=== PATIENT | female | born 1980 | race Caucasian/White ===

== ENCOUNTER 2023-06-01 12:43 | Emergency (ER) | payer OTHER, SELFPAY ==
[2023-06-01 12:50] VITALS: BP 117/82; PULSE 90; RESP 16; TEMP 37.5; O2SAT 99
--- NOTE | 2023-06-01 13:14 | ED.GENADULT ---
HPI - General Adult General Chief complaint: Upper Respiratory Infection Stated complaint: Cough/Fever/Body Aches Time Seen by Provider: 06/01/23 13:14 Source: patient, RN notes reviewed and old records reviewed Mode of arrival: ambulatory Limitations: no limitations History of Present Illness HPI narrative: 43-year-old female presents to the [facility] with complaints of cough, body aches Took an at home cOVID test on Monday and again today which she reports as negative. Patient concern for flu. Related Data Home Medications Medication Instructions Recorded Confirmed diltiazem HCl 120 mg 120 mg PO DAILY 06/01/23 06/01/23 capsule,extended release 24 hr, controlled Allergies Allergy/AdvReac Type Severity Reaction Status Date / Time No Known Drug Allergies Allergy Verified 08/16/13 10:22 Review of Systems Review of Systems: All systems reviewed & are unremarkable except as noted in HPI and below Constitutional: Constitutional: Reports as per HPI, Reports body ache(s), Reports fatigue and Reports fever(s) Eyes: Eyes: Reports no additional eye complaints ENT: Reports system reviewed and no additional complaints, except as documented Cardiovascular: Cardiovascular: Reports no additional cardiovascular complaints, Denies chest pain and Denies dyspnea Respiratory: Respiratory: Reports as per HPI, Denies chest congestion, Reports cough and Denies dyspnea Gastrointestinal: Gastrointestinal: Reports no additional gastrointestinal complaints, Denies abdominal pain, Denies nausea and Denies vomiting Musculoskeletal: Musculoskeletal: Reports no additional musculoskeletal complaints Integumentary/Breasts: Skin/Breast: Reports system reviewed and no additional complaints, except as docu Neurologic: Reports system reviewed and no additional complaints, except as documented Psychiatric: Psychiatric: Reports no additional psychiatric complaints Allergic/Immunologic: Allergic/Immunologic: Reports no additional allergic/immunologic complaints PMFSH Comments At the time of my signature, I reviewed and agree with the nursing past medical, surgical, social, and family history. There is no relevant family history pertinent to the patient complaint. Exam Const: General: cooperative, healthy appearing, comfortable, no acute distress, well developed, alert and well nourished Nutritional Appearance: well nourished Orientation/consciousness: patient oriented x3 Limitations: no limitations HENMT: Head: normal to inspection Ears: hearing grossly normal bilaterally and external ears normal Face/Nose/Sinus: Normal external nose present, Normal nares present, Normal nasal mucous membranes and turbinates present, normal facial exam and face symmetric Face and sinus: normal facial exam and face symmetric Mouth: Yes Normal oral and palatal mucosa present, Yes lip normal and Yes moist mucous membranes Throat: posterior oropharynx normal, tonsils normal and uvula midline Eyes: General: appearance normal, both eyes and all related structures Alignment and Position: alignment normal Periorbital: periorbital findings normal Pupils: Equal, round and reactive pupils present EOM: EOMs intact bilaterally Neck: Neck: normal visual inspection, full ROM, no lymphadenopathy and no meningeal signs Chest: Chest palpation & inspection: normal inspection of the chest Resp: Effort & Inspection: normal respiratory effort and able to speak in complete sentences Auscultation: clear to auscultation bilaterally, no crackles, no rales, no rhonchi and no wheezes Cardio: Rate: regular rate Rhythm: regular rhythm Back/Spine/Pelvis: Cervical Spine: cervical ROM normal Skin: General skin exam: normal color and no rashes or lesions noted Lesions: no lesions Rashes: no rashes Wounds: no wounds Neuro: General: patient oriented x3, gait normal, tone normal, moves all extremities and no meningeal signs Cranial nerves: Yes Equal, round and reactive pupi
== END 2023-06-01 13:49 | disposition home or self-care (01) ==
PROVIDERS: Emergency Provider Nurse Practitioner; PCP Internal Medicine
DX: J10.1 Influenza due to other identified influenza virus with other respiratory manifestations (principal)
CPT/HCPCS: 87804; 99213; G0463

== ENCOUNTER 2024-06-17 09:32 | Emergency (ER) | payer OTHER, SELFPAY ==
[2024-06-17 09:39] VITALS: BP 114/76; PULSE 97; RESP 18; TEMP 38; O2SAT 100
--- NOTE | 2024-06-17 09:44 | ED_ITS ---
HPI - URI/Sore Throat General Chief Complaint: Upper Respiratory Infection Stated Complaint: poss sinus infection Time Seen by Provider: 06/17/24 09:44 Source: patient, RN notes reviewed and old records reviewed Mode of arrival: ambulatory Limitations: no limitations History of Present Illness HPI Narrative: 44 year old female who [facility] with complaints of 2 days of sinus congestion with drainage,sore throat yesterday, headache, coughing increased at night with reports of no fever. and some left ear discomfort. Patient reports that she has taken Ibuprofen and NyQuil for her symptoms. MD elicited complaint: cough, sore throat, rhinorrhea, nasal congestion and other (headache) Pertinent past history: pneumonia, sinusitis and other (bronchitis former cigarette smoker now vapes) Onset (ago): day(s) (2) Severity: moderate Description of mucous: clear and yellow Able to tolerate fluids by mouth: Yes Treatments prior to arrival: ibuprofen and other (NyQuil) Related Data Home Medications ?Medication ?Instructions ?Recorded ?Confirmed ?Last Taken ?Type diltiazem HCl 120 mg 120 mg PO DAILY 06/01/23 06/17/24 Unknown History capsule,extended release 24 hr, controlled Allergies Allergy/AdvReac Type Severity Reaction Status Date / Time No Known Drug Allergies Allergy Verified 08/16/13 10:22 Review of Systems Review of Systems: CONSTITUTIONAL: reports malaise,no chills, sweats, or fever. EYES: Denies visual changes, redness, or discharge. ENT: Reports rhinorrhea, congestion, sinus pain,left otalgia and some sore throat. CARDIOVASCULAR: Denies chest pain, palpitations, or edema. RESPIRATORY: Reports cough.? Denies dyspnea. GASTROINTESTINAL: Denies abdominal pain, nausea, vomiting, diarrhea SKIN: Denies rash or itching. MUSCULOSKELETAL: Denies myalgia. NEUROLOGIC:Reports headache. All systems reviewed & are unremarkable except as noted in HPI and below PMFSH Past Medical History Medical History (Updated 06/20/24 @ 14:25 by Gabbi Magaña NP) Anxiety and depression Bronchitis Pneumonia Sinusitis Social History Social History (Updated 06/20/24 @ 14:10 by Gabbi Magaña NP) Smoking packs per day: 0.5 Smoking cigarettes per day: 10.0 Years smoked: 20 Smoking pack-years: 10.00 Smoking status: Current every day smoker Tobacco type: e-cigarettes/vaping Additional smoking assessment comments: former cigarette smoker now vapes Alcohol intake: current Alcohol use details: social Substance use type: does not use Living arrangements: with family Gender identity (if verbalized by the patient): Female Comments At time of signature, agree with nursing past medical, surgical, social and family history. There is no relevant family history pertinent to the presenting complaint Exam Narrative: GENERAL: Well-appearing, well-nourished, and in no acute distress. HEAD: Normocephalic EYES: PERRLA, conjunctivae clear ENT: Nares clear, turbinates edematous and erythematous, clear discharge, sinus pressure clear to light yellow,. Mucous membranes moist. TM pearly verma with dull light reflex bilaterally; no tragal tenderness. Oropharynx erythematous without lesions. Tonsils not enlarged and without exudate, no drooling, no hoarseness, no trismus, uvula midline.post nasal drainage NECK: Supple. No lymphadenopathy CHEST: Clear to auscultation, breath sounds equal. No wheezing, rhonchi, rales, or stridor. No respiratory distress, speaks in full sentences.cough SAO2 100 % on room air HEART: Regular rate and rhythm. No murmur heard. SKIN: Warm, dry, no rash. NEURO: Alert and oriented x3. PSYCH: Normal mood and affect Course Course Emergency Course: Patient is aware of diagnosis, understands and agrees to treatment plan.? Anticipatory guidance given.? Patient agrees to follow-up as directed and is aware of reasons to seek care at the emergency department. Portions of this record may have been created with voice recognition software Level of Care: Express Care Visit Vital Signs Vital signs: Vital Signs Temperature 38.0 C H 06/17/24 09:39 Pulse Rate 97 06/17/24 09:39 Respiratory Rate 18 06/17/24 09:39 Blood Pressure 114/76 06/17/24 09:39 Pulse Oximetry 100 06/17/24 09:39 Oxygen Delivery Room Air 06/17/24 09:39 Temperature 38.0 C H 06/17/24 09:39 Pulse Rate 97 06/17/24 09:39 Respiratory Rate 18 06/17/24 09:39 Blood Pressure 114/76 06/17/24 09:39 Pulse Oximetry 100 06/17/24 09:39 Oxygen Delivery Room Air 06/17/24 09:39 Reviewed MDM - URI/Sore Throat MDM Narrative Medical decision making narrative: Differential diagnosis considered: Pathak virus, strep pharyngitis, allergic rhinitis, upper respiratory tract infection, sinusitis, rhinosinusitis, nasopharyngitis. viral pharyngitis, otitis media, otitis externa, pneumonia, bronchitis, viral cough syndrome, viral syndrome, and influenza.? Exam findings show no acute concerns or changes; patient is non-toxic appearing and is in no distress.? Patient is appropriate for outpatient treatment and follow-up. Differential Diagnosis Differential diagnosis: Likely upper respiratory infection, sinusitis, viral infection, pharyngitis and other (cough) Medical Records Attestation: I reviewed the patient's medical records. Lab Data Attestation: I reviewed the patient's lab results. Critical Care Time Critical Care Time Critical Care Time: No Discharge Plan Discharge Clinical Impression: Sinusitis Qualifiers: Sinusitis location: pansinusitis Chronicity: acute Recurrence: not specified as recurrent Qualified Code(s): J01.40 - Acute pansinusitis, unspecified Patient Disposition: Home, Self-Care Condition: Stable Instructions: Antibiotic Form, Sinusitis (ED) Additional Instructions: Increase fluids especially juices and water [id number] cough and cold medicine of your choice for your symptoms Zyrtec Claritin or Indu daily include plain Sudafed with this in a.m. and p.m. Tylenol or ibuprofen for any fever pain heat to the face 20-30 minutes 4-6 times a day for pain Salt water gargles, throat lozenges or throat sprays as desired Antibiotic as directed--finished the medication Monitor for fevers If your symptoms persist, change or worsen significantly before you can contact your personal physician then please, without delay, go to the emergency department for further evaluation. Follow-up with PCP in 7-10 days or sooner if needed Patient Language: Yoruba Prescriptions: New amoxicillin-pot clavulanate 875-125 mg tablet 1 tablet PO Q12H Qty: 20 0RF cetirizine-pseudoephedrine [Zyrtec-D] 5-120 mg tablet extended release 12 hr 1 tablet PO Q12H PRN (Reason: nasal congestion) Qty: 20 0RF No Action diltiazem HCl 120 mg capsule,ext.rel 24h degradable 120 mg PO DAILY Follow-up/Referrals: PHYSICIAN,TUMBLE TAILSTOCK TURRET LATHE OPERATOR [Primary Care Provider] - Time of Disposition: 09:56 Quality [place] Coma Scale Eyes: Open Verbal: Oriented and Alert Motor: Follows Commands Briigtte Coma Total Score: 15
--- OUTSIDE RECORDS SUMMARY | 2024-06-24 23:55 | XMS_ITS | Clinical Summary ---
Author Organization [facility] Care Team Providers Care Supply Aide Name Role Phone Unavailable Primary Care Provider Unavailabl e Social History Tobacco Use Types Packs/Day Years Used Date Smoking Tobacco: Never Assessed Comments Unknown Sex and Gender Information Value Date Recorded Sex Assigned at Not on file Legal Sex Female 10:32 PM CDT Gender Identity Not on file Sexual Orientation Not on file Plan of Treatment Not on file
--- OUTSIDE RECORDS SUMMARY | 2024-06-24 23:55 | XMS_ITS | Referral Summary ---
Author Organization [facility] Address [address] [place] [address] Care Team Providers Care Tool Grinder Set Up Operator Gear Name Role Phone Phil Lundberg MD Primary Care Provider Source Comments [facility],non-owned Affiliates and Associated Physician Practices is amultiple site organization consisting of ambulatory clinics and hospital sitesin [place], [place], [place] and [place]. This disclosure is being madepursuant to the Care Everywhere program and may not contain all information available regarding this patient. Last updated 18.[facility] Allergies No known active allergies Medications * Be aware that medications may not be up to date on this document. Alwaysverify current medications with the patient. Medication Sig Dispensed Refills Start Date End Date Status Escitalopram Oxalate (LEXAPRO PO) Active fluticasone propionate (FLONASE) 50 MCG/ACT nasal sprayIndications:Dysf unction of Eustachian tube, bilateral [place] 2 Sprays into each nostril once daily 1 Bottle 07/21/2016 Active Social History Tobacco Use Types Packs/Day Years Used Date Smoking Tobacco: Every Day Sex and Gender Information Value Date Recorded Sex Assigned at Not on file Gender Identity Not on file Sexual Orientation Not on file Last Filed Vital Signs Vital Sign Reading Time Taken Comments Blood Pressure 122/60 07/21/2016 4:53 PM RADIO RECORDER Pulse 77 07/21/2016 4:53 PM RADIO RECORDER Temperature 36.8 ??C (98.2 ??F) 07/21/2016 4:53 PM CS T Respiratory Rate 18 07/21/2016 4:53 PM RADIO RECORDER Oxygen Saturation 98% 07/21/2016 4:53 PM RADIO RECORDER Inhaled Oxygen Concentration - - Weight 74.8 kg (165 lb) 07/21/2016 4:53 PM RADIO RECORDER Height 175.3 cm (5' 9 ) 07/21/2016 4:53 PM RADIO RECORDER Body Mass Index 24.37 07/21/2016 4:53 PM RADIO RECORDER Plan of Treatment Not on file Care Teams Tool Grinder Set Up Operator Gear Relationship Specialty Start Date End Date Phil Lundberg MD PCP - General Internal Medicine 07/21/16
--- OUTSIDE RECORDS SUMMARY | 2024-06-24 23:55 | XMS_ITS | Encounter Summary ---
Author Organization [facility] Address [address] [place] [address] Care Team Providers Care Motorcycle Sales Associate Name Role Phone Phil Lundberg MD Primary Care Provider [phone] Reason for Visit * Reason Onset Date Comments Follow-up 07/23/2016 Encounter Details Date Type Department Care Team ([facility] Contact Info) Description 07/23/2016 Telephone [facility] [address] [phone] Grace Reilly, PLATE FILLER-[address] [phone] Follow-up Social History Tobacco Use Types Packs/Day Years Used Date Smoking Tobacco: Every Day Sex and Gender Information Value Date Recorded Sex Assigned at Not on file Gender Identity Not on file Sexual Orientation Not on file documented as of this encounter Plan of Treatment Not on file documented as of this encounter Visit Diagnoses Not on filedocumented in this encounter Care Teams Motorcycle Sales Associate Relationship Specialty Start Date End Date Phil Lundberg MD PCP - General Internal Medicine 07/21/16 documented as of this encounter
--- OUTSIDE RECORDS SUMMARY | 2024-06-24 23:55 | XMS_ITS | Encounter Summary ---
Author Organization [facility] Address [address] [place] [address] Care Team Providers Care Administrative Medical Director Name Role Phone Unavailable Primary Care Provider Unavailabl e Encounter Details Date Type Department Care Team (Late st Contact Info) Description 06/16/2021 1:45 PM NEWSPAPER INSERTER Rapid Evaluation [place] [facility] Community Testing [facility] [address] [place] [address] Social History Tobacco Use Types Packs/Day Years [...]
--- OUTSIDE RECORDS SUMMARY | 2024-06-24 23:55 | XMS_ITS | Clinical Summary ---
Author Organization [facility] Address [address] [place] [address] Care Team Providers Care Aquatics Lifeguard Name Role Phone Phil Lundberg MD Primary Care Provider [phone] Source Comments [facility],non-owned Affiliates and Associated Physician Practices is amultiple site organization consisting of ambulatory clinics and hospital sitesin [place], [place], [place] and [place]. This disclosure is being madepursuant to the Care Everywhere program and may not contain all information available regarding this patient. Last updated 18.[facility] Allergies No known active allergies Medications * Be aware that medications may not be up to date on this document. Alwaysverify current medications with the patient. Medication Sig Dispensed Refills Start Date End Date Status Escitalopram Oxalate (LEXAPRO PO) Active fluticasone propionate (FLONASE) 50 MCG/ACT nasal sprayIndications:Dysf unction of Eustachian tube, bilateral [place] 2 Sprays into each nostril once daily 1 Bottle 07/21/2016 Active Social History Tobacco Use Types Packs/Day Years Used Date Smoking Tobacco: Every Day Sex and Gender Information Value Date Recorded Sex Assigned at Not on file Gender Identity Not on file Sexual Orientation Not on file Last Filed Vital Signs Vital Sign Reading Time Taken Comments Blood Pressure 122/60 07/21/2016 4:53 PM SCIENTIFIC AFFAIRS MANAGER Pulse 77 07/21/2016 4:53 PM SCIENTIFIC AFFAIRS MANAGER Temperature 36.8 ??C (98.2 ??F) 07/21/2016 4:53 PM CS T Respiratory Rate 18 07/21/2016 4:53 PM SCIENTIFIC AFFAIRS MANAGER Oxygen Saturation 98% 07/21/2016 4:53 PM SCIENTIFIC AFFAIRS MANAGER Inhaled Oxygen Concentration - - Weight 74.8 kg (165 lb) 07/21/2016 4:53 PM SCIENTIFIC AFFAIRS MANAGER Height 175.3 cm (5' 9 ) 07/21/2016 4:53 PM SCIENTIFIC AFFAIRS MANAGER Body Mass Index 24.37 07/21/2016 4:53 PM SCIENTIFIC AFFAIRS MANAGER Plan of Treatment Health Maintenance Due Date Last Done Comments COLOGUARD (AGES 45-75) - COL ON CA SCREENING 1979 COLON MONITORING 1979 COLONOSCOPY - COLON CA SCREENING 1979 CT COLONOGRAPHY - COLON CA SCREENING 1979 Colorectal Cancer Screening 1979 FIT - COLON CA SCREENING 1979 FLEX SIG - COLON CA SCREENING 1979 LIPID TESTING 1979 MAMMOGRAM 1979 PAP SMEAR 1979 PNEUMOCOCCAL VACCINE (1 of 2 - PCV) 1985 HIV SCREENING 1994 HEPATITIS C SCREENING 02/21/1997 DTAP/TDAP/TD VACCINES (1 - Tdap) 1998 HEPATITIS B VACCINE (1 of 3 - 19+ 3-dose series) 1998 DEPRESSION SCREENING 06/19/2023 COVID-19 VACCINE (1 - 2023-2 5 season) 2024 INFLUENZA VACCINE (#1) 2024 ZOSTER VACCINE (1 of 2) 2029 HIB VACCINE Aged Out No longer eligi ble based on patient's age to complete this topic HPV VACCINE Aged Out No longer eligi ble based on patient's age to complete this topic MENINGOCOCCAL VACCINE Aged Out No [place] leila eligible based on patient's age to complete this topic Care Teams Aquatics Lifeguard Relationship Specialty Start Date End Date Phil Lundberg MD PCP - General Internal Medicine 2/2/17
--- OUTSIDE RECORDS SUMMARY | 2024-06-24 23:55 | XMS_ITS | Encounter Summary ---
Author Organization [facility] Address [address] [place] [address] Care Team Providers Care Social Security Assessor Name Role Phone Phil Lundberg MD Primary Care Provider + [phone] Reason for Visit * Reason Comments Sore Throat 2 days. both childre n diagnosed with strep 3 days ago. Dizziness Encounter Details Date Type Department Care Team (Late st Contact Info) Description 07/21/2016 5:00 PM ONBOARDING SPECIALIST Office Visit [facility] AT [address] [address] Provider, Mercedes [facility] Nasopharyngitis acute (Primary Dx); Dysfunction of eustachian tube, bilateral Social History Tobacco Use Types Packs/Day Years Used Date Smoking Tobacco: Every Day Sex and Gender Information Value Date Recorded Sex Assigned at Not on file Gender Identity Not on file Sexual Orientation Not on file documented as of this encounter Last Filed Vital Signs Vital Sign Reading Time Taken Comments Blood Pressure 122/60 07/21/2016 4:53 PM ONBOARDING SPECIALIST Pulse 77 07/21/2016 4:53 PM ONBOARDING SPECIALIST Temperature 36.8 ??C (98.2 ??F) 07/21/2016 4:53 PM CS T Respiratory Rate 18 07/21/2016 4:53 PM ONBOARDING SPECIALIST Oxygen Saturation 98% 07/21/2016 4:53 PM ONBOARDING SPECIALIST Inhaled Oxygen Concentration - - Weight 74.8 kg (165 lb) 07/21/2016 4:53 PM ONBOARDING SPECIALIST Height 175.3 cm (5' 9 ) 07/21/2016 4:53 PM ONBOARDING SPECIALIST Body Mass Index 24.37 07/21/2016 4:53 PM ONBOARDING SPECIALIST documented in this encounter Patient Instructions * Patient Instructions* Grace Reilly APRN-CNP - 07/21/2016 5:19 PM ONBOARDING SPECIALIST Upper Respiratory Infection WHAT YOU NEED TO KNOW: What is an upper respiratory infection? An upper respiratory infection is also called a common cold. It can affect your nose, throat, ears, and sinuses. What causes a cold? The common cold is caused by a virus. There are many different cold viruses, and each is contagious. This means it can be easily spread to another person when the sick person coughs or sneezes. It can also be spread if you touch something that a person with a cold has touched. You are more likely to get a cold in the winter. Your risk of getting a cold may be increased if you smoke cigarettes or have allergies, such as hay fever. What are the signs and symptoms of a cold? Cold symptoms are usually worst for the first 3 to 5 days. You may have any of the following: ?? Runny or stuffy nose ?? Sneezing and coughing ?? Sore throat or hoarseness ?? Red, watery, and sore eyes ?? Fatigue ?? Chills and fever ?? Headache, body aches, or sore muscles How is a cold treated? There is no cure for the common cold. Colds are caused by viruses and do notget better with antibiotics. Most people get better in 7 to 14 days. You may continue to cough for 2 to 3 weeks. The following may help decrease your symptoms: ?? Decongestants help reduce nasal congestion and help you breathe more easily. If you take decongestant pills, they may make you feel restless or not able to sleep. Do not use decongestant sprays for more than a few days. ?? Cough suppressants help reduce coughing. Ask your healthcare provider which type of cough medicine is best for you. ?? NSAIDs , such as ibuprofen, help decrease swelling, pain, and fever. NSAIDs can cause stomach bleeding or kidney problems in certain people. If you take blood thinner medicine, always ask your healthcare provider if NSAIDs are safe for you. Always read the medicine label and follow directions. ?? Acetaminophen decreases pain and fever. It is available without a doctor's order. Ask how much to take and how often to take it. Follow directions. Acetaminophen can cause liver damage if not taken correctly. How can I manage my cold? ?? Use a humidifier or vaporizer. Use a cool mist humidifier or a vaporizer to increase air moisture in your home. This may make it easier for you to breathe and help decrease your cough. ?? Gargle with warm salt water to help your sore throat feel better. Make salt water by adding ?? teaspoon salt to 1 cup warm water. Throat lozenges or spray may also help to relieve a sore throat. ?? Use saline nasal drops to help relieve your congestion. ?? Drink liquids as directed. Liquids help keep your air passages moist and help you cough up mucus. Ask how much liquid to drink each day and which liquids are best for you. ?? Rest as much as possible. Slowly start to do more each day. When should I seek immediate care? ?? You have severe headaches, a stiff neck, or eye pain when you look at bright light. ?? You have chest pain or trouble breathing. When should I contact my healthcare provider? ?? You have a fever over 102??F (39??C). ?? Your sore throat gets worse or you see white or yellow spots in your throat. ?? Your symptoms get worse after 3 to 5 days or your cold is not better in 14 days. ?? You have a rash anywhere on your skin. ?? You have large, tender lumps in your neck. ?? You have thick, green or yellow drainage from your nose. ?? You cough up thick yellow, green, verma, or bloody mucus. ?? You have vomiting for more than 24 hours and cannot keep fluids down. ?? You have a bad earache. ?? You have questions or concerns about your condition or care. CARE AGREEMENT: You have the right to help plan your care. Learn about your health condition and how it may be treated. Discuss treatment options with your caregivers to decide what care you want to receive. You always have the right to refuse treatment. The above information is an behavioral health aide only. It is not intended as medical advice for individual conditions or treatments. Talk to your doctor, nurse or pharmacist before following any medical regimen to see if it is safe and effective for you. ?? 2016 [employer]. Information is for End User's use only and may not be sold, redistributed or otherwise used for commercial purposes. All illustrations and images included in CareNotes?? are the copyrighted property of [employer] or [employer]. Eustachian Tube Dysfunction WHAT YOU NEED TO KNOW: What is eustachian tube dysfunction? Eustachian tube dysfunction (ETD) is a condition that preventsyour eustachian tubes from opening properly. It can also cause them to become blocked. Eustachian tubes connect your middle ear to the back of your nose and throat. These tubes open and allow air to flow in and out when you sneeze, swallow, or yawn. What causes or increases my risk of ETD? ETD may be caused by swelling or buildup of mucus in your eustachian tubes. Allergies, a cold, or sinus infection can increase your risk for ETD. Smoking alsoincreases your risk for ETD. What are the signs and symptoms of ETD? ?? Fullness or pressure in your ears ?? Muffled hearing ?? Pain in one or both ears ?? Ringing in your ears ?? Popping or clicking feeling in your ears ?? Trouble keeping your balance How is ETD diagnosed? Your healthcare provider will ask about your symptoms. He will examine your ears, your nose, and the back of your throat. He may also do a hearing test. How is ETD treated? Your ETD may get better on its own without any treatment. You may need any of the following: ?? Exercises such as swallowing, yawning, or chewing gum may help to open your eustachian tubes. Your healthcare provider may also recommend that you take a deep breath and then blow with your mouth shut and your nostrils pinched closed. ?? Air pressure devices push air into your nose and eustachian tubes to help relieve air pressure in your ear. ?? Treatment for allergies such as decongestants, antihistamines, and nasal steroids may improve ETD. They may help decrease swelling of the eustachian tubes. ?? Ear tubes may help to keep your middle ear open. During this procedure, your healthcare providerwill cut a small hole in your eardrum. ?? A myringotomy is procedure to make a small cut in your eardrum and suction out fluid from your middle ear. ?? Tuboplasty is a procedure to widen your eustachian tubes. When should I contact my healthcare provider? ?? Your symptoms do not improve or get worse. ?? You have a fever. ?? You have any hearing loss. ?? You have questions or concerns about your condition or care. CARE AGREEMENT: You have the right to help plan your care. Learn about your health condition and how it may be treated. Discuss treatment options with your caregivers to decide what care you want to receive. You always have the right to refuse treatment. The above information is an behavioral health aide only. It is not intended as medical advice for individual conditions or treatments. Talk to your doctor, nurse or pharmacist before following any medical regimen to see if it is safe and effective for you. ?? 2016 [employer]. Information is for End User's use only and may not be sold, redistributed or otherwise used for commercial purposes. All illustrations and images included in CareNotes?? are the copyrighted property of [employer]. or [employer]. ARDING SPECIALIST documented in this encounter Progress Notes * Grace Reilly APRN-CNP - 07/21/2016 5:06 PM CST [facility] Chief Complaint Patient presents with ??? Sore Throat 2 days. both children diagnosed with strep 3 days ago. ??? Dizziness SUBJECTIVE: HPI Comments: Symptoms started 2 days ago. Both children were diagnosed with strep 3 days ago. Has sore throat, dizziness, congestion, PND, fatigue Has not used any OTC meds for symptoms. No past medical history on file. No current outpatient prescriptions on file prior to visit. No current facility-administered medications on file prior to visit. No past surgical history on file. History Social History ??? Marital status: Single Spouse name: N/A ??? Number of children: N/A ??? Years of education: N/A Occupational History ??? Not on file. Social History Main Topics ??? Smoking status: Current Every Day Smoker ??? Smokeless tobacco: Not on file ??? Alcohol use: Not on file ??? Drug use: Not on file ??? Sexual activity: Not on file Other Topics Concern ??? Not on file Social History Narrative ??? No narrative on file No family history on file. Current Outpatient Prescriptions Medication Sig Dispense Refill ??? Escitalopram Oxalate (LEXAPRO PO) ??? fluticasone propionate (FLONASE) 50 MCG/ACT nasal spray [place] 2 Sprays into each nostril once daily 1 Bottle 0 No current facility-administered medications for this visit. No Known Allergies REVIEW OF SYSTEMS: Review of Systems Constitutional: Positive for chills and malaise/fatigue. Negative for fever. HENT: Positive for congestion and sore throat. Negative for ear pain. Respiratory: Positive for cough and sputum production. Negative for shortness of breath and wheezing. Gastrointestinal: Positive for nausea. Negative for diarrhea and vomiting. Neurological: Positive for dizziness and headaches. Negative for tingling, speech change and loss of consciousness. OBJECTIVE: General appearance: alert, well appearing, and in no distress. BP 122/60 (BP SITE: LEFT ARM, BP POSITION: SITTING, BP CUFF SIZE: Adult) Pulse 77 Temp 98.2 ??F (Oral) Resp 18 Ht 1.753 m (5' 9 ) Wt 74.8 kg (165 lb) SpO2 98% BMI 24.37 kg/m2 Physical Exam Constitutional: She is oriented to person, place, and time and well-developed, well-nourished, and in no distress. Vital signs are normal. HENT: Head: Normocephalic. Right Ear: Hearing, external ear and ear canal normal. A middle ear effusion is present. Left Ear: Hearing, external ear and ear canal normal. A middle ear effusion is present. Nose: Mucosal edema and rhinorrhea present. Right sinus exhibits no maxillary sinus tenderness and no frontal sinus tenderness. Left sinus exhibits no maxillary sinus tenderness and no frontal sinus tenderness. Mouth/Throat: Uvula is midline, oropharynx is clear and moist and mucous membranes are normal. Neck: Normal range of motion. Neck supple. Cardiovascular: Normal rate, regular rhythm and normal heart sounds. Pulmonary/Chest: Effort normal and breath sounds normal. No respiratory distress. She has no wheezes. She has no rales. Lymphadenopathy: Head (right side): No submandibular, no tonsillar and no posterior auricular adenopathy present. Head (left side): No submandibular, no tonsillar and no posterior auricular adenopathy present. Neurological: She is alert and oriented to person, place, and time. She has normal strength and intact cranial nerves. Gait normal. Skin: Skin is warm and dry. Psychiatric: Mood and affect normal. Vitals reviewed. ASSESSMENT: Office Visit on 07/21/16 STREP A SCREEN Result Value Ref Range Strep A Rapid Negative Negative Strep A INTERNAL CONTROL Present Lot Number [id number] Expiration Date 03/24/2018 Encounter Diagnoses Name Primary? Nasopharyngitis acute Yes ??? Dysfunction of eustachian tube, bilateral PLAN: Orders Placed This Encounter ??? STREP A SCREEN ??? fluticasone propionate (FLONASE) 50 MCG/ACT nasal spray Sig: [place] 2 Sprays into each nostril once daily Dispense: 1 Bottle Refill: 0 May use decongestants Drink plenty of fluids Get plenty of rest Throat lozenges or spray use for throat discomfort Cool mist humidifier Elevate head of bed Tylenol or Ibuprofen per package direction for discomfort\fever (if not allergic) ARDING SPECIALIST documented in this encounter Plan of Treatment Not on file documented as of this encounter Procedures Procedure Name Priority Date/Time Associated Diagnosis Comments STREP A SCREEN - POINT OF CARE (AMB) STL Routine 07/21/2016 Nasopharyngitis acute documented in this encounter Results * STREP A SCREEN (07/21/2016) Strep A Rapid POCT Negative Negative Strep A Internal Control Present Lot # [id number] Expiration Date 03/24/2018 Throat ENTIRE THROAT (SURFACE REGION OF NECK) / Unknown 07/21/2016 [facility] - POINT O F CARE ORDERABLES documented in this encounter Visit Diagnoses Diagnosis Nasopharyngitis acute- Primary Acute nasopharyngitis (common cold) Dysfunction of Eustachian tube, bilateral documented in this encounter Care Teams Social Security Assessor Relationship Specialty Start Date End Date Phil Lundberg MD PCP - General Internal Medicine 07/21/16 documented as of this encounter
--- OUTSIDE RECORDS SUMMARY | 2024-06-24 23:55 | XMS_ITS | Patient Health Summary ---
Author Organization [facility] Address [address] [place] [address] Care Team Providers Care Investment Underwriter Name Role Phone Phil Lundberg MD Primary Care Provider Note from [facility],non-owned Affiliates and Associated Physician Practices is amultiple site organization consisting of ambulatory clinics and hospital sitesin [place], [place], [place] and [place]. This disclosure is being madepursuant to the Care Everywhere program and may not contain all information available regarding this patient. Last updated 18.[facility] Allergies No known active allergies Medications * Be aware that medications may not be up to date on this document. Alwaysverify current medications with the patient. * Escitalopram Oxalate (LEXAPRO PO) * fluticasone propionate (FLONASE) 50 MCG/ACT nasal spray(Started 07/21/2016) [place] 2 Sprays into each nostril once daily Social History Tobacco Use Types Packs/Day Years Used Date Smoking Tobacco: Every Day Sex and Gender Information Value Date Recorded Sex Assigned at Not on file Gender Identity Not on file Sexual Orientation Not on file Last Filed Vital Signs Vital Sign Reading Time Taken Comments Blood Pressure 122/60 07/21/2016 4:53 PM PLASMA CENTER NURSE Pulse 77 07/21/2016 4:53 PM PLASMA CENTER NURSE Temperature 36.8 ??C (98.2 ??F) 07/21/2016 4:53 PM CS T Respiratory Rate 18 07/21/2016 4:53 PM PLASMA CENTER NURSE Oxygen Saturation 98% 07/21/2016 4:53 PM PLASMA CENTER NURSE Inhaled Oxygen Concentration - - Weight 74.8 kg (165 lb) 07/21/2016 4:53 PM PLASMA CENTER NURSE Height 175.3 cm (5' 9 ) 07/21/2016 4:53 PM PLASMA CENTER NURSE Body Mass Index 24.37 07/21/2016 4:53 PM PLASMA CENTER NURSE Procedures * STREP A SCREEN - POINT OF CARE (AMB) STL(Performed 07/21/2016) Performed for Nasopharyngitis acute Results * STREP A SCREEN (07/21/2016) Strep A Rapid POCT Negative Negative Strep A Internal Control Present Lot # [id number] Expiration Date 03/24/2018 Throat ENTIRE THROAT (SURFACE REGION OF NECK) / Unknown 07/21/2016 Grace Reilly [facility] - POINT O F CARE ORDERABLES Care Teams Investment Underwriter Relationship Specialty Start Date End Date Phil Lundberg MD PCP - General Internal Medicine 07/21/16
--- OUTSIDE RECORDS SUMMARY | 2024-06-24 23:56 | XMS_ITS | Encounter Summary ---
Author Organization [facility] Healthcare Address [address] [place] [address] Care Team Providers Care Personal Trainer Name Role Phone Amy Marc MD Primary Care Provider [phone]- [phone] Encounter Details Date Type Department Care Team (Late st Contact Info) Description 09/25/2023 10:55 AM CDT Lab [address] [id number] PSVT (paroxysmal supraventricular tachycardia) (HCC); Pre-procedure lab exam Social History Tobacco Use Types Packs/Day Years Used Date Smoking Tobacco: Former Cigarettes Alcohol Use Standard Drinks/Week Comments Yes 0 (1 standard drink = 0.6 oz pur e alcohol) AUDIT-C Answer Date Recorded Q1: How often do you have a drink containing alcohol? Never 07/06/2023 Q2: How many drinks containi ng alcohol do you have on a typical day when you are drinking? Patient does not drink Q3: How often do you have si x or more drinks on one occasion? Never 07/06/2023 PHQ-2 Answer Date Recorded PHQ-2 Total Score (If total score is 3 or more points, staff should administer the PHQ-9) 5 02/01/2023 Personal Safety Answer Date Recorded Have you ever been in or are you currently in a harmful physical or emotional relationship or is someone making you feel afraid or unsafe? Denies 10/23/2022 Comments No Sex and Gender Information Value Date Recorded Sex Assigned at Not on file Legal Sex Female 12:17 AM MANAGER ASSET Gender Identity Not on file Sexual Orientation Not on file documented as of this encounter Plan of Treatment Not on file documented as of this encounter Procedures Procedure Name Priority Date/Time Associated Diagnosis Comments EGFR Routine 09/25/2023 11:03 AM CDT PSVT (paroxysmal supraventricular tachycardia) (HCC) Pre-procedure lab exam DIFFERENTIAL AUTO Routine 09/25/2023 11: 03 AM CDT PSVT (paroxysmal supraventricular tachycardia) (HCC) Pre-procedure lab exam CBC WITH AUTO DIFFERENTIAL Routine 09/25/2023 11:03 AM CDT PSVT (paroxysmal supraventricular tachycardia) (HCC) Pre-procedure lab exam BASIC METABOLIC PANEL Routine 09/25/2023 11:03 AM CDT PSVT (paroxysmal supraventricular tachycardia) (HCC) Pre-procedure lab exam documented in this encounter Results * eGFR (09/25/2023 11:03 AM CDT) eGFR >90 >=60 mL/min/1. 73 m2 Comment: Interpretive Data Reference Interval Normal ?>/= 90 mL/min/1.73m2 Mildly decreased* ? 60 - 89 mL/min/1.73m2 Mildly to moderately decreased ?45 - 59 mL/min/1.73m2 Moderately to severely decreased ??30 - 44 mL/min/1.73m2 Severely decreased ?15 - 29 mL/min/1.73m2 Kidney Failure ?< 15 ??mL/min/1.73m2 *Relative to young adult level Estimated glomerular filtration rate is determined by the 2020 CKD-EPI equation recommended by the National Kidney Foundation (A Unifying Approach to GFR Estimation: Recommendations of the NKF-ASK Task Force on Reassessing the Inclusion of Race in Diagnosing Kidney Disease, JASN 2020). The CKD-EPI equation should not be used for patients with unstable renal function and has not been validated in children and those over 70. Current interpretive data was last reviewed 2021. Blood 09/25/2023 11:0 3 AM CDT 09/25/2023 11:49 AM CDT Dave Gonzalez MD LAB BLOOD ORDERABLES F inal Result [facility] ([place]) [facility] Department [place] [address] * Differential, auto (09/25/2023 11:03 AM CDT) Neutrophil abs 2.7 1.5 - 6.5 K/cumm Imm gran abs 0.0 0.0 - 0.1 K/cumm [facility] ([place]) Lymphocyte abs 1.9 0.8 - 3.3 K/cumm [facility] ([place]) Monocyte abs 0.4 0.2 - 0.8 K/cumm [facility] ([place]) Eosinophil abs 0.2 0.0 - 0.5 K/cumm [facility] ([place]) Basophil abs 0.1 0.0 - 0.1 K/cumm [facility] ([place]) Neutrophil pct 52.0 % [facility] ([place]) Comment: Interpretive Data Percent cell count reference ranges are not reported, since discordance with absolute values may lead to misinterpretation of CBC data. Current Interpretive Data was last revised on 2017. Imm gran pct 0.2 % [facility] ([facility]) Comment: Interpretive Data Percent cell count reference ranges are not reported, since discordance with absolute values may lead to misinterpretation of CBC data. Current Interpretive Data was last revised on 2017. Lymphocyte pct 35.7 % [facility] ([place]) Comment: Interpretive Data Percent cell count reference ranges are not reported, since discordance with absolute values may lead to misinterpretation of CBC data. Current Interpretive Data was last revised on 2017. Monocyte pct 7.8 % [facility] ([place]) Comment: Interpretive Data Percent cell count reference ranges are not reported, since discordance with absolute values may lead to misinterpretation of CBC data. Current Interpretive Data was last revised on 2017. Eosinophil pct 3.0 % [facility] ([place] Comment: Interpretive Data Percent cell count reference ranges are not reported, since discordance with absolute values may lead to misinterpretation of CBC data. Current Interpretive Data was last revised on 2017. Basophil pct 1.3 % [facility] ([place] Comment: Interpretive Data Percent cell count reference ranges are not reported, since discordance with absolute values may lead to misinterpretation of CBC data. Current Interpretive Data was last revised on 2017. Blood 09/25/2023 11:0 3 AM CDT 09/25/2023 11:49 AM CDT Dave Gonzalez MD LAB BLOOD ORDERABLES F inal Result [facility] ([place]) [facility] Department [place] [address] * CBC with auto differential (09/25/2023 11:03 AM CDT) WBC 5.3 3.8 - 9.9 K/cumm Hgb 14.5 11.9 - 15.5 g/dL [facility]) Hct 44.3 35.6 - 45.5 % [facility]) Plt 347 150 - 400 K/cumm [facility]) MPV 9.9 9.1 - 12.3 fL [facility] RBC 5.03 3.90 - 5.20 M/cumm [facility] MCV 88.1 81.3 - 96.4 fL [facility] MCH 28.8 27.1 - 33.3 pg [facility] MCHC 32.7 32.3 - 35.7 g/dL [facility]) RDW CV 12.6 11.1 - 14.9 % [facility] RDW SD 40.1 35.7 - 48.1 fL [facility] NRBC abs 0.00 0.00 - 0.01 K/cumm [facility]) Blood 09/25/2023 11:0 3 AM CDT 09/25/2023 11:49 AM CDT Dave Gonzalez MD LAB BLOOD ORDERABLES F inal Result [facility] ([place]) [facility] Department [place] [address] * Basic metabolic panel (09/25/2023 11:03 AM CDT) Sodium 137 135 - 145 mmol/L Potassium, pl 3.9 3.3 - 4.9 mmol/L [facility] Chloride 103 97 - 110 mmol/L [facility] CO2 22 22 - 32 mmol/L [facility] Anion gap 12 2 - 15 mmol/L [facility] BUN 9 6 - 25 mg/dL [facility] Creatinine 0.79 0.60 - 1.10 mg/dL [facility] Glucose 76 70 - 199 mg/dL [facility] Comment: Interpretive Data Fasting glucose >/= 126 mg/dl is diagnostic for diabetes. ?? Fasting is defined as no caloric intake for at least 8 hours. Fasting glucose between 100 mg/dl to 125 mg/dl is diagnostic of prediabetes. In a patient with classic symptoms of hyperglycemia or hyperglycemic crisis, a random glucose >/= 200 mg/dl is diagnostic for diabetes. In the absence of unequivocal hyperglycemia, results should be confirmed by repeat testing. The classification and Diagnosis of Diabetes Diabetes Care 2021; 46: S19-S40. Current interpretive data was last revised 2022. Calcium 9.2 8.5 - 10.3 mg/dL [facility]) Blood 09/25/2023 11:0 3 AM CDT 09/25/2023 11:49 AM CDT Dave Gonzalez MD LAB BLOOD ORDERABLES F inal Result [facility] ([place]) [facility] Department [place] [address] documented in this encounter Visit Diagnoses Diagnosis PSVT (paroxysmal supraventricular tachycardia) (HCC) Paroxysmal supraventricular tachycardia Pre-procedure lab exam Pre-procedural laboratory examination documented in this encounter Care Teams Personal Trainer Relationship Specialty Start Date End Date Amy Marc MD [address] [place] [address] PCP - General 11/12/13 documented as of this encounter
--- OUTSIDE RECORDS SUMMARY | 2024-06-24 23:56 | XMS_ITS | Encounter Summary ---
Author Organization [facility] Address [address] [place] [address] Care Team Providers Care Pierce And Shave Press Operator Name Role Phone Amy Marc MD Primary Care Provider [phone]- [phone] Reason for Visit * Auth/Cert (Routine) Specialty Diagnoses / Procedures Referred By Komal infante Referred To Contact Diagnoses PSVT (paroxysmal supraventricular tachycardia) (HCC) PSVT (paroxysmal supraventricular tachycardia) [I47.10] Procedures ABLATION SUPRAVENTRICULAR TACHYCARDIA (SVT) 71231 Referral ID Status Reason Start Date Expiration Date Visits Re quested Visits Authorized [id number] 1 1 Encounter Details Date Type Department Care Team (Latest Contact Info) Description 09/29/2023 11:13 AM CDT Anesthesia Event [facility] Electrophysiology Lab [address] [place] [address] [place] [address] [facility] [address] [place] [address] Ulysses Martinez MD [address] [facility] [id number] [place], [place] [id number] Anesthesia Record Procedure Summary Procedure Name Responsible Anesthesiologist Anesthesia Start Time Anesthesia Stop Time ELECTROPHYSIOLOGIC EVALUATION (EPS) WITH INDUCTION OR ATTEMPTED INDUCTION OF ARRHYTHMIA [id number] Harsha Vaughn MD 09/29/23 1113 10/15/23 1502 Events Date Time Event Comment 09/29/2023 1113 An Start 1113 An Start Data 1114 Start Supplemental O2 1118 An Induction The patient was reevaluated immediately before moderate or deep sedation use and before anesthesia induction. 1130 Anesthesia Ready 1250 Handoff to RN I completed my handoff to the receiving nurse during which we: 1. Patient identified 2. Responsible provider identified 3. Pertinent medical history reviewed 4. Procedure type and surgical course discussed 5. Intraoperative anesthetic management and any significant issues discussed 6. Expectations and concerns for postop period discussed 7. Questions solicited from receiving nurse 8. Patient disposition at the time of handoff: No value filed. 10/15/2023 1502 An Stop 1502 Chart Exception (Billing) Th is event is only to be used when the record fails to meet documentation requirements for billing and thus is unable to be signed through the regular documentation verification process. Please document reason for use: Unable to correct deficiency. Meds Name Total midazolam 2 mg fentaNYL 100 mcg propofol 283,699.35 mg phenylephrine (ANUEL-SYNEPHRIN E) 25,000 mcg in sodium chloride 0.9% 250 mL (100 mcg/mL) infusion 0.83 mg isoproterenol (ISUPREL) 1,00 0 mcg in sodium chloride 0.9% 250 mL (4 mcg/mL) infusion 41 mcg Lactated Ringer's (LR) infusion 500 mL LR 500 mL * Agents Name O2 N2O Air * Blood No blood administrations on file. Lines, Drains, and Airways Type Details Placement Removal Peripheral IV Placement Date: 09/17 08/12; Placement Time: 0913; Catheter Size: 20 G; Orientation: Left, Posterior; Location: Hand; Technique: Anatomical landmarks; Inserted by: Jessica Brown RN; Insertion Attempts: 1; Patient Tolerance: Tolerated well; Removal Date: 09/29/23; Removal Time: 1611 09/29/23 0913 by Agnes Brown RN 09/29/23 1611 by Agnes Brown RN Venous Sheath Placement Date: 09/17 08/12; Placement Time: 1137; Hand Hygiene: Yes; Site Prep: Chlorhexidine; Site Prep Agent Dried: Yes; Sterile Barrier Used: Yes; Initial Exposed Cath: 11 cm; Inserted by: Carlos mitchell; Insertion Attempts: 1; Placement Verification: Ultrasound; Removal Date: 09/29/23; Removal Time: 1237; Cath Tip Cultured: No 09/29/23 1137 by Jose iWley RN 09/29/23 1237 by Jose Wiley RN Venous Sheath Placement Date: 09/17 08/12; Placement Time: 1138; Hand Hygiene: Yes; Site Prep: Chlorhexidine; Site Prep Agent Dried: Yes; Sterile Barrier Used: Yes; Initial Exposed Cath: 12 cm; Insertion Attempts: 1; Placement Verification: Ultrasound; Removal Date: 09/29/23; Removal Time: 1237; Cath Tip Cultured: No 09/29/23 1138 by Jose Wiley RN 09/29/23 1237 by Jose Wiley RN Venous Sheath Placement Date: 09/17 08/12; Placement Time: 1140; Hand Hygiene: Yes; Site Prep: Chlorhexidine; Site Prep Agent Dried: Yes; Sterile Barrier Used: Yes; Initial Exposed Cath: 11 cm; Inserted by: Carlos mitchell; Insertion Attempts: 1; Placement Verification: Ultrasound; Removal Date: 09/29/23; Removal Time: 1237; Cath Tip Cultured: No 09/29/23 1140 by Jose Wiley RN 09/29/23 1237 by Jose Wiley RN Venous Sheath Placement Date: 09/17 08/12; Placement Time: 1142; Hand Hygiene: Yes; Site Prep: Chlorhexidine; Site Prep Agent Dried: Yes; Sterile Barrier Used: Yes; Insertion Attempts: 1; Placement Verification: Ultrasound; Removal Date: 09/29/23; Removal Time: 1237; Cath Tip Cultured: No 09/29/23 1142 by Jose Wiley RN 09/29/23 1237 by Jose Wiley RN Peripheral IV Placement Date: 09/17 08/12; Placement Time: 1235 (created via procedure documentation); Catheter Size: 20 G; Orientation: Right; Location: Hand; Site Prep: Chlorhexidine; Insertion Attempts: 1; Removal Date: 09/29/23; Removal Time: 1436 09/29/23 1235 by David Kilgore CRNA 09/29/23 1436 by Agnes Brown RN documented in this encounter Social History Tobacco Use Types Packs/Day Years Used Date Smoking Tobacco: Former Cigarettes Alcohol Use Standard Drinks/Week Comments Yes 0 (1 standard drink = 0.6 oz pur e alcohol) AUDIT-C Answer Date Recorded Q1: How often do you have a drink containing alcohol? Never 09/29/2023 Q2: How many drinks containi ng alcohol do you have on a typical day when you are drinking? Patient does not drink Q3: How often do you have si x or more drinks on one occasion? Never 09/29/2023 PHQ-2 Answer Date Recorded PHQ-2 Total Score (If total score is 3 or more points, staff should administer the PHQ-9) 5 02/01/2023 Personal Safety Answer Date Recorded Have you ever been in or are you currently in a harmful physical or emotional relationship or is someone making you feel afraid or unsafe? 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 Gender Identity Not on file Sexual Orientation Not on file documented as of this encounter OR Notes * Anesthesia Postprocedure Evaluation - Harsha Vaughn MD - 10/15/2023 3:00 PM CDT Patient: Nasreen Ace Procedure Summary Date: 09/29/23 Room / Location: EP LAB 3 / EP LAB Anesthesia Start: 1113 Anesthesia Stop: Procedures: ELECTROPHYSIOLOGIC EVALUATION (EPS) WITH INDUCTION OR ATTEMPTED INDUCTION OF ARRHYTHMIA [id number] POST DRUG PROGRAM STIM AND PACING (+) [id number] Diagnosis: PSVT (paroxysmal supraventricular tachycardia) ([facility]) (PSVT (paroxysmal supraventricular tachycardia) [I47.10]) Providers: Dave Gonzalez MD Responsible Provider: Harsha Vaughn MD Anesthesia Type: MAC ASA Status: 3 Anesthesia Type: MAC Last vitals BP 118/75 Pulse 65 Temp 36.7 ??C (98.1 ??F) Resp 16 SpO2 100% Anesthesia Post Evaluation Pain management: adequate Airway patency: adequate Cardiovascular status: acceptable Respiratory status: acceptable Hydration status: acceptable Pt is: normothermic Nausea/Vomiting status: none No notable events documented. * Anesthesia Procedure Notes - David Kilgore CRNA - 09/29/2023 12:34 PM CDTAssociated Order(s): Peripheral IV Catheter Peripheral IV Catheter Patient location: OR Staff: Placed by: NAIDA: David Kilgore CRNA Preprocedure prep: Prep solution: chlorhexadine PPE: gloves and provider hat/mask PIV line: Laterality: right Site: hand Catheter size: 20 g Technique: direct visualization Procedure details: good blood return and occlusive dressing applied Number of attempts: 1 Assessment: Events: patient tolerated procedure well with no complications * Anesthesia Preprocedure Evaluation - Harsha Vaughn MD - 09/27/2023 12:30 PM CDT Images from the original note were not included. Anesthesia Evaluation Nasreen Ace is a 43 y.o. female ABLATION SUPRAVENTRICULAR TACHYCARDIA (SVT) [address]653 Pre-Op Diagnosis Codes: * PSVT (paroxysmal supraventricular tachycardia) ([facility]) [I47.10] HISTORY Past Medical History Information obtained from: patient and chart. Neurological + Psychiatric history - anxiety Cardiovascular + Current valvular disease - MR - mild; TR - mild. + Other arrhythmia - PSVT. Respiratory Pertinent negatives: non-smoker (Former) Respiratory system: negative Hepatic / Heme Hepatic/Heme system: negative Gastrointestinal GI system: negative Renal / Renal/ system: negative Musculoskeletal/Pain + Headaches - migraine headaches. Endocrine / Other Endocrine/Other system: negative Review of Systems + SOB Patient Active Problem List Diagnosis Date Noted PSVT (paroxysmal supraventricular tachycardia) (HCC) 09/05/2023 Malaise and fatigue 12/07/2022 Low back pain, non-specific 11/22/2016 Migraine 10/28/2013 Generalized anxiety disorder 10/28/2013 Past Medical History: Diagnosis Date Anxiety Arrhythmia Chest pain Shortness of breath No past surgical history on file. OB History No obstetric history on file. Allergies Allergen Reactions Hydrocodone Nausea only Reaction: nausea, Taking? Last Dose Start Date End Date Provider flecainide (TAMBOCOR) 50 mg tablet -- 07/13/23 -- Dave Gonzalez MD TAKE 1 TABLET BY MOUTH TWICE A DAY hydrOXYzine (ATARAX) 25 mg tablet -- 09/12/22 -- Provider, MD Lindsey No current facility-administered medications for this encounter. Current Outpatient Medications: flecainide (TAMBOCOR) 50 mg tablet hydrOXYzine (ATARAX) 25 mg tablet Social History Tobacco Use Smoking Status Former Types: Cigarettes Smokeless Tobacco Not on file Alcohol Use: Not At Risk (07/06/2023) AUDIT-C Frequency of Alcohol Consumption: Never Average Number of Drinks: Patient does not drink Frequency of Binge Drinking: Never Substance and Sexual Activity Drug Use No Family History Problem Relation Age of Onset Depression Mother Depression; Depression Father Depression; Hypertension Father Hypertension; Obesity Father Obesity; Stroke Father Stroke; Depression Sister Depression; Other Brother Alive and well; Lung cancer Maternal Grandmother Cancer, lung; There were no vitals filed for this visit. PT: No results found for requested labs within last 30 days. INR: No results found for requested labs within last 30 days. APTT: No results found for requested labs within last 30 days. Hgb A1C: No results found for requested labs within last 30 days. CBC RBC: 09/25/2023: 5.03 M/cumm RDW: No results found for requested labs within last 30 days. MCHC: 09/25/2023: 32.7 g/dL MCH: 09/25/2023: 28.8 pg MCV: 09/25/2023: 88.1 fL Hct: 09/25/2023: 44.3 % Hgb: 09/25/2023: 14.5 g/dL WBC: 09/25/2023: 5.3 K/cumm MPV: 09/25/2023: 9.9 fL Platelets: 09/25/2023: 347 K/cumm RDW CV: 09/25/2023: 12.6 % RDW Sd: 09/25/2023: 40.1 fL BMP Glucose: 09/25/2023: 76 mg/dL Calcium: 09/25/2023: 9.2 mg/dL Sodium: 09/25/2023: 137 mmol/L Potassium: 09/25/2023: 3.9 mmol/L CO2: 09/25/2023: 22 mmol/L Chloride: 09/25/2023: 103 mmol/L BUN: 09/25/2023: 9 mg/dL Creatinine: 09/25/2023: 0.79 mg/dL Normal left ventricular systolic function. No focal wall motion abnormalities. Normal left ventricular size. Normal left ventricular wall thickness. Normal left ventricular diastolic function. Ejection fraction is visually estimated at 55-60 %. Ejection fraction is measured at 53 %. Global Longitudinal Strain is -16 %. GLS is borderline. There is mild enlargement of left atrium. Mild mitral valve regurgitation. Mild tricuspid regurgitation. Mild pulmonic regurgitation. Normal sinus rhythm. Electronically Signed By: Clovis Mcmahan MD 2023-01-31 16:38:27 CDT DOS Physical Exam Attestation: With today's edits, I endorse the findings of the anesthesia pre-evaluation assessment dated: 09/27/2023. Anesthesia Plan ASA 3 Planned anesthesia: MAC Induction: Induction: intravenous. Postoperative Plan: No plan for postoperative opioid use. No postoperative mechanical ventilation intended. Patient's planned disposition post procedure is Outpatient. No trial extubation planned. Informed Consent: Discussed plan with attending and PIPELINE INTEGRITY ENGINEER. Consent and Attending signature: I and/or my designee have discussed the anesthesia plan, benefits, possible alternatives, parental presence at time of induction (if indicated), and clinically relevant risks that may include dental injury, unintentional awareness, and/or other complications. The patient and/or parent/legal guardian understand, and agree to proceed. All questions answered. documented in this encounter Plan of Treatment Not on file documented as of this encounter Procedures Procedure Name Priority Date/Time Associated Diagnosis Comments PERIPHERAL LINE Routine 09/29/2023 12:34 PM CDT documented in this encounter Results * Peripheral IV Catheter (09/29/2023 12:34 PM CDT) Narrative David Kilgore CRNA - 09/29/2023 12:34 PM CDT David Kilgore CRNA ? 09/29/2023 12:35 PM Peripheral IV Catheter Patient location: OR Staff: Placed by: NAIDA: David Kilgore CRNA Preprocedure prep: Prep solution: chlorhexadine PPE: gloves and provider hat/mask PIV line: Laterality: right Site: hand Catheter size: 20 g Technique: direct visualization Procedure details: good blood return and occlusive dressing applied Number of attempts: 1 Assessment: Events: patient tolerated procedure well with no complications Harsha Vaughn MD ANESTHESIA ORDERABLES Final R esult documented in this encounter Visit Diagnoses Not on filedocumented in this encounter Administered Medications Inactive Administered Medications - up to 3 most recent administrations Medication Order MAR Action Action Date Dose Rate Site fentaNYL (SUBLIMAZE) preservative free injection intravenous, As needed, Starting on Mon09/29/23 at 1125, Anesthesia Intra-op Given 09/29/2023 11:25 AM CDT 100 mcg isoproterenol (ISUPREL) 1,000 mcg in sodium chloride 0.9% 250 mL (4 mcg/mL) infusion 5 mcg/min (75 mL/hr), 4 mcg/mL, intravenous, Continuous, Starting on Mon09/29/23 at 1300, Until Mon09/29/23 at 2015, Intra-Op, Routine Rate/Dose Change 09/29/2023 12:12 PM CDT 5 mcg/min 75 mL/hr New Bag 09/29/2023 12:09 PM CDT 2 mcg/min 30 mL/hr Lactated Ringer's (LR) infusion 30 mL/hr, intravenous, Continuous, Starting on Mon09/29/23 at 0930, Pre-Op New Bag 09/29/2023 11:20 AM CDT 50 mL/hr Lactated Ringer's (LR) infusion intravenous, Continuous PRN, Starting on Mon09/29/23 at 1130, Anesthesia Intra-op New Bag 09/29/2023 11:30 AM CDT 50 mL/hr midazolam (VERSED) 1 mg/mL preservative free injection intravenous, Administer over 2 Minutes, As needed, Starting on Mon09/29/23 at 1125, Anesthesia Intra-op Given 09/29/2023 11:25 AM CDT 2 mg phenylephrine (ANUEL-SYNEPHRINE) 25,000 mcg in sodium chloride 0.9% 250 mL (100 mcg/mL) infusion intravenous, Continuous PRN, Starting on Mon09/29/23 at 1143, Anesthesia Intra-op New Bag 09/29/2023 11:43 AM CDT 0.2 mcg/kg/min 9.768 mL/hr New Bag 09/29/2023 11:40 AM CDT 0.2 mcg/kg/min 9.768 mL /hr propofoL (DIPRIVAN) 10 mg/mL IV intravenous, Continuous PRN, Starting on Mon09/29/23 at 1127, Anesthesia Intra-op Rate/Dose Change 09/29/2023 12:24 PM CDT 150 mcg/kg/min 73.26 mL/hr Rate/Dose Change 09/29/2023 12:18 PM CDT 125 mcg/kg/min 61 .05 mL/hr Rate/Dose Change 09/29/2023 11:33 AM CDT 100 mcg/kg/min 48 .84 mL/hr documented in this encounter Care Teams Pierce And Shave Press Operator Relationship Specialty Start Date End Date Amy Marc MD 4 [employer] EXEC[employer]IVE [facility] [place] [address] PCP - General 11/12/13 documented as of this encounter
--- OUTSIDE RECORDS SUMMARY | 2024-06-24 23:56 | XMS_ITS | Encounter Summary ---
Author Organization [facility] Address [address] [place] [address] Care Team Providers Care Java Systems Analyst Name Role Phone Amy Marc MD Primary Care Provider +1- [phone] Reason for Visit * Consultation (Routine) - Pending Review Specialty Diagnoses / Procedures Referred By Komal infante Referred To Contact Cardiology Diagnoses PSVT (paroxysmal supraventricular tachycardia) ([facility]) Venita Moon, FIRE SPRINKLER APPARATUS INSPECTOR [address] [facility] [address], [place] [address] Phone: tel: fax: Donovan Apple III, MD [address] [facility] [address] [place] [address] Phone: tel: fax: Referral ID Status Reason Start Date Expiration Date Visits Requested Visits Authorized [id number] Pending Review Specialty Services Required 02/20/2024 03/21/2025 1 1 Encounter Details Date Type Department Care Team (Latest Contact Info) Description 03/26/2024 11:45 AM CDT Office Visit Arrhythmia Center [address] [facility] [address], [place] [id number] Donovan Apple III, MD [address] [address] PSVT (paroxysmal supraventricular tachycardia) (HCC) (Primary Dx); Cardiac arrhythmia, unspecified cardiac arrhythmia type Social History Tobacco Use Types Packs/Day Years [...] making you feel afraid or unsafe? 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 Gender Identity Not on file Sexual Orientation Not on file documented as of this encounter Last Filed Vital Signs Vital Sign Reading Time Taken Comments Blood Pressure 121/62 03/26/2024 11:57 AM CDT Pulse 86 03/26/2024 11:57 AM CDT Temperature - - Respiratory Rate - - Oxygen Saturation - - Inhaled Oxygen Concentration - - Weight 77.1 kg (170 lb) 03/26/2024 11:57 AM CDT Height 175.3 cm (5' 9.02 ) 03/26/2024 11:57 AM C DT Body Mass Index 25.09 03/26/2024 11:57 AM CDT documented in this encounter Progress Notes * Donovan Apple III, MD - 03/26/2024 11:45 AM CDT Images from the original note were not included. New Patient Note- [facility] Arrhythmia Center [facility] Medical [facility] Arrhythmia Center [address] [place] [address], [address] [place], [place] [address] This note was dictated with voice-recognition software, and credit adjuster errors may be present. Subjective/Objective Patient ID: Nasreen Ace is a 44 y.o. female Chief Complaint Tachycardia I had the pleasure of seeing Nasreen Ace in consultation at [facility] Arrhythmia Center at [facility] at the request of Dr. Gonzalez for evaluation of tachycardia. As you know,she is a 44 y.o. female with the following arrhythmia-specific history: pSVT S/p diagnostic EPS, negative for inducible arrhythmia (Dr. Gonzalez, 09/29/23) History of flecainide, diltiazem use On metoprolol Vicky has experienced episodes of palpitations. She was found to have PACs and pAT, nonsustained. Sheunderwent EPS by Dr. Gonzalez with no inducible arrhythmias. She has been treated with diltiazem andflecainide in the past but has not tolerated them due to GI side effects. She is currently using metoprolol on a PRN basis. She was recently in ED with unusual symptoms and a lower heart rate. No recurrence. Past Medical History Past Medical History: Diagnosis Date Anxiety Arrhythmia Chest pain Shortness of breath Past Surgical History History reviewed. No pertinent surgical history. Medications Current Outpatient Medications: hydrOXYzine (ATARAX) 25 mg tablet, 1-2 TABS BY MOUTH AT BEDTIME 30-60 MINUTES BEFORE BEDTIME FOR INSOMNIA, Disp: , Rfl: metoprolol tartrate (LOPRESSOR) 25 mg immediate release tablet, Take 1 tablet (25 mg total) by mouth 2 (two) times a day as needed (elevated heart rates), Disp: 60 tablet, Rfl: 2 Allergies No Known Allergies Family History Family History Problem Relation Age of Onset Depression Mother Depression; Depression Father Depression; Hypertension Father Hypertension; Obesity Father Obesity; Stroke Father Stroke; Depression Sister Depression; Other Brother Alive and well; Lung cancer Maternal Grandmother Cancer, lung; Social History Social History Tobacco Use Smoking status: Former Types: Cigarettes Smokeless tobacco: None Substance and Sexual Activity Drug use: No Sexual activity: None Alcohol Use: Not At Risk (09/29/2023) AUDIT-C Frequency of Alcohol Consumption: Never Average Number of Drinks: Patient does not drink Frequency of Binge Drinking: Never Review of Systems Constitutional: Negative for unintentional weight loss or new fatigue. Respiratory: Negative for worsening dyspnea or cough. Cardiovascular: Negative chest pain, palpitations, syncope. Objective Vitals: 03/26/24 1157 BP: 121/62 Pulse: 86 Weight: 77.1 kg (170 lb) Height: 175.3 cm (5' 9.02 ) General: No acute distress. Pulmonary: Clear to auscultation bilaterally. Cardiovascular: Regular rate/rhythm. No murmurs/rubs. No JVD or lower extremity edema. Diagnostic Data ECG performed today and reviewed personally reveals sinus rhythm 86 bpm. Labs Creatinine Date Value Ref Range Status 03/20/2024 0.80 0.60 - 1.10 mg/dL Final , Plt Date Value Ref Range Status 03/20/2024 302 150 - 400 K/cumm Final , WBC Date Value Ref Range Status 03/20/2024 4.7 3.8 - 9.9 K/cumm Final , Hgb Date Value Ref Range Status 03/20/2024 13.5 11.9 - 15.5 g/dL Final Reviewed above labs, including hemoglobin, platelets, creatinine, WBC. Stable/WNL for pt with SVT. TTE 01/31/23 reviewed. LVEF 53%. Mild LAE. EPS 09/29/23 reviewed. Negative for inducible arrhythmia. Impression and Plan Diagnoses and all orders for this visit: PSVT (paroxysmal supraventricular tachycardia) (HCC) (Primary) Assessment & Plan: Chronic, stable problem. PACs and nonsustained AT. Recommend trial of scheduled metoprolol (instead of PRN) if tolerated. Reassured pt that her arrhythmia is not life-threatening. --Metoprolol 25 mg BID scheduled Orders: - Ambulatory referral to Cardiac Electrophysiology Cardiac arrhythmia, unspecified cardiac arrhythmia type - ECG 12 lead F/u 1 year It was my pleasure to see Nasreen Ace today in the office. Please do not hesitate to contact me with any questions or concerns regarding care. Sincerely, Donovan Apple III, M.D. Cardiac Electrophysiology [facility] Medical Group Arrhythmia Center [facility] documented in this encounter Miscellaneous Notes * Assessment & Plan Note - Donovan Apple III, MD - 03/26/2024 1:04 PM CDTAssociated Problem(s): PSVT (paroxysmal supraventricular tachycardia) (HCC) Chronic, stable problem. PACs and nonsustained AT. Recommend trial of scheduled metoprolol (instead of PRN) if tolerated. Reassured pt that her arrhythmia is not life-threatening. --Metoprolol 25 mg BID scheduled documented in this encounter Plan of Treatment Not on file documented as of this encounter Procedures Procedure Name Priority Date/Time Associated Diagnosis Comments ECG 12-LEAD Routine 03/26/2024 11:58 AM CDT Cardiac arrhythmia, unspecified cardiac arrhythmia type documented in this encounter Results * ECG 12 lead (03/26/2024 11:58 AM CDT) Donovan Apple III, MD ECG ORDERABLES Fin al Result documented in this encounter Visit Diagnoses Diagnosis PSVT (paroxysmal supraventricular tachycardia) (HCC)- Primary Paroxysmal supraventricular tachycardia Cardiac arrhythmia, unspecified cardiac arrhythmia type documented in this encounter Orders Outpatient Referral Count Last Ordered Date Fir st Ordered Date AMB REFERRAL TO CARDIAC ELECTROPHYSIOLOGY 1 03/26/2024 documented in this encounter Care Teams Java Systems Analyst Relationship Specialty Start Date End Date Amy Marc MD [address] [facility] [place] [address] PCP - General 11/12/13 documented as of this encounter
--- OUTSIDE RECORDS SUMMARY | 2024-06-24 23:56 | XMS_ITS | Encounter Summary ---
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
--- OUTSIDE RECORDS SUMMARY | 2024-06-24 23:56 | XMS_ITS | Encounter Summary ---
Author Organization 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 Apple * Telephone Encounter - Katrina Cruz - 02/21/2024 2:27 PM CDT Left pt a message to call us back and schedule appt w/Dr. Apple referred by Dr. Meyer--to continuecare since Dr. Gonzalez left the practice/AFib PVC's documented in this encounter Plan of Treatment Not on file documented as of this encounter Visit Diagnoses Not on filedocumented in this encounter Care Teams Maintenance Trainer Relationship Specialty Start Date End Date Amy Marc MD [address] [employer] [place] [id number] PCP - General 11/12/13 documented as of this encounter
--- OUTSIDE RECORDS SUMMARY | 2024-06-24 23:56 | XMS_ITS | Encounter Summary ---
Author Organization [facility] Address [address] [place] [address] Care Team Providers Care Windows Deployment Technician Name Role Phone Amy Marc MD Primary Care Provider +1- [phone] Encounter Details Date Type Department Care Team (Late st Contact Info) Description 04/11/2023 12:15 PM CDT Lab [address] [phone] PSVT (paroxysmal supraventricular tachycardia) Social History Tobacco Use Types Packs/Day Years Used Date Smoking Tobacco: Former Cigarettes Alcohol Use Standard Drinks/Week Comments Yes 0 (1 standard drink = 0.6 oz pur e alcohol) PHQ-2 Answer Date Recorded PHQ-2 Total Score [...] on file 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 73 m2 [facility] Comment: Interpretive Data Reference Interval Normal ?>/= [...] Current interpretive data was last reviewed 2021. Testing performed by: [facility], [facility], [place] [address] Blood 04/11/2023 12:2 4 PM CDT 04/11/2023 12:46 PM CDT us Dave Gonzalez MD LAB BLOOD ORDERABLES F inal Result [facility] [address] Department [place] [address] * Basic metabolic panel (04/11/2023 12:24 PM CDT) Sodium 140 135 - 145 mmol/L [facility] Comment:[facility] [address], [place] [address] Potassium, pl 4.2 3.3 - 4.9 mmol/L [facility] Comment:[facility] performed [facility] : [facility] [address], [place] [address] Chloride 106 97 - 110 mmol/L [facility] Comment:Testing performed [facility] : [facility] [address], [place] [address] CO2 26 22 - 32 mmol/L [facility] Comment:Testing performed [facility] : [facility] [address], [place] [address] Anion gap 8 2 - 15 mmol/L [facility] Comment:[facility] performed [facility] : [facility] [address], [place] [address] BUN 8 6 - 25 mg/dL [facility] Comment:Testing performed [facility] : [facility] [address], [place] [address] Creatinine 0.79 0.60 - 1.10 mg/dL [facility] Comment:Testing performed [facility] : [facility] [address], [place] [address] Glucose 71 70 - 199 mg/dL [facility] Comment: Interpretive Data Fasting glucose >/= 126 [...] Current interpretive data was last revised 2022. Testing performed [facility]: [facility] [address], [place] [address] Calcium 9.5 8.5 - 10.3 mg/dL [facility] Comment:[facility] performed [facility] [address], [place] [address] Blood 04/11/2023 12:2 4 PM CDT 04/11/2023 12:24 PM CDT us Dave Gonzalez MD LAB BLOOD ORDERABLES F inal Result [facility] [address] Department [place] [address] documented in this encounter Visit Diagnoses Diagnosis PSVT (paroxysmal supraventricular tachycardia) (HCC) Paroxysmal supraventricular tachycardia documented in this encounter Care Teams Windows Deployment Technician Relationship Specialty Start Date End Date Amy Marc MD [address] [place] [address] PCP - General 11/12/13 documented as of this encounter
--- OUTSIDE RECORDS SUMMARY | 2024-06-24 23:56 | XMS_ITS | Encounter Summary ---
Author Organization [facility] Healthcare Address [address] [place] [address] Care Team Providers Care Maintenance Parts Technician Name Role Phone Amy Marc MD Primary Care Provider +1- [phone] Encounter Details Date Type Department Care Team (Latest Contact Info) Description 11/29/2023 10:21 AM CDT - 11/29/2023 11:59 PM CDT Hospital Encounter 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 Gender Identity Not on file Sexual Orientation Not on file documented as of this encounter Medications at Time of Discharge hydrOXYzine (ATARAX) 25 mg tablet 1-2 TABS BY MOUTH AT BEDTIME 30-60 MINUTES BEFORE BEDTIME FOR INSOMNIA 09/12/2022 documented as of this encounter Discharge Disposition Disposition Code Departure Means Destination Discharge to home or self care documented in this encounter Plan of Treatment Not on file documented as of this encounter Procedures Procedure Name Priority Date/Time Associated Diagnosis Comments XR WRIST RIGHT 3 OR MORE VIEWS Schedule Routine, Read Routine (OP Routine) 11/29/2023 10:40 AM CDT Right wrist pain documented in this encounter Results * XR Wrist Right 3 or More Views (11/29/2023 10:40 AM CDT) Anatomical Region Laterality Modality Upper Extremities, Wrist Right Compute d Radiography 11/30/2023 12:2 6 PM CDT Narrative 11/30/2023 12:27 PM CDT EXAM DESCRIPTION: XR WRIST RIGHT 3 OR MORE VIEWS REASON FOR STUDY: Persistant right wrist pain ?? Pain in right wrist X 3-4 months ??No known injury ?? States hearing/feeling snapping and popping ? FINDINGS: Three views submitted with comparison 02/01/2023. No acute fractures are identified. ??Alignment is normal. 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 ??There is no dorsal wrist soft tissue swelling. 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 THIS IS AN ELECTRONICALLY VERIFIED FINAL REPORT 11/30/2023 12:27 PM - Electronically signed by ??Marshall Mock M.D. MF: [email or web address] D: ??11/30/2023 12:27 PM T: ??11/30/2023 12:27 PM Report ID: [id number] Reading Location: ??[id number] Procedure Note Marshall Mcok MD - 11/30/2023 EXAM DESCRIPTION: XR WRIST RIGHT 3 OR MORE VIEWS REASON FOR STUDY: Persistant right wrist pain Pain in right wrist X 3-4 months No known injury States hearing/feeling snapping and popping FINDINGS: Three views submitted with comparison 02/01/2023. No acute fractures are identified. Alignment is normal. 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 There is no dorsal wristsoft tissue swelling. 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 THIS IS AN ELECTRONICALLY VERIFIED FINAL REPORT 11/30/2023 12:27 PM - Electronically signed by Marshall Mock M.D. MF: [email or web address] Report ID: [id number] Reading Location: [place] [address] [address] CAREER TRANSITION SPECIALIST IMG XR PROCEDURES Final Result documented in this encounter Visit Diagnoses Not on filedocumented in this encounter Care Teams Maintenance Parts Technician Relationship Specialty Start Date End Date Amy Marc MD [address] [place] [address] PCP - General 11/12/13 documented as of this encounter
--- OUTSIDE RECORDS SUMMARY | 2024-06-24 23:56 | XMS_ITS | Encounter Summary ---
Author Organization [facility] Address [address] [place] [address] Care Team Providers Care Mold Carrier Name Role Phone Amy Marc MD Primary Care Provider +1- [phone] Reason for Referral * Procedure (Routine) - Canceled Specialty Diagnoses / Procedures Referred By Komal infante Referred To Contact Cardiology Diagnoses PSVT (paroxysmal supraventricular tachycardia) (HCC) Dave Gonzalez MD [address] [place] [address] Phone: tel: fax: [facility] Medical [facility] Cardiology [address] [place] [phone] Phone: tel: fax: Referral ID Status Reason Start Date Expiration Date Visits Requested Visits Authorized [id number] Canceled Specialty Services Required 09/05/2023 10/04/2024 1 1 Question Answer Please select the performing region: [facility] [[id number]] Please select the performing department: [facility] [[id number]] # of visits: 1 Comments PROCEDURE/TEST ORDERED: SVT Ablation LOCATION: [facility] DATE OF SERVICE: 09/29/23 INSURANCE: [employer] DIAGNOSIS:SVT ORDERING PROVIDER: Dr. 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 Reviewed pre procedure instructions. Copy of instructions, lab orders, and apt reminders sent in mail. Pt verbalized understanding of all information received. * Addendum Note - Howie Buckner RN - 09/05/2023 8:33 AM CDTAddended by: HOWIE BUCKNER on: 09/05/2023 08:33 AM Modules accepted: Orders * Telephone Encounter - Howie Buckner RN - 09/05/2023 8:31 AM CDT Pt scheduled for SVT Ablation On 09/29/23 at 1030 at [facility] with Dr. Gonzalez Dx: SVT Insurance: [employer] Arrival time: 0830 Labs: CBC, BMP / at [facility] Hold medications: last dose of flecainide 09/25 [employer] rep contacted for booking F/u apt scheduled w/Venita MANPOWER DEVELOPMENT ADVISOR 10/23 * Telephone Encounter - Howie Buckner RN - 09/01/2023 12:[address] Gonzalez, Schedule ablaton on Thursday 09/28 as second case. -NO PAT needed -Last dose of Flecainide 09/25 morning -Standard labs documented in this encounter Plan of Treatment Scheduled Referrals Name Type Priority Associated Diagnoses Orde r Schedule Ambulatory referral to Cardiology Outpatient Referral Routine PSVT (paroxysmal supraventricular tachycardia) (CMS/HCC) (HCC) Expected: 09/05/2023 (Approximate), Expires: 09/04/2024 documented as of this encounter Results * Basic metabolic panel (09/25/2023 11:03 AM CDT) Sodium 137 135 - 145 mmol/L Potassium, pl 3.9 3.3 - 4.9 mmol/L [facility] ([facility]) Chloride 103 97 - 110 mmol/L [facility] ([facility]) CO2 22 22 - 32 mmol/L [facility] ([facility]) Anion gap 12 2 - 15 mmol/L [facility] ([facility]) BUN 9 6 - 25 mg/dL [facility] ([facility]) Creatinine 0.79 0.60 - 1.10 [...] classification and Diagnosis of Diabetes Diabetes Care 202; 46: S19-S40. Current interpretive data was last revised 2022. Calcium 9.2 8.5 - 10.3 mg/dL [facility] ([facility]) Blood 09/25/2023 11:0 3 AM CDT 09/25/2023 11:49 AM CDT Dave Gonzalez MD LAB BLOOD ORDERABLES F inal Result [facility] ([facility]) [address] [facility] Department [place] [address] * CBC with auto differential (09/25/2023 11:03 [...] RDW CV 12.6 11.1 - 14.9 % [facility] ([facility]) RDW SD 40.1 35.7 - 48.1 fL [facility] ([facility]) NRBC abs 0.00 0.00 - 0.01 K/cumm [facility] ([facility]) Blood 09/25/2023 11:0 3 AM CDT 09/25/2023 11:49 AM CDT Dave Gonzalez MD LAB BLOOD ORDERABLES F inal Result [facility] ([facility]) [address] [facility] [place] [address] documented in this encounter Visit Diagnoses Diagnosis PSVT (paroxysmal supraventricular tachycardia) (HCC)- Primary Paroxysmal supraventricular tachycardia Pre-procedure lab exam Pre-procedural laboratory examination documented in this encounter Care Teams Mold Carrier Relationship Specialty Start Date End Date Amy Marc MD [address] [employer] [place] [address] PCP - General 11/12/13 documented as of this encounter
--- OUTSIDE RECORDS SUMMARY | 2024-06-24 23:56 | XMS_ITS | Encounter Summary ---
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 Gonzalez sign by Dr. Gonzalez. DIPPER documented in this encounter Plan of Treatment Not on file documented as of this encounter Procedures Procedure Name Priority Date/Time Associated Diagnosis Comments ECG 12-LEAD Routine 07/04/2023 Medication monitoring encounter PSVT (paroxysmal supraventricular tachycardia) documented in this encounter Results * ECG 12 lead (07/04/2023) Dave Gonzalez MD ECG ORDERABLES Final Result documented in this encounter Visit Diagnoses Diagnosis Medication monitoring encounter- Primary Encounter for therapeutic drug monitoring PSVT (paroxysmal supraventricular tachycardia) (HCC) Paroxysmal supraventricular tachycardia documented in this encounter Care Teams Legal Executive Relationship Specialty Start Date End Date Amy Marc MD [address] [facility] [place] [address] PCP - General 11/12/13 documented as of this encounter
--- OUTSIDE RECORDS SUMMARY | 2024-06-24 23:56 | XMS_ITS | Encounter Summary ---
Author Organization [facility] Address [address] [place] [address] Care Team Providers Care Toe Laster Name Role Phone Amy Marc MD Primary Care Provider [phone] Reason for Visit * Auth/Cert (Routine) Specialty Diagnoses / Procedures Referred By Komal t Referred To Contact Diagnoses PSVT (paroxysmal supraventricular tachycardia) (HCC) PSVT (paroxysmal supraventricular tachycardia) [I47.10] Procedures ABLATION SUPRAVENTRICULAR TACHYCARDIA (SVT) 58225 Referral ID Status Reason Start Date Expiration Date Visits Re quested Visits Authorized [id number] 1 1 Encounter Details Date Type Department Care Team (Latest Contact Info) Description 09/29/2023 8:26 AM CDT - 09/29/2023 3:52 PM CDT Hospital Encounter [facility] Operating Room [address] [place] [address] Dave Gonzalez MD [address] [place] [id number] PSVT (paroxysmal supraventricular tachycardia) Discharge Disposition: Discharge to home or self [...] on file Legal Sex Female 12:17 AM [employer] Gender Identity Not on file Sexual Orientation Not on file documented as of this encounter Last Filed Vital Signs Vital Sign Reading Time Taken Comments Blood Pressure 118/75 09/29/2023 2:34 PM CDT Pulse 65 09/29/2023 2:34 PM CDT Temperature 36.7 ??C (98.1 ??F) 09/29/2023 1:25 PM CD T Respiratory Rate 16 09/29/2023 2:34 PM CDT Oxygen Saturation 100% 09/29/2023 2:34 PM CDT Inhaled Oxygen Concentration - - Weight 81.4 kg (179 lb 8 oz) 09/29/2023 8:38 AM CDT Height 175.3 cm (5' 9 ) 09/29/2023 8:38 AM CDT Body Mass Index 26.51 09/29/2023 8:38 AM CDT documented in this encounter Discharge Instructions * Discharge Instructions* Venita Moon NP - 09/29/2023 10:22 AM CDT Cardiology Electrophysiology Post Procedure Note Patient: Nasreen Ace : 1980 [43 y.o.] Patient Instructions [copy into discharge instructions] First 2 days: No driving First 7 days: No submersion in pool/water tub Okay to shower; gently wash area with soap/water and pat dry No lifting, running, pulling, or pushing anything greater than 10 pounds (~gallon of milk) After 2 weeks: Resume normal activity Bleeding Precautions: Check for bleeding at catheter sites, characterized by bright red blood at the puncture sites without swelling. Small amounts of ???oozing?? may be controlled by applying direct pressure to the site for 5-10 minutes with a piece of gauze or Band-Aid. If bleeding continues, patient instructed to call EP physician and seek immediate medical attention. Hematoma Precautions: characterized by a firm mass under the skin that may cause a sensation of tightness or pain. If a hematoma grows rapidly in size, apply direct pressure and seek immediate medical attention. Patient verbalized understanding of the above and will follow-up with EP as scheduled. JENNIFER Michel Clinical Cardiac Electrophysiology [facility] at * Attachments The following attachments cannot be sent through Care Everywhere. * Moderate Sedation (Discharge Care) (Canadian) documented in this encounter Medications at Time of Discharge hydrOXYzine (ATARAX) 25 mg tablet 1-2 TABS BY MOUTH AT BEDTIME 30-60 MINUTES BEFORE BEDTIME FOR INSOMNIA 09/12/2022 metoprolol tartrate (LOPRESSOR) 25 mg immediate release tablet Take 1 tablet (25 mg total) by mouth 2 (two) times a day 60 tablet 3 09/29/2023 10/24/2023 documented as of this encounter Ordered Prescriptions Prescription Sig Dispense Quantity Refills Last Filled Start Date End Date metoprolol tartrate (LOPRESSOR) 25 mg immediate release tablet Take 1 tablet (25 mg total) by mouth 2 (two) times a day 60 tablet 3 09/29/2023 10/24/2023 diltiazem LA (CARDIZEM LA) 120 mg 24 hr tablet Take 1 tablet (120 mg total) by mouth daily 30 tablet 11 09/29/2023 09/29/2023 documented in this encounter Discharge Disposition Disposition Code Departure Means Destination Comment s Discharge to home or self care documented in this encounter H&P Notes * Dave Gonzalez MD - 09/29/2023 11:18 AM CDT I have reviewed the H&P, examined the patient, and endorse the findings as written. Plan of Care : Based on the above findings, I consider Nasreen Ace to be an acceptable risk for : Procedure(s): ABLATION SUPRAVENTRICULAR TACHYCARDIA (SVT) 57626 Source Note - Ulysses Martinez MD - 09/27/2023 12:30 PM CDT Images from the original note were not included. Anesthesia Evaluation Nasreen Ace is a 43 y.o. female ABLATION SUPRAVENTRICULAR TACHYCARDIA (SVT) 30299 Pre-Op Diagnosis Codes: * PSVT (paroxysmal supraventricular tachycardia) (HCC) [I47.10] HISTORY Past Medical History Information obtained [...] (ATARAX) 25 mg tablet -- 09/12/22 -- ProviderLindsey MD No current facility-administered medications for this encounter. [...] By: Clovis Mcmahan MD 2023-01-31 16:38:27 CDT Anesthesia Plan Planned anesthesia: MAC Induction: Induction: intravenous. Postoperative Plan: No plan for postoperative opioid use. No postoperative mechanical ventilation intended. Patient's planned disposition post procedure is Outpatient. No trial extubation planned. Informed Consent: Discussed plan with attending and SYRUP BLENDER. Consent and Attending signature: I and/or my designee have discussed the anesthesia plan, benefits, possible alternatives, parental presence at time of induction (if indicated), and clinically relevant risks that may include dental injury, unintentional awareness, and/or other complications. The patient and/or parent/legal guardian understand, and agree to proceed. All questions answered. documented in this encounter Miscellaneous Notes * Perioperative Nursing Note - Agnes Brown RN - 09/29/2023 3:51 PM CDT Pt ambulated around the department with stand by assist. Sites remain clean and dry, soft and non-tender to palpation after ambulating. Denies any complaints at this time documented in this encounter Plan of Treatment Not on file documented as of this encounter Procedures Procedure Name Priority Date/Time Associated Diagnosis Comments POST DRUG PROGRAM STIM AND PACING Routine 09/29/2023 12:41 PM CDT PSVT (paroxysmal supraventricular tachycardia) (HCC) ELECTROPHYSIOLOGIC EVALUATION (EPS) WITH INDUCTION OR ATTEMPTED INDUCTION OF ARRHYTHMIA Routine 09/29/2023 12:41 PM CDT PSVT (paroxysmal supraventricular tachycardia) (HCC) POCT HCG, URINE Routine 09/29/2023 9:11 AM CDT documented in this encounter Results * ELECTROPHYSIOLOGIC EVALUATION (EPS) WITH INDUCTION OR ATTEMPTED INDUCTION OF ARRHYTHMIA, POST DRUG PROGRAM STIM AND PACING (09/29/2023 12:41 PM CDT) Anatomical Region Laterality Modality X-Ray Angiograph y Narrative 09/29/2023 12:55 PM CDT Table formatting from the original result was not included. Patient Name: Nasreen Ace Date of : 1980 ?? Referring Physician: @PCP@ Procedure Date: 09/29/2023 PROCEDURE: SUPRAVENTRICULAR TACHYCARDIA ABLATION ?? HISTORY HPI Nasreen Ace is a 43 y.o. year old female with symptomatic documented narrow-complex tachycardia, referred for consideration for catheter ablation. ?? Prior Medical Therapies to Prevent SVT [] Beta-trever ?[x] Calcium channel-trever [] Amiodarone [] Sotalol [x] Flecainide [] Ivabradine ? Prior Procedural Therapies to Prevent SVT: [] Endocardial ablation [] Epicardial ablation Procedure [] SVT Ablation procedure (52417) [x] ELECTROPHYSIOLOGIC EVALUATION (EPS) WITH INDUCTION OR ATTEMPTED INDUCTION OF ARRHYTHMIA (48841) [] +LA/CS pacing (57090) [] +3D Mapping (10018) [] +Intracardiac ultrasound (22298) [] +Transseptal (78355) [x] +IV drug (28346) [] +Other Arrhythmia (21923) Preoperative Cardiac Imaging: NA Risks and expected recovery has been explained in detail. Alternative options have been explored, and in a shared-decision making fashion we have decided that this was the most appropriate procedure. Method NPO status confirmed. Grounding pad applied. Defibrillator pads applied. Continuous surface ECG, pulse oximetry, and blood pressure were monitored. Procedure was performed under monitored anesthesia (MAC), with anesthesia services Both groins were clipped, prepped with Chloraprep, and draped in sterile fashion. Local anesthesia administered with lidocaine 2%. ??Bilateral femoral groins ??were accessed for catheter placement, using ultrasound guidance, micro-puncture needle/wire, and modified seldinger technique. 4 sheaths were placed. The following catheters were used: [] Thermocool ST (D-curve) ablation catheter [] EZ Steer FJ nonirrigated ablation catheter-Slow Pathway [] SoundStar ECO 8Fr ICE catheter [x] DecaNav 10-pole diagnostic catheter-CS [x] Biosense Boyd Deflectable Octapolar catheter-His/RA [x] Ella 4-pole diagnostic catheter-RV [] CRD 4-pole diagnostic catheter [] PentaRay 20-pole diagnostic catheter A Diagnostic EP Study was performed: Conduction Intervals (Pre Ablation) V-V P-R QRS Q-T A-H H-V 1283 148 88 405 91 37 AV Conduction AVWB at 700 msec VAWB at 800 msec On Isuprel: AVWB at 260 msec VAWB at 600 msec Refractory Periods ??AV Node ERP 800/590, Isuprel: 600/180 Procedure Synopsis: The patient entered the room in sinus bradycardia. ??Diagnostic EP catheters were placed as above. ??Baseline conduction intervals were found as above. ??Baseline AV conduction was found as above, and noted to be significantly slow. ??No tachycardia could be induced under baseline conditions. ??Furthermore no AH jumps were seen nor any echo beats while attempting to find AV node if effective refractory period. ??Isuprel was initiated and titrated up to 5 mcg minute. ??Av conduction was again studied as above and AV node effective refractory period was found as above. ??Despite aggressive burst pace stimulation both on and off Isuprel, no tachycardia was induced. ??Furthermore no short runs of atrial ectopy were seen either based on constant monitoring of the surface EKG P waves. ?? Due to not being able to do any tachycardias, the decision was made to terminate the patient. ??All catheters were removed Hemostasis was obtained with Vascade Closure devices. Estimated Blood Loss 5-10 mL Complications None Conclusions Negative EP study without ability to induce supraventricular tachycardia Recommendations We will resume diltiazem 120 mg daily Follow up in clinic in 4-6 weeks with me. Head of bed to 30 degrees in holding. Likely discharge home this afternoon if discharge parameters met I was present during the entire procedure and personally confirmed the above report. Dave Gonzalez MD 09/29/2023 us Dave Gonzalez MD CV ELECTROPHYSIOLOGY P ROCS Final Result * POCT hCG, urine (09/29/2023 9:11 AM CDT) HCG, ur, POC Negative Negative Lot Number [id number] QC Backgroud Clear Acceptable QC Control Line Acceptable Urine 09/29/2023 9:11 AM CDT Ulysses Martinez MD POINT OF CARE TEST ORDERABLES Fi nal Result documented in this encounter Visit Diagnoses Diagnosis PSVT (paroxysmal supraventricular tachycardia) (HCC)- Primary Paroxysmal supraventricular tachycardia SVT (supraventricular tachycardia) (HCC) Other specified cardiac dysrhythmias PSVT (paroxysmal supraventricular tachycardia) (HCC) Paroxysmal supraventricular tachycardia documented in this encounter Admitting Diagnoses Diagnosis PSVT (paroxysmal supraventricular tachycardia) (HCC) Paroxysmal supraventricular tachycardia SVT (supraventricular tachycardia) (HCC) Other specified cardiac dysrhythmias documented in this encounter Administered Medications Inactive Administered Medications - up to 3 most recent administrations Medication Order MAR Action Action Date Dose Rate Site Carrier Fluids for Secondary Infusion - 0.9% Sodium Chloride 30 mL, intravenous, As needed, For priming tubing and/or flushing, Starting on Mon09/29/23 at 0851, Pre-Procedure (CV), 0-250 ml/hr to flush line after IV infusions when no maintenance IV ordered. Infuse 30mL at the same rate as the secondary infusion. Run as primary IV, not intended for KVO. isoproterenol (ISUPREL) 1,000 mcg in sodium chloride [...] Bag 09/29/2023 11:20 AM CDT 50 mL/hr sodium chloride 0.9% flush 0.5-20 mL 0.5-20 mL, intra-catheter, Every 8 hours scheduled, First dose on Mon09/29/23 at 0930, Pre-Procedure (CV), Flush volume based on line type and size. sodium chloride 0.9% flush 0.5-20 mL 0.5-20 mL, intra-catheter, As needed, line care, Starting on Mon09/29/23 at 0851, Pre-Procedure (CV), Flush volume based on line type and size. Flush before and after each use. documented in this encounter Discontinued Medications Medication Sig Discontinue Reason Start Date End Da te diltiazem LA (CARDIZEM LA) 120 mg 24 hr tablet Take 1 tablet (120 mg total) by mouth daily Stop Taking at Discharge 09/29/2023 09/29/2023 flecainide (TAMBOCOR) 50 mg tabletIndications:Supra ventricular tachycardia, unspecified (HCC) TAKE 1 TABLET BY MOUTH TWICE A DAY Stop Taking at Discharge 07/13/2023 09/29/2023 documented as of this encounter Active and Recently Administered Medications Times are shown in CDT. Scheduled Medication Order 09/27/2023 09/28/2023 09/29/2023 sodium chloride 0.9% flush 0.5-20 mL 0.5-20 mL, intra-catheter, Every 8 hours scheduled, First dose on Mon09/29/23 at 0930, Pre-Procedure (CV), Flush volume based on line type and size. 0930 (Due)1246 (MAR Hold - Provider: Automatic Transfer Provider - Reason: Patient not available)1400 (Dose Auto Held - Provider: Automatic Transfer Provider)2014 (MAR Unhold - Provider: Automatic Discharge Provider) sodium chloride 0.9% flush 0.5-20 mL 0.5-20 mL, intra-catheter, Every 8 hours scheduled, First dose on Mon09/29/23 at 1515, Recovery (CV), Flush volume based on line type and size. 1515 (Due) Continuous Medication Order 09/27/2023 09/28/2023 09/29/2023 isoproterenol (ISUPREL) 1,000 mcg in sodium chloride 0.9% 250 mL (4 mcg/mL) infusion 5 mcg/min (75 mL/hr), 4 mcg/mL, intravenous, Continuous, Starting on Mon09/29/23 at 1300, Until Mon09/29/23 at 2015, Intra-Op, Routine 1209 (New Bag - Prov ider: Joan Schuster, BETHEL)1212 (Rate/Dose Change - Provider: BETHEL Amin)1219 (Stopped - Provider: BETHEL Amin) Lactated Ringer's (LR) infusion 30 mL/hr, intravenous, Continuous, Starting on Mon09/29/23 at 0930, Pre-Op 1120 (New Bag - Prov ider: David Kilgore CRNA)1300 (Anesthesia Volume Adjustment - Provider: David Kilgore CRNA)1301 (Continued from OR - Provider: Gabbi Herrmann RN)2014 (Due: Stopped) PRN Medication Order 09/27/2023 09/28/2023 09/29/2023 Carrier Fluids for Secondary Infusion - 0.9% Sodium Chloride 30 mL, intravenous, As needed, For priming tubing and/or flushing, Starting on Mon09/29/23 at 0851, Pre-Procedure (CV), 0-250 ml/hr to flush line after IV infusions when no maintenance IV ordered. Infuse 30mL at the same rate as the secondary infusion. Run as primary IV, not intended for KVO. 1246 (AUG Hold - Pro vider: Automatic Transfer Provider - Reason: Patient not available)2014 (AUG Unhold - Provider: Automatic Discharge Provider) Carrier Fluids for Secondary Infusion - 0.9% Sodium Chloride 30 mL, intravenous, As needed, For priming tubing and/or flushing, Starting on Mon09/29/23 at 1440, Recovery (CV), 0-250 ml/hr to flush line after IV infusions when no maintenance IV ordered. Infuse 30mL at the same rate as the secondary infusion. Run as primary IV, not intended for KVO. heparin in 0.9% sodium chloride 1,000 units/500 mL (2 unit/mL) infusion (premix) (CANCELED) Code/trauma/sedation medication, Starting on Mon09/29/23 at 1135, Intra-Procedure (CV) 1135 (Given - Provid er: Dave Gonzalez MD) heparin in 0.9% sodium chloride 1,000 units/500 mL (2 unit/mL) infusion (premix) (COMPLETED) Code/trauma/sedation continuous med, Starting on Mon09/29/23 at 1139, Intra-Procedure (CV) 1139 (New Bag - Prov ider: Grace Dave RN) heparin in 0.9% sodium chloride 1,000 units/500 mL (2 unit/mL) infusion (premix) (COMPLETED) Code/trauma/sedation continuous med, Starting on Mon09/29/23 at 1139, Intra-Procedure (CV) 1139 (New Bag - Prov ider: Grace Dave RN) heparin in 0.9% sodium chloride 1,000 units/500 mL (2 unit/mL) infusion (premix) (COMPLETED) Code/trauma/sedation continuous med, Starting on Mon09/29/23 at 1142, Intra-Procedure (CV) 1142 (New Bag - Prov ider: Grace Dave RN) heparin in 0.9% sodium chloride 1,000 units/500 mL (2 unit/mL) infusion (premix) (COMPLETED) Code/trauma/sedation continuous med, Starting on Mon09/29/23 at 1143, Intra-Procedure (CV) 1143 (New Bag - Prov ider: Grace Dave RN) lidocaine (XYLOCAINE) 10 mg/mL (1 %) injection (CANCELED) Code/trauma/sedation medication, Starting on Mon09/29/23 at 1136, Intra-Procedure (CV), Indications: Administration of Local Anesthesia 1136 (Given - Provid er: Dave Gonzalez MD) lidocaine (XYLOCAINE) 10 mg/mL (1 %) injection (CANCELED) Code/trauma/sedation medication, Starting on Mon09/29/23 at 1139, Intra-Procedure (CV), Indications: Administration of Local Anesthesia 1139 (Given - Provid er: Grace Dave RN) sodium chloride 0.9% flush 0.5-20 mL 0.5-20 mL, intra-catheter, As needed, line care, Starting on Mon09/29/23 at 0851, Pre-Procedure (CV), Flush volume based on line type and size. Flush before and after each use. 1246 (AUG Hold - Pro vider: Automatic Transfer Provider - Reason: Patient not available)2014 (AUG Unhold - Provider: Automatic Discharge Provider) sodium chloride 0.9% flush 0.5-20 mL 0.5-20 mL, intra-catheter, As needed, line care, Starting on Mon09/29/23 at 1440, Recovery (CV), Flush volume based on line type and size. Flush before and after each use. sodium chloride 0.9% solution (CANCELED) Code/trauma/sedation medication, Starting on Mon09/29/23 at 1124, Intra-Procedure (CV) 1124 (Given - Provid er: Grace Dave RN - Comment: Heparin 1000 units added) documented in this encounter Orders Medications Ordered That Souleymane ht Not Have Been Administered Count Last Ordered Date First Ordered Date acetaminophen (TYLENOL) tablet 1,000 mg 1 0 09/29/2023 Carrier Fluids for Secondary Infusion - 0.9% Sodium Chloride 2 09/29/2023 fentaNYL (SUBLIMAZE) preserv ative free injection 25 mcg 1 09/29/2023 fentaNYL (SUBLIMAZE) preserv ative free injection 50 mcg 2 09/29/2023 heparin in 0.9% sodium chlor kan 1,000 units/500 mL (2 unit/mL) infusion (premix) 5 09/29/2023 isoproterenol (ISUPREL) 1,00 0 mcg in sodium chloride 0.9% 250 mL (4 mcg/mL) infusion 1 09/29/2023 Lactated Ringer's (LR) infusion 1 lidocaine (XYLOCAINE) 10 mg/ mL (1 %) injection 2 09/29/2023 lidocaine (XYLOCAINE) 10 mg/ mL (1 %) injection 2-10 mg 1 09/29/2023 meperidine (DEMEROL) preserv ative free injection 12.5 mg 1 09/29/2023 naloxone (NARCAN) 0.4 mg/mL injection 0.04-0.4 mg 1 09/29/2023 ondansetron (ZOFRAN) injection 4 mg 1 09/28 sodium chloride 0.9% flush 0.5-20 mL 6 09/17 sodium chloride 0.9% solution 1 09/29/2023 Nursing Count Last Ordered Date First Orde red Date TELEMETRY MONITORING 2 09/29/2023 Admission Count Last Ordered Date First Orde red Date INITIATE OUTPATIENT IN A BED 1 09/29/2023 Discharge Count Last Ordered Date First Orde red Date DISCHARGE PATIENT 1 09/29/2023 CORE MEASURES Count Last Ordered Date First Ord ered Date REASON FOR NO VTE PROPHYLAXIS AT ADMISSION 1 09/29/2023 documented in this encounter Care Teams Toe Laster Relationship Specialty Start Date End Date Amy Marc MD [employer] [facility] [place] [address] PCP - General 11/12/13 documented as of this encounter
--- OUTSIDE RECORDS SUMMARY | 2024-06-24 23:56 | XMS_ITS | Encounter Summary ---
Author Organization [facility] Healthcare Address [address] [place] [address] Care Team Providers Care Cnc Manager Name Role Phone Amy Marc MD Primary Care Provider +1- [phone] Reason for Visit * Diagnostic Imaging (Routine) - Closed Specialty Diagnoses / Procedures Referred By Komal t Referred To Contact Diagnoses RENTERIA (dyspnea on exertion) Procedures NM MPI SPECT (Rest and/or Stress) Multiple [place] [address] [place] [address] Phone: tel: fax: [facility] Medical Group Referral ID Status Reason Start Date Expiration Date Visits Re quested Visits Authorized [id number] Closed 04/11/2023 05/10/2024 1 1 Encounter Details Date Type Department Care Team (Latest Contact Info) Description 05/03/2023 8:15 AM DINKEY ENGINEER Ancillary Procedure [facility] Medical Group Cardiology [address] [place] [address] RENTERIA (dyspnea on exertion) Social History Tobacco Use Types Packs/Day Years [...] on file Legal Sex Female 12:17 AM DINKEY ENGINEER Gender Identity Not on file Sexual Orientation Not on file documented as of this encounter Plan of Treatment Not on file documented as of this encounter Procedures Procedure Name Priority Date/Time Associated Diagnosis Comments NM MPI SPECT (REST AND/OR STRESS) MULTIPLE STUDIES Schedule Routine, Read Routine (OP Routine) 05/03/2023 9:34 AM DINKEY ENGINEER RENTERIA (dyspnea on exertion) documented in this encounter Results * NM MPI SPECT (Rest and/or Stress) Multiple Studies (05/03/2023 9:34 AM DINKEY ENGINEER) Anatomical Region Laterality Modality Body N/A Nuclear Medicine 05/03/2023 8:11 AM DINKEY ENGINEER Narrative 05/04/2023 8:03 AM DINKEY ENGINEER [facility] Medical Group Cardiology [address] [facility] [address], [place] [address] [address] [facility] [address], [place] [address] P:[phone] P:[phone] MPI Imaging Report Patient Name: NAVJOT FREDERICK D : 1980 Study Date: 05/03/2023 8:11:53 AM Gender: F Tech: [facility] Location: [facility] Provider: NORTH GONZALEZ ?Height(Cm): 175.3 BSA: ??Weight(Kg): 84.8 BMI: 27.6 ?Order Provider: NORTH GONZALEZ - PHYSICIAN: Referring Physician: Dr. Marc. HCG Physician: Dr. Gonzalez. Interpreting Physician: Bc Mcmahan M.D. Stress Supervision: Bc Mcmahan M.D. PROCEDURES: Exercise SPECT Report: Myocardial perfusion imaging with Tc99m Sestamibi SPECT at rest and stress post exercise using the Junior protocol. INDICATIONS: Chest Pain, Smoker, Palpitations, and RENTERIA. PSVT. FINDINGS: Procedure: One day rest/stress protocol was used. Tc99m Sestamibi injected IV at rest was 10.7 millicuries. 32.8 millicuries of Tc99m Sestamibi injected IV at peak stress. Patient had no symptoms during stress test. Baseline heart rate was 69 BPM. Peak heart rate was 166 BPM. Max projected heart rate was 176. Percent predicted max heart rate achieved was 94 %. Exercise Time 10:00 min. Baseline blood pressure was 108/70 mmHg. Peak blood pressure 154/72 mmHg. Termination: Leg fatigue. Exercise Tolerance: Excellent for patient's age. Resting ECG: Normal sinus rhythm. Nonspecific T wave abnormality. Post ECG: No diagnostic ST changes. Arrhythmia: No arrhythmias seen. Perfusion Findings: Normal perfusion imaging. No definite fixed or reversible defects. Technical quality of study is excellent. Prone imaging was not performed. Left ventricle cavity size at rest is normal. Left ventricle cavity size with stress is unchanged. A TID of 0.92 was automatically calculated. LV Function: Global left ventricular function is normal. Left Ventricular Ejection Fraction is 60 %. CONCLUSIONS: Myocardial perfusion imaging is normal. Global left ventricular function is normal. Left Ventricular Ejection Fraction is 60 %. Negative EKG portion of stress test. Electronically Signed By: Clovis Mcmahan MD 2023-05-04 08:03:02 DINKEY ENGINEER Electronically Signed By: Clovis Mcmahan MD 2023-05-04 08:03:02 DINKEY ENGINEER Procedure Note Clovis Mcmahan MD - 05/04/2023 [facility] Medical Group Cardiology [address] [facility] [address], [place] [address] [address] [facility] [address], [place] [address] P:[phone] P:[phone] MPI Imaging Report Patient Name: NAVJOT FREDERICK Lyly : 1980 Study Date: 05/03/2023 8:11:53 AM Gender: F Tech: RACHNA MITCHELLMT Location: [place] Ref Provider: NORTH GONZALEZ Height(Cm): 175.3 BSA: Weight(Kg): 84.8 BMI: 27.6 Order Provider: NORTH GONZALEZ - PHYSICIAN: Referring Physician: Dr. Marc. HCG Physician: Dr. Gonzalez. InterpretingPhysician: Bc Mcmahan M.D. Stress Supervision: Bc Mcmahan M.D. PROCEDURES: Exercise SPECT Report: Myocardial perfusion imaging with Tc99m Sestamibi SPECT at rest and stresspost exercise using the Junior protocol. INDICATIONS: Chest Pain, Smoker, Palpitations, and RENTERIA. PSVT. FINDINGS: Procedure: One day rest/stress protocol was used. Tc99m Sestamibi injected IV at restwas 10.7 millicuries. 32.8 millicuries of Tc99m Sestamibi injected IV at peakstress. Patient had no symptoms during stress test. Baseline heart rate was 69 BPM. Peak heartrate was 166 BPM. Max projected heart rate was 176. Percent predicted max heart rateachieved was 94 %. Exercise Time 10:00 min. Baseline blood pressure was 108/70 mmHg. Peakblood pressure 154/72 mmHg. Termination: Leg fatigue. Exercise Tolerance: Excellent for patient's age. Resting ECG: Normal sinus rhythm. Nonspecific T wave abnormality. Post ECG: No diagnostic ST changes. Arrhythmia: No arrhythmias seen. Perfusion Findings: Normal perfusion imaging. No definite fixed or reversible defects.Technical quality of study is excellent. Prone imaging was not performed. Left ventricle cavitysize at rest is normal. Left ventricle cavity size with stress is unchanged. A TID of0.92 was automatically calculated. LV Function: Global left ventricular function is normal. Left Ventricular EjectionFraction is 60 %. CONCLUSIONS: Myocardial perfusion imaging is normal. Global left ventricular function is normal. Left Ventricular EjectionFraction is 60 %. Negative EKG portion of stress test. Electronically Signed By: Clovis Mcmahan MD 2023-05-04 08:03:02 DINKEY ENGINEER Electronically Signed By: Clovis Mcmahan MD 2023-05-04 08:03:02 DINKEY ENGINEER [place] Gonzalez MD [facility] [place] PROCEDURES Prachi l Result documented in this encounter Visit Diagnoses Diagnosis RENTERAI (dyspnea on exertion) Other dyspnea and respiratory abnormality documented in this encounter Administered Medications Inactive Administered Medications - up to 3 most recent administrations Medication Order MAR Action Action Date Dose Rate Site tc-99m sestamibi unit dose injection 10.7 millicurie 10.7 millicurie, intravenous, Once in imaging, radiopharmaceutical, Starting on Mon05/03/23 at 0814, For 1 dose, Indications: Diagnostic RadiographyIndications:Mahsa gnostic Radiography Given 05/03/2023 8:14 AM DINKEY ENGINEER 10.7 millicuries tc-99m sestamibi unit dose injection 32.8 millicurie 32.8 millicurie, intravenous, Once in imaging, radiopharmaceutical, Starting on Mon05/03/23 at 0934, For 1 dose, Indications: Diagnostic RadiographyIndications:Mahsa gnostic Radiography Given 05/03/2023 9:34 AM DINKEY ENGINEER 32.8 millicuries documented in this encounter Care Teams Cnc Manager Relationship Specialty Start Date End Date Amy Marc MD [address] [place] [address] PCP - General 11/12/13 documented as of this encounter
--- OUTSIDE RECORDS SUMMARY | 2024-06-24 23:56 | XMS_ITS | Referral Summary ---
Author Organization [facility] Address [address] [place] [address] Care Team Providers Care Wheel Aligner Name Role Phone Amy Marc MD Primary Care Provider +1- [phone] Encounters Date Type Department Care Team Description 04/04/2024 8:15 AM CDT Office Visit [facility] Medical [facility] Rheumatology at [facility] [address] [facility] [address] [address] Nasreen Cox MD MCTD (mixed connective tissue disease) (CMS/HCC) (HCC) (Primary Dx) 03/26/2024 11:45 AM CDT Office Visit [facility] [address] [facility] [address], [place] [address] Donovan Apple III, MD PSVT (paroxysmal supraventricular tachycardia) ([facility]) (Primary Dx); Cardiac arrhythmia, unspecified cardiac arrhythmia type from Last 3 Months Allergies No known active allergies Medications hydrOXYzine (ATARAX) 25 mg tablet 1-2 TABS BY MOUTH AT BEDTIME 30-60 MINUTES BEFORE BEDTIME FOR INSOMNIA 3 Active metoprolol tartrate (LOPRESSOR) 25 mg immediate release tabletIndications:PS VT (paroxysmal supraventricular tachycardia) (HCC) Take 1 tablet (25 mg total) by mouth 2 (two) times a day as needed (elevated heart rates) 60 tablet 2 4 Active Active Problems Problem Noted Date Diagnosed Date SVT (supraventricular tachycardia) 09/29/2023 PSVT (paroxysmal supraventricular tachycardia) 0 09/05/2023 Assessment & Plan (03/26/2024 1:04 PM CDT): Chronic, stable problem. PACs and nonsustained AT. Recommend trial of scheduled metoprolol (instead of PRN) if tolerated. Reassured pt that her arrhythmia is not life-threatening. 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 Gender Identity Not on file Sexual Orientation Not on file Last Filed Vital Signs Vital Sign Reading Time Taken Comments Blood Pressure 118/82 04/04/2024 8:12 AM CDT Pulse 75 04/04/2024 8:12 AM CDT Temperature 36.7 ??C (98.1 ??F) 04/04/2024 8:12 AM CD T Respiratory Rate 18 03/20/2024 1:19 PM CDT Oxygen Saturation 98% 04/04/2024 8:12 AM CDT Inhaled Oxygen Concentration - - Weight 80.9 kg (178 lb 4.8 oz) 04/04/2024 8:12 A M CDT Height 175.3 cm (5' 9.02 ) 04/04/2024 8:12 AM CD T Body Mass Index 26.32 04/04/2024 8:12 AM CDT Plan of Treatment Not on file Medical Devices Implanted Type Area Water Treatment Specialist Device Identifier Shelf Expiration Date Model / Serial / Lot [facility] [employer] [facility] Device Vascular Closure Femoral Artery Bioabsorbable Dual Method Vascade 6-7fr Collagen [id number] - [id number] Implanted:Qty: 1 on 09/29/2023 by Dave Gonzalez MD at [facility] 07/18/2025 700-580I-0 5U / / [id number] [facility] Medical [facility] Device Closure Vascade Od5 Fr Femoral Artery [id number] - [id number] Implanted:Qty: 1 on 09/29/2023 by Dave Gonzalez MD at [facility] 03/20/2025 700-500DX- 05U / / [id number] [facility] Vascade Mvp 6-12fr Venous Closure [id number] - [id number] Implanted:Qty: 1 on 09/29/2023 by Dave Gonzalez MD at [facility] 05/03/2024 800-612C-1 0U / / [id number] [facility] Vascade Mvp 6-12fr Venous Closure [id number] - [id number] Implanted:Qty: 1 on 09/29/2023 by Dave Gonzalez MD at [facility] 05/22/2025 800-612C-1 0U / / [id number] Procedures Procedure Name Priority Date/Time Associated Diagnosis Comments ECG 12-LEAD Routine 03/26/2024 11:58 AM CDT Cardiac arrhythmia, unspecified cardiac arrhythmia type from Last 3 Months Results * ECG 12 lead (03/26/2024 11:58 AM CDT) Donovan Apple III, MD ECG ORDERABLES Fin al Result from Last 3 Months Insurance [place] Member Subscriber Plan / Payer (Ef fective 2022-Present) Name:Nasreen Ace Lyly Relation to Subscriber:Self Name:Nasreen Ace Payer ID:[id number] (NAIC) Group ID:Not on file Type:MEDICAID RISK OTHER Address: [facility] [id number] [place] [id number] Care Teams Wheel Aligner Relationship Specialty Start Date End Date Amy Marc MD [address] [place] [address] PCP - General 11/12/13
--- OUTSIDE RECORDS SUMMARY | 2024-06-24 23:56 | XMS_ITS | Encounter Summary ---
Author Organization [facility] Healthcare Address [address] [place] [address] Care Team Providers Care Scroll Assembler Name Role Phone Amy Marc MD Primary Care Provider +1- [phone] Reason for Visit * Reason Onset Date Comments testing 02/21/2024 Encounter Details Date Type Department Care Team (Late st Contact Info) Description 02/21/2024 Telephone [facility] Medical Group Cardiology [address] [place] [address] Alexy Parker MD [address] [place] [id number] testing Social History Tobacco Use Types Packs/Day Years [...] on file Legal Sex Female 12:17 AM RELIEF CAPTAIN Gender Identity Not on file Sexual Orientation Not on file documented as of this encounter Miscellaneous Notes * Telephone Encounter - Royer Troy RN - 02/21/2024 3:43 PM CDT Pt wanting to know what DK thinks about tilt table testing. She saw Venita STACKING MACHINE OPERATOR yesterday at and let her know she was still having the dizziness when standing up, feeling like going to pass out, happening pretty frequently, and its scary, she's concerned. Pt friend had POTS and she's having similarsymptoms, and diagnosis took a long time to be diagnosed. Pt is wanting to be proactive and rule that out Informed pt that Venita ARNULFO put an order in for referral to EP at [facility]. Informed pt that she should call and make an appointment with them, and if they want to order it they can, as its done at only [facility] and possibly [facility] anyway. Informed pt to call us back if she's unable to be seen in a decent amount of time and I would talk to Dr. Parker at that time about ordering the tilt table until she's able to be seen. SHe verbalized understanding. Refer to Provider: TORSTEN SZYMANSKI III Phone #: [phone] Fax #: [phone] Address: [address] [id number] * Telephone Encounter - Brandee Mckenzie - 02/21/2024 2:10 PM CDT Patient states that she would like to talk to LANA about getting a tilt table stress performed. Wouldlike recommendations and to see what DK says about it. Requesting a call back to discuss. Please advise. Thank you. Contact [phone] documented in this encounter Plan of Treatment Not on file documented as of this encounter Visit Diagnoses Not on filedocumented in this encounter Care Teams Scroll Assembler Relationship Specialty Start Date End Date Amy Marc MD [address] [employer] [facility] [place] [address] PCP - General 11/12/13 documented as of this encounter
--- OUTSIDE RECORDS SUMMARY | 2024-06-24 23:56 | XMS_ITS | Clinical Summary ---
Author Organization [facility] Office Building A Address [address] [place] [address] Care Team Providers Care Speech Language Pathologist Name Role Phone Amy Marc MD Primary Care Provider +1- [phone] Allergies No known active allergies Medications hydrOXYzine [...] 10/28/2013 Overview (09/23/2016): ANASTASIA (generalized anxiety disorder) Encounters Date Type Department Care Team Description 04/04/2024 8:15 AM CDT Office Visit [facility] Medical Group Rheumatology at [facility] [address] [facility] [address] [place] [address] Nasreen Cox MD MCTD (mixed connective tissue disease) (CMS/HCC) (HCC) (Primary Dx) 03/26/2024 11:45 AM CDT Office Visit [facility] [address] [facility] [address] [place] [address] Donovan Apple III, MD PSVT (paroxysmal supraventricular tachycardia) ([facility]) (Primary Dx); Cardiac arrhythmia, unspecified cardiac arrhythmia type from Last 3 Months Medical History Medical History Date Comments Anxiety Chest pain Shortness of breath Arrhythmia Family History Medical History Relation Name Comments Other Brother 2 Alive and well; Depression Father Depression; Hypertension Father Hypertension; Obesity Father Obesity; Stroke Father Stroke; Lung cancer Maternal Grandmother Cancer, lung; Depression Mother Depression; Depression Sister toño Depression; Relation Name Status Comments Brother 1 Alive Brother 2 Father Maternal Grandmother Mother Sister toño Social History Tobacco Use Types Packs/Day Years [...] on file Legal Sex Female 12:17 AM INDUSTRIAL HYGIENE MANAGER Gender Identity Not on file Sexual Orientation Not on file Obstetrics History Last Filed Vital Signs Vital Sign Reading [...] 04/04/2024 8:12 AM CDT Plan of Treatment Health Maintenance Due Date Last Done Comments Breast Cancer Screening-Mammogram 1980 Cervical Cancer Screening 1980 Colon Cancer Screening-Colonoscopy 1980 Hepatitis C Screening 1979 DTaP/Tdap/Td Vaccine (1 - Tdap) 1990 Hepatitis B Screening 1997 Regular Well Visit/Exam 18-64 1997 Depression Screening 02/02/2024 02/01/2023, 02/01/2023, 11/22/2016 Covid-19 Vaccine (2 - 2023-2 5 season) 2024 01/11/2021 Influenza Vaccine (#1) 2024 HPV Vaccines Aged Out No longer eligi ble based on patient's age to complete this topic Pneumococcal vaccine <65 Aged Out No longer eligible based on patient's age to complete this topic Medical Devices Implanted Type Area Jacquard Card Lacer Device Identifier Shelf Expiration Date Model / Serial / Lot [employer] Device Vascular Closure Femoral Artery Bioabsorbable Dual Method Vascade 6-7fr Collagen [id number] - [id number] Implanted:Qty: 1 on 09/29/2023 by Dave Gonzalez MD at [facility] [employer] 07/18/2025 700-580I-0 5U / / [id number] [employer] Device Closure Vascade Od5 Fr Femoral Artery [id number] - [id number] Implanted:Qty: 1 on 09/29/2023 by Dave Gonzalez MD at [facility] 03/20/2025 700-500DX- 05U / / [id number] [employer] Vascade Mvp 6-12fr Venous Closure [id number] - [id number] Implanted:Qty: 1 on 09/29/2023 by Dave Gonzalez MD at [facility] 05/03/2024 800-612C-1 0U / / [id number] [employer] Vascade Mvp 6-12fr Venous Closure [id number] - [id number] Implanted:Qty: 1 on 09/29/2023 by Dave Gonzalez MD at [facility] 05/22/2025 800-612C-1 0U / / [id number] Procedures Procedure Name Priority Date/Time Associated Diagnosis Comments ECG 12-LEAD Routine 03/26/2024 11:58 AM CDT Cardiac arrhythmia, unspecified cardiac arrhythmia type from Last 3 Months Results * ECG 12 lead (03/26/2024 11:58 AM CDT) Donovan Apple III, MD ECG ORDERABLES Fin al Result from Last 3 Months Insurance [facility] AETNA BETTER [facility] [place] Care Teams Speech Language Pathologist Relationship Specialty Start Date End Date Amy Marc MD [address] [place] [address] PCP - General 11/12/13
--- OUTSIDE RECORDS SUMMARY | 2024-06-24 23:56 | XMS_ITS | Encounter Summary ---
Author Organization [facility] Healthcare Address [address] [place] [address] Care Team Providers Care Ham Curer Name Role Phone Amy Marc MD Primary Care Provider [phone]- [phone] Reason for Visit * Reason Comments Follow-up Post Ablation Encounter Details Date Type Department Care Team (Latest Contact Info) Description 10/24/2023 10:15 AM CDT Office Visit [facility] Cardiology [address] [place] [phone] [place] [address] [place] [id number] PSVT (paroxysmal supraventricular tachycardia) (HCC) (Primary Dx) Social History Tobacco Use Types Packs/Day Years [...] on file 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 Gender Identity Not on file Sexual Orientation Not on file documented as of this encounter Last Filed Vital Signs Vital Sign Reading Time Taken Comments Blood Pressure 110/76 10/24/2023 10:13 AM CDT Pulse 82 10/24/2023 10:13 AM CDT Temperature - - Respiratory Rate 14 10/24/2023 10:13 AM CDT Oxygen Saturation 94% 10/24/2023 10:13 AM CDT Inhaled Oxygen Concentration - - Weight 80.3 kg (177 lb) 10/24/2023 10:13 AM CDT Height 175.3 cm (5' 9 ) 10/24/2023 10:13 AM CDT Body Mass Index 26.14 10/24/2023 10:13 AM CDT documented in this encounter Progress Notes * Venita Moon NP - 10/24/2023 10:15 AM CDT Return Visit Note - Cardiac Electrophysiology Patient Name: Nasreen Ace Date of : 1980 Primary Physician: Amy Marc MD I had the pleasure of seeing Nasreen Ace in follow-up at the at [place] [facility]. I have reviewed the pertinent data originating outside our institution and outside my specialty within our institution and summarized the pertinent information below. As you well know, she is a 43 y.o. female with the following arrhythmia-specific history: 1. Paroxysmal supraventricular tachycardia: d/t having frequent palpitations patient were 48 event monitor in October of 2022 which showed patient to mainly been in a sinus rhythm with occasional PACs. This monitor also showed paroxysmal supraventricular tachycardia and short runs up to 6 beats. On 09/29/2023 patient underwent an EP study with Dr. Gonzalez. This EP study was negative d/t the inability to induce supraventricular tachycardia. Patient states that she is feeling well today. Does say that she has had multiple occurrences sinceprocedure of racing heart rates as well as lightheadedness. States that at times she will feel likeher heart is racing and her Apple watch informed her that her heart rate is as high as 200. States that she does notice that these symptoms have become shorter and less frequent since procedure, eventhough no ablation could be performed. Patient states that she has not started taking the metoprolol d/t being concerned that she would develop side effects. Past Medical History Past Medical History: Diagnosis Date Anxiety Arrhythmia Chest pain Shortness of breath Past Surgical History No past surgical history on file. Medications Current Outpatient Medications: hydrOXYzine (ATARAX) 25 mg tablet, 1-2 TABS BY MOUTH AT BEDTIME 30-60 MINUTES BEFORE BEDTIME FOR INSOMNIA, Disp: , Rfl: metoprolol tartrate (LOPRESSOR) 25 mg immediate release tablet, Take 1 tablet (25 mg total) by mouth 2 (two) times a day, Disp: 60 tablet, Rfl: 3 Allergies No Known Allergies Family History Family History Problem Relation Age of Onset Depression Mother Depression; Depression Father Depression; Hypertension Father Hypertension; Obesity Father Obesity; Stroke Father Stroke; Depression Sister Depression; Other Brother Alive and well; Lung cancer Maternal Grandmother Cancer, lung; Social History Social History Tobacco Use Smoking status: Former Types: Cigarettes Smokeless tobacco: Not on file Substance and Sexual Activity Drug use: No Sexual activity: Not on file Alcohol Use: Not At Risk (09/29/2023) AUDIT-C Frequency of Alcohol Consumption: Never Average Number of Drinks: Patient does not drink Frequency of Binge Drinking: Never Exam There were no vitals filed for this visit. Physical Exam Constitutional: No distress. Head: Normocephalic. Nose: Nose normal. Mouth/Throat: Mucous membranes are normal. Eyes: Sclera Anicteric Neck: Supple without appreciable lymphadenopathy, carotid bruits Cardiovascular: Regular Regular rhythm, S1 normal and S2 normal. No murmurs/rubs/gallops. Pulmonary/Chest: Effort normal and breath sounds normal. Abdominal: Soft. Normal appearance. Neurological: alert, oriented Psychiatric: normal mood and affect. Diagnostic Data I personally reviewed EKG which shows sinus rhythm (65) with normal WI interval and QRS duration. Labs Creatinine Date Value Ref Range Status 09/25/2023 0.79 0.60 - 1.10 mg/dL Final , Plt Date Value Ref Range Status 09/25/2023 347 150 - 400 K/cumm Final , WBC Date Value Ref Range Status 09/25/2023 5.3 3.8 - 9.9 K/cumm Final , Hgb Date Value Ref Range Status 09/25/2023 14.5 11.9 - 15.5 g/dL Final Visit Diagnoses (I47.10) PSVT (paroxysmal supraventricular tachycardia) (HCC) (primary encounter diagnosis) Plan Ms. Ace is a 43-year-old female with a history of an undefined connective tissue disease and paroxysmal SVT. # PSVT: Patient originally seen in March of 2023 after previously wearing an event monitor in [facility] 2022 which showed paroxysmal atrial tachycardia. Patient unfortunately was not able to take diltiazem or flecainide d/t interactions with her medications that she takes for her connective tissue disease. On 09/29/2023 patient underwent an EP study with Dr. Bradford, unfortunately no rhythm could be i nduced during this study and therefore no ablation was performed. Patient was sent home with a prescription of metoprolol 25 mg b.i.d., patient informs me today that she never started medication d/t concerned that she would develop side effects. Reviewed with patient that metoprolol could be taken as needed if at a further date she decided that she wanted to attempt medication. -continue to monitor symptoms. If patient becomes more symptomatic can revisit another EP study. -we will have patient return in 6 months to review symptoms in further management at that time. Thank you for allowing us to participate in the care of this pleasant patient. Please do not hesitate to call us if any questions arise. Respectfully, JENNIFER Michel Clinical Cardiac Electrophysiology [facility] at This note was transcribed using speech recognition software. As a result, there may be grammatical and spelling errors that are unintended. If there are any questions or major inaccuracies, please contact us. documented in this encounter Plan of Treatment Not on file documented as of this encounter Procedures Procedure Name Priority Date/Time Associated Diagnosis Comments ECG 12-LEAD Routine 10/24/2023 PSVT (paroxysmal supraventricular tachycardia) (HCC) documented in this encounter Results * ECG 12 lead (10/24/2023) Venita Moon MAILROOM ASSISTANT ECG ORDERABLES Final Result documented in this encounter Visit Diagnoses Diagnosis PSVT (paroxysmal supraventricular tachycardia) (HCC)- Primary Paroxysmal supraventricular tachycardia documented in this encounter Discontinued Medications Medication Sig Discontinue Reason Start Date End Da te metoprolol tartrate (LOPRESSOR) 25 mg immediate release tablet Take 1 tablet (25 mg total) by mouth 2 (two) times a day 09/29/2023 10/24/2023 documented as of this encounter Care Teams Ham Curer Relationship Specialty Start Date End Date Amy Marc MD [employer] [place] [id number] PCP - General 11/12/13 documented as of this encounter
--- OUTSIDE RECORDS SUMMARY | 2024-06-24 23:56 | XMS_ITS | Encounter Summary ---
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
--- OUTSIDE RECORDS SUMMARY | 2024-06-24 23:56 | XMS_ITS | Encounter Summary ---
Author Organization Formerly [facility] Address [address] [place] [address] Care Team Providers Care Environmental Health Nurse Name Role Phone Amy Marc MD Primary Care Provider [phone] Reason for Visit * Reason Comments Chest Pain Encounter Details Date Type Department Care Team ([facility] Contact Info) Description 03/20/2024 9:56 AM CDT - 03/20/2024 1:27 PM CDT Emergency [facility] Emergency Department [address] [place] [address] Eladio Greenfield MD [address] [place] [address] Chest pain, unspecified type (Primary Dx) Discharge Disposition: Discharge to home or self [...] on file 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 Gender Identity Not on file Sexual Orientation Not on file documented as of this encounter Last Filed Vital Signs Vital Sign Reading Time Taken Comments Blood Pressure 117/66 03/20/2024 1:19 PM CDT Pulse 53 03/20/2024 1:19 PM CDT Temperature 37.2 ??C (98.9 ??F) 03/20/2024 1:19 PM CD T Respiratory Rate 18 03/20/2024 1:19 PM CDT Oxygen Saturation 99% 03/20/2024 1:19 PM CDT Inhaled Oxygen Concentration - - Weight 77.1 kg (170 lb) 03/20/2024 9:37 AM CDT Height 175.3 cm (5' 9 ) 03/20/2024 9:37 AM CDT Body Mass Index 25.1 03/20/2024 9:37 AM CDT documented in this encounter Discharge Instructions * Attachments The following attachments cannot be sent through Care Everywhere. * Chest Pain, Uncertain Cause (Finnish) documented in this encounter Medications at Time of Discharge hydrOXYzine (ATARAX) 25 mg tablet 1-2 TABS BY MOUTH AT BEDTIME 30-60 MINUTES BEFORE BEDTIME FOR INSOMNIA 09/12/2022 metoprolol tartrate (LOPRESSOR) 25 mg immediate release tabletIndications:PSV T (paroxysmal supraventricular tachycardia) (HCC) Take 1 tablet (25 mg total) by mouth 2 (two) times a day as needed (elevated heart rates) 60 tablet 2 02/20/2024 documented as of this encounter Discharge Disposition Disposition Code Departure Means Destination Comment s Discharge to home or self care documented in this encounter ED Notes * Eladio Greenfield MD - 03/20/2024 12:40 PM CDT HPI Chief Complaint Patient presents with Chest Pain Patient is a 44-year-old who woke up this morning with left-sided chest pain pressure to the left shoulder no nausea vomiting she did feel short of breath but no cold sweats of note the patient has had a nuclear stress a year ago that was completely normal she has echoes normal she had electrophysiology tests which were unremarkable she does have a diagnosis of PSVT at electrophysiology on 10/10 the attempted to induce arrhythmia and were unable to. Patient has had no leg swelling no abdominal pain no fever chills no cough Of note the patient had an extensive autoimmune workup and that was nonspecific in his being followed for that her cholesterol is completely normal she has not smoked for 2 years and follows a very healthy lifestyle there is nothing terribly remarkable in her genetic history as far as I can tell Patient History: Patient Active Problem List Diagnosis Date Noted SVT (supraventricular tachycardia) ([facility]) 09/29/2023 PSVT (paroxysmal supraventricular tachycardia) ([facility]) 09/05/2023 Malaise and fatigue 12/07/2022 Low back pain, non-specific 11/22/2016 Migraine 10/28/2013 Generalized anxiety disorder 10/28/2013 Past Medical History: Diagnosis Date Anxiety Arrhythmia Chest pain Shortness of breath History reviewed. No pertinent surgical history. Family History Problem Relation Age of Onset Depression Mother Depression; Depression Father Depression; Hypertension Father Hypertension; Obesity Father Obesity; Stroke Father Stroke; Depression Sister Depression; Other Brother Alive and well; Lung cancer Maternal Grandmother Cancer, lung; Social History Tobacco Use Smoking status: Former Types: Cigarettes Smokeless tobacco: None Vaping Use Vaping status: Every Day Substance and Sexual Activity Alcohol use: Yes Drug use: No Sexual activity: None Social History Social History Narrative Not on file Review of Systems Review of Systems Constitutional: Negative. HENT: Negative. Eyes: Negative. Cardiovascular: Positive for chest pain. Negative for palpitations and leg swelling. Gastrointestinal: Negative. Endocrine: Negative. Genitourinary: Negative. Allergic/Immunologic: Negative. Neurological: Negative. Hematological: Negative. Psychiatric/Behavioral: Negative. Physical Exam ED Triage Vitals [03/20/24 0937] Temp Pulse Resp BP SpO2 36.6 ??C (97.9 ??F) 64 16 125/72 100 % Temp src Heart Rate Source Patient Position BP Location FiO2 (%) Temporal -- -- -- -- Height Height Method Weight Weight Method 1.753 m (5' 9 ) Stated 77.1 kg (170 lb) Stated Physical Exam Constitutional: General: She is not in acute distress. Appearance: She is well-developed and normal weight. She is not ill-appearing, toxic-appearing or diaphoretic. HENT: Head: Normocephalic. Eyes: Extraocular Movements: Extraocular movements intact. Pupils: Pupils are equal, round, and reactive to light. Cardiovascular: Rate and Rhythm: Normal rate and regular rhythm. No extrasystoles are present. Chest Wall: PMI is not displaced. Pulses: Carotid pulses are 0 on the right side and 0 on the left side. Heart sounds: Normal heart sounds. Pulmonary: Effort: Pulmonary effort is normal. Breath sounds: Normal breath sounds. Chest: Chest wall: No mass or deformity. Abdominal: General: Bowel sounds are normal. Palpations: Abdomen is soft. Musculoskeletal: General: Normal range of motion. Cervical back: Normal range of motion and neck supple. Right lower leg: No tenderness. No edema. Left lower leg: No tenderness. No edema. Skin: General: Skin is warm and dry. Capillary Refill: Capillary refill takes less than 2 seconds. Neurological: General: No focal deficit present. Mental Status: She is alert. Psychiatric: Mood and Affect: Mood normal. MDM Heart Score History (Anamnesis): 1 EC Age: 1 Risk factors: 1 Troponin: 0 Heart Score Total: 3 Medical Decision Making Differential with her possible autoimmune connective tissue is most likely musculoskeletal could lorna trap nerve in her neck coronary disease is possible but fairly unlikely aortic problems are remotely possible but CT angiogram rules that out she does have a tiny pulmonary nodule I recommended repeat CT scan given her autoimmune disease possibly Amount and/or Complexity of Data Reviewed Radiology: ordered. ECG/medicine tests: ordered. Risk OTC drugs. Prescription drug management. 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 [facility] she will call them and get a follow up question is whether she needs a cardiac catheterization or not there is certainly nothing urgent her risk factors are minimal she stopped smoking 2 years ago does not have much of a family history we talked about the pulmonary nodule I recommended she get a repeat CT scan in 6months to a year all that is also a bit excessive By: Eladio Greenfield MD Final diagnoses: Chest pain, unspecified type Eladio Greenfield MD 03/20/24 1255 * Virginia Ramirez RN - 03/20/2024 9:36 AM CDT Pt to ED for c/o chest pain since this morning. Pt reports pain is constant and radiating to left shoulder. Pt reports hx of SVT. documented in this encounter Plan of Treatment Not on file documented as of this encounter Procedures Procedure Name Priority Date/Time Associated Diagnosis Comments CT CHEST PE W CONTRAST ED 11:33 AM CDT TROPONIN T HIGH-SENSITIVITY SERIES (BASELINE, 2HR, 4HR, 6HR) STAT 03/20/2024 10:48 AM CDT EGFR STAT 03/20/2024 10:48 AM CDT DIFFERENTIAL AUTO STAT 03/20/2024 10: 48 AM CDT CBC WITH AUTO DIFFERENTIAL STAT 03/20/2024 10:48 AM CDT COMPREHENSIVE METABOLIC PANEL STAT 03/20/2024 10:48 AM CDT XR CHEST 1 VIEW ED 03/20/2024 9:47 AM CDT ECG 12-LEAD STAT 03/20/2024 9:41 AM CDT documented in this encounter Results * CT Chest PE (CTA) W Contrast (03/20/2024 11:33 AM CDT) Anatomical Region Laterality Modality Body N/A Computed Tomogra phy 03/20/2024 11:5 6 AM CDT Narrative 03/20/2024 12:11 PM CDT EXAM DESCRIPTION: ?? CT CHEST PE (CTA) W CONTRAST REASON FOR STUDY: ?? PE suspected, low pretest prob ?? Chest pain and pressure today, history of SVT and failed cardiac ablation ? TECHNIQUE: CT angiogram of the chest performed with intravenous contrast using helical scanning technique with dynamic intravenous contrast injection. Reconstructed coronal and sagittal MPR images reviewed. All images stored on PACS. ?? 3D MIP images rendered on scanning unit and reviewed at time of interpretation. ??Automated exposure control was used as a dose optimization technique for this examination. CONTRAST TYPE/DOSE: ?? 75mL of IOVERSOL 350 MG IODINE/ML INTRAVENOUS SYRINGE ?? injected via ?? intravenous COMPARISON: ?? None REFERENCE: Per ACR white paper recommendations, unless otherwise specified no follow-up imaging is recommended for incidental renal and adrenal lesions per consensus recommendations based on imaging criteria. Further lab evaluation could be pursued based on clinical findings. FINDINGS: VASCULATURE: ?? No identified pulmonary emboli. ?? Thoracic aorta is normal in course and caliber without dissection. LUNGS: ?? There is bibasilar subsegmental atelectasis. ??The central airways are patent. ??There is no pleural effusion or pneumothorax. ??There is a 4 mm nodule in the left upper lobe along the fissure, however this nodule appears rounded (series 5, image 16). MEDIASTINUM/VIANCA: ?? No identified masses or abnormal nodes. HEART: ?? Heart size is normal with no pericardial effusion. AXILLA: ?? No adenopathy. CHEST WALL: ?? No masses. ??No subcutaneous air. HARDWARE/LINES/TUBES: ?? None. UPPER ABDOMEN: ?? No significant abnormality. MUSCULOSKELETAL: ?? There is no suspicious osseous lesion. OTHER: ?? No significant abnormality. IMPRESSION: 1. ??No evidence of pulmonary embolism. ??No acute abnormality appreciated. 2. ??4 mm solid nodule in the left upper lobe. ??Recommend follow-up per guidelines. Recent guidelines by the Fleischner Society (Radiology 067966,2017) divides patient into low vs. high risk (for example, patients who smoke are considered high risk) and provides followup recommendations as follows: SOLITARY PULMONARY NODULE: Patients considered LOW RISK for lung cancer and a nodule less than 6 mm in diameter require no follow-up. ??In patients at a HIGHER RISK optional follow-up is in 1 year. MULTIPLE PULMONARY NODULES: Patients considered LOW RISK for lung cancer and multiple nodules less than 6 mm in diameter require no follow-up. ??In patients at a HIGHER RISK optional follow-up is in 1 year. Note: These recommendations do not apply to lung cancer screening, patients with immunosuppression, or patients with known primary cancer. ?? http://pubs.rsna.org/doi/pdf/10.1148/radiol.4209507567 THIS IS AN ELECTRONICALLY VERIFIED FINAL REPORT 03/20/2024 12:11 PM - Electronically signed by ??Jaime Turner M.D. AM: AM D: ??03/20/2024 12:11 PM T: ??03/20/2024 12:11 PM Report ID: [id number] Reading Location: ??[id number] Procedure Note Jaime Turner MD - 03/20/2024 EXAM DESCRIPTION: CT CHEST PE (CTA) W CONTRAST REASON FOR STUDY: PE suspected, low pretest prob Chest pain and pressure today, history of SVT and failed cardiac ablation TECHNIQUE: CT angiogram of the chest performed with intravenous contrastusing helical scanning technique with dynamic intravenous contrast injection. Reconstructed coronal and sagittal MPR images reviewed. All images storedon PACS. 3D MIP images rendered on scanning unit and reviewed at time of interpretation. Automated exposure control was used as a doseoptimization technique for this examination. CONTRAST TYPE/DOSE: 75mL of IOVERSOL 350 MG IODINE/ML INTRAVENOUSSYRINGE injected via intravenous COMPARISON: None REFERENCE: Per ACR white paper recommendations, unless otherwise specifiedno follow-up imaging is recommended for incidental renal and adrenal lesionsper consensus recommendations based on imaging criteria. Further labevaluation could be pursued based on clinical findings. FINDINGS: VASCULATURE: No identified pulmonary emboli. Thoracic aorta is normalin course and caliber without dissection. LUNGS: There is bibasilar subsegmental atelectasis. The central airwaysare patent. There is no pleural effusion or pneumothorax. There is a 4 mmnodule in the left upper lobe along the fissure, however this nodule appearsrounded (series 5, image 16). MEDIASTINUM/VIANCA: No identified masses or abnormal nodes. HEART: Heart size is normal with no pericardial effusion. AXILLA: No adenopathy. CHEST WALL: No masses. No subcutaneous air. HARDWARE/LINES/TUBES: None. UPPER ABDOMEN: No significant abnormality. MUSCULOSKELETAL: There is no suspicious osseous lesion. OTHER: No significant abnormality. IMPRESSION: 1. No evidence of pulmonary embolism. No acute abnormality appreciated. 2. 4 mm solid nodule in the left upper lobe. Recommend follow-up per guidelines. Recent guidelines by the Fleischner Society (Radiology 430705,2017)divides patient into low vs. high risk (for example, patients who smoke areconsidered high risk) and provides followup recommendations as follows: SOLITARY PULMONARY NODULE: Patients considered LOW RISK for lung cancerand a nodule less than 6 mm in diameter require no follow-up. In patients at a HIGHER RISK optional follow-up is in 1 year. MULTIPLE PULMONARY NODULES: Patients considered LOW RISK for lung cancerand multiple nodules less than 6 mm in diameter require no follow-up. Inpatients at a HIGHER RISK optional follow-up is in 1 year. Note: These recommendations do not apply to lung cancer screening,patients with immunosuppression, or patients with known primary cancer. http://pubs.rsna.org/doi/pdf/10.1148/radiol.7010520426 THIS IS AN ELECTRONICALLY VERIFIED FINAL REPORT 03/20/2024 12:11 PM - Electronically signed by Jaime Turner M.D. AM: AM Report ID: [id number] Reading Location: [place] [id number] Eladio Greenfield MD IMG CT PROCEDURES Final Res ult * eGFR (03/20/2024 10:48 AM CDT) eGFR >90 >=60 mL/min/1. 73 [...] interpretive data was last reviewed 2021. Blood 03/20/2024 10:4 8 AM CDT 03/20/2024 10:51 AM CDT us Darin Hall MD LAB BLOOD ORDERABLES Final R esult [facility] ([place]) [facility] [place] [address] * Differential, auto (03/20/2024 10:48 AM CDT) Neutrophil abs 2.7 1.5 - 6.5 K/cumm Imm gran abs 0.0 0.0 - 0.1 K/cumm [facility] ([facility]) Lymphocyte abs 1.4 0.8 - 3.3 K/cumm [facility] ([place]) Monocyte abs 0.4 0.2 - 0.8 K/cumm [facility] ([place]) Eosinophil abs 0.1 0.0 - 0.5 K/cumm [facility] ([place]) Basophil abs 0.1 0.0 - 0.1 K/cumm [facility] ([facility]) Neutrophil pct 57.2 % [facility] ([facility]) Comment: Interpretive [...] was last revised on 2017. Lymphocyte pct 30.1 % [facility] ([facility]) Comment: Interpretive Data Percent cell count reference ranges are not reported, since discordance with absolute values may lead to misinterpretation of CBC data. Current Interpretive Data was last revised on 2017. Monocyte pct 8.8 % [facility] ([place]) Comment: Interpretive Data Percent cell count reference ranges are not reported, since discordance with absolute values may lead to misinterpretation of CBC data. Current Interpretive Data was last revised on 2017. Eosinophil pct 2.4 % [facility] ([facility]) Comment: Interpretive [...] Data was last revised on 2017. Blood 03/20/2024 10:4 8 AM CDT 03/20/2024 10:51 AM CDT us Darin Hall MD LAB BLOOD ORDERABLES Final R esult [facility] ([facility]) [facility] [place] [address] * Troponin T high-sensitivity series (baseline, 2hr, 4hr, 6hr) (03/20/2024 10:48 AM CDT) Trop T hs <6 <=14 ng/L Comment: Interpretive Data For further hscTnT resources including the diagnostic algorithm and an aid in interpretation, copy and paste this link: https://nrl.testcatalog.org/show/hsTrop Current Interpretive Data last revised 2020. Blood 03/20/2024 10:4 8 AM CDT 03/20/2024 10:51 AM CDT us Eladio Greenfield MD LAB BLOOD ORDERABLES Final Result [facility] ([facility]) 1 [facility] [place] [address] * Comprehensive metabolic panel (03/20/2024 10:48 AM CDT) Sodium 138 135 - 145 mmol/L Potassium, pl 4.1 3.3 - 4.9 mmol/L [facility]) Chloride 106 97 - 110 mmol/L [facility] CO2 23 22 - 32 mmol/L [facility] Anion gap 9 2 - 15 mmol/L [facility] BUN 10 6 - 25 mg/dL [facility]) Creatinine 0.80 0.60 - 1.10 mg/dL [facility] Glucose 86 70 - 199 mg/dL [facility] [...] 8.5 - 10.3 mg/dL [facility]) Bilirubin, total 0.3 0.1 - 1.2 mg/dL [facility]) Protein, pl 7.1 6.5 - 8.5 g/dL [facility]) Albumin 4.3 3.5 - 5.0 g/dL [facility]) Alk phos 54 40 - 130 Units/L [facility] ALT 21 7 - 45 Units/L [facility] AST 22 10 - 45 Units/L [facility]) Blood 03/20/2024 10:4 8 AM CDT 03/20/2024 10:51 AM CDT us Eladio Greenfield MD LAB BLOOD ORDERABLES Final Result [facility] ([facility] 1 [facility] [place] [address] * CBC with auto differential (03/20/2024 10:48 AM CDT) WBC 4.7 3.8 - 9.9 K/cumm Hgb 13.5 11.9 - 15.5 g/dL [facility] Hct 39.0 35.6 - 45.5 % [facility] Plt 302 150 - 400 K/cumm [facility] MPV 9.8 9.1 - 12.3 fL [facility] RBC 4.48 3.90 - 5.20 M/cumm [facility] MCV 87.1 81.3 - 96.4 fL [facility] MCH 30.1 27.1 - 33.3 pg [facility] MCHC 34.6 32.3 - 35.7 g/dL [facility] RDW CV 11.9 11.1 - 14.9 % [facility] RDW SD 38.5 35.7 - 48.1 fL [facility] NRBC abs 0.00 0.00 - 0.01 K/cumm [facility] Blood (Blood, Venous) 03/20/2024 10:48 AM CDT 03/20/2024 10:51 AM CDT us Eladio Greenfield MD LAB BLOOD ORDERABLES Final Result [facility] ([facility] [place] [address] * XR Chest 1 Vw Portable (if patient condition/safety warrant portable) (03/20/2024 9:47 AM CDT) Anatomical Region Laterality Modality Body, Chest N/A Computed Radiogr aphy 03/20/2024 9:55 AM CDT Narrative 03/20/2024 9:56 AM CDT EXAM DESCRIPTION: XR CHEST 1 VIEW REASON FOR STUDY: Chest pain TECHNIQUE: 1 ??radiographic view(s) of the chest. COMPARISON: 12/29/2020 FINDINGS: LUNGS: ??No focal opacity, pleural effusion, or pneumothorax. ?? HEART/MEDIASTINUM: ??Cardiac silhouette normal in size. Mediastinal and hilar contours appear normal. LINES/TUBES: ??None. BONES: ??No acute osseous abnormality. IMPRESSION: No acute cardiopulmonary abnormality. THIS IS AN ELECTRONICALLY VERIFIED FINAL REPORT 03/20/2024 9:56 AM - Electronically signed by ??Jacobo Clayton M.D. MM: MM D: ??03/20/2024 9:56 AM T: ??03/20/2024 9:56 AM Report ID: [id number] Reading Location: ??[id number] Procedure Note Jacobo Clayton MD - 03/20/2024 EXAM DESCRIPTION: XR CHEST 1 VIEW REASON FOR STUDY: Chest pain TECHNIQUE: 1 radiographic view(s) of the chest. COMPARISON: 12/29/2020 FINDINGS: LUNGS: No focal opacity, pleural effusion, or pneumothorax. HEART/MEDIASTINUM: Cardiac silhouette normal in size. Mediastinal andhilar contours appear normal. LINES/TUBES: None. BONES: No acute osseous abnormality. IMPRESSION: No acute cardiopulmonary abnormality. THIS IS AN ELECTRONICALLY VERIFIED FINAL REPORT 03/20/2024 9:56 AM - Electronically signed by Jacobo Clayton M.D. MM: MM Report ID: [id number] Reading Location: [id number] Eladio Greenfield MD IMG XR PROCEDURES Final Res ult * ECG 12 lead (03/20/2024 9:41 AM CDT) 03/20/2024 9:41 AM CDT Narrative [facility] - 03/20/2024 10:39 AM CDT Vent Rate: 62 bpm RR Interval: 964 msec DE Interval: 159 msec QRS Duration: 75 msec QT Interval: 383 msec QTC Interval: 388 msec P-R-T [place]: 44 - 50 - 40 degrees IMPRESSION: SINUS RHYTHM WITH SINUS ARRHYTHMIA NORMAL ECG NO CHANGE FROM PREVIOUS TRACING NOTED Electronically Signed By: Apollo Torrez MD Eladio Greenfield MD ECG ORDERABLES Final Resul t [facility] documented in this encounter Visit Diagnoses Diagnosis Chest pain, unspecified type- Primary documented in this encounter Administered Medications Inactive Administered Medications - up to 3 most recent administrations Medication Order MAR Action Action Date Dose Rate Site aspirin chewable tablet 324 mg 324 mg, oral, Once, On Mon03/20/24 at 0940, For 1 dose, Indications: Chest PainIndications:Chest Pain Given 03/20/2024 11:44 AM CDT 324 mg ioversoL (OPTIRAY 350) syringe 75 mL 75 mL, intravenous, Once in imaging, contrast, Starting on Mon03/20/24 at 1111, For 1 dose Contrast Given 03/20/2024 11:11 AM CDT 75 mL sodium chloride 0.9% bolus 1,000 mL 1,000 mL, intravenous, Once, On Mon03/20/24 at 1046, For 1 dose New Bag 03/20/2024 11:44 AM CDT 1,000 mL documented in this encounter Active and Recently Administered Medications Times are shown in CDT. Scheduled Medication Order 03/18/2024 03/19/2024 03/20/2024 aspirin chewable tablet 324 mg (COMPLETED) 324 mg, oral, Once, On Mon03/20/24 at 0940, For 1 dose, Indications: Chest Pain 1144 (Given - Provid er: Sandi Gardner, KENDRA) sodium chloride 0.9% bolus 1,000 mL (COMPLETED) 1,000 mL, intravenous, Once, On Mon03/20/24 at 1046, For 1 dose 1144 (New Bag - Prov ider: Sandi Gardner RN)[id number] (Stopped - Provider: Crystal Mora, KENDRA) PRN Medication Order 03/18/2024 03/19/2024 03/20/2024 ioversoL (OPTIRAY 350) syringe 75 mL (COMPLETED) 75 mL, intravenous, Once in imaging, contrast, Starting on Mon03/20/24 at 1111, For 1 dose 1111 (Contrast Given - Provider: Ursula Bunch, RT) documented in this encounter Orders Nursing Count Last Ordered Date First Orde red Date CONTINUOUS PULSE OXIMETRY 1 03/20/2024 IV Count Last Ordered Date First Orde red Date SALINE LOCK IV 1 03/20/2024 documented in this encounter Care Teams Environmental Health Nurse Relationship Specialty Start Date End Date Amy Marc MD [address] [employer] [place] [address] PCP - General 11/12/13 documented as of this encounter
--- OUTSIDE RECORDS SUMMARY | 2024-06-24 23:56 | XMS_ITS | Encounter Summary ---
Author Organization Formerly [facility] Address [address] [place] [address] Care Team Providers Care Webmethods Consultant Name Role Phone Amy Marc MD Primary Care Provider [phone]- [phone] Reason for Visit * Auth/Cert (Routine) Specialty Diagnoses / Procedures Referred By Contrichelle t Referred To Contact Diagnoses PSVT (paroxysmal supraventricular tachycardia) (HCC) PSVT (paroxysmal supraventricular tachycardia) [I47.10] Procedures ABLATION SUPRAVENTRICULAR TACHYCARDIA (SVT) 32548 Referral ID Status Reason Start Date Expiration Date Visits Re quested Visits Authorized [id number] 1 1 Encounter Details Date Type Department Care Team (Latest Contact Info) Description 09/29/2023 10:30 AM CDT - 09/29/2023 1:00 PM CDT Surgery [facility] Electrophysiology Lab [address] [place] [address] Dave Gonzalez MD [address] [place] [address] ELECTROPHYSIOLOGIC EVALUATION (EPS) WITH INDUCTION OR ATTEMPTED INDUCTION OF ARRHYTHMIA 32539 Surgery Details Date/Time Status Location OR Service Patient Class Case Class Case Type Trauma Case? 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 JENNIFER Michel Clinical Cardiac Electrophysiology [facility] at * Attachments The following attachments cannot be sent through Care Everywhere. * Moderate Sedation (Discharge Care) (Wallisian) documented in this encounter Medications at Time [...] for : Procedure(s): ABLATION SUPRAVENTRICULAR TACHYCARDIA (SVT) 48712 Source Note - Ulysses Martinez MD - 09/27/2023 12:30 PM CDT Images from the original note were not included. Anesthesia Evaluation Nasreen Ace is a 43 y.o. female ABLATION SUPRAVENTRICULAR TACHYCARDIA (SVT) 34956 Pre-Op Diagnosis Codes: * PSVT (paroxysmal supraventricular tachycardia) ([facility]) [I47.10] HISTORY Past Medical History Information obtained [...] Informed Consent: Discussed plan with attending and POULTRY HATCHERY MAN. Consent and Attending signature: I and/or my [...] Epicardial ablation Procedure [] SVT Ablation procedure (73218) [x] ELECTROPHYSIOLOGIC EVALUATION (EPS) WITH INDUCTION OR ATTEMPTED INDUCTION OF ARRHYTHMIA (47686) [] +LA/CS pacing (67747) [] +3D Mapping (24628) [] +Intracardiac ultrasound (49197) [] +Transseptal (47084) [x] +IV drug (14195) [] +Other Arrhythmia (69325) Preoperative Cardiac Imaging: NA Risks and expected [...] [] Thermocool ST (D-curve) ablation catheter [] JODY BERTRAND nonirrigated ablation catheter-Slow Pathway [] SoundStar ECO [...] the above report. Dave Gonzalez MD 09/29/2023 Dave Gonzalez MD CV ELECTROPHYSIOLOGY P ROCS Final Result * POCT hCG, urine (09/29/2023 9:11 AM CDT) HCG, ur, POC Negative Negative Lot Number [id number] QC Backgroud Clear Acceptable QC Control Line Acceptable Urine 09/29/2023 9:11 AM CDT us Ulysses Martinez MD POINT OF CARE TEST [...] 1,000 units/500 mL (2 unit/mL) infusion (premix) Code/trauma/sedation medication, Starting on Mon09/29/23 at 1135, Intra-Procedure (CV) Given 09/29/2023 11:35 AM CDT 500 mL heparin in 0.9% sodium chloride 1,000 units/500 mL (2 unit/mL) infusion (premix) Code/trauma/sedation continuous med, Starting on Mon09/29/23 at 1139, Intra-Procedure (CV) New Bag 09/29/2023 11:39 AM CDT 30 mL/hr 30 mL/hr heparin in 0.9% sodium chloride 1,000 units/500 mL (2 unit/mL) infusion (premix) Code/trauma/sedation continuous med, Starting on Mon09/29/23 at 1139, Intra-Procedure (CV) New Bag 09/29/2023 11:39 AM CDT 30 mL/hr 30 mL/hr heparin in 0.9% sodium chloride 1,000 units/500 mL (2 unit/mL) infusion (premix) Code/trauma/sedation continuous med, Starting on Mon09/29/23 at 1142, Intra-Procedure (CV) New Bag 09/29/2023 11:42 AM CDT 30 mL/hr 30 mL/hr heparin in 0.9% sodium chloride 1,000 units/500 mL (2 unit/mL) infusion (premix) Code/trauma/sedation continuous med, Starting on Mon09/29/23 at 1143, Intra-Procedure (CV) New Bag 09/29/2023 11:43 AM CDT 30 mL/hr 30 mL/hr isoproterenol (ISUPREL) 1,000 mcg in sodium chloride [...] Bag 09/29/2023 11:20 AM CDT 50 mL/hr lidocaine (XYLOCAINE) 10 mg/mL (1 %) injection Code/trauma/sedation medication, Starting on Mon09/29/23 at 1136, Intra-Procedure (CV), Indications: Administration of Local AnesthesiaIndications:Adminis tration of Local Anesthesia Given 09/29/2023 11:36 AM CDT 10 mL Right Groin lidocaine (XYLOCAINE) 10 mg/mL (1 %) injection Code/trauma/sedation medication, Starting on Mon09/29/23 at 1139, Intra-Procedure (CV), Indications: Administration of Local AnesthesiaIndications:Adminis tration of Local Anesthesia Given 09/29/2023 11:39 AM CDT 10 mL Left Groin sodium chloride 0.9% flush 0.5-20 mL 0.5-20 [...] after each use. sodium chloride 0.9% solution Code/trauma/sedation medication, Starting on Mon09/29/23 at 1124, Intra-Procedure (CV) Given 09/29/2023 11:24 AM CDT 1,000 mL documented in this encounter Discontinued Medications Medication [...] on Mon09/29/23 at 1300, Until Mon09/29/23 at 2014, Intra-Op, Routine 1209 (New Bag - Prov ider: BETHEL Amin)1212 (Rate/Dose Change - Provider: BETHEL Amin)1219 (Stopped [...] size. Flush before and after each use. 124 (AUG Hold - Pro vider: Automatic Transfer [...] ative free injection 50 mcg 2 09/29/2023 isoproterenol (ISUPREL) 1,00 0 mcg in [...] chloride 0.9% flush 0.5-20 mL 6 09/17 Nursing Count Last Ordered Date First Orde [...] 09/29/2023 documented in this encounter Care Teams Webmethods Consultant Relationship Specialty Start Date End Date Amy Marc MD [address] [place] [id number] PCP - General 11/12/13 documented as of this encounter
--- OUTSIDE RECORDS SUMMARY | 2024-06-24 23:56 | XMS_ITS | Encounter Summary ---
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 Gender Identity Not on file Sexual Orientation Not on file documented as of this encounter Ordered Prescriptions Prescription Sig Dispense Quantity Refills Last Filled Start Date End Date flecainide (TAMBOCOR) 50 mg tablet Take 1 tablet (50 mg total) by mouth 2 (two) times a day 180 tablet 06/23/2023 07/13/2023 documented in this encounter Miscellaneous Notes * Addendum Note - Howie Buckner RN - 06/23/2023 1:04 PM CSTAddended by: HOWIE BUCKNER on: 06/23/2023 01:04 PM Modules accepted: Orders SPORTATION SUPERVISOR * Telephone Encounter - Howie Buckner RN - 06/23/2023 1:03 PM TRANSPORTATION SUPERVISOR Spoke w/pt. Reviewed Dr. Gonzalez's recommendations. Scheduled for 1 week EKG and sent Rx to requested pharmacy. She verbalized understanding. SPORTATION SUPERVISOR * Telephone Encounter - Howie Buckner RN - 06/23/2023 12:56 PM TRANSPORTATION SUPERVISOR Per Dr. Gonzalez, We can stop Dilitazem and start Flecainide 50 mg twice daily the day after. Would want her to come in for an EKG 1 week after for QRS monitoring SPORTATION SUPERVISOR documented in this encounter Plan of Treatment [...] Discontinue Reason Start Date End Da te dilTIAZem CD/XR/XT (CARDIZEM CD,DILACOR XR) 120 mg 24 hr capsuleIndications:PSVT (paroxysmal supraventricular tachycardia) (HCC) Take 1 capsule (120 mg total) by mouth daily Alternate therapy 04/11/2023 06/23/2023 documented as of this encounter Care Teams Boiler Attendant Relationship Specialty Start Date End Date Amy Marc MD [address] [place] [address] PCP - General 11/12/13 documented as of this encounter
--- OUTSIDE RECORDS SUMMARY | 2024-06-24 23:56 | XMS_ITS | Encounter Summary ---
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 Gonzalez- telephone call from him to review procedure can be offered to ptas well. Spoke w/pt and provided her these options. She prefers a phone call to minimize having to take time off work. Dr. Gonzalez updated. * Telephone Encounter - Janice Buckner RN - 08/31/2023 2:[address] Gonzalez, ana to schedule w/Venita? Please advise. * Telephone Encounter - Leah Phillips MA - 08/31/2023 2:47 PM CDT Per MyChart message Patient would like an appointment with the comments: I would like to speak to him about possibly setting up a time to go ahead and have the ablation wecarroll previously spoken about. I will send to KENDRA Nathan to see if this is something we can have ARNULFO Nathan talk with patient about or how we should proceed. documented in this encounter Plan of Treatment Not on file documented as of this encounter Visit Diagnoses Not on filedocumented in this encounter Care Teams Respiratory Physician Relationship Specialty Start Date End Date Amy Marc MD [address] [place] [address] [place] [address] PCP - General 11/12/13 documented as of this encounter
--- OUTSIDE RECORDS SUMMARY | 2024-06-24 23:56 | XMS_ITS | Encounter Summary ---
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 Reviewed results. Pt verbalized understanding. * Telephone Encounter - Janice Buckner RN - 04/12/2023 12:[address] Gonzalez, No concerns with her blood work, we will see what stress test shows documented in this encounter Plan of Treatment Not on file documented as of this encounter Visit Diagnoses Not on filedocumented in this encounter Care Teams Motorcycle Mechanic Relationship Specialty Start Date End Date Amy Marc MD [address] [place] [address] PCP - General 11/12/13 documented as of this encounter
--- OUTSIDE RECORDS SUMMARY | 2024-06-24 23:56 | XMS_ITS | Encounter Summary ---
Author Organization [facility] Address [address] [place] [address] Care Team Providers Care Glass Mold Repairer Name Role Phone Amy Marc MD Primary Care Provider +1- [phone] Encounter Details Date Type Department Care Team (Late st Contact Info) Description 05/04/2023 Telephone [facility] Cardiology [address] [place] [phone] Dave Gonzalez MD [address] [place] [address] Social History Tobacco Use Types Packs/Day [...] on file Legal Sex Female 12:17 AM CERTIFIED INDUSTRIAL HYGIENIST Gender Identity Not on file Sexual Orientation Not on file documented as of this encounter Miscellaneous Notes * Telephone Encounter - Janice Buckner RN - 05/04/2023 12:58 PM CERTIFIED INDUSTRIAL HYGIENIST Spoke w/pt. Reviewed results of stress test. Pt stated she would like to continue on current medications and observation. She recently starting taking OTC magnesium glycinate, 350 mg and has noticed as significant improvement in her chest pain. Will fwd to Dr. Gonzalez as FYI IFIED INDUSTRIAL HYGIENIST * Telephone Encounter - Janice Buckner RN - 05/04/2023 12:54 PM CERTIFIED INDUSTRIAL HYGIENIST Per Dr. Gonzalez, Please let Ms. Jo know the good news that she has no evidence of coronary disease. Bad news is I'm not sure what's causing her CP or SOB. We can consider Flecainide to treat her SVT, but I know she was hesitant to it in the past IFIED INDUSTRIAL HYGIENIST IFIED INDUSTRIAL HYGIENIST documented in this encounter Plan of Treatment Not on file documented as of this encounter Visit Diagnoses Not on filedocumented in this encounter Care Teams Glass Mold Repairer Relationship Specialty Start Date End Date Amy Marc MD [address] [facility] [place] [address] PCP - General 11/12/13 documented as of this encounter
--- OUTSIDE RECORDS SUMMARY | 2024-06-24 23:56 | XMS_ITS | Encounter Summary ---
Author Organization [facility] Address [address] [place] [address] Care Team Providers Care Lead Caster Helper Name Role Phone Amy Marc MD Primary Care Provider +1- [phone] Reason for Referral * Consultation (Routine) - Pending Review Specialty Diagnoses / Procedures Referred By Komal infante Referred To Contact Cardiology Diagnoses PSVT (paroxysmal supraventricular tachycardia) ([facility]) Venita Moon NP [address] [facility] [address] [address] Phone: tel: fax: Donovan Apple III, MD [address] [facility] [address], [place] [address] Phone: tel: fax: Referral ID Status Reason Start Date Expiration Date Visits Requested Visits Authorized [id number] Pending Review Specialty Services Required 02/20/2024 03/21/2025 1 1 Question Answer Please select the performing region: [facility] [[id number]] Please select the performing department: [facility] [[id number]] To provider: DONOVAN APPLE III [[id number]] # of visits: 1 Comments psvt Reason for Visit * Reason Comments Follow-up 6 month f/u Encounter Details Date Type Department Care Team (Latest Contact Info) Description 02/20/2024 10:00 AM CDT Office Visit [facility] Cardiology [address] [facility] [address], [place] [phone] Venita Moon NP [address] [facility] [address] [address] PSVT (paroxysmal supraventricular tachycardia) (HCC) (Primary [...] on file 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 Gender Identity Not on file Sexual Orientation Not on file documented as of this encounter Last Filed Vital Signs Vital Sign Reading Time Taken Comments Blood Pressure 112/78 02/20/2024 9:56 AM CDT Pulse 68 02/20/2024 9:56 AM CDT Temperature - - Respiratory Rate 16 02/20/2024 9:56 AM CDT Oxygen Saturation 97% 02/20/2024 9:56 AM CDT Inhaled Oxygen Concentration - - Weight 78.5 kg (173 lb) 02/20/2024 9:56 AM CDT Height 175.3 cm (5' 9 ) 02/20/2024 9:56 AM CDT Body Mass Index 25.55 02/20/2024 9:56 AM CDT documented in this encounter Ordered Prescriptions Prescription Sig Dispense Quantity Refills Last Filled Start Date End Date metoprolol tartrate (LOPRESSOR) 25 mg immediate release tabletIndications:PSVT (paroxysmal supraventricular tachycardia) (HCC) Take 1 tablet (25 mg total) by mouth 2 (two) times a day as needed (elevated heart rates) 60 tablet 2 02/20/2024 documented in this encounter Progress Notes * Venita Moon, ARNULFO - 02/20/2024 10:00 AM CDT Return Visit Note - Cardiac Electrophysiology Patient Name: Nasreen Ace Date of : 1980 Primary Physician: Amy Marc MD I had the pleasure of seeing Nasreen Ace in follow-up at the at the [facility]. I have reviewed the pertinent data originating [...] d/t the inability to induce supraventricular tachycardia. During follow-up visit on 10/24/2023 patient stated that she was still experiencing occasional episodes of lightheadedness and tachy palpitations with heart rates as high as 200. Patient did state that these episodes were becoming shorter and less frequent. Patient had also not started taking her previously prescribed metoprolol at that time. Pertinent history: MDD, Undifferentiated mixed Connective tissue disease Patient presents today as a four-month follow-up for PSVT. Patient states that overall today she feels good but she is still having elevated heart rates usually a couple times a week lasting a minuteor 2 at a time. Patient states that her rates are not getting as high as they once were better getting up to the 130s- 140s still. Patient states that occasionally she will go a week or 2 without having symptoms but on regular basis they are happening multiple times a week. Her last episode of elevated heart rates were yesterday where she said that she was heart rates often throughout the day. Patient states that when her heart rates become elevated she becomes diaphoretic and dizzy. Patient states that she still has her diltiazem at home and was taking it as needed when these events occurred. Discussed with patient about medication adjustments and patient states that she is at this time still not wanting to take medication on a daily basis. Will order metoprolol as needed. Exam Vitals: 02/20/24 0956 BP: 112/78 BP Location: Left arm Patient Position: Sitting Pulse: 68 Resp: 16 SpO2: 97% Weight: 78.5 kg (173 lb) Height: 175.3 cm (5' 9 ) Physical Exam Constitutional: No distress. Head: Normocephalic. Nose: Nose normal. Mouth/Throat: Mucous membranes are normal. Eyes: Sclera Anicteric Neck: Supple without appreciable lymphadenopathy, carotid bruits Cardiovascular: Regular Regular rhythm, S1 normal and S2 normal. No murmurs/rubs/gallops. Pulmonary/Chest: Effort normal and breath sounds normal. Abdominal: Soft. Normal appearance. Neurological: alert, oriented Psychiatric: normal mood and affect. Diagnostic Data Labs Creatinine Date Value Ref Range Status [...] (paroxysmal supraventricular tachycardia) (HCC) (primary encounter diagnosis) Miriam Ace is a 43 y.o. female with a history of an undefined connective tissue disease and paroxysmal SVT. # PSVT: On 09/29/2023 patient underwent EP study with Dr. Gonzalez. Unfortunately during this study no rhythm could be induced therefore no ablation was performed. At that time patient was prescribed metoprolol 25 mg b.i.d. but unfortunately never started d/t concerns that side effects might arise. During last office visit discussed with patient taking metoprolol as needed and continue monitoring symptoms at that time. As noted previously patient was taking diltiazem as needed at home. Have discussed medication regimen with the patient and we will order metoprolol p.r.n. to help with breakthrough symptoms. - Metoprolol 25 mg p.r.n.. patient states that she will update us if she takes this on a regular basis. If that is the case would recommend taking scheduled b.I.d.. - We will place a referral to Dr. Zechariah hoyt at [facility] for continuing EPcare. Thank you for allowing us to participate in the care of this pleasant patient. Please do not hesitate to call us if any questions arise. Respectfully, JENNIFER Michel Clinical Cardiac Electrophysiology [facility] at documented in this encounter Plan of Treatment Scheduled Referrals Name Type Priority Associated Diagnoses Orde r Schedule Ambulatory referral to Cardiac Electrophysiology Outpatient Referral Routine PSVT (paroxysmal supraventricular tachycardia) (HCC) Expected: 08/19/2024 (Approximate), Expires: 02/19/2025 documented as of this encounter Visit Diagnoses Diagnosis PSVT (paroxysmal supraventricular tachycardia) (HCC)- Primary Paroxysmal supraventricular tachycardia documented in this encounter Care Teams Lead Caster Helper Relationship Specialty Start Date End Date Amy Marc MD [address] [facility] [place] [address] PCP - General 11/12/13 documented as of this encounter
--- OUTSIDE RECORDS SUMMARY | 2024-06-24 23:56 | XMS_ITS | Encounter Summary ---
Author Organization [facility] Address [address] [place] [address] Care Team Providers Care Global Climate Change Researcher Name Role Phone Amy Marc MD Primary Care Provider [phone]- [phone] Reason for Visit * Reason Comments Other CTD Connective tissue disease (CMS/HCC) (HCC Encounter Details Date Type Department Care Team (Late st Contact Info) Description 04/04/2024 8:15 AM CDT Office Visit [facility] Rheumatology at [facility] [address] [place] [address] Nasreen Cox MD [address] [facility] [address] [place] [address] MCTD (mixed connective tissue disease) (CMS/HCC) (HCC) (Primary Dx) Social History Tobacco Use [...] on file 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 Gender Identity Not on file Sexual Orientation Not on file documented as of this encounter Last Filed Vital Signs Vital Sign Reading Time Taken Comments Blood Pressure 118/82 04/04/2024 8:12 AM CDT Pulse 75 04/04/2024 8:12 AM CDT Temperature 36.7 ??C (98.1 ??F) 04/04/2024 8:12 AM CD T Respiratory Rate - - Oxygen Saturation 98% 04/04/2024 8:12 AM CDT Inhaled Oxygen Concentration - - Weight 80.9 kg (178 lb 4.8 oz) 04/04/2024 8:12 A M CDT Height 175.3 cm (5' 9.02 ) 04/04/2024 8:12 AM CD T Body Mass Index 26.32 04/04/2024 8:12 AM CDT documented in this encounter Progress Notes * Nasreen Cox MD - 04/04/2024 8:15 AM CDT Other (CTD) and Connective tissue disease (CMS/HCC) (HCC HPI: This is a 44 y.o. female patient presenting with a chief complaint of Other (CTD) and Connective tissue disease (CMS/HCC) (HCC . She is doing fairly well. Still dealing w/ issues w/ SVT. Has some chronic joint pains. No overt synovitis. No fevers, no sores in the mouth or nose. Has chronic migraine. Has ongoing brainfog. Has not been tested yet for DIALLO. She was dx w/ SVT. Has seen her supervisor electronic coils recently. Cannot take HCQ w/ her cardiac meds. Only had a few 'flare ups' of joint pain and fatigue. Discussed ref to sleep medicine. Feels better overall compared to last year. Recall from prior visit: She was seen by Dr. Garibay. I do not have any records from her office. Tx care here because Dr. Garibay doesnot see patients on Medicaid. She was last seen in 2020-. Started seeing her in 2020. She was dx w/ UDCTD. She had covid and then was ill for weeks. She had R lat swelling a few weeks after resolved covid. PMD did labs. Showed a +LORIN. She never really recovered as far as fatigue. Has longstanding raynauds. Prior to covid, she was doing really well overall. Has some hair thinning, no patchy hair loss. States that PMD checked her cortisol, thyroid testing. Stopped smoking cigarettes, vapes, cutting down on same. Does regular exercise. She was on HCQ for close to a year, thinks that this helped with her joint pain. She was seen by an PERSONNEL CLERKS SUPERVISOR in plastics at [place] for her R wrist pain. Exam was grossly nl, no imaging done, IASI done at that time. Feels like this helped. R troch bursitis inj. Main issues: Weight gain is her first concern. Gained 45 lbs in 1 year. Feels like, despite working out, she is gaining abd wt. Has had a rash on her R flank that comes and goes over the last year or so. Itchy. Has not yet seemDerm. Has a sore in the nose on the L side that comes and goes. Has a lot of fatigue. She snores. Never really wakes feeling rested. Has a hx of PTSD and anxiety issues. Has had occ panic attacks. She works at [employer]. Out of work for a bit because daughter had surgery. Going back to work tomorrow. Has chronic SALAS, has occ sores in the mouth. Has occ dizziness, will happen randomly. Has occ CP, increased constipation, GERD, has memory loss, night sweats, a lot of anxiety. Hx of RA in a cousin. Has a cousin's daughter w/ Grave disease Current Outpatient Medications Medication Sig Dispense Refill hydrOXYzine (ATARAX) 25 mg tablet 1-2 TABS BY MOUTH AT BEDTIME 30-60 MINUTES BEFORE BEDTIME FOR INSOMNIA metoprolol tartrate (LOPRESSOR) 25 mg immediate release tablet Take 1 tablet (25 mg total) by mouth2 (two) times a day as needed (elevated heart rates) 60 tablet 2 No current facility-administered medications for this visit. Patient has no known allergies. Past Medical History: Diagnosis Date Anxiety Arrhythmia Chest pain Shortness of breath Family History Problem Relation Age of Onset Depression Mother Depression; Depression Father Depression; Hypertension Father Hypertension; Obesity Father Obesity; Stroke Father Stroke; Depression Sister Depression; Other Brother Alive and well; Lung cancer Maternal Grandmother Cancer, lung; No past surgical history on file. Social History Tobacco Use Smoking status: Former Types: Cigarettes Smokeless tobacco: None Substance and Sexual Activity Drug use: No Sexual activity: None Alcohol Use: Not At Risk (09/29/2023) AUDIT-C Frequency of Alcohol Consumption: Never Average Number of Drinks: Patient does not drink Frequency of Binge Drinking: Never Review of Systems ----fairly widely positive: Constitutional: fatigue, gen weakness, wt gain HENT: nose sores. Eyes: Negative for photophobia, pain and redness. Respiratory: Negative for cough and shortness of breath. Cardiovascular: Negative for chest pain and leg swelling. Gastrointestinal: constipation, gerd Endocrine: Negative for cold intolerance and heat intolerance. Genitourinary: Negative for dysuria and hematuria. Musculoskeletal: joint pain Skin: Negative for rash. Neurological: + headaches. Hematological: +bruise/bleed easily. Psychiatric/Behavioral: anxiety Vitals BP 118/82 Pulse 75 Temp 36.7 ??C (98.1 ??F) Ht 175.3 cm (5' 9.02 ) Wt 80.9 kg (178 lb 4.8 oz) LMP 03/07/2024 (Exact Date) SpO2 98% BMI 26.32 kg/m?? Body mass index is 26.32 kg/m??. Physical exam: Constitutional:well developed, well nourished, in no acute distress, alert and oriented X 3 Slightly excited speech. Nose: normal Ears: normal external appearance Eyes: PERRL, normal extraocular movements, normal conjunctiva and sclera bilaterally, no nystagmus Oropharynx: mucous membranes moist, no lesions Neck:supple and no adenopathy Chest:Normal chest wall and respirations. Clear to auscultation. Lungs:Clear to auscultation bilaterally Cardiac:Heart sounds are normal. Regular rate and rhythm without murmur, gallop or rub. Abdomen: soft, non-tender; bowel sounds normal; no masses, no organomegaly :deferred Extremities: No clubbing or cyanosis Skin: no rashes today. Neurologic: normal without focal findings and mental status, speech normal, alert and oriented x3 Musculoskeletal: mild soft tissue prominence at the lateral aspect of the R ankle. LABS: Lab Results Component Value Date GLUCOSE 86 03/20/2024 CALCIUM 9.2 03/20/2024 CO2 23 03/20/2024 CREATININE 0.80 03/20/2024 Lab Results Component Value Date ALT 21 03/20/2024 AST 22 03/20/2024 ALKPHOS 54 03/20/2024 BILITOT 0.3 03/20/2024 Lab Results Component Value Date WBC 4.7 03/20/2024 HGB 13.5 03/20/2024 HCT 39.0 03/20/2024 MCV 87.1 03/20/2024 Lab Results Component Value Date SEDRATE 9 02/01/2023 1. MCTD (mixed connective tissue disease) (CMS/HCC) (HCC) Pleasant woman w/o definitive findings for CTD. Advised on s/s to continue to monitor for. Labs were unremarkable. Advised again that she needs DIALLO eval My total encounter time on 04/04/2024 was 32 minutes which was spent in the activities documented in the note. This includes time spent prior to the visit and after the visit in direct care of the patient. This time does not include time spent in any separately reportable services. documented in this encounter Plan of Treatment Not on file documented as of this encounter Visit Diagnoses Diagnosis MCTD (mixed connective tissue disease) (CMS/HCC) (HCC)- Primary Other specified diffuse disease of connective tissue documented in this encounter Care Teams Global Climate Change Researcher Relationship Specialty Start Date End Date Amy Marc MD [address] [facility] [place] [address] PCP - General 11/12/13 documented as of this encounter
--- OUTSIDE RECORDS SUMMARY | 2024-06-24 23:56 | XMS_ITS | Encounter Summary ---
Author Organization [facility] Address [address] [facility] [address] [place] [address] Phone Care Team Providers Care Mixed Animal Veterinarian Name Role Phone Amy Marc MD Primary Care Provider [phone]- [phone] Reason for Visit * Reason Comments Follow-up * Consultation (Routine) - Authorized Specialty Diagnoses / Procedures Referred By Contac t Referred To Contact Plastic Surgery Diagnoses Right wrist pain Amy Marc MD COUNTRY [facility] [place] [address] Phone: tel: fax: [facility] (All Locations) Referral ID Status Reason Start Date Expiration Date Visits Requested Visits Authorized [id number] Authorized Specialty Services Required 10/17/2022 11/15/2024 99 99 Encounter Details Date Type Department Care Team (Late st Contact Info) Description 11/29/2023 10:15 AM CDT Office Visit 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 At that time she also had stopped taking medication for connective tissue disease due to loss of insurance. She was given Kenalog injection. She was instructed to contact the office if she did not have improvement to consider MRI. Since I last saw her she is become reestablished with radio repair teacher. She was also developed SVT and is no longer able to take medication that she prior used to help with idiopathic connective tissuedisease. S: She states that steroid injection helped for many months and in the past few months she is again started to notice return of stiffness and feeling of wrist bones becoming stuck. She states she is able to move her wrist to ???put bones back in place?? . More recently she was also noticed that she isdeveloping tingling of her right 3rd through 5th digits while driving. She denies this occurring any other time and denies awakening at night with issues. O: On visual exam I do not note obvious deformities. She has full range of motion of right hand and wrist. He is able to make a full fist and grasped firmly as well as fully extend all digits. She is normal sensation to all distal fingertips and adequate perfusion. On palpation she has tenderness with palpation to base of carpal bones. REVIEW OF LABORATORY AND RADIOGRAPHIC STUDIES: Right hand x-ray: Review of x-ray today I do not note abnormalities, signs of osteo arthritis or fractures A/P: 43 y.o. female presents with recurring right wrist pain of unknown source. She reports relief of symptoms of wrist pain that is lasted 10+ months after Kenalog injection. On exam review of x-ray I do not note obvious deformities of causes of pain. We discussed again injecting Kenalog to her right dorsal wrist in hopes of same results that she was in agreement with. See procedure note She was also given a right gel flex wrist splint. She reports that this had helped with pain as well however she is lost it since I last saw her. She is tried using [id number] splint that increased pain All of her questions were answered and she was instructed to contact the office if she has additional questions. Follow up: PRN Restriction: as tolerated I spent 20 minutes on this patient encounter which included review of medical records. Over half the time was spent with the patient face to face discussing the treatment plan, counseling and coordinating care. Heidi Mtz NP 11/28/23 3:45 PM This document was transcribed using voice recognition software without a human club waiter/waitress. Itmay contain typographical, grammatical, and/or syntax errors. documented in this encounter Procedure Notes * Heidi Mtz NP - 11/29/2023 10:15 AM CDT Procedures PROCEDURE: medium Joint Steroid Injection - Right Wrist After discussing the risks (including bleeding, infection, damage to nearby structures including skin/tendon), benefits, alternatives, and expected post- injection course, verbal informed consent was obtained by the patient. The skin over the joint was cleaned with chloraprep A 27G needle was used to access the dorsal aspect of the joint <1 ml of 1% lidocaine plain was injected into the soft tissue and joint The needle was left in place and 40 mg (1 ml) of kenalog 40 was injected into the joint, 0.5 ml wasplaced in radial dorsal wrist and 0.5 ml in ulnar dorsal wrist. The skin was wiped again with chloraprep and a Band-Aid was applied The patient tolerated the procedure well documented in this encounter Plan of Treatment [...] PM T: ??11/30/2023 12:27 PM Report ID: [id number] Reading Location: ??[id number] Procedure Note Marshall Mock MD - 11/30/2023 EXAM DESCRIPTION: XR WRIST [...] Marshall Mock M.D. MF: BELINDA Report ID: [id number] Reading Location: [place] [address] [address] Seifferna[address] CRAFT COORDINATOR IMG XR PROCEDURES Final Result documented in this encounter Visit Diagnoses Diagnosis Right wrist pain- Primary Pain in joint, forearm documented in this encounter Administered Medications Inactive Administered Medications - up to 3 most recent administrations Medication Order MAR Action Action Date Dose Rate Site lidocaine (XYLOCAINE) 10 mg/mL (1 %) injection 5 mg 5 mg (0.5 mL), infiltration, Once, On Mon11/29/23 at 1145, For 1 dose, Indications: Administration of Local AnesthesiaIndications:Administrati on of Local Anesthesia Given 11/29/2023 11:07 AM CDT 5 mg triamcinolone (KENALOG) 40 mg/mL injection 40 mg 40 mg, other, Once, On Mon11/29/23 at 1145, For 1 doseIndications:Right wrist pain Given 11/29/2023 11:08 AM CDT 40 mg documented in this encounter Care Teams Mixed Animal Veterinarian Relationship Specialty Start Date End Date Amy Marc MD [address] [place] [address] PCP - General 11/12/13 documented as of this encounter
--- OUTSIDE RECORDS SUMMARY | 2024-06-24 23:56 | XMS_ITS | Encounter Summary ---
Author Organization [facility] Address [address] [place] [address] Care Team Providers Care Sawmill Equipment Operator Name Role Phone Amy Marc MD Primary Care Provider +1- [phone] Encounter Details Date Type Department Care Team (Late st Contact Info) Description 04/20/2023 Orders Only [facility] 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
--- OUTSIDE RECORDS SUMMARY | 2024-06-24 23:56 | XMS_ITS | Encounter Summary ---
Author Organization [facility] Healthcare Address [address] [place] [address] Care Team Providers Care Security Sergeant Name Role Phone Amy Marc MD Primary Care Provider [phone] Reason for Referral * Consultation (Routine) - Authorized Specialty Diagnoses / Procedures Referred By Komal infante Referred To Contact Sleep Medicine Diagnoses [place] [address] [place] [address] [address] [place] [address] Phone: tel: fax: [facility] [address] [place] [address] 4th Floor [address] [place] [address] Phone: tel: fax: Referral ID Status Reason Start Date Expiration Date Visits Requested Visits Authorized [id number] Authorized Specialty Services Required 07/06/2023 08/04/2024 1 1 Question Answer Please select the performing region: [facility] [[id number]] Please select the performing department: [facility] [[id number]] # of visits: 1 MAKER Reason for Visit * Reason Comments Other CTD Encounter Details Date Type Department Care Team (Late st Contact Info) Description 07/06/2023 11:00 AM HOME MAKER Telemedicine [facility] Medical [facility] Rheumatology at [facility] [address] 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 Gender Identity Not on file Sexual Orientation Not on file documented as of this encounter Last Filed Vital Signs Vital Sign Reading Time Taken Comments Blood Pressure - - Pulse - - Temperature - - Respiratory Rate - - Oxygen Saturation - - Inhaled Oxygen Concentration - - Weight 84.8 kg (187 lb) 07/06/2023 10:38 AM HOME MAKER Height 175.3 cm (5' 9.02 ) 07/06/2023 10:38 AM C Body Mass Index 27.6 07/06/2023 10:38 AM HOME MAKER documented in this encounter Progress Notes * Navjot Olmstead MD - 07/06/2023 11:00 AM CST TELEMEDICINE VISIT @DATE@ Patient Name: Navjot Desouza Db Date of : 1980 This was a telemedicine visit with Vicky Ace which took place via [employer]. During the visit, I was located in [place], at home office and the patient was located home in the state of [place]. The patient visit started at 11:03 and ended at 11:20. The patient has been informed that the visit may not be secure and acknowledged the information. This visit was completed via telephone/video due to the restrictions of the COVID-19 pandemic. All issues as below were discussed and addressed but no physical exam was performed. More than 50% of this time was spent in counseling and coordination of care. I have explained the option of participating in a telephone or video visit during the COVID-19 public health emergency to the patient. After being given an opportunity to ask questions about and discuss this type of visit, the patient verbally consented to proceeding with the telephone/video visit.The patient understands that this service replaces an office visit and they may be billed and/or responsible for any applicable copayments. CHIEF COMPLAINT: Other (CTD) HPI: She was dx w/ SVT. Has seen her utility systems repairer operator recently. Cannot take HCQ w/ her cardiac [...] joint pain. She was seen by an BILLBOARD MECHANIC in plastics at [place] for her R wrist pain. Exam was [...] had occ panic attacks. She works at [employer]. Out of work for a bit because daughter had surgery. Going back to work tomorrow. Has chronic SALAS, has occ sores in the mouth. Has occ dizziness, will happen randomly. Has occ CP, increased constipation, GERD, has memory loss, night sweats, a lot of anxiety. Hx of RA in a cousin. Has a cousin's daughter w/ Grave disease PEno facial rashes or UE swelling. REVIEW OF SYSTEMS: Constitutional: Negative for fatigue, fever and unexpected weight change. HENT: Negative for nosebleeds and trouble swallowing. Eyes: Negative for photophobia, pain and redness. Respiratory: Negative for cough and shortness of breath. Cardiovascular: Negative for chest pain and leg swelling. Gastrointestinal: Negative for abdominal pain, blood in stool, constipation, diarrhea, nausea and vomiting. Endocrine: Negative for cold intolerance and heat intolerance. Genitourinary: Negative for dysuria and hematuria. Musculoskeletal: occ joint pain Skin: Negative for rash. Neurological: Negative for weakness and headaches. Hematological: Does not bruise/bleed easily. Psychiatric/Behavioral: Negative for suicidal ideas. The patient is not nervous/anxious. MEDICATIONS: Current Outpatient Medications Medication Sig Dispense Refill flecainide (TAMBOCOR) 50 mg tablet Take 1 tablet (50 mg total) by mouth 2 (two) times a day 180 tablet 0 hydrOXYzine (ATARAX) 25 mg tablet 1-2 TABS BY MOUTH AT BEDTIME 30-60 MINUTES BEFORE BEDTIME FOR INSOMNIA No current facility-administered medications for this visit. ALLERGIES: Hydrocodone Past Medical History: Diagnosis Date Anxiety Arrhythmia Chest pain Shortness of breath Family History Problem Relation Age of Onset Depression Mother Depression; Depression Father Depression; Hypertension Father Hypertension; Obesity Father Obesity; Stroke Father Stroke; Depression Sister Depression; Other Brother Alive and well; Lung cancer Maternal Grandmother Cancer, lung; History reviewed. No pertinent surgical history. Social History Tobacco Use Smoking status: Former Types: Cigarettes Smokeless tobacco: None Substance and Sexual Activity Drug use: No Sexual activity: None Alcohol Use: Not At Risk (07/06/2023) AUDIT-C Frequency of Alcohol Consumption: Never Average Number of Drinks: Patient does not drink Frequency of Binge Drinking: Never PAST MEDICAL HISTORY, ALLERGIES, SURGICAL HISTORY, SOCIAL HISTORY, MEDICATIONS WERE REVIEWED AND UPDATED APPROPRIATE LABS: Lab Results Component Value Date GLUCOSE 71 04/11/2023 CALCIUM 9.5 04/11/2023 CO2 26 04/11/2023 CREATININE 0.79 04/11/2023 Lab Results Component Value Date ALT 39 02/01/2023 AST 26 02/01/2023 ALKPHOS 64 02/01/2023 BILITOT 0.3 02/01/2023 Lab Results Component Value Date WBC 6.2 02/01/2023 HGB 14.0 02/01/2023 HCT 42.0 02/01/2023 MCV 88.2 02/01/2023 Lab Results Component Value Date SEDRATE 9 02/01/2023 IMAGING/PROCEDURES: Results for orders placed during the hospital encounter of 02/01/23 XR Hand Left 3 or More Views Narrative XR HAND RIGHT 3 OR MORE VIEWS, XR HAND LEFT 3 OR MORE VIEWS: 02/01/2023 10:30 AM CLINICAL INDICATION: hand pain. COMPARISON: None. Impression Alignment is anatomic. No fracture, acute osseous abnormality or erosive change. Soft tissues normal. No radiopaque foreign body. Electronically signed by: Jay Robles M.D. Results for orders placed during the hospital encounter of 02/01/23 XR Hand Right 3 or More Views Narrative XR HAND RIGHT 3 OR MORE VIEWS, XR HAND LEFT 3 OR MORE VIEWS: 02/01/2023 10:30 AM CLINICAL INDICATION: hand pain. COMPARISON: None. Impression Alignment is anatomic. No fracture, acute osseous abnormality or erosive change. Soft tissues normal. No radiopaque foreign body. Electronically signed by: Jay Robles M.D. ASSESSMENT/PLAN: 1. MCTD (mixed connective tissue disease) (CMS/HCC) (HCC) 2. Other fatigue - Ambulatory referral to Sleep Medicine; Future Off of HCQ d/t cardiac meds. Stable. Discussed s/s to continue to monitor for. Last labs overall unremarkable. 2)discussed DIALLO eval referral. Orders Placed This Encounter Procedures Ambulatory referral to Sleep Medicine Standing Status: Future Standing Expiration Date: 07/06/2024 Referral Priority: Routine Referral Type: Consultation Referral Reason: Specialty Services Required Referral Location: [facility] Number of Visits Requested: 1 Navjot Olmstead MD MAKER documented in this encounter Miscellaneous Notes * Addendum Note - Navjot Olmstead MD - 07/06/2023 11:00 AM CSTAddended by: NAVJOT OLMSTEAD on: 07/06/2023 12:26 PM Modules accepted: Level of Service MAKER documented in this encounter Plan of Treatment Scheduled Referrals Name Type Priority Associated Diagnoses Order Schedule Ambulatory referral to Sleep Medicine Outpatient Referral Routine Other fatigue Expected: 07/20/2023 (Approximate), Expires: 07/06/2024 documented as of this encounter Visit Diagnoses Diagnosis MCTD (mixed connective tissue disease) (CMS/HCC) (HCC)- Primary Other specified diffuse disease of connective tissue Other fatigue documented in this encounter Care Teams Security Sergeant Relationship Specialty Start Date End Date Amy Marc MD [address] [place] [address] PCP - General 11/12/13 documented as of this encounter
--- OUTSIDE RECORDS SUMMARY | 2024-06-24 23:57 | XMS_ITS | Encounter Summary ---
Author Organization [facility] Healthcare Address [address] [place] [address] Care Team Providers Care Director Digital Catalogue Name Role Phone Amy Marc MD Primary Care Provider [phone] Reason for Visit * Reason Comments Wrist Pain Encounter Details Date Type Department Care Team ([facility] Contact Info) Description 10/16/2022 12:11 PM CDT - 10/16/2022 12:52 PM CDT Emergency [facility] Emergency Department [address] [place] [address] Right wrist pain (Primary Dx) Discharge Disposition: Discharge to home or self care Social History Tobacco Use Types Packs/Day Years Used Date Smoking Tobacco: Every Day Alcohol Use Standard Drinks/Week Comments Yes 0 (1 standard drink = 0.6 oz pur e alcohol) Comments No Sex and Gender Information Value Date Recorded Sex Assigned at Not on file 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 Gender Identity Not on file Sexual Orientation Not on file documented as of this encounter Last Filed Vital Signs Vital Sign Reading Time Taken Comments Blood Pressure 137/75 10/16/2022 12:12 PM CDT Pulse 65 10/16/2022 12:12 PM CDT Temperature 36.7 ??C (98.1 ??F) 10/16/2022 12:12 PM C DT Respiratory Rate 18 10/16/2022 12:12 PM CDT Oxygen Saturation 100% 10/16/2022 12:12 PM CDT Inhaled Oxygen Concentration - - Weight 81.6 kg (180 lb) 10/16/2022 12:12 PM CDT Height 175.3 cm (5' 9 ) 10/16/2022 12:12 PM CDT Body Mass Index 26.58 10/16/2022 12:12 PM CDT documented in this encounter Discharge Instructions * Discharge Instructions* Jan Mims NP - 10/16/2022 12:45 PM CDT Please return to the ED if you experience fever, chills, chest pain, shortness of breath, or difficulty breathing. Please follow-up with Dr. Mullins, or Dr. Pineda, these are both hand specialist Please take Ibuprofen 600 mg (3 over the counter strength tablets) and 2 extra- strength Tylenol, inthe morning and before you go to bed. * Attachments The following attachments cannot be sent through Care Everywhere. * RICE (Albanian) * DIONI Wrap (Albanian) documented in this encounter Medications at Time of Discharge hydrOXYzine (ATARAX) 25 mg tablet 1-2 TABS BY MOUTH AT BEDTIME 30-60 MINUTES BEFORE BEDTIME FOR INSOMNIA 09/12/2022 buPROPion XL (WELLBUTRIN XL) 150 mg 24 hr tablet Take 1 tablet (150 mg total) by mouth daily 10/10/2022 3 chlorzoxazone (PARAFON FORTE) 500 mg tablet take 1 tablet by oral route 3 times every day prn muscle spasm. 30 0 11/18/2016 3 LORazepam (ATIVAN) 0.5 mg tablet Take 1 tablet (0.5 mg total) by mouth every 6 (six) hours as needed for anxiety 6 tablet 04/05/2019 3 LORazepam (ATIVAN) 1 mg tablet Take 0.5 tablets (0.5 mg total) by mouth every 8 (eight) hours as needed for anxiety 10 tablet 03/06/2019 3 methylPREDNISolo ne (MEDROL DOSEPACK) 4 mg Dosepack follow package directions 21 tablet 10/16/[address] (PROTONIX) 40 mg EC tablet Take 1 tablet (40 mg total) by mouth daily 30 tablet 1 12/29/2020 3 PARoxetine (PAXIL) 10 mg tablet Take 1 tablet (10 mg total) by mouth every evening 09/13/2022 3 predniSONE (DELTASONE) 20 mg tablet take 3 Tablet by oral route daily for 3 days, 2 tabs po daily for 3 days, 1 tab po daily for 3 days, 1/2 tab by mouth daily for 4 days. 20 0 11/18/2016 3 documented as of this encounter Ordered Prescriptions Prescription Sig Dispense Quantity Refills Last Filled Start Date End Date methylPREDNISolone (MEDROL DOSEPACK) 4 mg Dosepack follow package directions 21 tablet 10/16/2022 3 documented in this encounter Discharge Disposition Disposition Code Departure Means Destination Comment s Discharge to home or self care documented in this encounter ED Notes * Jan Mims, ARNULFO - 10/16/2022 12:25 PM CDT HPI Chief Complaint Patient presents with Wrist Pain 42-year-old female patient, presents the emergency department complaining of right wrist pain x1 month. Patient is a current smoker, states she has a history of a generalized autoimmune disorder , and anxiety. States that she has not been evaluated by a physician for her right wrist pain but states she has had a fall, or an injury. States she has been wearing a soft splint asleep in at night with moderate relief, states she has been using ibuprofen and Tylenol that also has provided moderate relief. States pain is mainly felt when she flexes her wrist backwards. States she also feels intermittent shaking of the right wrist when she bends it backwards., denies additional complaints, states she does have a PCP. Patient History: Patient Active Problem List Diagnosis Date Noted Low back pain, non-specific 11/22/2016 Migraine 10/28/2013 Generalized anxiety disorder 10/28/2013 Past Medical History: Diagnosis Date Anxiety No past surgical history on file. Family History Problem Relation Age of Onset Depression Mother Depression; Depression Father Depression; Hypertension Father Hypertension; Obesity Father Obesity; Stroke Father Stroke; Depression Sister Depression; Other Brother Alive and well; Lung cancer Maternal Grandmother Cancer, lung; Social History Tobacco Use Smoking status: Every Day Smokeless tobacco: Not on file Vaping Use Vaping status: Not on file Substance and Sexual Activity Alcohol use: Yes Drug use: No Sexual activity: Not on file Social History Social History Narrative Not on file Review of Systems Review of Systems Constitutional: Negative for chills and fever. HENT: Negative for ear pain and sore throat. Eyes: Negative for pain and visual disturbance. Respiratory: Negative for cough and shortness of breath. Cardiovascular: Negative for chest pain and palpitations. Gastrointestinal: Negative for abdominal pain and vomiting. Genitourinary: Negative for dysuria and hematuria. Musculoskeletal: Negative for arthralgias and back pain. + right wrist pain Skin: Negative for color change and rash. Neurological: Negative for seizures and syncope. All other systems reviewed and are negative. Physical Exam ED Triage Vitals [10/16/22 1212] Temp Pulse Resp BP SpO2 36.7 ??C (98.1 ??F) 65 18 137/75 100 % Temp src Heart Rate Source Patient Position BP Location FiO2 (%) -- -- -- -- -- Height Height Method Weight Weight Method 1.753 m (5' 9 ) -- 81.6 kg (180 lb) -- Physical Exam Vitals and nursing note reviewed. Constitutional: General: She is not in acute distress. Appearance: Normal appearance. She is well-developed. She is not ill-appearing, toxic-appearing or diaphoretic. HENT: Head: Normocephalic and atraumatic. Nose: Nose normal. Mouth/Throat: Mouth: Mucous membranes are moist. Eyes: Extraocular Movements: Extraocular movements intact. Conjunctiva/sclera: Conjunctivae normal. Pupils: Pupils are equal, round, and reactive to light. Cardiovascular: Rate and Rhythm: Normal rate and regular rhythm. Pulses: Normal pulses. Heart sounds: No murmur heard. No friction rub. No gallop. Pulmonary: Effort: Pulmonary effort is normal. No respiratory distress. Breath sounds: Normal breath sounds. No stridor. No wheezing, rhonchi or rales. Chest: Chest wall: No tenderness. Abdominal: General: Abdomen is flat. There is no distension. Palpations: Abdomen is soft. There is no mass. Tenderness: There is no abdominal tenderness. There is no right CVA tenderness, left CVA tenderness, guarding or rebound. Hernia: No hernia is present. Musculoskeletal: General: No swelling, tenderness, deformity or signs of injury. Right wrist: Normal. Left wrist: Normal. Cervical back: Normal range of motion and neck supple. Right lower leg: No edema. Left lower leg: No edema. Skin: General: Skin is warm and dry. Capillary Refill: Capillary refill takes less than 2 seconds. Neurological: General: No focal deficit present. Mental Status: She is alert. Psychiatric: Mood and Affect: Mood normal. Behavior: Behavior normal. Thought Content: Thought content normal. Judgment: Judgment normal. [facility] Heart Score Medical Decision Making Number and Complexity of Problems: 1-low complexity Differential Diagnosis: Acute myofascial sprain, strain, acute fracture, tendon or ligament injury. [facility] Data: 42-year-old female patient, with a 1 month history of right wrist pain, states she has a history of an autoimmune disorder, with no injury. External documents reviewed: None My EKG interpretation: None My CT interpretation: None My X-ray interpretation: None My Ultrasound interpretation: None Decision rules/scores evaluated: None Discussed with: No consultation required Treatment and Disposition: Wrist splint, Medrol Dosepak, follow-up to Dr. Pineda the hand specialist, or Dr. Mullins the hand specialist/plastic surgeon ED Course: Uncomplicated Shared decision making: None Code status: Not on file. Risk Prescription drug management. ED Course as of 10/16/22 [id number] Time: 10/16 1246 Comment: Voice recognition software [employer] was used to dictate and transcribe this document. Family Services Manager variances may occur. Despite proofreading, typographical errors may occur. By: Jan Mims NP Time: 10/16 1246 Comment: Discussed ED findings and plans for discharge with pt who understands and agrees with plan. Pt has been advised to return to the ED with any new or worsening symptoms. Pt has no further complaints. All questions addressed at this time. By: Jan Mims NP Final diagnoses: Right wrist pain Jan Mims NP 10/16/22 1357 Cosigned by Joshua Prado MD at 10/18/2022 6:39 PM CDT * Mechelle Fernandes RN - 10/16/2022 12:12 PM CDT Patient arrives for evaluation of right wrist pain for over a month. Denies known injury. documented in this encounter Plan of Treatment Not on file documented as of this encounter Visit Diagnoses Diagnosis Right wrist pain- Primary Pain in joint, forearm documented in this encounter Care Teams Director Digital Catalogue Relationship Specialty Start Date End Date Amy Marc MD [address] [facility] [place] [address] PCP - General 11/12/13 documented as of this encounter
--- OUTSIDE RECORDS SUMMARY | 2024-06-24 23:57 | XMS_ITS | Encounter Summary ---
Author Organization [facility] Address [address] [place] [address] Care Team Providers Care Hris Administrator Name Role Phone Petey Keene MD Primary Care Provider [phone]- [phone] Reason for Referral * Cardiology (Routine) - Closed Specialty Diagnoses / Procedures Referred By Contac t Referred To Contact Diagnoses Palpitation Procedures 48 HR Holter Monitor Petey Keene MD [address] [employer] [place] [address] Phone: tel: fax: [address] [phone] Referral ID Status Reason Start Date Expiration Date Visits Re quested Visits Authorized [id number] Closed 11/04/2022 12/04/2023 1 1 Reason for Visit * Cardiology (Routine) - Closed Specialty Diagnoses / Procedures Referred By Contac t Referred To Contact Diagnoses Palpitation Procedures 48 HR Holter Monitor Petey Keene MD [address] [place] [address] Phone: tel: fax: [address] [phone] Referral ID Status Reason Start Date Expiration Date Visits Re quested Visits Authorized [id number] Closed 11/04/2022 12/04/2023 1 1 Encounter Details Date Type Department Care Team (Latest Contact Info) Description 11/07/2022 12:52 PM CDT - 11/07/2022 11:59 PM CDT Hospital Encounter [facility] Cardiology [address] [place] [address] Palpitation Discharge Disposition: Discharge to home or self care Social History Tobacco Use Types Packs/Day Years Used Date Smoking Tobacco: Every Day Alcohol Use Standard Drinks/Week Comments Yes 0 (1 standard drink = 0.6 oz pur e alcohol) Personal Safety Answer Date Recorded Have you ever been in or are you currently in a harmful physical or emotional relationship or is someone making you feel afraid or unsafe? 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 Gender Identity Not on file Sexual Orientation Not on file documented as of this encounter Medications at Time of Discharge hydrOXYzine (ATARAX) 25 mg tablet 1-2 TABS BY MOUTH AT BEDTIME 30-60 MINUTES BEFORE BEDTIME FOR INSOMNIA 09/12/2022 ALPRAZolam (XANAX) 0.25 mg tablet TAKE 1 TO 2 TABLETS BY MOUTH DAILY NEEDED FOR ANXIETY 11/01/2022 3 buPROPion XL (WELLBUTRIN XL) 150 mg 24 [...] 11/18/2016 3 documented as of this encounter Discharge Disposition Disposition Code Departure Means Destination Discharge to home or self care documented in this encounter Plan of Treatment Not on file documented as of this encounter Procedures Procedure Name Priority Date/Time Associated Diagnosis Comments HOLTER MONITOR 48 HR Routine 11/07/2022 1:04 PM CDT Palpitation documented in this encounter Results * 48 HR Holter Monitor (11/07/2022 1:04 PM CDT) Anatomical Region Laterality Modality Electrocardiogra phy 11/07/2022 1:00 PM CDT Narrative 11/15/2022 2:28 PM CDT [address] [address] HOLTER MONITOR Patient Name: NAVJOT FREDERICK D : 1980 Study Date: 11/07/2022 1:00:00 PM Gender: F Tech: Ref.Provider: PETEY KEENE Height(Cm): BSA: Weight(Kg): Order Provider: PETEY KEENE - Procedures: Holter Report: Holter Monitor Report. Indications: Palpitations R00.2. Findings: Protocol: Recording Duration (Ordered): [id number]. Date Recorded: 2022-11-07 13:00:00. - Conclusions: 1. Predominant rhythm is normal sinus rhythm with a minimum heart rate of 50 beats per minute in sinus and a maximum heart rate of 175 beats per minute during a short run of asymptomatic SVT as will be described below. Total monitoring time of 2 days. 2. Heart rate and rate variability is appropriate. 3. No prolonged pauses. 4. Occasional PACs with 7,102 PACs corresponding to 3.2% of total beats. There were many atrial couplets. There were a few short runs of SVT: 3 beats at 175 beats per minute, 3 beats at 160 beats per minute, 12 beats at 140 beats per minute and 6 beats at 155 beats per minute. 5. There were 51 patient activated events most with symptoms of fluttering, lightheadedness, rapid heartbeat. Noted to be in sinus rhythm from 63-110 beats per minute with isolated PACs. There was a symptomatic 6 beat run of SVT at 155 beats per minute felt by the patient as skipped beats . Electronically Signed By: Dr Jordy Huang 2022-11-15 14:28:04 CDT CC: CC: Procedure Note Jordy Huang MD - 11/15/[address] [address] HOLTER MONITOR Patient Name: NAVJOT FREDERICK DPatient ID: [id number] : [id number] Date: 11/07/2022 1:00:00 PM Gender: FAccession #: [id number] Tech: Ref.Provider: PETEY KEENE Height(Cm): BSA: Weight(Kg): Order Provider: PETEY KEENE - Procedures: Holter Report: Holter Monitor Report. Indications: Palpitations R00.2. Findings: Protocol: Recording Duration (Ordered): [id number]. Date Recorded: 2022-11-07 13:00:00. - Conclusions: 1. Predominant rhythm is normal sinus rhythm with a minimum heart rate of50 beats per minute in sinus and a maximum heart rate of 175 beats per minute during ashort run of asymptomatic SVT as will be described below. Total monitoring time of 2 days. 2. Heart rate and rate variability is appropriate. 3. No prolonged pauses. 4. Occasional PACs with 7,102 PACs corresponding to 3.2% of total beats. There were many atrial couplets. There were a few short runs of SVT: 3 beats at 175 beats per minute, 3beats at 160 beats per minute, 12 beats at 140 beats per minute and 6 beats at 155 beats perminute. 5. There were 51 patient activated events most with symptoms offluttering, lightheadedness, rapid heartbeat. Noted to be in sinus rhythm from 63-110beats per minute with isolated PACs. There was a symptomatic 6 beat run of SVT at 155 beats per minute felt bythe patient as skipped beats . Electronically Signed By: Dr Jordy Huang 2022-11-15 14:28:04 CDT CC: CC: us Petey Keene MD CV CARDIAC SERVICES PROCED URES Final Result documented in this encounter Visit Diagnoses Diagnosis Palpitation Palpitations documented in this encounter Care Teams Hris Administrator Relationship Specialty Start Date End Date Petey Keene MD [address] [facility] [place] [address] PCP - General 11/12/13 documented as of this encounter
--- OUTSIDE RECORDS SUMMARY | 2024-06-24 23:57 | XMS_ITS | Encounter Summary ---
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 Gender Identity Not on file Sexual Orientation Not on file documented as of this encounter Medications at Time of Discharge hydrOXYzine (ATARAX) 25 mg tablet 1-2 TABS BY MOUTH AT BEDTIME 30-60 MINUTES BEFORE BEDTIME FOR INSOMNIA 09/12/2022 ALPRAZolam (XANAX) 1 mg tablet 1 tablet (1 mg total) 01/28/2023 04/11/2023 buPROPion XL (WELLBUTRIN XL) 150 mg 24 hr tablet Take 1 tablet (150 mg total) by mouth daily 10/10/2022 04/11/2023 dilTIAZem CD/XR/XT (CARDIZEM CD,DILACOR XR) 120 mg 24 hr capsule Take 1 capsule (120 mg total) by mouth daily 30 capsule 11 11/22/2022 04/11/2023 FLUoxetine (PROzac) 20 mg tablet Take 1 tablet (20 mg total) by mouth daily 04/11/2023 hydrOXYchloroQUI NE (PLAQUENIL) 200 mg tablet Take 1 tablet (200 mg total) by mouth 2 (two) times a day 60 tablet 4 02/01/2023 04/11/2023 documented as of this encounter Discharge Disposition Disposition Code Departure Means Destination Discharge to home or self care documented in this encounter Plan of Treatment Not on file documented as of this encounter Visit Diagnoses Not on filedocumented in this encounter Care Teams Train Reservation Clerk Relationship Specialty Start Date End Date Amy Marc MD [address] [place] [address] PCP - General 11/12/13 documented as of this encounter
--- OUTSIDE RECORDS SUMMARY | 2024-06-24 23:57 | XMS_ITS | Encounter Summary ---
Author Organization [facility] Address [address] [address] Care Team Providers Care Chronic Disease Manager Name Role Phone Amy Marc MD Primary Care Provider [phone]- [phone] Reason for Referral * Consultation (Routine) - Closed Specialty Diagnoses / Procedures Referred By Komal infante Referred To Contact Cardiology Diagnoses PSVT (paroxysmal supraventricular tachycardia) ([facility]) Alexy Parker MD [address] [address] Phone: tel: fax: North Gonzalez MD [address] [address] Phone: tel: fax: Referral ID Status Reason Start Date Expiration Date V isits Requested Visits Authorized [id number] Closed Specialty Services Required 02/13/2023 03/14/2024 1 1 Question Answer Please select the performing region: [facility] [[id number]] Please select the performing department: [facility] [[id number]] To provider: NORTH GONZALEZ [[id number]] # of visits: 1 Reason for Visit * Reason Comments Follow-up Encounter Details Date Type Department Care Team (Latest Contact Info) Description 02/13/2023 10:45 AM CDT Office Visit [facility] Cardiology [address] [facility] [address] [address] Alexy Parker MD [address] [place], [place] [address]DG [address] [place] [address] PSVT (paroxysmal supraventricular tachycardia) (CMS/HCC) (HCC) (Primary Dx); RENTERIA (dyspnea on exertion); Anxiety; Hypercholesterolemia; Lipid screening Social History Tobacco Use Types Packs/Day Years [...] on file 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 Gender Identity Not on file Sexual Orientation Not on file documented as of this encounter Last Filed Vital Signs Vital Sign Reading Time Taken Comments Blood Pressure 104/68 02/13/2023 10:39 AM CDT Pulse 79 02/13/2023 10:39 AM CDT Temperature - - Respiratory Rate 16 02/13/2023 10:39 AM CDT Oxygen Saturation 98% 02/13/2023 10:39 AM CDT Inhaled Oxygen Concentration - - Weight 86.2 kg (190 lb) 02/13/2023 10:39 AM CDT Height 175.3 cm (5' 9 ) 02/13/2023 10:39 AM CDT Body Mass Index 28.06 02/13/2023 10:39 AM CDT documented in this encounter Progress Notes * Alexy Parker MD - 02/13/2023 10:45 AM CDT [facility] CARDIOLOG[facility] 02/13/2023 CHIEF COMPLAINT Chief Complaint Patient presents with Follow-up HPI Nasreen Ace is a 42 y.o. female with PSVT, undifferentiated connective tissue disorder, anxiety, depression. 11/22/2022 initial evaluation-patient has been referred for cardiovascular evaluation management. Patient states that she is been experiencing frequent palpitations for about 4 weeks, which happen several times a day. She states that her heart rate suddenly jumped from 80s to 180s without any provocation. She has had spontaneous recovery. Her symptoms are associated with dizziness, chest tightness, shortness of breath. Denies any syncope. She reports dyspnea on exertion, able to walk about 1 mibefore she gets short of breath. She recently had ambulatory monitor car operator which showed sinus rhythm with episodes of SVT. Denies family history of sudden cardiac . Patient drinks 1 cup of coffee per day and 1 soda per day. Denies any other caffeinated beverages. No excessive alcohol. Patient used to be smoker, quit tobacco, currently vapes. 02/13/2023-on the follow-up visit today, patient reports improvement in her symptoms of palpitations with diltiazem. She states that she feels more palpitations when she skips the dose of diltiazem. She is noticed heart rates in 160s occasionally. Her rapid heart rate is occasionally associated with chest tightness and shortness of breath. Denies excessive caffeine or caffeinated beverages. MEDICAL HISTORY she has a past medical history of Anxiety, Arrhythmia, Chest pain, and Shortness of breath. No major surgeries she Allergies Allergen Reactions Hydrocodone Nausea only Reaction: nausea, Current Outpatient Medications Medication Sig Dispense Refill ALPRAZolam (XANAX) 1 mg tablet 1 tablet (1 mg total) buPROPion XL (WELLBUTRIN XL) 150 mg 24 hr tablet Take 1 tablet (150 mg total) by mouth daily dilTIAZem CD/XR/XT (CARDIZEM CD,DILACOR XR) 120 mg 24 hr capsule Take 1 capsule (120 mg total) by mouth daily 30 capsule 11 FLUoxetine (PROzac) 20 mg tablet Take 1 tablet (20 mg total) by mouth daily hydrOXYchloroQUINE (PLAQUENIL) 200 mg tablet Take 1 tablet (200 mg total) by mouth 2 (two) times a day 60 tablet 4 hydrOXYzine (ATARAX) 25 mg tablet 1-2 TABS BY MOUTH AT BEDTIME 30-60 MINUTES BEFORE BEDTIME FOR INSOMNIA No current facility-administered medications for this visit. she family history includes Depression in her father, mother, and sister; Hypertension in her father; Lung cancer in her maternal grandmother; Obesity in her father; Other in her brother; Stroke in her father. she reports that she has quit smoking. Her smoking use included cigarettes. She does not have any smokeless tobacco history on file. She reports that she does not use drugs. No alcohol history on file. Ex-smoker, currently vaping, no excessive alcohol or illicit drugs. Works in [employer], lives with a fiancee and 2 children. REVIEW OF SYSTEMS General ROS: negative for - Fever, chills, fatigue Psychological ROS: Positive for - anxiety, depression Ophthalmic ROS: negative for - loss of vision ENT ROS: negative for - sore throat, epistaxis, headaches, nasal congestion Allergy and Immunology ROS: negative for - hives, postnasal drip Hematological and Lymphatic ROS: negative for - overt bleeding problems, bruising Respiratory ROS: negative for - cough, hemoptysis, wheezing Cardiovascular ROS: Positive for recurrent palpitations associated with chest tightness, shortness of breath, dizziness without syncope Gastrointestinal ROS: negative for - abdominal pain Endocrine ROS: negative for - hot flashes, polydipsia/polyuria Musculoskeletal ROS: negative for - joint pain, muscle pain Neurological ROS: negative for - gait disturbance, weakness Dermatological ROS: negative for pruritus, rash LABS AND OTHER DIAGNOSTIC TESTS REVIEWED Lab Results Component Value Date WBC 6.2 02/01/2023 HGB 14.0 02/01/2023 HCT 42.0 02/01/2023 MCV 88.2 02/01/2023 No lab exists for component: LABALBU Lab Results Component Value Date WBC 6.2 02/01/2023 HGB 14.0 02/01/2023 HCT 42.0 02/01/2023 MCV 88.2 02/01/2023 Lab Results Component Value Date CHOL 166 11/12/2013 Lab Results Component Value Date HDL 39 (L) 11/12/2013 LDL Date Value Ref Range Status 11/12/2013 100 <130 mg/dl Comment: Desirable range <100 mg/dL for patients with CHD or diabetes and <70 mg/dL for diabetic patients with known heart disease. ] Lab Results Component Value Date TRIG 136 11/12/2013 Lab Results Component Value Date POCCHOL 173 02/13/2023 POCHDL 43 02/13/2023 POCTRIG 174 02/13/2023 POCLDL 96 02/13/2023 POCNONHDL 131 02/13/2023 POCCHLPL 173 02/13/2023 Treadmill stress test-Adequate stress test in regards to heart rate. No exercise induced chest pain. No definite ischemia on stress EKG with only minor additional changes inferiorly. 04/09/2019;Dr Jordy Huang EKG-sinus rhythm, no significant ST-T abnormality. 10/23/2022 48 hour Holter monitor-Predominant rhythm is normal sinus rhythm with a minimum heart rate of 50 beats per minute in sinus and a maximum heart rate of 175 beats per minute during a short run of asymptomaticSVT. No prolonged pauses. Occasional PACs with 7,102 PACs corresponding to 3.2% of total beats. Many atrial couplets. There were a few short runs of SVT: 3 beats at 175 beats per minute, 3 beats at 160 beats per minute, 12 beats at 140 beats per minute and 6 beats at 155 beats per minute. There were 51 patient activated events most with symptoms of fluttering, lightheadedness, rapid heartbeat. Noted to be in sinus rhythm from 63-110 beats per minute with isolated PACs. There was a symptomatic 6 beat run of SVT at 155 beats per minute felt by the patient as skipped beats . 11/07/2022; Dr Jordy Huang Lbas- TSH 1.96. 11/08/22 ([facility]) Echo-Normal left ventricular systolic function. No focal wall motion abnormalities. Normal left ventricular size. Normal left ventricular wall thickness. Normal left ventricular diastolic function. Ejection fraction is visually estimated at 55-60 %. Global Longitudinal Strain is -16 %. GLS is borderline. Mild enlargement of left atrium. Mild mitral valve regurgitation. Mild tricuspid regurgitation. Mild pulmonic regurgitation. Normal sinus rhythm. 01/31/2023; Dr. Mcmahan Lipids-total cholesterol 173, HDL 43, triglycerides 174, LDL 96, glucose 90. 02/13/2023 PHYSICAL EXAM Vitals BP 104/68 (BP Location: Right arm, Patient Position: Sitting) Pulse 79 Resp 16 Ht 175.3 cm (5' 9 ) Wt 86.2 kg (190 lb) LMP 01/10/2023 (Exact Date) SpO2 98% BMI 28.06 kg/m?? General appearance - alert, no distress, oriented to time, place, person Mental status - affect appropriate to mood Eyes - extraocular eye movements intact, no pallor Ears - external ears appear normal, hearing grossly normal Nose - normal and patent, no discharge Mouth - mucous membranes moist, tongue normal Neck - supple, no JVD Chest - clear to auscultation Heart - normal rate, regular rhythm, normal S1, S2, no audible murmurs Abdomen - soft, nontender Neurological - alert, oriented, normal speech, no gross motor deficits Musculoskeletal - no major deformity, no amputations Extremities - no pedal edema, no clubbing or cyanosis Skin - no rashes (on the exposed areas), no cyanosis ASSESSMENT Diagnoses and all orders for this visit: PSVT (paroxysmal supraventricular tachycardia) (CMS/HCC) ([facility]) (Primary) - Ambulatory referral to Cardiology; Future RENTERIA (dyspnea on exertion) Anxiety Hypercholesterolemia Lipid screening - POCT lipid panel PLAN/RECOMMENDATIONS 42 y.o. female with PSVT, undifferentiated connective tissue disorder, anxiety, depression. -patient has PSVT. Symptoms of palpitations improved but not resolved with diltiazem. She continuesto have occasional heart rates in 160s. Previous 48 hour Holter monitor showed sinus rhythm with brief episodes of SVT. Recent TSH within normal limits. Continue low-dose diltiazem. Will refer to electrophysiology for further evaluation and management of symptomatic PSVT. -patient updated about recent echocardiogram which did not show major structural heart disease. -patient advised to avoid excessive caffeine and caffeinated beverages. Stress reduction counselingwas done. -diet and lifestyle modification for dyslipidemia. Weight reduction, heart healthy diet. -follow-up in 6-8 months or sooner if needed. Alexy Parker MD 02/13/23 Voice recognition software was used to complete this document, therefore, automotive service assistant variances may occur. documented in this encounter Plan of Treatment Scheduled Referrals Name Type Priority Associated Diagnoses Orde r Schedule Ambulatory referral to Cardiology Outpatient Referral Routine PSVT (paroxysmal supraventricular tachycardia) (CMS/HCC) ([facility]) Expected: 02/27/2023 (Approximate), Expires: 02/14/2024 documented as of this encounter Procedures Procedure Name Priority Date/Time Associated Diagnosis Comments POCT LIPID PANEL Routine 02/13/2023 10:5 3 AM CDT Lipid screening documented in this encounter Results * POCT lipid panel (02/13/2023 10:53 AM CDT) Cholesterol, POC 173 mg/dL HDL, POC 43 mg/dL Triglycerides, POC 174 mg/dL LDL Cholesterol POC 96 mg/dL Chol/HDL Ratio, POC 4.1 Non-HDL Cholesterol, POC 131 mg/dL Cholesterol Total, POC 173 mg/dL Capillary blood 02/13/2023 1 0:53 AM CDT Alexy Parker MD POINT OF CARE TEST ORDERABLES Fi nal Result documented in this encounter Visit Diagnoses Diagnosis PSVT (paroxysmal supraventricular tachycardia) (HCC)- Primary Paroxysmal supraventricular tachycardia RENTERIA (dyspnea on exertion) Other dyspnea and respiratory abnormality Anxiety Anxiety state, unspecified Hypercholesterolemia Pure hypercholesterolemia Lipid screening Screening for lipoid disorders documented in this encounter Care Teams Chronic Disease Manager Relationship Specialty Start Date End Date Amy Marc MD [address] [place] [address] PCP - General 11/12/13 documented as of this encounter
--- OUTSIDE RECORDS SUMMARY | 2024-06-24 23:57 | XMS_ITS | Encounter Summary ---
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 Production Name Role Phone Petey Keene MD Primary Care Provider [phone]- [phone] Reason for Referral * (Routine) - Closed Specialty Diagnoses / Procedures Referred By Contac t Referred To Contact Diagnoses Chest pain, unspecified type Procedures Stress Treadmill Test Petey Keene MD [address] [employer] [place] [address] Phone: tel: fax: [address] [phone] Referral ID Status Reason Start Date Expiration Date Visits Re quested Visits Authorized [id number] Closed 04/04/2019 10/13/2020 1 1 Reason for Visit * (Routine) - Closed Specialty Diagnoses / Procedures Referred By Contrichelle t Referred To Contact Diagnoses Chest pain, unspecified type Procedures Stress Treadmill Test Petey Keene MD [address] [place] [address] Phone: tel: fax: [address] [phone] Referral ID Status Reason Start Date Expiration Date Visits Re quested Visits Authorized [id number] Closed 04/04/2019 10/13/2020 1 1 Encounter Details Date Type Department Care Team (Late st Contact Info) Description 04/09/2019 8:28 AM CDT - 04/09/2019 11:59 PM CDT Hospital Encounter [facility] Cardiology [address] [place] [address] Petey Keene [place] [address] Chest pain, unspecified type Discharge Disposition: Discharge to home or self care Social History Tobacco Use Types Packs/Day Years Used Date Smoking Tobacco: Every Day Alcohol Use Standard Drinks/Week Comments Yes 0 (1 standard drink = 0.6 oz pur e alcohol) Comments No Sex and Gender Information Value Date Recorded Sex Assigned at Not on file 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 30 0 11/18/2016 11/22/2022 LORazepam (ATIVAN) 0.5 mg tablet Take 1 tablet (0.5 mg total) by mouth every 6 (six) hours as needed for anxiety 6 tablet 04/05/2019 11/22/2022 LORazepam (ATIVAN) 1 mg tablet Take 0.5 tablets (0.5 mg total) by mouth every 8 (eight) hours as needed for anxiety 10 tablet 03/06/2019 11/22/2022 predniSONE (DELTASONE) 20 mg tablet take 3 Tablet by oral route daily for 3 days, 2 tabs po daily for 3 days, 1 tab po daily for 3 days, 1/2 tab by mouth daily for 4 days. 20 0 11/18/2016 11/22/2022 documented as of this encounter Discharge Disposition Disposition Code Departure Means Destination Discharge to home or self care documented in this encounter Plan of Treatment Not on file documented as of this encounter Procedures Procedure Name Priority Date/Time Associated Diagnosis Comments STRESS TEST ONLY TREADMILL Routine 04/09/2019 10:49 AM CDT Chest pain, unspecified type documented in this encounter Results * Stress Treadmill Test (04/09/2019 10:49 AM CDT) Anatomical Region Laterality Modality Nuclear Medicine 04/09/2019 8:51 AM CDT Narrative 04/09/2019 11:02 AM CDT [address] [place] [address] EXERCISE STRESS Patient Name: NAVJOT FREDERICK D : 1980 Study Date: 04/09/2019 08:51:00 Gender: F Tech: sola ramirez Ref.Provider: PETEY KEENE Height(Cm): ??BSA: Weight(Kg): ??Order Provider: PETEY KEENE Procedures: Stress Report: Treadmill stress Exam. Indications: Chest pain. Findings: Procedure Data: Exercise Time: 9.65. Resting HR 75 bpm. Peak HR: 159 bpm. Predicted Maximal HR 180 bpm. Target HR: 153 bpm. Percent Max Predicted HR Achieved: 88 %. Baseline BP: 137/85. Peak BP: 158/56. METS achieved: 11. Rate-Pressure Product: 53705 BPM*mmHg. Max ST: Performed By: Sola Ramirez. Resting ECG: Normal sinus rhythm. Nonspecific ST-T abnormality inferolaterally. Post ECG: No diagnostic ST changes. Arrhythmia: No arrhythmias seen. Exercise Capacity: Good exercise capacity. Cardiac Symptoms With Stress: Symptoms with stress were fatigue, general appearance and dyspnea. Target HR Achieved: Target heart rate was achieved. Reason For Termination: Fatigue. Dyspnea. THR achieved. Patient request. knee pain. BP Response: Blood pressure response is appropriate. Exam Interpreted: Read by . Conclusions: 1. Adequate stress test in regards to heart rate. 2. No exercise induced chest pain. 3. No definite ischemia on stress EKG with only minor additional changes inferiorly. Electronically Signed By: Dr Jordy Huang 2019-04-09 11:02:35 CDT Procedure Note Jordy Huang MD - 04/09/[address] [place] [address] EXERCISE STRESS Patient Name: NAVJOT FREDERICK D : 1980 Study Date: 04/09/2019 08:51:00 Gender: F Tech: sola ramirez Ref.Provider: PETEY KEENE Height(Cm): BSA: Weight(Kg): Order Provider: PETEY KEENE Procedures: Stress Report: Treadmill stress Exam. Indications: Chest pain. Findings: Procedure Data: Exercise Time: 9.65. Resting HR 75 bpm. Peak HR: 159 bpm. PredictedMaximal HR 180 bpm. Target HR: 153 bpm. Percent Max Predicted HR Achieved: 88 %. Baseline BP:137/85. Peak BP: 158/56. METS achieved: 11. Rate-Pressure Product: 72956 BPM*mmHg. MaxST: Performed By: Sola Ramirez. Resting ECG: Normal sinus rhythm. Nonspecific ST-T abnormality inferolaterally. Post ECG: No diagnostic ST changes. Arrhythmia: No arrhythmias seen. Exercise Capacity: Good exercise capacity. Cardiac Symptoms With Stress: Symptoms with stress were fatigue, general appearance and dyspnea. Target HR Achieved: Target heart rate was achieved. Reason For Termination: Fatigue. Dyspnea. THR achieved. Patient request. knee pain. BP Response: Blood pressure response is appropriate. Exam Interpreted: Read by . Conclusions: 1. Adequate stress test in regards to heart rate. 2. No exercise induced chest pain. 3. No definite ischemia on stress EKG with only minor additional changes inferiorly. Electronically Signed By: Dr Jordy Huang 2019-04-09 11:02:35 CDT Petey Keene MD CV STRESS PROCEDURES Final Result documented in this encounter Visit Diagnoses Diagnosis Chest pain, unspecified type documented in this encounter Additional Health Concerns Infection Onset Date Last Indicated Resolved Time MRSA Comment:AUTOMATED NOTE (ADD): MRSA (contact), MICHAEL, [id number], Molly Apr 07 15:47:36 CDT 2010 wound 04/05/11 04/07/2011 04/07/2011 021 5:00 AM CDT documented as of this encounter Care Teams Metal Sprayer Production Relationship Specialty Start Date End Date Petey Keene MD [address] [place] [address] PCP - General 11/12/13 documented as of this encounter
--- OUTSIDE RECORDS SUMMARY | 2024-06-24 23:57 | XMS_ITS | Encounter Summary ---
Author Organization [facility] Address [address] [place] [address] Care Team Providers Care Metal Dealer Name Role Phone Amy Marc MD Primary Care Provider [phone]- [phone] Reason for Visit * Reason Comments Dizziness Palpitations Encounter Details Date Type Department Care Team ([facility] Contact Info) Description 10/23/2022 1:38 PM CDT - 10/23/2022 3:09 PM CDT Emergency [facility] Emergency Department [address] [place] [address] Joshua Prado MD [address] [place] [id number] Palpitations (Primary Dx) Discharge Disposition: Discharge to home [...] on file Legal Sex Female 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 Gender Identity Not on file Sexual Orientation Not on file documented as of this encounter Last Filed Vital Signs Vital Sign Reading Time Taken Comments Blood Pressure 104/66 10/23/2022 3:00 PM CDT Pulse 70 10/23/2022 3:00 PM CDT Temperature 37.2 ??C (99 ??F) 10/23/2022 2:12 PM CDT Respiratory Rate 9 10/23/2022 3:00 PM CDT Oxygen Saturation 99% 10/23/2022 3:00 PM CDT Inhaled Oxygen Concentration - - Weight 81.6 kg (180 lb) 10/23/2022 1:40 PM CDT Height 175.3 cm (5' 9 ) 10/23/2022 1:40 PM CDT Body Mass Index 26.58 10/23/2022 1:40 PM CDT documented in this encounter Discharge Instructions * Discharge Instructions* Joshua Prado MD - 10/23/2022 2:55 PM CDT Continue home medication, follow with cardiology or your primary doctor for Holter monitor * Attachments The following attachments cannot be sent through Care Everywhere. 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 Patient states that occasionally she gets lightheaded. She denies any shortness ofbreath or chest pain. She states that she has occasional tachycardia followed by normal heart rate.No previous history of any coronary artery disease or heart related issues. Patient History: Patient Active Problem List Diagnosis [...] Systems Constitutional: Negative. HENT: Negative. Eyes: Negative. Respiratory: Negative. Cardiovascular: Positive for palpitations. Genitourinary: Negative. Musculoskeletal: Negative. Neurological: Negative. Hematological: Negative. Psychiatric/Behavioral: Negative. Physical Exam ED Triage Vitals Temp Pulse Resp BP SpO2 10/23/22 1412 10/23/22 1340 10/23/22 1340 10/23/22 1412 10/23/22 1340 37.2 ??C (99 ??F) 86 18 116/67 98 % Temp src Heart Rate Source Patient Position BP Location FiO2 (%) 10/23/22 141 -- -- -- -- Temporal Height Height Method Weight Weight Method 10/23/22 1340 -- 10/23/22 134 -- 1.753 m (5' 9 ) 81.6 kg (180 lb) Physical Exam Vitals and nursing note reviewed. HENT: Head: Normocephalic and atraumatic. Nose: Nose normal. Eyes: Pupils: Pupils are equal, round, and reactive to light. Cardiovascular: Rate and Rhythm: Normal rate and regular rhythm. Pulmonary: Effort: Pulmonary effort is normal. Breath sounds: Normal breath sounds. Abdominal: Palpations: Abdomen is soft. Musculoskeletal: General: Normal range of motion. Cervical back: Normal range of motion. Skin: General: Skin is warm and dry. Neurological: General: No focal deficit present. Mental Status: She is alert and oriented to person, place, and time. Psychiatric: Mood and Affect: Mood normal. Results for orders placed or performed during the hospital encounter of 10/23/22 CBC with auto differential Result Value Ref Range WBC 7.0 3.8 - 9.9 K/cumm Hgb 13.2 11.9 - 15.5 g/dL Hct 39.3 35.6 - 45.5 % Plt 320 150 - 400 K/cumm MPV 9.3 9.1 - 12.3 fL RBC 4.58 3.90 - 5.20 M/cumm MCV 85.8 81.3 - 96.4 fL MCH 28.8 27.1 - 33.3 pg MCHC 33.6 32.3 - 35.7 g/dL RDW CV 12.7 11.1 - 14.9 % RDW SD 39.7 35.7 - 48.1 fL NRBC abs 0.00 0.00 - 0.01 K/cumm Comprehensive metabolic panel Result Value Ref Range Sodium 136 135 - 145 mmol/L Potassium, pl 4.2 3.3 - 4.9 mmol/L Chloride 104 97 - 110 mmol/L CO2 22 22 - 32 mmol/L Anion gap 10 2 - 15 mmol/L BUN 16 8 - 25 mg/dL Creatinine 0.64 0.60 - 1.10 mg/dL Glucose 87 70 - 199 mg/dL Calcium 9.1 8.5 - 10.3 mg/dL Bilirubin, total <0.2 0.1 - 1.2 mg/dL Protein, pl 7.1 6.5 - 8.5 g/dL Albumin 4.2 3.5 - 5.0 g/dL Alk phos 61 40 - 130 Units/L ALT 24 7 - 45 Units/L AST 24 10 - 45 Units/L Pro B-type natriuretic peptide Result Value Ref Range NT-proBNP 43 <=300 pg/mL Protime-INR Result Value Ref Range PT 11.6 9.2 - 13.5 sec INR 1.1 0.9 - 1.2 Troponin T high-sensitivity series (baseline, 2hr, 4hr, 6hr) Result Value Ref Range Trop T hs <6 <=14 ng/L Differential, auto Result Value Ref Range Neutrophil abs 4.5 1.7 - 6.5 K/cumm Imm gran abs 0.0 0.0 - 0.1 K/cumm Lymphocyte abs 1.6 0.8 - 3.3 K/cumm Monocyte abs 0.6 0.2 - 0.8 K/cumm Eosinophil abs 0.3 0.0 - 0.5 K/cumm Basophil abs 0.1 0.0 - 0.1 K/cumm Neutrophil pct 64.0 % Imm gran pct 0.4 % Lymphocyte pct 22.4 % Monocyte pct 7.9 % Eosinophil pct 4.2 % Basophil pct 1.1 % eGFR Result Value Ref Range eGFR 112 mL/min/1.73 m2 MDM Heart Score Medical Decision Making Amount and/or Complexity of Data Reviewed Labs: ordered. ECG/medicine tests: ordered and independent interpretation performed. ED Course as of 10/23/22 1518 Time: 10/23 1445 Comment: Notified patient about her lab work. She is been observed in the ER for few hours her EKG did not show any evidence of any abdominal rhythm. Recommended her to follow with her primary doctorCardiology for Holter monitoring if symptoms do persist. By: Joshua Prado MD Final diagnoses: Palpitations Joshua Prado MD 10/23/22 1518 * Mechelle Fernandes RN - 10/23/2022 1:39 PM CDT Patient arrives for evaluation of palpitations, dizziness, and shortness of breath x3 days. documented in this encounter Miscellaneous Notes * ED Procedure Note - Joshua Prado MD - 10/23/2022 2:04 PM CDTAssociated Order(s): ECG 12 lead Procedure ECG 12 lead Date/Time: 10/23/2022 2:04 PM Performed by: Joshua Prado MD Authorized by: Joshua Prado MD Rate: ECG rate: 77 Rhythm: Rhythm: sinus rhythm Ectopy: Ectopy: none QRS: QRS axis: Normal QRS intervals: Normal Conduction: Conduction: normal ST segments: ST segments: Normal T waves: T waves: normal Interpretation: Interpretation: normal Joshua Prado MD 10/23/22 1404 documented in this encounter Plan of Treatment Not on file documented as of this encounter Procedures Procedure Name Priority Date/Time Associated Diagnosis Comments TROPONIN T HIGH-SENSITIVITY SERIES (BASELINE, 2HR, 4HR, 6HR) STAT 10/23/2022 2:10 PM CDT EGFR STAT 10/23/2022 2:10 PM CDT DIFFERENTIAL AUTO STAT 10/23/2022 2:1 0 PM CDT PRO B-TYPE NATRIURETIC PEPTIDE STAT 10/23/2022 2:10 PM CDT CBC WITH AUTO DIFFERENTIAL STAT 10/23/2022 2:10 PM CDT PROTIME-INR STAT 10/23/2022 2:10 PM CDT COMPREHENSIVE METABOLIC PANEL STAT 10/23/2022 2:10 PM CDT ECG 12-LEAD STAT 10/23/2022 1:40 PM CDT documented in this encounter Results * eGFR (10/23/2022 2:10 PM CDT) eGFR 112 mL/min/1. 73 m2 [facility] ([place]) Comment: Interpretive Data Reference Interval Normal ?>/= [...] of Race in Diagnosing Kidney Disease, JASN 202). The CKD-EPI equation should not be used for patients with unstable renal function and has not been validated in children and those over 70. Current interpretive data was last reviewed 2021. Blood 10/23/2022 2:10 PM CDT 10/23/2022 2:14 PM CDT us Joshua Prado MD LAB BLOOD ORDERABLES Final Res ult [facility] ([place]) 1 [facility] Department of Laboratories [place], [place] [id number] * Differential, auto (10/23/2022 2:10 PM CDT) Neutrophil abs 4.5 1.7 - 6.5 K/cumm [facility] ([place]) Imm gran abs 0.0 0.0 - 0.1 K/cumm [facility] ([place]) Lymphocyte abs 1.6 0.8 - 3.3 K/cumm [facility] ([place]) Monocyte abs 0.6 0.2 - 0.8 K/cumm [facility] ([place]) Eosinophil abs 0.3 0.0 - 0.5 K/cumm [facility] ([place]) Basophil abs 0.1 0.0 - 0.1 K/cumm [facility] ([place]) Neutrophil pct 64.0 % [facility] ([place]) Comment: Interpretive Data Percent cell count reference ranges are not reported, since discordance with absolute values may lead to misinterpretation of CBC data. Current Interpretive Data was last revised on 2017. Imm gran pct 0.4 % [facility] ([place]) Comment: Interpretive Data Percent cell count reference ranges are not reported, since discordance with absolute values may lead to misinterpretation of CBC data. Current Interpretive Data was last revised on 2017. Lymphocyte pct 22.4 % [facility] ([place]) Comment: Interpretive Data Percent cell count reference ranges are not reported, since discordance with absolute values may lead to misinterpretation of CBC data. Current Interpretive Data was last revised on 2017. Monocyte pct 7.9 % [facility] ([place]) Comment: Interpretive Data Percent cell count reference ranges are not reported, since discordance with absolute values may lead to misinterpretation of CBC data. Current Interpretive Data was last revised on 2017. Eosinophil pct 4.2 % [facility] ([place]) Comment: Interpretive Data Percent cell count reference ranges are not reported, since discordance with absolute values may lead to misinterpretation of CBC data. Current Interpretive Data was last revised on 2017. Basophil pct 1.1 % [facility] ([place]) Comment: Interpretive Data Percent cell count reference ranges are not reported, since discordance with absolute values may lead to misinterpretation of CBC data. Current Interpretive Data was last revised on 2017. Blood 10/23/2022 2:10 PM CDT 10/23/2022 2:14 PM CDT Joshua Prado MD LAB BLOOD ORDERABLES Final Res ult Performing Organization Address [facility] Co de Phone Number [facility] ([place]) 1 [facility] [place] [address] * Troponin T high-sensitivity series (baseline, 2hr, 4hr, 6hr) (10/23/2022 2:10 PM CDT) Trop T hs <6 <=14 ng/L [facility] ([place]) Comment: Interpretive Data For further hscTnT resources including the diagnostic algorithm and an aid in interpretation, copy and paste this link: https://nrl.testcatalog.org/show/hsTrop Current Interpretive Data last revised 2020. Blood 10/23/2022 2:10 PM CDT 10/23/2022 2:14 PM CDT Joshua Prado MD LAB BLOOD ORDERABLES Final Res ult Performing Organization Address [facility] Co de Phone Number [facility] ([place]) 1 [facility] [place] [address] * Protime-INR (10/23/2022 2:10 PM CDT) PT 11.6 9.2 - 13.5 sec [facility] ([place]) INR 1.1 0.9 - 1.2 [facility] ([place]) Comment: Interpretive data Oral anticoagulant therapeutic ranges: Venous thromboembolism prophylaxis or treatment: 2.0-3.0 CARDIOLOGY Standard range: 2.0-3.0 High-intensity range: 2.5-3.5 Refer to indication-specific guidelines for appropriate target ranges for prosthetic heart valve replacement. Current interpretive data was last revised on 2019. Blood 10/23/2022 2:10 PM CDT 10/23/2022 2:14 PM CDT us Joshua Prado MD LAB BLOOD ORDERABLES Final Res ult [facility] ([place]) 1 [facility] Department [place] [address] * Pro B-type natriuretic peptide (10/23/2022 2:10 PM CDT) NT-proBNP 43 <=300 pg/mL [facility] ([place]) Comment: Interpretive Comments: A. Dyspnea in Acute Care Setting All Ages: ?< 300 pg/ml, acute heart failure unlikely. < 50 yrs: ?300 - 450 pg/ml, further investigation warranted. ? > 450 pg/ml, acute heart failure likely. 50 - 74 yrs: ? 300 - 900 pg/ml, further investigation warranted. ? > 900 pg/ml, acute heart failure likely . > or = 75 yrs: ? 450 - 1800 pg/ml, further investigation warranted. ? > 1800 pg/ml, acute heart failure likely. B. Non-acute Setting < 75 yrs ? < 125 pg/ml, rules out heart failure. ? > or = 125 pg/ml, further investigation warranted. > or = 75 yrs ?< 450 pg/ml, rules out heart failure. ? > or = 450 pg/ml, further investigation warranted. - Knowledge of each individual patient's NT-proBNP range may be more useful than using similar cut-points for every patient. Please note that marked elevations in NT-proBNP levels may be observed in state other than Left Ventricular Congestive Failure, including: acute coronary syndromes, right heart strain/failure (including pulmonary embolism and cor pulmonale), critical illness, renal failure, as well as advanced age. - References: 1. Juliet CABA et.al. Eur Heart J. 2006:27:330-337. 2. Jolly KINSEY, Janet ROGERS. J. AM Monique Cardiol: Cardiovasc Imag. 2009;2: 216- 225. Interpretive Data Last Revised Date: 2018. Blood 10/23/2022 2:10 PM CDT 10/23/2022 2:14 PM CDT us Joshua Prado MD LAB BLOOD ORDERABLES Final Res ult [facility] ([place]) 1 [facility] Department [place] [address] * Comprehensive metabolic panel (10/23/2022 2:10 PM CDT) Sodium 136 135 - 145 mmol/L [facility] ([place]) Potassium, pl 4.2 3.3 - 4.9 mmol/L [facility] Chloride 104 97 - 110 mmol/L [facility]) CO2 22 22 - 32 mmol/L [facility] ([place]) Anion gap 10 2 - 15 mmol/L [facility]) BUN 16 8 - 25 mg/dL [facility] ([place]) Creatinine 0.64 0.60 - 1.10 mg/dL [facility] Glucose 87 70 - 199 mg/dL [facility] ([place]) Comment: Interpretive Data Fasting glucose [...] interpretive data was last revised 2022. Calcium 9.1 8.5 - 10.3 mg/dL [facility] ([place]) Bilirubin, total <0.2 0.1 - 1.2 mg/dL [facility] ([place]) Protein, pl 7.1 6.5 - 8.5 g/dL [facility] ([place]) Albumin 4.2 3.5 - 5.0 g/dL [facility] ([place]) Alk phos 61 40 - 130 Units/L [facility] ([place]) ALT 24 7 - 45 Units/L [facility] ([place]) AST 24 10 - 45 Units/L [facility] ([place]) Comment:Slightly Hemolyzed S pecimen Blood 10/23/2022 2:10 PM CDT 10/23/2022 2:14 PM CDT us Joshua Prado MD LAB BLOOD ORDERABLES Final Res ult [facility] 1 [facility] Department of Laboratories [place] [id number] * CBC with auto differential (10/23/2022 2:10 PM CDT) WBC 7.0 3.8 - 9.9 K/cumm [facility] ([place]) Hgb 13.2 11.9 - 15.5 g/dL [facility] ([place]) Hct 39.3 35.6 - 45.5 % [facility] ([place]) Plt 320 150 - 400 K/cumm [facility] ([place]) MPV 9.3 9.1 - 12.3 fL [facility] ([place]) RBC 4.58 3.90 - 5.20 M/cumm [facility] ([place]) MCV 85.8 81.3 - 96.4 fL [facility] ([place]) MCH 28.8 27.1 - 33.3 pg [facility] ([place]) MCHC 33.6 32.3 - 35.7 g/dL [facility] ([place]) RDW CV 12.7 11.1 - 14.9 % [facility] ([place]) RDW SD 39.7 35.7 - 48.1 fL [facility] ([place]) NRBC abs 0.00 0.00 - 0.01 K/cumm [facility] ([place]) Blood 10/23/2022 2:10 PM CDT 10/23/2022 2:14 PM CDT Joshua Prado MD LAB BLOOD ORDERABLES Final Res ult Performing Organization Address [facility] Co de Phone Number [facility] ([place]) 1 [facility] [place] [address] * ECG 12 lead (10/23/2022 1:40 PM CDT) 10/23/2022 1:40 PM CDT Narrative [facility] 10/24/2022 8:54 AM CDT Vent Rate: 77 bpm RR Interval: 774 msec LA Interval: 146 msec QRS Duration: 89 msec QT Interval: 362 msec QTC Interval: 394 msec P-R-T [place]: 46 - 28 - 31 degrees SINUS RHYTHM NORMAL ECG No change from prior EKG Electronically Signed By: Apollo Torrez MD Joshua Prado MD ECG ORDERABLES Final Result Performing Organization Address [facility] Co de Phone Number [facility] Speak With Me [facility] documented in this encounter Visit Diagnoses Diagnosis Palpitations- Primary documented in this encounter Care Teams Metal Dealer Relationship Specialty Start Date End Date Amy Marc MD [address] [employer] [place] [address] PCP - General 11/12/13 documented as of this encounter
--- OUTSIDE RECORDS SUMMARY | 2024-06-24 23:57 | XMS_ITS | Encounter Summary ---
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 Gender Identity Not on file Sexual Orientation Not on file documented as of this encounter Plan of Treatment Not on file documented as of this encounter Visit Diagnoses Not on filedocumented in this encounter Additional Health Concerns Infection Onset Date Last Indicated Resolved Time MRSA Comment:AUTOMATED NOTE (ADD): MRSA (contact), MICHAEL, [email or web address], [facility] Apr 07 15:47:36 CDT 2010 wound 04/05/11 04/07/2011 04/07/2011 021 5:00 AM CDT documented as of this encounter Care Teams Polymerization Engineer Relationship Specialty Start Date End Date Amy Marc MD [address] [place] [address] PCP - General 11/12/13 documented as of this encounter
--- OUTSIDE RECORDS SUMMARY | 2024-06-24 23:57 | XMS_ITS | Encounter Summary ---
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 Name Role Phone Amy Marc MD Primary Care Provider [phone] Reason for Visit * Cardiology (Routine) - Closed Specialty Diagnoses / Procedures Referred By Komal infante Referred To Contact Diagnoses Palpitations PSVT (paroxysmal supraventricular tachycardia) (HCC) RENTERIA (dyspnea on exertion) Procedures Transthoracic Echo (TTE) Complete W Doppler/CF Chava Bradley MD [address] [place] [id number] Phone: tel: fax: [facility] Referral ID Status Reason Start Date Expiration Date Visits Re quested Visits Authorized [id number] Closed 11/22/2022 12/22/2023 1 1 Encounter Details Date Type Department Care Team (Latest Contact Info) Description 01/31/2023 2:00 PM CDT Ancillary Procedure [facility] Cardiology [address] [place] [address] [phone] Palpitations; PSVT (paroxysmal supraventricular tachycardia) (CMS/HCC) (HCC); RENTERIA (dyspnea on exertion) Social History Tobacco [...] on file 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 Gender Identity Not on file Sexual Orientation Not on file documented as of this encounter Plan of Treatment Not on file documented as of this encounter Procedures Procedure Name Priority Date/Time Associated Diagnosis Comments TRANSTHORACIC ECHO (TTE) COMPLETE W DOPPLER/CF WO CONTRAST Routine 01/31/2023 3:04 PM CDT Palpitations PSVT (paroxysmal supraventricular tachycardia) (CMS/HCC) (HCC) RENTERIA (dyspnea on exertion) documented in this encounter Results * TRANSTHORACIC ECHO (TTE) COMPLETE W DOPPLER/CF WO CONTRAST (01/31/2023 3:04 PM CDT) Anatomical Region Laterality Modality Ultrasound 01/31/2023 2:17 PM CDT Narrative 01/31/2023 4:38 PM CDT [facility] Cardiology [address] [facility] [address] [id number] [facility] [address], [place] [address] P:[phone] P:[phone] Echocardiographic Report Patient Name: NAVJOT FREDERICK D : 1980 Study Date: 01/31/2023 2:17:22 PM Gender: F Tech: [facility] Location: [place] Ref.Provider: CHAVA BRADLEY Height(Cm): 175 BSA: 2.01 Weight(Kg): 83.5 Heart Rate: 65 BP: 114 / 64 Quality: Good Order Provider: CHAVA BRADLEY Procedures: Echocardiographic Report: Transthoracic echocardiogram with complete 2D, M-Mode, and color Doppler examination. With Strain Analysis. Indications: Palpitations, SVT, and Dyspnea on Exertion. Measurements: 2D/MM ?Value ? Range ?Doppler ?Value ?Range ? EF Mod ? 53 ? HEIDI Vmax ? 2.77 cm2 ? [ 2.00 - 4.00 ] ? EF Teich MM ?60 % ?[ 55 - 70 ] ?AV Mean PG ? 3 mmHg ? LVIDd 2D ? 4.65 cm ? [ 3.90 - 5.30 ] ?AV Peak Joseph ?1.13 m/s ? LVIDd MM ? 4.87 cm ? [ 3.90 - 5.30 ] ?AV Peak PG ? 5 mmHg ? LVIDs 2D ? 3.11 cm ? [ 2.30 - 3.90 ] ?AV VTI ? 24.15 cm ? LVIDs MM ? 3.32 cm ? [ 2.30 - 3.90 ] ?LVOT Diam ?2.00 cm ?[ 1.70 - 2.10 ] ? LVPWd 2D ? 0.90 cm ? [ 0.60 - 1.00 ] ?LVOT Peak Joseph ?0.96 m/s ? [ 0.70 - 1.10 ] ? LVPWd MM ? 0.89 cm ? [ 0.60 - 1.00 ] ?LVOT VTI ? 20.09 cm ? IVSd 2D ?0.86 cm ? [ 0.60 - 0.90 ] ?MV E Peak Joseph ?0.70 m/s ? [ 0.60 - 1.30 ] ? IVSd MM ?0.92 cm ? [ 0.60 - 0.90 ] ?MV A Peak Joseph ?0.58 m/s ? [ 0.40 - 0.80 ] ? LA Dimension 2D ?3.22 cm ? [ 2.70 - 3.80 ] ?MV Mean PG ? 1 mmHg ? LA Dimension MM ?3.60 cm ? [ 2.70 - 3.80 ] ?MV Decel Time ?220 msec ? [ 150 - 200 ] ? AoR Diam 2D ?2.50 cm ? [ 2.60 - 3.70 ] ?PV Peak Joseph ?1.06 m/s ? [ 0.40 - 0.80 ] ? AoR Diam MM ?3.00 cm ? [ 2.60 - 3.70 ] ?TR Peak Joseph ?1.81 m/s ? LA Volume Index ?33 cc/m2 ?[ 16 - 28 ] ?TR Peak PG ? 13 mmHg ?RVSP ? 16.14 mmHg ?E` ? 0.10 cm/sec ?E/E` ? 7 ? - Findings: Interpretation Site: Exam was interpreted at [facility] [place]. Left Ventricle: Normal left ventricular systolic function. No focal wall motion abnormalities. Normal left ventricular size. Normal left ventricular wall thickness. Normal left ventricular diastolic function. Ejection fraction is visually estimated at 55-60 %. Ejection fraction is measured at 53 %. Global Longitudinal Strain is -16 %. GLS is borderline. Right Ventricle: Normal right ventricular size. Normal right ventricular systolic function. Left Atrium: There is mild enlargement of left atrium. Right Atrium: The right atrium is normal in size. Atrial Septum: Normal atrial septum. Mitral Valve: Normal appearance of the mitral valve. Mild mitral valve regurgitation. There is no hemodynamically significant mitral stenosis by Doppler. Aortic Valve: Normal appearance of the aortic valve. No evidence of hemodynamically significant aortic stenosis by Doppler. Trileaflet aortic valve. Trace aortic valve regurgitation. Tricuspid Valve: Normal appearance of the tricuspid valve. Normal right ventricular systolic pressure. Estimated peak RVSP is 16 mmHg. Mild tricuspid regurgitation. Pulmonic Valve: Normal appearance of the pulmonic valve. No pulmonic stenosis. Mild pulmonic regurgitation. Pericardium: Normal pericardium with no significant pericardial effusion. Aorta: Normal aortic root. IVC: Normal size and normal respiratory collapse consistent with normal right atrial pressure (<5 mmHg). Conclusions: Normal left ventricular systolic function. No focal [...] By: Clovis Mcmahan MD 2023-01-31 16:38:27 CDT CC: CC: Procedure Note Clovis Mcmahan MD - 01/31/2023 [facility] Cardiology [address], [place] [address] [address] [facility] [address], [place] [address] P:[phone] P:[phone] Echocardiographic Report Patient Name: NAVJOT FREDERICK DPatient ID: [id number] : [id number] Date: 01/31/2023 2:17:22 PM Gender: FAccession #: [id number] Tech: LORLocation: [place] Ref.Provider: CHAVA BRADLEYHeight(Cm): 175 BSA: 2.01Weight(Kg): 83.5 Heart Rate: 65BP: 114 / 64 Quality: GoodOrder Provider: CHAVA BRADLEY Procedures: Echocardiographic Report: Transthoracic echocardiogram with complete 2D, M-Mode, and color Dopplerexamination. With Strain Analysis. Indications: Palpitations, SVT, and Dyspnea on Exertion. Measurements: 2D/MM Value Range Doppler ValueRange EF Mod 53 HEIDI Vmax 2.77cm2 [ 2.00 - 4.00 ] EF Teich MM 60 % [ 55 - 70 ] AV Mean PG 3 mmHg LVIDd 2D 4.65 cm [ 3.90 - 5.30 ] AV Peak Joseph 1.13m/s LVIDd MM 4.87 cm [ 3.90 - 5.30 ] AV Peak PG 5 mmHg LVIDs 2D 3.11 cm [ 2.30 - 3.90 ] AV VTI 24.15cm LVIDs MM 3.32 cm [ 2.30 - 3.90 ] LVOT Diam 2.00 cm[ 1.70 - 2.10 ] LVPWd 2D 0.90 cm [ 0.60 - 1.00 ] LVOT Peak Joseph 0.96m/s [ 0.70 - 1.10 ] LVPWd MM 0.89 cm [ 0.60 - 1.00 ] LVOT VTI 20.09cm IVSd 2D 0.86 cm [ 0.60 - 0.90 ] MV E Peak Joseph 0.70m/s [ 0.60 - 1.30 ] IVSd MM 0.92 cm [ 0.60 - 0.90 ] MV A Peak Joseph 0.58m/s [ 0.40 - 0.80 ] LA Dimension 2D 3.22 cm [ 2.70 - 3.80 ] MV Mean PG 1 mmHg LA Dimension MM 3.60 cm [ 2.70 - 3.80 ] MV Decel Time 220msec [ 150 - 200 ] AoR Diam 2D 2.50 cm [ 2.60 - 3.70 ] PV Peak Jsoeph 1.06m/s [ 0.40 - 0.80 ] AoR Diam MM 3.00 cm [ 2.60 - 3.70 ] TR Peak Joseph 1.81m/s LA Volume Index 33 cc/m2 [ 16 - 28 ] TR Peak PG 13 mmHg RVSP 16.14mmHg E` 0.10cm/sec E/E` 7 - Findings: Interpretation Site: Exam was interpreted at [facility]. Left Ventricle: Normal left ventricular systolic function. No focal wall motionabnormalities. Normal left ventricular size. Normal left ventricular wall thickness. Normal leftventricular diastolic function. Ejection fraction is visually estimated at 55-60 %.Ejection fraction is measured at 53 %. Global Longitudinal Strain is -16 %. GLS isborderline. Right Ventricle: Normal right ventricular size. Normal right ventricular systolicfunction. Left Atrium: There is mild enlargement of left atrium. Right Atrium: The right atrium is normal in size. Atrial Septum: Normal atrial septum. Mitral Valve: Normal appearance of the mitral valve. Mild mitral valve regurgitation.There is no hemodynamically significant mitral stenosis by Doppler. Aortic Valve: Normal appearance of the aortic valve. No evidence of hemodynamicallysignificant aortic stenosis by Doppler. Trileaflet aortic valve. Trace aortic valveregurgitation. Tricuspid Valve: Normal appearance of the tricuspid valve. Normal right ventricularsystolic pressure. Estimated peak RVSP is 16 mmHg. Mild tricuspid regurgitation. Pulmonic Valve: Normal appearance of the pulmonic valve. No pulmonic stenosis. Mildpulmonic regurgitation. Pericardium: Normal pericardium with no significant pericardial effusion. Aorta: Normal aortic root. IVC: Normal size and normal respiratory collapse consistent with normal rightatrial pressure (<5 mmHg). Conclusions: Normal left ventricular systolic function. No focal wall motionabnormalities. Normal left ventricular size. Normal left ventricular wall thickness. Normal leftventricular diastolic function. Ejection fraction is visually estimated at 55-60 %.Ejection fraction is measured at 53 %. Global Longitudinal Strain is -16 %. GLS isborderline. There is mild enlargement of left atrium. Mild mitral valve regurgitation. Mild tricuspid regurgitation. Mild pulmonic regurgitation. Normal sinus rhythm. 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 [address] PCP - General 11/12/13 documented as of this encounter
--- OUTSIDE RECORDS SUMMARY | 2024-06-24 23:57 | XMS_ITS | Encounter Summary ---
Author Organization [facility] Address [address] [place] [address] Care Team Providers Care Finished Goods Planner Name Role Phone Amy Marc MD Primary Care Provider [phone] Reason for Referral * Diagnostic Imaging (Routine) - Closed Specialty Diagnoses / Procedures Referred By Komal infante Referred To Contact Diagnoses Arthralgia, unspecified joint Procedures XR Hand Left 3 or More Views Nasreen Cox MD [address] [place] [address] Phone: tel: fax: [facility] [place] [address] [place] [address] Referral ID Status Reason Start Date Expiration Date Visits Re quested Visits Authorized [id number] Closed 02/01/2023 03/02/2024 1 1 * Diagnostic Imaging (Routine) - Closed Specialty Diagnoses / Procedures Referred By Komal infante Referred To Contact Diagnoses Arthralgia, unspecified joint Procedures XR Hand Right 3 or More Views Nasreen Cox MD [address] [place] [address] Phone: tel: fax: [facility] [address] [place] [address] Referral ID Status Reason Start Date Expiration Date Visits Re quested Visits Authorized [id number] Closed 02/01/2023 03/02/2024 1 1 Reason for Visit * Reason Comments Abnormal Lab * Consultation (Routine) - Closed Specialty Diagnoses / Procedures Referred By Contac t Referred To Contact Rheumatology Diagnoses Connective tissue disease (HCC) Raynaud's disease without gangrene Eva Garibay MD Phone: tel: fax: Nasreen Cox MD [address] [place] [address] Phone: tel: fax: Referral ID Status Reason Start Date Expiration Date V isits Requested Visits Authorized [id number] Closed Specialty Services Required 07/29/2022 08/28/2023 4 4 Encounter Details Date Type Department Care Team (Late st Contact Info) Description 02/01/2023 9:00 AM CDT Office Visit [facility] Rheumatology at 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[employer] Gender Identity Not on file Sexual Orientation Not on file documented as of this encounter Last Filed Vital Signs Vital Sign Reading Time Taken Comments Blood Pressure 122/84 02/01/2023 8:53 AM CDT Pulse 74 02/01/2023 8:53 AM CDT Temperature 36.6 ??C (97.8 ??F) 02/01/2023 8:53 AM CD T Respiratory Rate - - Oxygen Saturation 98% 02/01/2023 8:53 AM CDT Inhaled Oxygen Concentration - - Weight 86.5 kg (190 lb 12.8 oz) 02/01/2023 8:53 AM CDT Height 175.3 cm (5' 9.02 ) 02/01/2023 8:53 AM CD T Body Mass Index 28.16 02/01/2023 8:53 AM CDT documented in this encounter Ordered Prescriptions Prescription Sig Dispense Quantity Refills Last Filled Start Date End Date hydrOXYchloroQUINE (PLAQUENIL) 200 mg tablet Take 1 tablet (200 mg total) by mouth 2 (two) times a day 60 tablet 4 02/01/2023 04/11/2023 documented in this encounter Progress Notes * Nasreen Cox MD - 02/01/2023 9:00 AM CDT Abnormal Lab HPI: This is a 42 y.o. female patient presenting with a chief complaint of Abnormal Lab . She was seen by Dr. Garibay. I [...] joint pain. She was seen by an INDUSTRIAL DESIGN ENGINEER in plastics at [facility] for her R wrist pain. Exam was [...] had occ panic attacks. She works at [employer]. Out of work for a bit because [...] tablet (20 mg total) by mouth daily hydrOXYzine (ATARAX) 25 mg tablet 1-2 TABS BY MOUTH AT BEDTIME 30-60 MINUTES BEFORE BEDTIME FOR INSOMNIA hydrOXYchloroQUINE (PLAQUENIL) 200 mg tablet Take 1 tablet (200 mg total) by mouth 2 (two) times a day 60 tablet 4 No current facility-administered medications for this visit. Hydrocodone Past Medical History: Diagnosis Date Anxiety [...] activity: Not on file Alcohol Use: Not on file Review of Systems ----fairly widely positive: Constitutional: [...] Hematological: +bruise/bleed easily. Psychiatric/Behavioral: anxiety Vitals BP 122/84 (BP Location: Right arm, Patient Position: Sitting) Pulse 74 Temp 36.6 ??C (97.8 ??F) (Temporal) Ht 175.3 cm (5' 9.02 ) Wt 86.5 kg (190 lb 12.8 oz) LMP 01/10/2023 (Exact Date) SpO2 98% BMI 28.16 kg/m?? Body mass index is 28.16 kg/m??. Physical exam: Constitutional:well developed, well nourished, [...] LABS: Lab Results Component Value Date GLUCOSE 87 10/23/2022 CALCIUM 9.1 10/23/2022 CO2 22 10/23/2022 CREATININE 0.64 10/23/2022 Lab Results Component Value Date ALT 24 10/23/2022 AST 24 10/23/2022 ALKPHOS 61 10/23/2022 BILITOT <0.2 10/23/2022 Lab Results Component Value Date WBC 7.0 10/23/2022 HGB 13.2 10/23/2022 HCT 39.3 10/23/2022 MCV 85.8 10/23/2022 No results found for: SEDRATE 1. Connective tissue disease (CMS/HCC) ([facility]) - Ambulatory referral to Rheumatology - Urinalysis reflex to microscopic; Future - Creatinine, urine, random; Future - Protein, urine, random; Future - SPEECH TEACHER abs; Future - C4 complement; Future - C3 complement; Future - Anti-double stranded DNA abs; Future - LORIN ab ql w/rflx to LORIN qn; Future - CBC without differential; Future - Comprehensive metabolic panel; Future - Creatine kinase (CK), total; Future - CRP (acute phase); Future - Cyclic citrul peptide antibody, IgG; Future - JOCELYNE ab eval w/reflex; Future - Erythrocyte sedimentation rate; Future - ANCA; Future - Rheumatoid factor; Future 2. Raynaud's disease without gangrene - Ambulatory referral to Rheumatology 3. Arthralgia, unspecified joint - XR Hand Right 3 or More Views; Future - XR Hand Left 3 or More Views; Future - XR Ankle Right 3 or More Views; Future Possible UDCTD. Will re-eval disease and continue HCQ, for now. Advised that she needs DIALLO eval documented in this encounter Plan of Treatment Not on file documented as of this encounter Procedures Procedure Name Priority Date/Time Associated Diagnosis Comments LORIN QUALITATIVE WITH REFLEX TO LORIN QUANTITATIVE Routine 02/01/2023 10:04 AM CDT Connective tissue disease ([facility]) ([facility]) ANTI-DOUBLE STRANDED DNA ANTIBODIES Routine 02/01/2023 10:04 AM CDT Connective tissue disease ([facility]) ([facility]) EGFR Routine 02/01/2023 10:04 AM CDT Connective tissue disease (CMS/HCC) (HCC) SPEECH TEACHER ANTIBODIES Routine 02/01/2023 10:04 AM CDT Connective tissue disease (CMS/HCC) (HCC) C4 COMPLEMENT Routine 02/01/2023 10:04 AM CDT Connective tissue disease (CMS/HCC) (HCC) JOCELYNE ANTIBODY EVALUATION WITH REFLEX Routine 02/01/2023 10:04 AM CDT Connective tissue disease (CMS/HCC) (HCC) URINALYSIS AND REFLEX TO MICROSCOPIC Routine 02/01/2023 10:04 AM CDT Connective tissue disease (CMS/HCC) (HCC) CYCLIC CITRUL PEPTIDE ANTIBODY, IGG Routine 02/01/2023 10:04 AM CDT Connective tissue disease (CMS/HCC) (HCC) PROTEIN, URINE, RANDOM Routine 10:04 AM CDT Connective tissue disease (CMS/HCC) (HCC) CREATININE, URINE, RANDOM Routine 02/01/2023 10:04 AM CDT Connective tissue disease (CMS/HCC) (HCC) ANTI-NEUTROPHILIC CYTOPLASMIC ANTIBODY Routine 02/01/2023 10:04 AM CDT Connective tissue disease (CMS/HCC) (HCC) ERYTHROCYTE SEDIMENTATION RATE Routine 02/01/2023 10:04 AM CDT Connective tissue disease (CMS/HCC) (HCC) CBC WITHOUT DIFFERENTIAL Routine 02/01/2023 10:04 AM CDT Connective tissue disease (CMS/HCC) (HCC) RHEUMATOID FACTOR Routine 02/01/2023 10: 04 AM CDT Connective tissue disease (CMS/HCC) (HCC) C3 COMPLEMENT Routine 02/01/2023 10:04 AM CDT Connective tissue disease (CMS/HCC) (HCC) CRP (ACUTE PHASE) Routine 02/01/2023 10: 04 AM CDT Connective tissue disease (CMS/HCC) (HCC) CREATINE KINASE (CK), TOTAL Routine 02/01/2023 10:04 AM CDT Connective tissue disease (CMS/HCC) (HCC) COMPREHENSIVE METABOLIC PANEL Routine 02/01/2023 10:04 AM CDT Connective tissue disease (CMS/HCC) (HCC) documented in this encounter Results * XR Ankle Right 3 or More Views (02/01/2023 10:37 AM CDT) Anatomical Region Laterality Modality Lower Extremities, Ankle Right Compute d Radiography 02/01/2023 12:0 1 PM CDT Impressions 02/01/2023 12:01 PM CDT Alignment is anatomic. ??No fracture or acute osseous abnormality. ??Os trigonum, unchanged. ??Soft tissues normal. ??No radiopaque foreign body. Electronically signed by: Jay Robles M.D. Narrative 02/01/2023 12:01 PM CDT XR ANKLE RIGHT 3 OR MORE VIEWS: 02/01/2023 10:30 AM CLINICAL INDICATION: Ankle pain, initial exam. COMPARISON: Radiographs of the right ankle dated 04/12/2006. Procedure Note Jay Robles MD - 02/01/2023 XR ANKLE RIGHT 3 OR MORE VIEWS: 02/01/2023 10:30 AM CLINICAL INDICATION: Ankle pain, initial exam. COMPARISON: Radiographs of the right ankle dated 04/12/2006. IMPRESSION: Alignment is anatomic. No fracture or acute osseous abnormality. Os trigonum, unchanged. Soft tissues normal. No radiopaque foreign body. Electronically signed by: Jay Robles M.D. us Nasreen Cox MD IMG XR PROCEDURES Fin al Result * XR Hand Left 3 or More Views (02/01/2023 10:37 AM CDT) Anatomical Region Laterality Modality Upper Extremities, Hand Left Computed Radiography 02/01/2023 12:0 6 PM CDT Impressions 02/01/2023 12:06 PM CDT Alignment is anatomic. ??No fracture, acute osseous abnormality or erosive change. ??Soft tissues normal. ??No radiopaque foreign body. Electronically signed by: Jay Robles M.D. Narrative 02/01/2023 12:06 PM CDT XR HAND RIGHT 3 OR MORE VIEWS, XR HAND LEFT 3 OR MORE VIEWS: 02/01/2023 10:30 AM CLINICAL INDICATION: hand pain. COMPARISON: None. Procedure Note Jay Robles MD - 02/01/2023 XR HAND RIGHT 3 OR MORE VIEWS, XR HAND LEFT 3 OR MORE VIEWS: 02/01/2023 10:30 AM CLINICAL INDICATION: hand pain. COMPARISON: None. IMPRESSION: Alignment is anatomic. No fracture, acute osseous abnormality or erosive change. Soft tissues normal. No radiopaque foreign body. Electronically signed by: Jay Robles M.D. Nasreen Cox MD IMG XR PROCEDURES Fin al Result * XR Hand Right 3 or More Views (02/01/2023 10:37 AM CDT) Anatomical Region Laterality Modality Upper Extremities, Hand Right Computed Radiography 02/01/2023 12:0 6 PM CDT Impressions 02/01/2023 12:06 PM CDT Alignment is anatomic. ??No fracture, acute osseous abnormality or erosive change. ??Soft tissues normal. ??No radiopaque foreign body. Electronically signed by: Jay Robles M.D. Narrative 02/01/2023 12:06 PM CDT XR HAND RIGHT 3 OR MORE VIEWS, XR HAND LEFT 3 OR MORE VIEWS: 02/01/2023 10:30 AM CLINICAL INDICATION: hand pain. COMPARISON: None. Procedure Note Jay Robles MD - 02/01/2023 XR HAND RIGHT 3 OR MORE VIEWS, XR HAND LEFT 3 OR MORE VIEWS: 02/01/2023 10:30 AM CLINICAL INDICATION: hand pain. COMPARISON: None. IMPRESSION: Alignment is anatomic. No fracture, acute osseous abnormality or erosive change. Soft tissues normal. No radiopaque foreign body. Electronically signed by: Jay Robles M.D. us Nasreen Cox MD IMG XR PROCEDURES Fin al Result * eGFR (02/01/2023 10:04 AM CDT) eGFR 97 mL/min/1. 73 m2 [facility] Comment: Interpretive Data Reference Interval Normal ?>/= [...] interpretive data was last reviewed 2021. Blood 02/01/2023 10:0 4 AM CDT 02/01/2023 12:36 PM CDT us Nasreen Cox MD LAB BLOOD ORDERABLES Final Result [facility] [address] [place] [address] * SPEECH TEACHER abs (02/01/2023 10:04 AM CDT) Pathologist [facility] SPEECH TEACHER ab <0.2 <=0.9 Ab Index [facility] Comment: Interpretive Data Negative: < 1.0 Ab Index Positive: > or = 1.0 Ab Index Current interpretive data was last revised on 2016. Testing performed by: [facility], [address] [place]., [address] Blood 02/01/2023 10:0 4 AM CDT 02/01/2023 4:25 PM CDT Nasreen Cox MD LAB BLOOD ORDERABLES Final Result Performing Organization Address [facility] Co de Phone Number [facility] [address] [place] [address] * Anti-double stranded DNA abs (02/01/2023 10:04 AM CDT) [facility] dsDNA Ab <1.0 <=4.0 IUnits/mL [facility] Comment: Interpretive Data Negative: < or = 4 IUnits/mL Indeterminate: 5 - 9 IUnits/mL Positive: > or = 10 IUnits/mL Current interpretive data was last revised on 2016. Testing performed by: [facility], [address] [place]., [address] Blood 02/01/2023 10:0 4 AM CDT 02/01/2023 4:25 PM CDT Nasreen Cox MD LAB BLOOD ORDERABLES Final Result Performing Organization Address City/[facility]/ZIP Co de Phone Number [facility] [address] Department [place] [address] * LORIN ab ql w/rflx to LORIN qn (02/01/2023 10:04 AM CDT) Pathologist [facility] LORIN Positive 1:640 [facility] Comment: Interpretive Data Normal range for LORIN Qualitative Antibody = Negative. 1. LORIN is performed using indirect immunofluorescence against HEp-2 cells 2. LORIN titers are performed on all positive qualitative results. 3. A significantly positive LORIN result is defined as a positive nuclear fluorescence at a titer of 1:80 or greater. 4. 15% of normal people above age 65 have significantly positive LORIN results. ??5% or less of normal people age 65 or under have significantly positive LORIN results. Current interpretive data was last revised on 2020. Testing performed by: [facility], [address] [place]., [address] LORIN, quant 1:640 titer [facility] Comment:Testing performed by : [facility], [address] [place]., [address] LORIN, interp Speckled [facility] Comment:Testing performed by : [facility], [address] [place] [address]., [address] Blood 02/01/2023 10:0 4 AM CDT 02/01/2023 4:25 PM CDT Nasreen Cox MD LAB BLOOD ORDERABLES Final Result [facility] [address] Department [place] [address] * ANCA (02/01/2023 10:04 AM CDT) Pathologist [facility] C-ANCA Negative Negative [facility] P-ANCA Negative Negative [facility] Comment: Negative for cANCA and pANCA patterns by immunofluorescence. ADDITIONAL INFORMATION This test was developed and its performance characteristics determined by [facility] in a manner consistent with CLIA requirements. This test has not been cleared or approved by the U.S. Food and Drug Administration. Test Performed by: [facility] [address] [place] [id number] Cdl Bulk Driver: Tushar Dowd M.D. Ph.D.; IA# [id number] Blood 02/01/2023 10:0 4 AM CDT 02/01/2023 2:52 PM CDT Nasreen Cox MD LAB BLOOD ORDERABLES Final Result Performing Organization Address City/[facility]/ZIP Co de Phone Number [facility] [address] [facility] [place] [address] * Rheumatoid factor (02/01/2023 10:04 AM CDT) Pathologist [facility] Rheumatoid factor, quant <10 <=15 IUnits/mL [facility] Blood 02/01/2023 10:0 4 AM CDT 02/01/2023 12:36 PM CDT Nasreen Cox MD LAB BLOOD ORDERABLES Final Result Performing Organization Address [facility]/ZIP Co de Phone Number [facility] [address] [facility] [place] [address] * Erythrocyte sedimentation rate (02/01/2023 10:04 AM CDT) [facility] Erythrocyte sedimentation rate 9 1 - 20 mm/hr [facility] Blood 02/01/2023 10:0 4 AM CDT 02/01/2023 12:36 PM CDT Nasreen Cox MD LAB BLOOD ORDERABLES Final Result Performing Organization Address City/[facility]/ZIP Co de Phone Number [facility] [address] [facility] [place] [address] * JOCELYNE ab eval w/reflex (02/01/2023 10:04 AM CDT) Pathologist [facility] JOCELYNE ab Negative Negative [facility] Comment: Interpretive Data Positive Screens will be reflexed to specific testing for Antibodies against the following antigens: Karuna-1 Ab, SPEECH TEACHER Ab, Scl-70 Ab, Mcclelland Ab, SS-A/Ro Ab, and SS- B/La Ab. Further testing for dsDNA, Centromere, or Ribosomal P antibodies is suggested in patient with a positive screen and negative specific antibodies. Current interpretive data was last revised on 2022. Testing performed by: [facility], [address] [place]., [address] Blood 02/01/2023 10:0 4 AM CDT 02/01/2023 4:25 PM CDT Nasreen Cox MD LAB BLOOD ORDERABLES Final Result Performing Organization Address City/[facility]/ZIP Co de Phone Number [facility] [address] [employer], [place] [id number] * Cyclic citrul peptide antibody, IgG (02/01/2023 10:04 AM CDT) CCP Ab <0.5 <=2.9 units/mL [facility] Comment: Interpretive data Negative: <3 units/mL Positive: > or equal to 3 units/mL Current interpretive data was last revised on 2016. Testing performed by: [facility], [address] [place]., [address] Blood 02/01/2023 10:0 4 AM CDT 02/01/2023 4:25 PM CDT Nasreen Cox MD LAB BLOOD ORDERABLES Final Result [facility] [address] Department [employer] [place], [place] [id number] * CRP (acute phase) (02/01/2023 10:04 AM CDT) CRP <3.0 <=10.0 mg/L [facility] Blood 02/01/2023 10:0 4 AM CDT 02/01/2023 12:36 PM CDT Nasreen Cox MD LAB BLOOD ORDERABLES Final Result Performing Organization Address City/[facility]/ZIP Co de Phone Number [facility] [address] Department [place] [address] * Creatine kinase (CK), total (02/01/2023 10:04 AM CDT) Pathologist [facility] CK 97 30 - 200 Units/L [facility] Blood 02/01/2023 10:0 4 AM CDT 02/01/2023 12:36 PM CDT Nasreen Cox MD LAB BLOOD ORDERABLES Final Result Performing Organization Address [facility] de Phone Number [facility] [address] Department [place] [address] * (ABNORMAL) Comprehensive metabolic panel (02/01/2023 10:04 AM CDT) Pathologist [facility] Sodium 131(L) 135 - 145 mmol/L [facility] Potassium, pl 4.2 3.3 - 4.9 mmol/L [facility] Chloride 98 97 - 110 mmol/L [facility] CO2 22 22 - 32 mmol/L [facility] Anion gap 11 2 - 15 mmol/L [facility] BUN 12 6 - 25 mg/dL [facility] Creatinine 0.78 0.60 - 1.10 mg/dL [facility] Glucose 95 70 - 199 mg/dL [facility] Comment: Interpretive Data Fasting glucose >/= 126 [...] interpretive data was last revised 2022. Calcium 9.8 8.5 - 10.3 mg/dL [facility] Bilirubin, total 0.3 0.1 - 1.2 mg/dL [facility] Protein, pl 7.4 6.5 - 8.5 g/dL [facility] Albumin 4.5 3.5 - 5.0 g/dL [facility] Alk phos 64 40 - 130 Units/L [facility] ALT 39 7 - 45 Units/L [facility] AST 26 10 - 45 Units/L [facility] Blood 02/01/2023 10:0 4 AM CDT 02/01/2023 12:36 PM CDT us Nasreen Cox MD LAB BLOOD ORDERABLES Final Result [facility] [address] Department [place] [address] * CBC without differential (02/01/2023 10:04 AM CDT) WBC 6.2 3.8 - 9.9 K/cumm [facility] Hgb 14.0 11.9 - 15.5 g/dL [facility] Hct 42.0 35.6 - 45.5 % [facility] Plt 374 150 - 400 K/cumm [facility] MPV 10.2 9.1 - 12.3 fL [facility] RBC 4.76 3.90 - 5.20 M/cumm [facility] MCV 88.2 81.3 - 96.4 fL [facility] MCH 29.4 27.1 - 33.3 pg [facility] MCHC 33.3 32.3 - 35.7 g/dL [facility] RDW CV 12.6 11.1 - 14.9 % [facility] RDW SD 40.8 35.7 - 48.1 fL [facility] NRBC abs 0.00 0.00 - 0.01 K/cumm [facility] Blood 02/01/2023 10:0 4 AM CDT 02/01/2023 12:36 PM CDT Nasreen Cox MD LAB BLOOD ORDERABLES Final Result Performing Organization Address [facility] Co de Phone Number [facility] [address] [facility] [place] [address] * C3 complement (02/01/2023 10:04 AM CDT) Complement C3 157 90 - 180 mg/dL [facility] Blood 02/01/2023 10:0 4 AM CDT 02/01/2023 12:36 PM CDT Nasreen Cox MD LAB BLOOD ORDERABLES Final Result Performing Organization Address [facility] Co de Phone Number [facility] [address] [facility] [place] [address] * (ABNORMAL) C4 complement (02/01/2023 10:04 AM CDT) Complement C4 42(H) 10 - 40 mg/dL [facility] Blood 02/01/2023 10:0 4 AM CDT 02/01/2023 12:36 PM CDT Result [facility] Nasreen Cox MD LAB BLOOD ORDERABLES Final Result Performing Organization Address [facility] Co de Phone Number [facility] [address] [facility] [place] [address] * Protein, urine, random (02/01/2023 10:04 AM CDT) Protein, ur, quant 7.5 mg/dL [facility] Comment: Interpretive Data No reference range established. Current interpretive data was last revised 2018. Urine 02/01/2023 10:0 4 AM CDT 02/01/2023 10:05 AM CDT Nasreen Cox MD LAB URINE ORDERABLES Final Result Performing Organization Address [facility] Co de Phone Number [facility] [address] [facility] [place] [address] * Creatinine, urine, random (02/01/2023 10:04 AM CDT) Creatinine Ur 89.7 mg/dL [facility] Comment: Interpretive Data No reference range established. Current interpretive data was last revised 2018. Urine 02/01/2023 10:0 4 AM CDT 02/01/2023 10:05 AM CDT Nasreen Cox MD LAB URINE ORDERABLES Final Result Performing Organization Address [facility] de Phone Number [facility] [address] [facility] [place] [address] * Urinalysis reflex to microscopic (02/01/2023 10:04 AM CDT) Color, ur Yellow Yellow [facility] Clarity, ur Clear Clear [facility] Specific gravity, ur 1.017 1.003 - 1.030 [facility] pH, urine 6.0 [facility] Protein, ur ql Negative Negative [facility] Glucose, ur ql Negative Negative [facility] Ketones, ur Negative Negative [facility] Bilirubin, ur Negative Negative [facility] Blood, ur Negative Negative [facility] Urobilinogen, ur <2.0 <2.0 mg/dL [facility] Nitrite, ur Negative Negative [facility] Leukocyte esterase, ur Negative Negative [facility] UA reflex comment Reflex conditions for microscopic UA not met. [facility] Urine 02/01/2023 10:0 4 AM CDT 02/01/2023 12:36 PM CDT Narrative [facility] - 02/01/2023 12:55 PM CDT ?? Urine pH is affected by diet, medications, systemic acid-base disturbances, and renal tubular function. ??pH may affect urinary stone formation. ??For example, urine pH below 6.0 may help reduce the tendency for calcium phosphate stones and pH greater than 6.0 may reduce the tendency for uric acid stone formation. Source: [place] [employer]. Last revised 06-29-2017 us Nasreen Cox MD LAB URINE ORDERABLES Final Result [facility] [address] Department [place] [address] documented in this encounter Visit Diagnoses Diagnosis Connective tissue disease (HCC)- Primary Unspecified diffuse connective tissue disease Raynaud's disease without gangrene Arthralgia, unspecified joint Arthralgia, unspecified joint documented in this encounter Discontinued Medications Medication Sig Discontinue Reason Start Date End Da te ALPRAZolam (XANAX) 0.25 mg tablet TAKE 1 TO 2 TABLETS BY MOUTH DAILY NEEDED FOR ANXIETY 11/01/2022 02/01/2023 documented as of this encounter Historical Medications * This list may reflect changes made after this encounter. ALPRAZolam (XANAX) 1 mg tablet 1 tablet (1 mg total) 01/28/2023 04/11/2023 added in this encounter Orders Outpatient Referral Count Last Ordered Date Fir st Ordered Date AMB REFERRAL TO RHEUMATOLOGY 1 02/01/2023 documented in this encounter Care Teams Finished Goods Planner Relationship Specialty Start Date End Date Amy Marc MD [address] [place] [address] PCP - General 11/12/13 documented as of this encounter
--- OUTSIDE RECORDS SUMMARY | 2024-06-24 23:57 | XMS_ITS | Encounter Summary ---
Author Organization [facility] Address [address] [place] [address] Care Team Providers Care Top Polisher Name Role Phone Amy Marc MD Primary Care Provider [phone]- [phone] Reason for Visit * Reason Onset Date Comments Lab Results 02/14/2023 Encounter Details Date Type Department Care Team (Late st Contact Info) Description 02/14/2023 Telephone [facility] Rheumatology at [facility] 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 However, if she feels like the plaquenilhas benefited her symptoms enough to continue this, she may do so documented in this encounter Plan of Treatment Not on file documented as of this encounter Visit Diagnoses Not on filedocumented in this encounter Care Teams Top Polisher Relationship Specialty Start Date End Date Amy Marc MD [address] [place] [address] PCP - General 11/12/13 documented as of this encounter
--- OUTSIDE RECORDS SUMMARY | 2024-06-24 23:57 | XMS_ITS | Encounter Summary ---
Author Organization [facility] Address [address] [place] [address] Phone Care Team Providers Care Handbag Finisher Name Role Phone Amy Marc MD Primary Care Provider [phone]- [phone] Reason for Visit * Reason Comments Wrist Pain * Consultation (Routine) - Authorized Specialty Diagnoses / Procedures Referred By Contac t Referred To Contact Plastic Surgery Diagnoses Right wrist pain Amy Marc MD [address] [facility] [place] [address] Phone: tel: fax: [facility] (All Locations) Referral ID Status Reason Start Date Expiration Date Visits Requested Visits Authorized [id number] Authorized Specialty Services Required 10/17/2022 11/15/2024 99 99 Encounter Details Date Type Department Care Team (Late st Contact Info) Description 10/31/2022 2:30 PM CDT Office Visit [facility] Surgery [address] [place] [address] Heidi Mtz NP 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 Gender Identity Not on file Sexual Orientation Not on file documented as of this encounter Last Filed Vital Signs Vital Sign Reading Time Taken Comments Blood Pressure - - Pulse - - Temperature - - Respiratory Rate - - Oxygen Saturation - - Inhaled Oxygen Concentration - - Weight 82.6 kg (182 lb) 10/31/2022 2:48 PM CDT Height 175.3 cm (5' 9 ) 10/31/2022 2:48 PM CDT Body Mass Index 26.88 10/31/2022 2:48 PM CDT documented in this encounter Progress Notes * Heidi Mtz, ARNUFLO - 10/31/2022 2:30 PM CDT Plastic, Reconstructive, and Hand Surgery History and Physical Patient: Nasreen Ace : 1980 Date of Service: 10/31/2022 PCP: Amy Marc MD Referring Provider: Amy Marc MD Chief Complaint: Wrist Pain History of Present Illness: Nasreen Ace is a 42 y.o. right hand dominant female who presents with right wrist pain as if something is stuck and twisted. Symptoms started 2 month ago without noted injury or event. Sees touring production manager and was treated with oral medication for connective tissue disease. 1 yr ago she lost her insurance and has not been on hydroxychlorquine. Only occasional tingling of dorsal small finger. Loss of strength and fine motor skills. Dropping objects. Does not wake at night. Has tried wrist wrap that helped stopping her wrist from extending and less pain. 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 Past Medical History: Diagnosis Date Anxiety History reviewed. No pertinent surgical history. Family History Problem Relation Age of Onset Depression Mother Depression; Depression Father Depression; Hypertension Father Hypertension; Obesity Father Obesity; Stroke Father Stroke; Depression Sister Depression; Other Brother Alive and well; Lung cancer Maternal Grandmother Cancer, lung; Social History Tobacco Use Smoking status: Every Day Smokeless tobacco: None Substance and Sexual Activity Drug use: No Sexual activity: None Alcohol Use: Not on file Allergies Allergen Reactions Hydrocodone Nausea only Reaction: nausea, Current Outpatient Medications on File Prior to Visit Medication Sig Dispense Refill buPROPion XL (WELLBUTRIN XL) 150 mg 24 hr tablet Take 1 tablet (150 mg total) by mouth daily chlorzoxazone (PARAFON FORTE) 500 mg tablet take 1 tablet by oral route 3 times every day prn muscle spasm. 30 0 hydrOXYzine (ATARAX) 25 mg tablet 1-2 TABS BY MOUTH AT BEDTIME 30-60 MINUTES BEFORE BEDTIME FOR INSOMNIA LORazepam (ATIVAN) 0.5 mg tablet Take 1 tablet (0.5 mg total) by mouth every 6 (six) hours as needed for anxiety 6 tablet 0 LORazepam (ATIVAN) 1 mg tablet Take 0.5 tablets (0.5 mg total) by mouth every 8 (eight) hours as needed for anxiety 10 tablet 0 PARoxetine (PAXIL) 10 mg tablet Take 1 tablet (10 mg total) by mouth every evening predniSONE (DELTASONE) 20 mg tablet take 3 Tablet by oral route daily for 3 days, 2 tabs po daily for 3 days, 1 tab po daily for 3 days, 1/2 tab by mouth daily for 4 days. 20 0 methylPREDNISolone (MEDROL DOSEPACK) 4 mg Dosepack follow package directions [address] (PROTONIX) 40 mg EC tablet Take 1 tablet (40 mg total) by mouth daily 30 tablet 1 No current facility-administered medications on file prior to visit. Review of Systems: A full review of system was obtained, reviewed, and scanned into the chart. Physical Exam: Vitals Ht 175.3 cm (5' 9 ) Wt 82.6 kg (182 lb) BMI 26.88 kg/m?? Gen: NAD, A&O x3 Pulm: unlabored CV: regular rate right Hand: On visual exam I do not appreciate deformities, evidence of previous surgeries or trauma. Right wrist may be slightly larger compared to left but overall I do not appreciate edema. She is full range motion of her bilateral hands and able to fully extend and make a fist Bilateral hands are strong with slight decreased strength of right. Malone Adduction + + Johnson Siding Abduction + + Opposition 10/10 10/10 Test strength R L Thumb Abduction + + Hand grasp + + Finger extension + + R L Pinch 16 18 Recreational Therapist 75 75 Diagnostic Studies: None Assessment and Plan: 42 y.o. right hand dominant female who presents with right wrist pain on extension. States she has connective tissue disease and was not able to see touring production manager or get medication for the past year as she did not have insurance. We discussed that this may contribute to current issue. I have recommended that we do a steroid injection to help with edema in this area and she was givena gel flex splint that she was instructed to wear during the day and with all activity. I have also encouraged her to minimize lifting and activities that require wrist flexion and extension. She will try these intervention and if she is still having unchanged pain and limitations in 3-4 weeks we will then order an MRI. Risk of steriod injection were discussed including but not limited to infection, bruising, bleeding. We also discussed that this can cause weakness or potential rupture of ligaments or tendons. She verbalized understanding and wished to proceed. See procedure note. I have also ordered a right wrist x ray that she will have done after today's visit All of her questions were answered and she was instructed to contact the office if she has additional questions. Follow up: PRN Restriction: As tolerated but limit flexion and extension of the next 2-3 weeks. I spent 20 minutes on this patient encounter which included review of medical records. Over half the time was spent with the patient face to face discussing the treatment plan, counseling and coordinating care. Heidi Mtz NP 10/31/22 2:50 PM This document was transcribed using voice recognition software without a human video game tester. Itmay contain typographical, grammatical, and/or syntax errors. documented in this encounter Procedure Notes * Heidi Mtz NP - 10/31/2022 2:30 PM CDT Procedures PROCEDURE: small Joint Steroid Injection - Right Wrist After [...] of kenalog 40 was injected into the joint The skin was wiped again with chloraprep and a Band-Aid was applied The patient tolerated the procedure well documented in this encounter Plan of Treatment Not on file documented as of this encounter Visit Diagnoses Diagnosis Right wrist pain- Primary Pain in joint, forearm documented in this encounter Historical Medications * This list may reflect changes made after this encounter. hydrOXYzine (ATARAX) 25 mg tablet 1-2 TABS BY MOUTH AT BEDTIME 30-60 MINUTES BEFORE BEDTIME FOR INSOMNIA 09/12/2022 PARoxetine (PAXIL) 10 mg tablet Take 1 tablet (10 mg total) by mouth every evening 09/13/2022 11/22/2022 buPROPion XL (WELLBUTRIN XL) 150 mg 24 hr tablet Take 1 tablet (150 mg total) by mouth daily 10/10/2022 04/11/2023 added in this encounter Orders Outpatient Referral Count Last Ordered Date Fir st Ordered Date AMB REFERRAL TO PLASTIC SURGERY 1 3 documented in this encounter Care Teams Handbag Finisher Relationship Specialty Start Date End Date Amy Marc MD [address] [place] [id number] PCP - General 11/12/13 documented as of this encounter
--- OUTSIDE RECORDS SUMMARY | 2024-06-24 23:57 | XMS_ITS | Encounter Summary ---
Author Organization [facility] Address [address] [place] [address] Care Team Providers Care Software Test Technician Name Role Phone Amy Marc MD Primary Care Provider [phone]- [phone] Encounter Details Date Type Department Care Team (Latest Contact Info) Description 12/29/2020 3:24 PM CDT - 12/29/2020 4:57 PM CDT Hospital Encounter [facility] [address] [place] [address] Discharge Disposition: Discharge to home or self care Social History Tobacco Use Types Packs/Day Years Used Date Smoking Tobacco: Every Day Alcohol Use Standard Drinks/Week Comments Yes 0 (1 standard drink = 0.6 oz pur e alcohol) Comments No Sex and Gender Information Value Date Recorded Sex Assigned at Not on file 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 XR CHEST 1 VIEW REASON FOR STUDY: ?? chest pain for the past 3 days. Patient states that pain mainly in the center and radiates to the left and right. Patient states last night laying her on back made it worse than laying on her stomach. Patient today at work she was sweating, nauseated, vomiting, and dizzinessDuration: 3 days TECHNIQUE: ?? Frontal radiographic view of the chest acquired. COMPARISON: ?? 04/05/2019 FINDINGS: LUNGS/PLEURA: ??No focal consolidation or pneumothorax. No pleural effusion. HEART/MEDIASTINUM: ??Heart size is normal. Normal mediastinal and hilar contours. HARDWARE/LINES/TUBES: ??None. BONES: ??No acute findings. OTHER: ??No other significant finding. IMPRESSION: ?? No acute cardiopulmonary disease. THIS IS AN ELECTRONICALLY VERIFIED FINAL REPORT 12/29/2020 4:23 PM - Electronically signed by Marleni Pineda M.D. TS: PANKAJ D: ??12/29/2020 4:23 PM T: ??12/29/2020 4:23 PM Report ID: [id number] Reading Location: ??[id number] Procedure Note Marleni Pineda MD - 12/29/2020 EXAM DESCRIPTION: XR CHEST 1 VIEW REASON FOR STUDY: chest pain for the past 3 days. Patient states thatpain mainly in the center and radiates to the left and right. Patient stateslast night laying her on back made it worse than laying on her stomach. Patient today at work she was sweating, nauseated, vomiting, anddizzinessDuration: 3 days TECHNIQUE: Frontal radiographic view of the chest acquired. COMPARISON: 04/05/2019 FINDINGS: LUNGS/PLEURA: No focal consolidation or pneumothorax. No pleuraleffusion. HEART/MEDIASTINUM: Heart size is normal. Normal mediastinal and hilar contours. HARDWARE/LINES/TUBES: None. BONES: No acute findings. OTHER: No other significant finding. IMPRESSION: No acute cardiopulmonary disease. THIS IS AN ELECTRONICALLY VERIFIED FINAL REPORT 12/29/2020 4:23 PM - Electronically signed by Marleni Pineda M.D. TS: TS Report ID: [id number] Reading Location: [place] [address] [facility] ONEIL IMG XR PROCEDURES Final Resu lt documented in this encounter Visit Diagnoses Not on filedocumented in this encounter Additional Health Concerns Infection Onset Date Last Indicated Resolved Time MRSA Comment:AUTOMATED NOTE (ADD): MRSA (contact), MICHAEL, [id number], Molly Apr 07 15:47:36 CDT 2010 wound 04/05/11 04/07/2011 04/07/2011 021 5:00 AM CDT documented as of this encounter Care Teams Software Test Technician Relationship Specialty Start Date End Date Amy Marc MD [address] [place] [id number] PCP - General 11/12/13 documented as of this encounter
--- OUTSIDE RECORDS SUMMARY | 2024-06-24 23:57 | XMS_ITS | Encounter Summary ---
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 Amy Marc's office. An order to schedule patient for a ACTH/Cosyntropintest is being faxed to the Infusion [facility]. [phone]. Told her office to scan the order into [employer], and possibly the order will be seen by the Infusion Center. She will notify Dr. Marc, but in the mean, will still try and fax the order to the Infusion Center./res documented in this encounter Plan of Treatment Not on file documented as of this encounter Visit Diagnoses Not on filedocumented in this encounter Care Teams Chicken Dresser Relationship Specialty Start Date End Date Amy Marc MD [address] [place] [address] PCP - General 11/12/13 documented as of this encounter
--- OUTSIDE RECORDS SUMMARY | 2024-06-24 23:57 | XMS_ITS | Encounter Summary ---
Author Organization [facility] Address [address] [place] [address] Care Team Providers Care Bird Raiser Name Role Phone Amy Marc MD Primary Care Provider [phone]- [phone] Reason for Referral * Diagnostic Imaging (Routine) - Closed Specialty Diagnoses / Procedures Referred By Komal infante Referred To Contact Diagnoses RENTERIA (dyspnea on exertion) Procedures NM MPI SPECT (Rest and/or Stress) Multiple Studies PA [id number] SESTAMIBI North Gonzalez MD [address] [address] Phone: tel: fax: [facility] Referral ID Status Reason Start Date Expiration Date Visits Re quested Visits Authorized [id number] Closed 04/11/2023 05/10/2024 1 1 Reason for Visit * Reason Comments Follow-up * Consultation (Routine) - Closed Specialty Diagnoses / Procedures Referred By Komal infante Referred To Contact Cardiology Diagnoses PSVT (paroxysmal supraventricular tachycardia) (FORMERLY [facility]) Alexy Parker MD [address] [address] Phone: tel: fax: North Gonzalez MD [address] [address] Phone: tel: fax: Referral ID Status Reason Start Date Expiration Date V isits Requested Visits Authorized [id number] Closed Specialty Services Required 02/13/2023 03/14/2024 1 1 Encounter Details Date Type Department Care Team (Latest Contact Info) Description 04/11/2023 11:30 AM CDT Office Visit [facility] Cardiology [address] [place] [address] [place] [address] North Gonzalez MD [address] [place] [id number] RENTERIA (dyspnea on exertion) (Primary Dx); PSVT (paroxysmal supraventricular tachycardia) Social [...] on file 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 Gender Identity Not on file Sexual Orientation Not on file documented as of this encounter Last Filed Vital Signs Vital Sign Reading Time Taken Comments Blood Pressure 110/60 04/11/2023 11:22 AM CDT Pulse 73 04/11/2023 11:22 AM CDT Temperature - - Respiratory Rate 16 04/11/2023 11:22 AM CDT Oxygen Saturation 99% 04/11/2023 11:22 AM CDT Inhaled Oxygen Concentration - - Weight 84.8 kg (187 lb) 04/11/2023 11:22 AM CDT Height 175.3 cm (5' 9 ) 04/11/2023 11:22 AM CDT Body Mass Index 27.62 04/11/2023 11:22 AM CDT documented in this encounter Ordered Prescriptions Prescription Sig Dispense Quantity Refills Last Filled Start Date End Date dilTIAZem CD/XR/XT (CARDIZEM CD,DILACOR XR) 120 mg 24 hr capsuleIndications:PSV T (paroxysmal supraventricular tachycardia) (HCC) Take 1 capsule (120 mg total) by mouth daily 30 capsule 11 04/11/2023 4 flecainide (TAMBOCOR) 50 mg tabletIndications:Paro xysmal Supraventricular Tachycardia Take 1 tablet (50 mg total) by mouth 2 (two) times a day 60 tablet 3 04/11/2023 3 documented in this encounter Progress Notes * North Gonzalez MD - 04/11/2023 11:30 AM CDT Consult Note - Cardiac Electrophysiology Patient Name: Navjot Frederick Date of : 1980 Primary Physician: Amy Marc MD Referring Physician: Alexy Parker MD I had the pleasure of seeing Navjot Frederick in consultation at the [facility]- Cardiology at [facility]. I have reviewed the pertinent data originating outside our institution and outside myspecialty within our institution and summarized the pertinent information below. As you well know, s ann is a 43 y.o. female with the following arrhythmia-specific history: 1. PSVT: Frequent palpitations led to evaluation 48 hour monitor in 10/2022 showing majority SR with occasional PACs as well as short runs of PSVT up to 6 beats. Majority of pt activated events occurring during SR with PACs. One symptom event during 6 beat run of PSVT. Review of strips shows 6 beats of moderate to long RP NCT, possibly PAT. Pertinent history: Undifferentiated mixed Connective tissue disease, MDD Patient states the main symptoms she gets are occasional tachy palpitations. She states when these episodes happen she will note a heart rate increase on her watch from 80s to 90s up to the 180s to 190s. She states these well often last a minute or so, and self subside. She has an increased feelingof anxiety as well as shortness of breath and chest pain during these episodes. She states since starting diltiazem they have helped decrease in frequency, however she is still experiencing these symptoms. Close to the end of our visit, the patient brought up a new symptom of chest pain and shortness of breath on exertion. She states last week she was on a walk with her and after about 5 minutes of walking felt short of breath. She states this has not happened before. Given the symptomsas well as her episodes of tachy palpitations, the patient has been modifying the amount of physical activity she does. Patient states she has also stopped her hydroxychloroquine, Wellbutrin and Xanax in attempts to minimize her cardiovascular symptoms. Past Medical History Past Medical History: Diagnosis Date Anxiety Arrhythmia Chest pain Shortness of breath Past Surgical History No past surgical history on file. Medications Current Outpatient Medications: ALPRAZolam (XANAX) 1 mg tablet, 1 tablet (1 mg total), Disp: , Rfl: buPROPion XL (WELLBUTRIN XL) 150 mg 24 hr tablet, Take 1 tablet (150 mg total) by mouth daily, Disp: , Rfl: dilTIAZem CD/XR/XT (CARDIZEM CD,DILACOR XR) 120 mg 24 hr capsule, Take 1 capsule (120 mg total) by mouth daily, Disp: 30 capsule, Rfl: 11 FLUoxetine (PROzac) 20 mg tablet, Take 1 tablet (20 mg total) by mouth daily, Disp: , Rfl: hydrOXYchloroQUINE (PLAQUENIL) 200 mg tablet, Take 1 tablet (200 mg total) by mouth 2 (two) times aday, Disp: 60 tablet, Rfl: 4 hydrOXYzine (ATARAX) 25 mg tablet, 1-2 TABS BY MOUTH AT BEDTIME 30-60 MINUTES BEFORE BEDTIME FOR INSOMNIA, Disp: , Rfl: Allergies Allergies Allergen Reactions Hydrocodone Nausea only Reaction: nausea, Family History Family History Problem Relation Age [...] Use: Not on file Review of Systems Review of Systems 12 POINT ROS DONE AND ALL OTHER SYSTEMS ARE NEGATIVE. Objective Vitals: 04/11/23 1122 BP: 110/60 BP Location: Right arm Patient Position: Sitting Pulse: 73 Resp: 16 SpO2: 99% Weight: 84.8 kg (187 lb) Height: 175.3 cm (5' 9 ) Physical Exam Constitutional: No distress. Head: Normocephalic. Nose: Nose normal. Mouth/Throat: Mucous membranes are normal. Eyes: Sclera Anicteric Neck: Supple without appreciable lymphadenopathy, carotid bruits Cardiovascular: Regular rhythm, S1 normal and S2 normal. No murmurs/rubs/gallops. Pulmonary/Chest: Effort normal and breath sounds normal. Abdominal: Soft. Normal appearance. Neurological: alert, oriented Skin: warm and dry, without rashes. Psychiatric: normal mood and affect. Diagnostic Data EKG done 10/23/2022 showing normal sinus rhythm. Normal PA, QT and QRS durations. No delta wave seen. Labs Creatinine Date Value Ref Range Status 02/01/2023 0.78 0.60 - 1.10 mg/dL Final , Plt Date Value Ref Range Status 02/01/2023 374 150 - 400 K/cumm Final , WBC Date Value Ref Range Status 02/01/2023 6.2 3.8 - 9.9 K/cumm Final , Hgb Date Value Ref Range Status 02/01/2023 14.0 11.9 - 15.5 g/dL Final 01/2023: Conclusions: Normal left ventricular systolic function. No [...] regurgitation. Mild pulmonic regurgitation. Normal sinus rhythm. 03/2019 stress EKG: Conclusions: 1. Adequate stress test in regards to heart rate. 2. No exercise induced chest pain. 3. No definite ischemia on stress EKG with only minor additional changes inferiorly. Visit Diagnoses (R06.09) RENTERIA (dyspnea on exertion) (primary encounter diagnosis) Plan: NM MPI SPECT (Rest and/or Stress) Multiple Studies (I47.10) PSVT (paroxysmal supraventricular tachycardia) Plan: Ambulatory referral to Cardiology, Basic metabolic panel, dilTIAZem CD/XR/XT (CARDIZEM CD,DILACOR XR) 120 mg 24 hr capsule Impression and Plan Ms. Frederick is a 43-year-old female with a history of undefined to mixed connective tissue disease who presents for evaluation of paroxysmal supraventricular tachycardia. Patient also has new reports dyspnea on exertion #PSVT: Likely short runs of paroxysmal atrial tachycardia seen on most recent monitoring in 10/2022. We discussed mechanisms of supraventricular tachycardia, as well as methods to minimize symptoms including medications as well as possible electrophysiologic study with intent to ablate. We discussed that the overall short lived episodes would make an EP study less fruitful. Patient is willing to augment medical management, to see if she gets relief from her symptoms. -can initiate flecainide to see if this symptomatically helps with the patient's PSVT episodes. We will want to repeat a stress test as below given symptoms of dyspnea on exertion -continue diltiazem in the interim -if stress test without evidence of ischemia, we will offer flecainide as well as repeat monitoringto see burden of paroxysmal SVT #RENTERIA: Patient without evidence of ischemia on treadmill stress in 2019. Given mixed connective tissue disease, there is concern for early coronary disease. Given this risk factor we will pursue a stress MPI to ensure there is no ischemia present. This will also allow us to use flecainide safely fortreatment of paroxysmal supraventricular tachycardia. Thank you for allowing us to participate in the care of this pleasant patient. Please do not hesitate to call us if any questions arise. Respectfully, North Gonzalez MD Clinical Cardiac Electrophysiology [facility]-Cardiology at This note was transcribed using speech recognition software. As a result, there may be grammatical and spelling errors that are unintended. If there are any questions or major inaccuracies, please contact us. 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) Anatomical Region Laterality Modality Body N/A Nuclear Medicine 05/03/2023 8:11 AM ELECTRIC REPAIR SUPERVISOR Narrative 05/04/2023 8:03 AM ELECTRIC REPAIR SUPERVISOR [facility] Cardiology [address], [place] [address] [address] [facility] [address], [place] [address] P:[phone] P:[phone] MPI Imaging Report Patient Name: NAVJOT FREDERICK D : 1980 Study Date: 05/03/2023 8:11:53 AM Gender: F Tech: [employer] [facility] Location: [facility] Provider: NORTH GONZALEZ ?Height(Cm): 175.3 BSA: ??Weight(Kg): [...] Signed By: Clovis Mcmahan MD 2023-05-04 08:03:02 ELECTRIC REPAIR SUPERVISOR Electronically Signed By: Clovis Mcmahan MD 2023-05-04 08:03:02 ELECTRIC REPAIR SUPERVISOR Procedure Note Clovis Mcmahan MD - 05/04/2023 [facility] Cardiology [address] [facility] [address], [place] [address] [address] [facility] [address], [place] [address] P:[phone] P:[phone] MPI Imaging Report Patient Name: NAVJOT FREDERICK D : 1980 Study Date: 05/03/2023 8:11:53 AM Gender: F Tech: [facility] [facility] Location: [facility] Provider: NORTH GONZALEZ Height(Cm): 175.3 BSA: Weight(Kg): [...] Signed By: Clovis Mcmahan MD 2023-05-04 08:03:02 ELECTRIC REPAIR SUPERVISOR Electronically Signed By: Clovis Mcmahan MD 2023-05-04 08:03:02 ELECTRIC REPAIR SUPERVISOR North Gonzalez MD IMG NM PROCEDURES Prachi l Result * Basic metabolic panel (04/11/2023 12:24 PM CDT) Pathologist [facility] Sodium 140 135 - 145 mmol/L CERNER Comment:[facility] performed [facility] : [facility] [place] [address] Potassium, pl 4.2 3.3 - 4.9 mmol/L CERNER CH Comment:Testing performed by : [facility] [place] [address] Chloride 106 97 - 110 mmol/L CERNER Comment:Testing performed by : [facility] [place] [address] CO2 26 22 - 32 mmol/L CERNER Comment:Testing performed by : [facility] [place] [address] Anion gap 8 2 - 15 mmol/L CERNER Comment:Testing performed by : [facility] [place] [address] BUN 8 6 - 25 mg/dL CERNER Comment:Testing performed by : [facility] [place] [address] Creatinine 0.79 0.60 - 1.10 mg/dL CERNER Comment:Testing performed by : [facility] [place] [address] Glucose 71 70 - 199 mg/dL CERNER [...] last revised 2022. Testing performed by: [facility], [place] [address] Calcium 9.5 8.5 - 10.3 mg/dL GISELLE COFFMAN Comment:[facility] [address] Blood 04/11/2023 12:2 4 PM CDT 04/11/2023 12:24 PM CDT North Gonzalez MD LAB BLOOD ORDERABLES F inal Result GISELLE COFFMAN [address] [address] Department [place] [address] documented in this encounter Visit Diagnoses Diagnosis RENTERIA (dyspnea on exertion)- Primary Other dyspnea and respiratory abnormality PSVT (paroxysmal supraventricular tachycardia) (HCC) Paroxysmal supraventricular tachycardia RENTERIA (dyspnea on exertion) Other dyspnea and respiratory abnormality documented in this encounter Discontinued Medications Medication Sig Discontinue Reason Start Date End Da te hydrOXYchloroQUINE (PLAQUENIL) 200 mg tablet Take 1 tablet (200 mg total) by mouth 2 (two) times a day Therapy completed 02/01/2023 04/11/2023 ALPRAZolam (XANAX) 1 mg tablet 1 tablet (1 mg total) Therapy completed 01/28/2023 04/11/2023 buPROPion XL (WELLBUTRIN XL) 150 mg 24 hr tablet Take 1 tablet (150 mg total) by mouth daily Therapy completed 10/10/2022 04/11/2023 FLUoxetine (PROzac) 20 mg tablet Take 1 tablet (20 mg total) by mouth daily Therapy completed 04/11/2023 dilTIAZem CD/XR/XT (CARDIZEM CD,DILACOR XR) 120 mg 24 hr capsule Take 1 capsule (120 mg total) by mouth daily Alternate therapy 11/22/2022 04/11/2023 flecainide (TAMBOCOR) 50 mg tabletIndications:Paroxysma l Supraventricular Tachycardia Take 1 tablet (50 mg total) by mouth 2 (two) times a day Alternate therapy 04/11/2023 04/11/2023 documented as of this encounter Orders Outpatient Referral Count Last Ordered Date Fir st Ordered Date AMB REFERRAL TO CARDIOLOGY 1 04/11/2023 documented in this encounter Care Teams Bird Raiser Relationship Specialty Start Date End Date Amy Marc MD [address] [place] [address] PCP - General 11/12/13 documented as of this encounter
--- OUTSIDE RECORDS SUMMARY | 2024-06-24 23:57 | XMS_ITS | Encounter Summary ---
Author Organization [facility] Address [address] [place] [address] Care Team Providers Care Back Panel Padder Name Role Phone Amy Marc MD Primary Care Provider [phone]- [phone] Reason for Visit * Reason Comments Injections * Episode Based Medications (Routine) - Closed Specialty Diagnoses / Procedures Referred By Contrichelle t Referred To Contact Diagnoses Malaise and fatigue [place] [address] Phone: tel: fax: [address] [place] [address] Phone: tel: Referral ID Status Reason Start Date Expiration Date Visits Re quested Visits Authorized [id number] Closed 12/07/2022 01/06/2024 1 1 Encounter Details Date Type Department Care Team (Latest Contact Info) Description 12/14/2022 8:00 AM CDT Clinical Support [address] [place] [id number] Malaise and fatigue (Primary Dx) Social History Tobacco Use Types [...] on file 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 Marc for ACTH test. Pts vital signs are stable and shehas no questions or concerns. Her IV was started in the right forearm, labs were taken, cosyntropinadministered. And additional labs taken at correct intervals. Pts IV was then flushed with NS and discontinued. She was given her discharge paperwork and left in stable condition. documented in this encounter Plan of Treatment Not on file documented as of this encounter Procedures Procedure Name Priority Date/Time Associated Diagnosis Comments CORTISOL 30 MIN Timed 12/14/2022 9:30 AM CDT Malaise and fatigue HC ACTH STIM ADRENAL INSUFF Timed 12/14/2022 9:30 AM CDT Malaise and fatigue CORTISOL BASELINE Timed 12/14/2022 9:3 0 AM CDT Malaise and fatigue CORTISOL 60 MIN Timed 12/14/2022 9:30 AM CDT Malaise and fatigue documented in this encounter Results * (ABNORMAL) Cortisol 60 min (12/14/2022 9:30 AM CDT) Cortisol, 60 min 22.0(H) 4.8 - 19.5 mcg/dL [facility] ([facility]) Comment:Testing performed by : , [address] [place] [address]., [id number] Blood 12/14/2022 9:30 AM CDT 12/14/2022 2:51 PM CDT Narrative [facility] ([facility]) - 12/14/2022 3:18 PM CDT Obtain pre, 30 minutes, and 60 minutes post cosyntropin adminstration. Amy Marc MD LAB BLOOD ORDERABLES Final Result GISELLE RODRIGUEZ ([facility]) [address] [facility] [place] [address] * Cortisol 30 min (12/14/2022 9:30 AM CDT) Cortisol, 30 min 19.0 4.8 - 19.5 mcg/dL [facility] ([facility]) Comment:Testing performed by : , [address] [place] [address]., [address] Blood 12/14/2022 9:30 AM CDT 12/14/2022 2:51 PM CDT Narrative [facility] ([facility]) - 12/14/2022 3:40 PM CDT Obtain pre, 30 minutes, and 60 minutes post cosyntropin adminstration. Amy Marc MD LAB BLOOD ORDERABLES Final Result GISELLE RODRIGUEZ (RAH) 1 [facility] [place] [address] * Cortisol baseline (12/14/2022 9:30 AM CDT) Cortisol, base 15.0 4.8 - 19.5 mcg/dL [facility] ([facility]) Comment:Testing performed by : , [address] [place] [address], [place]., [address] Blood 12/14/2022 9:3 0 AM CDT 12/14/2022 2:51 PM CDT Narrative GISELLE JALLOH) - 12/14/2022 3:38 PM CDT Obtain pre, 30 minutes, and 60 minutes post cosyntropin adminstration. Amy Marc MD LAB BLOOD ORDERABLES Final Result GISELLE JALLOH) 1 [facility] Department [place] [address] documented in this encounter Visit Diagnoses Diagnosis Malaise and fatigue- Primary documented in this encounter Administered Medications Inactive Administered Medications - up to 3 most recent administrations Medication Order MAR Action Action Date Dose Rate Site cosyntropin (ACTH,CORTISOL) injection 250 mcg 250 mcg, intravenous, Administer over 2 Minutes, Once, On Mon12/14/22 at 0845, For 1 dose, Reconstitute 250 mcg vial with 1 mL 0.9% sodium chloride and remove dose. For IV push, further dilute dose with equal volume 0.9% sodium chloride to a final concentration of 125 mcg/mLIndications:Malaise and fatigue Given 12/14/2022 8:30 AM CDT 250 mcg documented in this encounter Orders Nursing Count Last Ordered Date First Orde red Date NURSING COMMUNICATION 1 12/14/2022 documented in this encounter Care Teams Back Panel Padder Relationship Specialty Start Date End Date Amy Marc MD [address] [place] [address] PCP - General 11/12/13 documented as of this encounter
--- OUTSIDE RECORDS SUMMARY | 2024-06-24 23:57 | XMS_ITS | Encounter Summary ---
Author Organization [facility] Healthcare Address [address] [place] [address] Care Team Providers Care Road Inspector Name Role Phone Amy Marc MD Primary Care Provider [phone]- [phone] Encounter Details Date Type Department Care Team (Late st Contact Info) Description 09/17/2020 11:15 AM CDT [address] [id number] [place] [address] Discharge Disposition: Discharge to home or self care Social History Tobacco Use Types Packs/Day Years Used Date Smoking Tobacco: Every Day Alcohol Use Standard Drinks/Week Comments Yes 0 (1 standard drink = 0.6 oz pur e alcohol) Comments No Sex and Gender Information Value Date Recorded Sex Assigned at Not on file 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 Gender Identity Not on file Sexual Orientation Not on file documented as of this encounter Discharge Disposition Disposition Code Departure Means Destination Discharge to home or self care documented in this encounter Plan of Treatment Not on file documented as of this encounter Procedures Procedure Name Priority Date/Time Associated Diagnosis Comments LORIN QUALITATIVE WITH REFLEX TO LORIN QUANTITATIVE Routine 09/17/2020 11:20 AM CDT EGFR Routine 09/17/2020 11:20 AM CDT DIFFERENTIAL AUTO Routine 09/17/2020 11: 20 AM CDT CBC WITH AUTO DIFFERENTIAL Routine 09/17/2020 11:20 AM CDT CYCLIC CITRUL PEPTIDE ANTIBODY, IGG Routine 09/17/2020 11:20 AM CDT RHEUMATOID FACTOR Routine 09/17/2020 11: 20 AM CDT TSH Routine 09/17/2020 11:20 AM CDT COMPREHENSIVE METABOLIC PANEL Routine 09/17/2020 11:20 AM CDT documented in this encounter Results * eGFR (09/17/2020 11:20 AM CDT) eGFR 111 mL/min/1.7 3 m2 [facility] ([facility]) Comment: Interpretive Data Reference Interval Normal ?>/= 90 mL/min/1.73m2 Mildly decreased* ? 60 - 89 mL/min/1.73m2 Mildly to moderately decreased ?45 - 59 mL/min/1.73m2 Moderately to severely decreased ??30 - 44 mL/min/1.73m2 Severely decreased ?15 - 29 mL/min/1.73m2 Kidney Failure ?< 15 ??mL/min/1.73m2 *Relative to young adult level Estimated glomerular filtration rate is determined by the CKD-EPI equation recommended by the National Kidney Foundation (KDIGO 2012 Clinical Practice Guideline for the Evaluation and Management of Chronic Kidney Disease. Kidney Intnl Suppl Jun 2012;3:1). The CKD-EPI equation should not be used for patients with unstable renal function and has not been validated in children and those over 70. Current interpretive data was last reviewed 2020 Blood specimen (specimen) 09/17/2020 11:20 AM CDT 09/17/2020 11:32 AM CDT us Amy Marc MD LAB BLOOD ORDERABLES Final Result [facility] ([facility]) [facility] Department [place] [address] * Differential, auto (09/17/2020 11:20 AM CDT) Neutrophil abs 4.0 1.7 - 6.5 K/cumm [facility] ([facility]) Imm gran abs 0.0 0.0 - 0.1 K/cumm [facility] ([facility]) Lymphocyte abs 1.5 0.8 - 3.3 K/cumm [facility] ([facility]) Monocyte abs 0.4 0.2 - 0.8 K/cumm [facility] ([facility]) Eosinophil abs 0.1 0.0 - 0.5 K/cumm [facility] ([facility]) Basophil abs 0.1 0.0 - 0.1 K/cumm [facility] ([facility]) Neutrophil pct 65.5 % [facility] ([facility]) Comment: Interpretive Data Percent cell count reference ranges are not reported, since discordance with absolute values may lead to misinterpretation of CBC data. Current Interpretive Data was last revised on 2017. Imm gran pct 0.3 % [facility] ([facility]) Comment: Interpretive Data Percent cell count reference ranges are not reported, since discordance with absolute values may lead to misinterpretation of CBC data. Current Interpretive Data was last revised on 2017. Lymphocyte pct 24.1 % [facility] ([facility]) Comment: Interpretive Data Percent cell count reference ranges are not reported, since discordance with absolute values may lead to misinterpretation of CBC data. Current Interpretive Data was last revised on 2017. Monocyte pct 7.0 % [facility] ([facility]) Comment: Interpretive Data Percent cell count reference ranges are not reported, since discordance with absolute values may lead to misinterpretation of CBC data. Current Interpretive Data was last revised on 2017. Eosinophil pct 2.1 % [facility] ([facility]) Comment: Interpretive Data Percent cell count reference ranges are not reported, since discordance with absolute values may lead to misinterpretation of CBC data. Current Interpretive Data was last revised on 2017. Basophil pct 1.0 % [facility] ([facility]) Comment: Interpretive Data Percent cell count reference ranges are not reported, since discordance with absolute values may lead to misinterpretation of CBC data. Current Interpretive Data was last revised on 2017. Blood specimen (specimen) 09/17/2020 11:20 AM CDT 09/17/2020 11:32 AM CDT us Amy Marc MD LAB BLOOD ORDERABLES Final Result [facility] ([facility]) [facility] Department [place] [address] * (ABNORMAL) LORIN qualitative with reflex to LORIN Quantitative (09/17/2020 11:20 AM CDT) LORIN Positive (A) Negative [facility] ([facility]) Comment: Interpretive Data Normal range for LORIN Qualitative Antibody = Negative. 1. LORIN is performed using indirect immunofluorescence against HEp-2 ?? cells 2. LORIN titers are performed on all positive qualitative results. 3. A significantly positive LORIN result is defined as a positive nuclear ?? fluorescence at a titer of 1:80 or greater. 4. 15% of normal people above age 65 have significantly positive ?? LORIN results. ??5% or less of normal people age 65 or under have ?? significantly positive LORIN results. Current interpretive data was last revised on 20. Testing performed by: [facility], [address] [place] [address]., [id number] LORIN, quant 1:80(A) [facility] ([facility]) Comment:Testing performed by : [facility], [address] [place] [address]., [id number] LORIN, interp Speckled (A) [facility] ([facility]) Comment:Testing performed by : [facility], [address] [place] [address]., [id number] Blood specimen (specimen) 09/17/2020 11:20 AM CDT 09/17/2020 1:46 PM CDT us Amy Marc MD LAB BLOOD ORDERABLES Final Result [facility] ([facility] [place] [address] * Comprehensive metabolic panel (09/17/2020 11:20 AM CDT) Sodium 137 135 - 145 mmol/L [facility] ([facility]) Potassium, pl 4.7 3.3 - 4.9 mmol/L [facility] ([facility]) Chloride 103 97 - 110 mmol/L [facility] ([facility]) CO2 25 22 - 32 mmol/L [facility] ([facility]) Anion gap 9 2 - 15 mmol/L [facility] ([facility]) BUN 12 8 - 25 mg/dL [facility] ([facility]) Creatinine 0.63 0.60 - 1.10 mg/dL [facility] ([facility]) Glucose 100 70 - 199 mg/dL [facility] ([facility]) [...] classification and Diagnosis of Diabetes Diabetes Care 2017;40 (Suppl. 1):S11. Current interpretive data was last revised 2017. Calcium 9.5 8.5 - 10.3 mg/dL [facility] ([facility]) Bilirubin, total 0.4 0.1 - 1.2 mg/dL [facility] ([facility]) Protein, pl 7.4 6.5 - 8.5 g/dL [facility] ([facility]) Albumin 4.5 3.5 - 5.0 g/dL [facility] ([facility]) Alk phos 52 40 - 130 Units/L [facility] ([facility]) ALT 22 7 - 45 Units/L [facility] ([facility]) AST 23 10 - 45 Units/L [facility] ([facility]) Blood specimen (specimen) 09/17/2020 11:20 AM CDT 09/17/2020 11:32 AM CDT Amy Marc MD LAB BLOOD ORDERABLES Final Result Performing Organization Address [facility] Co de Phone Number [facility] ([facility]) 1 [facility] [place] [address] * Cyclic citrul peptide antibody, IgG (09/17/2020 11:20 AM CDT) Pathologist [facility] CCP Ab <0.5 <=2.9 units/mL [facility] ([facility] Comment: Interpretive data Negative: <3 units/mL Positive: > or equal to 3 units/mL Current interpretive data was last revised on 2016. Testing performed by: [facility], [address] [place]., [address] Blood specimen (specimen) 09/17/2020 11:20 AM CDT 09/17/2020 5:23 PM CDT Amy Marc MD LAB BLOOD ORDERABLES Final Result Performing Organization Address [facility] Co de Phone Number [facility] ([facility]) 1 [facility] [place] [address] * CBC with auto differential (09/17/2020 11:20 AM CDT) WBC 6.2 3.8 - 9.9 K/cumm [facility] ([facility]) Hgb 14.6 11.9 - 15.5 g/dL [facility] ([facility]) Hct 43.0 35.6 - 45.5 % [facility] ([facility]) Plt 297 150 - 400 K/cumm [facility] ([facility]) MPV 10.2 9.1 - 12.3 fL [facility] ([facility]) RBC 4.85 3.90 - 5.20 M/cumm [facility] ([facility]) MCV 88.7 81.3 - 96.4 fL [facility]) MCH 30.1 27.1 - 33.3 pg [facility]) MCHC 34.0 32.3 - 35.7 g/dL [facility]) RDW CV 12.2 11.1 - 14.9 % [facility] ([facility]) RDW SD 39.8 35.7 - 48.1 fL [facility]) NRBC abs 0.00 0.00 - 0.01 K/cumm [facility] ([facility]) Blood specimen (specimen) 09/17/2020 11:20 AM CDT 09/17/2020 11:32 AM CDT Amy Marc MD LAB BLOOD ORDERABLES Final Result Performing Organization Address City/[facility]/ZIP Co de Phone Number [facility] ([facility]) [facility] [place] [address] * Rheumatoid factor (09/17/2020 11:20 AM CDT) Rheumatoid factor, quant <10 <=15 IUnits/mL [facility] ([facility]) Comment:Testing performed by : [facility], [address] [place] [address], [id number] Blood specimen (specimen) 09/17/2020 11:20 AM CDT 09/17/2020 1:46 PM CDT us Amy Marc MD LAB BLOOD ORDERABLES Final Result [facility] ([facility]) 1 [facility] [place] [address] * TSH (09/17/2020 11:20 AM CDT) Thyroid Stimulating Hormone 1.46 0.30 - 4.20 mcIUnit/mL [facility] ([facility]) Blood specimen (specimen) 09/17/2020 11:20 AM CDT 09/17/2020 11:32 AM CDT Amy Marc MD LAB BLOOD ORDERABLES Final Result [facility] ([facility]) [facility] [place] [address] documented in this encounter Visit Diagnoses Not on filedocumented in this encounter Additional Health Concerns Infection Onset Date Last Indicated Resolved Time MRSA Comment:AUTOMATED NOTE (ADD): MRSA (contact), MICHAEL, [id number], [facility] Apr 07 15:47:36 CDT 2010 wound 04/05/11 04/07/2011 04/07/2011 021 5:00 AM CDT documented as of this encounter Care Teams Road Inspector Relationship Specialty Start Date End Date Amy Marc MD [address] [place] [address] PCP - General 11/12/13 documented as of this encounter
--- OUTSIDE RECORDS SUMMARY | 2024-06-24 23:57 | XMS_ITS | Encounter Summary ---
Author Organization [facility] Address [address] [place] [address] Care Team Providers Care Steward/Stewardess Dining Room Name Role Phone Amy Marc MD Primary Care Provider [phone] Reason for Visit * Reason Comments Chest Pain Encounter Details Date Type Department Care Team ([facility] Contact Info) Description 12/29/2020 4:58 PM CDT - 12/29/2020 6:46 PM CDT Emergency [facility] Emergency Department [address] [place] [address] Sue Lindo MD [address] [place] [id number] Chest pain due to GERD (Primary Dx) Discharge Disposition: Discharge to home or self care Social History Tobacco Use Types Packs/Day Years Used Date Smoking Tobacco: Every Day Alcohol Use Standard Drinks/Week Comments Yes 0 (1 standard drink = 0.6 oz pur e alcohol) Comments No Sex and Gender Information Value Date Recorded Sex Assigned at Not on file Legal 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 Gender Identity Not on file Sexual Orientation Not on file documented as of this encounter Last Filed Vital Signs Vital Sign Reading Time Taken Comments Blood Pressure 125/79 12/29/2020 6:30 PM CDT Pulse 70 12/29/2020 6:30 PM CDT Temperature 36.8 ??C (98.3 ??F) 12/29/2020 3:19 PM CD T Respiratory Rate 21 12/29/2020 6:30 PM CDT Oxygen Saturation 96% 12/29/2020 6:30 PM CDT Inhaled Oxygen Concentration - - Weight 74.8 kg (165 lb) 12/29/2020 3:19 PM CDT Height 175.3 cm (5' 9 ) 12/29/2020 3:19 PM CDT Body Mass Index 24.37 12/29/2020 3:19 PM CDT documented in this encounter Discharge Diagnoses Diagnosis Gastro-esophageal reflux disease without esophagitis - GASTRO-ESOPHAGEAL REFLUX DISEASE WITHOUT ESOPHAGITIS Precordial pain - PRECORDIAL PAIN Nicotine dependence, unspecified, uncomplicated - NICOTINE DEPENDENCE, UNSPECIFIED, UNCOMPLICATED documented in this encounter Discharge Instructions * Discharge Instructions* Sue Lindo MD - 12/29/2020 6:31 PM CDT Protonix 40mg daily. Make an appointment to see Dr. Marc this week. * Attachments The following attachments cannot be sent through Care Everywhere. * Gastroesophageal Reflux Disease (AfterCare(R) Instructions(ER/ED)) ([place] African) documented in this encounter Medications at Time [...] needed for anxiety 10 tablet 03/06/2019 11/22/[address] (PROTONIX) 40 mg EC tablet Take 1 tablet (40 mg total) by mouth daily 30 tablet 1 12/29/2020 11/22/2022 predniSONE (DELTASONE) 20 mg tablet take 3 Tablet by oral route daily for 3 days, 2 tabs po daily for 3 days, 1 tab po daily for 3 days, 1/2 tab by mouth daily for 4 days. 20 0 11/18/2016 11/22/2022 documented as of this encounter Ordered Prescriptions Prescription Sig Dispense Quantity Refills Last Filled Start Date End Date pantoprazole DR (PROTONIX) 40 mg EC tablet Take 1 tablet (40 mg total) by mouth daily 30 tablet 1 12/29/2020 11/22/2022 documented in this encounter Discharge Disposition Disposition Code Departure Means Destination Discharge to home or self care documented in this encounter ED Notes * Sue Lindo MD - 12/29/2020 5:16 PM CDT Chief Complaint Patient presents with ??? Chest Pain HPI 12/29/2020 5:16 PM Nasreen Ace is a 40 y.o. female smoker with a h/o anxiety and acid reflux who presents to the ED with intermittent chest pain for 3 days. Patient describes the pain as tightness in her medial chest, with occasional sharp pains bilaterally, and occasionally associated with SOB. She denies radiation of pain to her neck, jaw, or arms. She states the pain worsened last night, but it was exacerbated by lying on her back, and alleviated by lying on her stomach. She also reports an episode ofincreased pain while at work shortly [employer], associated with diaphoresis, nausea, and vomiting. She states that these symptoms have since resolved, and rates her current pain 2/10. She reports having intermittent episodes of similar pain in the past, associated with anxiety, but states that her other symptoms are new. She states that she started hydroxychloroquine around 1.5 months ago for a newly diagnosed connective tissue disorder, and her anxiety medication was switched to Paxil around 1 week ago. She denies abdominal pain, fever, and chills. No other complaints at this time. Per chart review: Stress test, 04/09/19: Adequate stress test in regards to heart rate. No exercise induced chest pain. No definite ischemia on stress EKG with only minor additional changes inferiorly. Past Medical History: Diagnosis Date ??? Anxiety History reviewed. No pertinent surgical history. Family History Problem Relation Age of Onset ??? Depression Mother Depression; ??? Depression Father Depression; ??? Hypertension Father Hypertension; ??? Obesity Father Obesity; ??? Stroke Father Stroke; ??? Depression Sister Depression; ??? Other Brother Alive and well; ??? Lung cancer Maternal Grandmother Cancer, lung; Social History Tobacco Use ??? Smoking status: Current Every Day Smoker Substance Use Topics ??? Alcohol use: Yes ??? Drug use: No Review of Systems Review of Systems Constitutional: Positive for diaphoresis. Negative for chills and fever. HENT: Negative for congestion and sore throat. Eyes: Negative for pain and visual disturbance. Respiratory: Positive for shortness of breath. Negative for cough and wheezing. Cardiovascular: Positive for chest pain. Negative for palpitations and leg swelling. Gastrointestinal: Positive for nausea and vomiting. Negative for abdominal pain and diarrhea. Genitourinary: Negative for difficulty urinating, dysuria and frequency. Neurological: Negative for weakness and headaches. All other systems reviewed and are negative. Physical Exam ED Triage Vitals [12/29/20 1519] Temp Pulse Resp BP SpO2 36.8 ??C (98.3 ??F) 78 17 125/70 97 % Temp src Heart Rate Source Patient Position BP Location FiO2 (%) Temporal -- -- -- -- Physical Exam Vitals and nursing note reviewed. Constitutional: Appearance: She is well-developed. HENT: Head: Normocephalic and atraumatic. Nose: Nose normal. Eyes: Conjunctiva/sclera: Conjunctivae normal. Pupils: Pupils are equal, round, and reactive to light. Cardiovascular: Rate and Rhythm: Normal rate and regular rhythm. Heart sounds: Normal heart sounds. Pulmonary: Effort: Pulmonary effort is normal. Breath sounds: Normal breath sounds. Abdominal: General: Bowel sounds are normal. Palpations: Abdomen is soft. Tenderness: There is no abdominal tenderness. Musculoskeletal: General: Normal range of motion. Cervical back: Normal range of motion and neck supple. Skin: General: Skin is warm and dry. Neurological: General: No focal deficit present. Mental Status: She is alert and oriented to person, place, and time. Procedures Labs Reviewed COMPREHENSIVE METABOLIC PANEL - Abnormal Result Value Sodium 135 Potassium, pl 3.8 Chloride 103 CO2 23 Anion gap 10 BUN 13 Creatinine 0.58 (*) Glucose 88 Calcium 9.4 Bilirubin, total 0.4 Protein, pl 7.6 Albumin 4.8 Alk phos 46 ALT 14 AST 21 CBC WITH AUTO DIFFERENTIAL WBC 7.0 Hgb 14.0 Hct 40.5 Plt 297 MPV 9.7 RBC 4.71 MCV 86.0 MCH 29.7 MCHC 34.6 RDW CV 12.0 RDW SD 38.0 NRBC abs 0.00 TROPONIN T HIGH-SENSITIVITY SERIES (BASELINE, 2HR, 4HR, 6HR) Trop T hs <6 D-DIMER, QUANTITATIVE D-Dimer 342 DIFFERENTIAL AUTO Neutrophil abs 5.1 Imm gran abs 0.0 Lymphocyte abs 1.1 Monocyte abs 0.5 Eosinophil abs 0.1 Basophil abs 0.1 Neutrophil pct 73.8 Imm gran pct 0.4 Lymphocyte pct 16.4 Monocyte pct 7.3 Eosinophil pct 1.0 Basophil pct 1.1 TROPONIN T HIGH-SENSITIVITY 2-HOUR Trop T hs <6 Trop T hs delta 0 Trop T hs interp Insignificant EGFR GFR 114 XR Chest 1 Vw Portable Final Result No acute cardiopulmonary disease. BP 125/79 Pulse 70 Temp 36.8 ??C (98.3 ??F) (Temporal) Resp 21 Ht 175.3 cm (5' 9 ) Wt 74.8 kg (165 lb) SpO2 96% BMI 24.37 kg/m?? [facility] ED Course as of Dec 29 2004 Time: 12/29 1816 Comment: Rechecked patient. She is feeling better after receiving GI cocktail, and denies pain currently. Discussed lab and radiology results. Discussed the plan for discharge on Protonix, and patient agrees with plan. Advised patient to avoid eating shortly before bed, and to reduce caffeine and EtOH intake. Advised patient to follow up with their PCP. Strict return to ER precautions given for new or worsening symptoms. All questions addressed at this time. By: Mary Ramirez Final diagnoses: Chest pain due to GERD This note is prepared by Mary Ramirez, acting as a scribe for Sue Lindo MD. I electronically signed this note at 8:05 PM on 12/29/2020. I, Sue Lindo MD, have personally performed the services described in the documentation, reviewed the documentation, as recorded by the scribe in my presence, and it accurately and completely records my words and actions. Sue Lindo MD 12/29/202004 * Jessica Edmond RN - 12/29/2020 3:16 PM CDT Patient presents to the ed with c.o. chest pain for the past 3 days. Patient states that pain mainly in the center and radiates to the left and right. Patient states last night laying her on back made it worse than laying on her stomach. Patient today at work she was sweating, nauseated, vomiting, and dizziness. Patient states she has panic disorder and normally lets the pain go until it stops but day the nausea and dizziness were new symptoms. Patient states she also just got diagnosed with connective tissue disease and was unsure if that was a also a symptom of it. documented in this encounter Miscellaneous Notes * ED Triage Provider Note - Kalia Smyth PA - 12/29/2020 3:21 PM CDT Rapid Medical Evaluation: S - 40-year-old female presents with chief complaint of substernal chest pain. Onset 3 days ago. Worse since last night. Today became alarmed when she had an episode where it intensified and was accompanied by breaking out in a sweat, nausea, vomiting, and dizziness. Last night the pain was aggravated by laying on her back and alleviated by laying on her stomach. Gives the current pain a 2 on a 0-10 scale and describes it as a dull and heaviness. Denies shortness of breath. Denies fever or chills. Denies upper or lower respiratory infection symptoms. Denies history of DVT or PE, coughing up blood, active cancer treatment past 6 months, being bed ridden greater than 3 days, major surgery in the past 4 weeks, calf swelling, edema to legs, or recent immobilization. O - CONSTITUTIONAL: Well-appearing; well-nourished; in no apparent distress HEAD: Normocephalic; atraumatic EYES: PERRL; conjunctiva and sclera are clear bilaterally. CARD: Regular rhythm. Rate WNL. Negative chest wall tenderness RESP: Normal respiratory effort; breath sounds clear and equal bilaterally. ABD: Normal bowel sounds; non-distended; non-tender; no palpable organomegaly, no masses, no bruits. MUSCULOSKELETAL: Normal ROM in all four extremities. SKIN: warm; dry; good turgor. NEURO: COA x 3. Motor and sensory grossly intact. A - chest pain - rule out cardiac origin P - cardiac rule out. To go to room when available. Voice recognition software [employer] Direct was used to dictate and transcribe this document. Record Clerk Salesperson variances may occur. Despite proofreading, typographical errors may occur. documented in this encounter Plan of Treatment Not on file documented as of this encounter Procedures Procedure Name Priority Date/Time Associated Diagnosis Comments TROPONIN T HIGH-SENSITIVITY 2-HOUR Timed 12/29/2020 5:33 PM CDT XR CHEST 1 VIEW ED 12/29/2020 4:18 PM CDT TROPONIN T HIGH-SENSITIVITY SERIES (BASELINE, 2HR, 4HR, 6HR) STAT 12/29/2020 3:30 PM CDT EGFR STAT 12/29/2020 3:30 PM CDT DIFFERENTIAL AUTO STAT 12/29/2020 3:3 0 PM CDT CBC WITH AUTO DIFFERENTIAL STAT 12/29/2020 3:30 PM CDT D-DIMER, QUANTITATIVE STAT 12/29/2020 3:30 PM CDT COMPREHENSIVE METABOLIC PANEL STAT 12/29/2020 3:30 PM CDT ECG 12-LEAD STAT 12/29/2020 3:14 PM CDT documented in this encounter Results * Troponin T high-sensitivity 2-hour (12/29/2020 5:33 PM CDT) Trop T hs <6 <=14 ng/L [facility] ([facility]) Comment: Interpretive Data For further hscTnT resources including the diagnostic algorithm and an aid in interpretation, copy and paste this link: https://nrl.testcatalog.org/show/hsTrop Current Interpretive Data last revised 2020. Trop T hs delta 0 ng/L [facility] ([facility]) Trop T hs interp Insignificant [facility] ([facility]) Blood specimen (specimen) 12/29/2020 5:33 PM CDT 12/29/2020 5:35 PM CDT Kalia [facility] LAB BLOOD ORDERABLES Final R esult [facility] (IAEGER) 1 [facility] Department of Laboratories [place] [id number] * XR Chest 1 Vw Portable (12/29/2020 [...] PM T: ??12/29/2020 4:23 PM Report ID: [id number] Reading Location: [id number] Procedure Note Marleni Pineda MD - 12/29/2020 [...] signed by Marleni Pineda M.D. TS: [email or web address] Report ID: [id number] Reading Location: [id number] [facility] IMG XR PROCEDURES Final Resu lt * eGFR (12/29/2020 3:30 PM CDT) eGFR 114 mL/min/1.7 3 m2 [facility] ([facility]) Comment: Interpretive Data [...] was last reviewed 2020 Blood specimen (specimen) 12/29/2020 3:30 PM CDT 12/29/2020 3:33 PM CDT Kal[facility] LAB BLOOD ORDERABLES Final R esult [facility] ([facility]) 1 [facility] [place] [address] * Differential, auto (12/29/2020 3:30 PM CDT) Neutrophil abs 5.1 1.7 - 6.5 K/cumm [facility] ([facility]) Imm gran abs 0.0 0.0 - 0.1 K/cumm [facility] ([facility]) Lymphocyte abs 1.1 0.8 - 3.3 K/cumm [facility] ([facility]) Monocyte abs 0.5 0.2 - 0.8 K/cumm [facility] ([facility]) Eosinophil abs 0.1 0.0 - 0.5 K/cumm [facility] ([facility]) Basophil abs 0.1 0.0 - 0.1 K/cumm [facility] ([facility]) Neutrophil pct 73.8 % [facility] ([facility]) Comment: Interpretive Data Percent cell count reference ranges are not reported, since discordance with absolute values may lead to misinterpretation of CBC data. Current Interpretive Data was last revised on 2017. Imm gran pct 0.4 % [facility] ([facility]) Comment: Interpretive Data Percent cell count reference ranges are not reported, since discordance with absolute values may lead to misinterpretation of CBC data. Current Interpretive Data was last revised on 2017. Lymphocyte pct 16.4 % [facility] ([facility]) Comment: Interpretive Data Percent cell count reference ranges are not reported, since discordance with absolute values may lead to misinterpretation of CBC data. Current Interpretive Data was last revised on 2017. Monocyte pct 7.3 % [facility] ([facility]) Comment: Interpretive Data Percent cell count reference ranges are not reported, since discordance with absolute values may lead to misinterpretation of CBC data. Current Interpretive Data was last revised on 2017. Eosinophil pct 1.0 % [facility] ([facility]) Comment: Interpretive Data Percent cell count reference ranges are not reported, since discordance with absolute values may lead to misinterpretation of CBC data. Current Interpretive Data was last revised on 2017. Basophil pct 1.1 % [facility] ([facility]) Comment: Interpretive Data Percent cell count reference ranges are not reported, since discordance with absolute values may lead to misinterpretation of CBC data. Current Interpretive Data was last revised on 2017. Blood specimen (specimen) 12/29/2020 3:30 PM CDT 12/29/2020 3:33 PM CDT us [facility] LAB BLOOD ORDERABLES Final R esult [facility] ([facility]) [address] [facility] [place] [address] * D-dimer, quantitative (12/29/2020 3:30 PM CDT) D-Dimer 342 <=499 ng/mL FEU [facility] ([facility]) Comment: Interpretive data FDA approved the D-dimer, in conjunction with a low or moderate pretest probability score, to exclude venous thromboembolic events (VTE) (PE and DVT) in outpatients when the D-dimer result is < 500 ng/ml FEU. ?? Evidence supports using an age-adjusted D-dimer cut-off for outpatients older than 50 (age x 10) to improve specificity without sacrificing sensitivity. Example: age 68, VTE cut-off 680 ng/ml FEU. References; Schchris HT et al. Brit Med J. 2013;346:f2492. Konrad WATTS et al. Annals Int Med. 2015;163:701-11. Current interpretive data was last revised on 2019. Blood specimen (specimen) 12/29/2020 3:30 PM CDT 12/29/2020 3:33 PM CDT Kal[facility] LAB BLOOD ORDERABLES Final R esult Performing Organization Address [facility] Co de Phone Number [facility] (IAEGER) [address] [facility] [place] [address] * Troponin T high-sensitivity series (baseline, 2hr, 4hr, 6hr) (12/29/2020 3:30 PM CDT) Trop T hs <6 <=14 ng/L [facility] (IAEGER) Comment: Interpretive Data For further hscTnT resources including the diagnostic algorithm and an aid in interpretation, copy and paste this link: https://nrl.testcatalog.org/show/hsTrop Current Interpretive Data last revised 2020. Blood specimen (specimen) 12/29/2020 3:30 PM CDT 12/29/2020 3:33 PM CDT [facility] LAB BLOOD ORDERABLES Final R esult Performing Organization Address City/[facility]/ZIP Co de Phone Number [facility] (IAEGER) [address] [facility] [place] [address] * (ABNORMAL) Comprehensive metabolic panel (12/29/2020 3:30 PM CDT) Sodium 135 135 - 145 mmol/L [facility] ([facility]) Potassium, pl 3.8 3.3 - 4.9 mmol/L [facility] ([facility]) Chloride 103 97 - 110 mmol/L [facility] ([facility]) CO2 23 22 - 32 mmol/L [facility] ([facility]) Anion gap 10 2 - 15 mmol/L [facility] ([facility]) BUN 13 8 - 25 mg/dL [facility] ([facility]) Creatinine 0.58(L) 0.60 - 1.10 mg/dL [facility] ([facility]) Glucose 88 70 - 199 mg/dL [facility] ([facility]) [...] interpretive data was last revised 2017. Calcium 9.4 8.5 - 10.3 mg/dL [facility] ([facility]) Bilirubin, total 0.4 0.1 - 1.2 mg/dL [facility] ([facility]) Protein, pl 7.6 6.5 - 8.5 g/dL [facility] ([facility]) Albumin 4.8 3.5 - 5.0 g/dL [facility] ([facility]) Alk phos 46 40 - 130 Units/L [facility] ([facility]) ALT 14 7 - 45 Units/L [facility] ([facility]) AST 21 10 - 45 Units/L [facility] ([facility]) Blood specimen (specimen) 12/29/2020 3:30 PM CDT 12/29/2020 3:33 PM CDT us [facility] LAB BLOOD ORDERABLES Final R esult [facility] ([facility]) [facility] [place] [address] * CBC with auto differential (12/29/2020 3:30 PM CDT) WBC 7.0 3.8 - 9.9 K/cumm [facility] ([facility]) Hgb 14.0 11.9 - 15.5 g/dL [facility] ([facility]) Hct 40.5 35.6 - 45.5 % [facility] ([facility]) Plt 297 150 - 400 K/cumm [facility] ([facility]) MPV 9.7 9.1 - 12.3 fL [facility] ([facility]) RBC 4.71 3.90 - 5.20 M/cumm [facility] ([facility]) MCV 86.0 81.3 - 96.4 fL [facility] ([facility]) MCH 29.7 27.1 - 33.3 pg [facility] ([facility]) MCHC 34.6 32.3 - 35.7 g/dL [facility] ([facility]) RDW CV 12.0 11.1 - 14.9 % [facility] ([facility]) RDW SD 38.0 35.7 - 48.1 fL [facility] ([facility]) NRBC abs 0.00 0.00 - 0.01 K/cumm [facility] ([facility]) Blood specimen (specimen) 12/29/2020 3:30 PM CDT 12/29/2020 3:33 PM CDT us [facility] LAB BLOOD ORDERABLES Final R esult [facility] ([facility]) [facility] [place] [address] * ECG 12 lead (12/29/2020 3:14 PM CDT) 12/29/2020 3:14 PM CDT Narrative [facility] - 12/29/2020 4:28 PM CDT Vent Rate: 69 bpm RR Interval: [address] Interval: 140 msec QRS Duration: 84 msec QT Interval: 366 msec QTC Interval: 385 msec P-R-T [place]: 38 - 29 - 39 degrees SINUS RHYTHM NONSPECIFIC T-WAVE ABNORMALITY COMPARED TO PRIOR EKG, NO SIGNIFICANT CHANGE Electronically Signed By: Dr Jordy Huang us Kalia ONE[facility] ECG ORDERABLES Final Result [facility] documented in this encounter Visit Diagnoses Diagnosis Chest pain due to GERD- Primary documented in this encounter Administered Medications Inactive Administered Medications - up to 3 most recent administrations Medication Order MAR Action Action Date Dose Rate Site al & mag hydroxide simethicone-lidocaine oral suspension mixture 40 mL, oral, Once, On Mon12/29/20 at 1755, For 1 dose Given 12/29/2020 6:01 PM CDT 40 mL aspirin chewable tablet 324 mg 324 mg, oral, Once, On Mon12/29/20 at 1521, For 1 dose, Indications: Acute Coronary SyndromeIndications:Acute Coronary Syndrome Given 12/29/2020 3:29 PM CDT 324 mg documented in this encounter Active and Recently Administered Medications Times are shown in CDT. Scheduled Medication Order 12/27/2020 12/28/2020 12/29/2020 al & mag hydroxide simethicone-lidocaine oral suspension mixture (COMPLETED) 40 mL, oral, Once, On Mon12/29/20 at 1755, For 1 dose 1801 (Given - Provid er: Mechelle Martinez RN) aspirin chewable tablet 324 mg (COMPLETED) 324 mg, oral, Once, On Mon12/29/20 at 1521, For 1 dose, Indications: Acute Coronary Syndrome 1529 (Given - Provid er: Jessica Edmond RN) documented in this encounter Orders Nursing Count Last Ordered Date First Orde red Date CARDIO RESPIRATORY MONITORING 1 12/29/2020 documented in this encounter Additional Health Concerns Infection Onset Date Last Indicated Resolved Time MRSA Comment:AUTOMATED NOTE (ADD): MRSA (contact), MICHAEL, [id number], Molly Apr 07 15:47:36 CDT 2010 wound 04/05/11 04/07/2011 04/07/2011 021 5:00 AM CDT documented as of this encounter Care Teams Steward/Stewardess Dining Room Relationship Specialty Start Date End Date Amy Marc MD [address] [facility] [place] [address] PCP - General 11/12/13 documented as of this encounter
--- OUTSIDE RECORDS SUMMARY | 2024-06-24 23:57 | XMS_ITS | Encounter Summary ---
Author Organization [facility] Address [address] [place] [address] Care Team Providers Care Oyster Worker Name Role Phone Amy Marc MD Primary Care Provider [phone]- [phone] Reason for Referral * Diagnostic Imaging (Routine) - Closed Specialty Diagnoses / Procedures Referred By Komal infante Referred To Contact Diagnoses Arthralgia, unspecified joint Procedures XR Hand Left 3 or More Views Nasreen Cox MD [address] [place] [address] Phone: tel: fax: [facility] [address] [place] [address] Referral ID Status Reason Start Date Expiration Date Visits Re quested Visits Authorized [id number] Closed 02/01/2023 03/02/2024 1 1 * Diagnostic Imaging (Routine) - Closed Specialty Diagnoses / Procedures Referred By Komal infante Referred To Contact Diagnoses Arthralgia, unspecified joint Procedures XR Hand Right 3 or More Views Nasreen Cox MD [address] [place] [address] Phone: tel: fax: [facility] [address] [place] [address] Referral ID Status Reason Start Date Expiration Date Visits Re quested Visits Authorized [id number] Closed 02/01/2023 03/02/2024 1 1 Reason for Visit * Diagnostic Imaging (Routine) - Closed Specialty Diagnoses / Procedures Referred By Contac t Referred To Contact Diagnoses Arthralgia, unspecified joint Procedures XR Hand Right 3 or More Views Nasreen Cox MD [address] [facility] [address] [place] [address] Phone: tel: fax: [facility] [address] [place] [address] Referral ID Status Reason Start Date Expiration Date Visits Re quested Visits Authorized [id number] Closed 02/01/2023 03/02/2024 1 1 Encounter Details Date Type Department Care Team (Latest Contact Info) Description 02/01/2023 10:23 AM CDT - 02/01/2023 11:59 PM CDT Hospital Encounter 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 Gender Identity Not on file Sexual Orientation [...] Name Priority Date/Time Associated Diagnosis Comments XR ANKLE RIGHT 3 OR MORE VIEWS Schedule Routine, Read Routine (OP Routine) 02/01/2023 10:37 AM CDT Arthralgia, unspecified joint XR HAND RIGHT 3 OR MORE VIEWS Schedule Routine, Read Routine (OP Routine) 02/01/2023 10:37 AM CDT Arthralgia, unspecified joint XR HAND LEFT 3 OR MORE VIEWS Schedule Routine, Read Routine (OP Routine) 02/01/2023 10:37 AM CDT Arthralgia, unspecified joint documented in this encounter Results * XR Hand Left 3 or More [...] XR PROCEDURES Fin al Result * XR Ankle Right 3 or More [...] body. Electronically signed by: Jay Robles M.D. [facility] Essence Cox MD IMG XR PROCEDURES Fin al Result documented in this encounter Visit Diagnoses Diagnosis Arthralgia, unspecified joint documented in this encounter Care Teams Oyster Worker Relationship Specialty Start Date End Date Amy Marc MD [address] [employer] [place] [address] PCP - General 11/12/13 documented as of this encounter
--- OUTSIDE RECORDS SUMMARY | 2024-06-24 23:57 | XMS_ITS | Encounter Summary ---
Author Organization [facility] Address [address] [place] [address] Care Team Providers Care Professor Of Voice Name Role Phone Amy Marc MD Primary Care Provider +1- [phone] Encounter Details Date Type Department Care Team (Latest Contact Info) Description 04/05/2019 7:08 PM CDT - 04/05/2019 8:47 PM CDT Hospital Encounter [facility] [address] [place] [address] Joann Baker MD [address] [place], [place] [id number] Discharge Disposition: Discharge to home or self care Social History Tobacco Use Types Packs/Day Years Used Date Smoking Tobacco: Every Day Alcohol Use Standard Drinks/Week Comments Yes 0 (1 standard drink = 0.6 oz pur e alcohol) Comments No Sex and Gender Information Value Date Recorded Sex Assigned at Not on file 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 30 0 11/18/2016 11/22/2022 LORazepam (ATIVAN) 1 mg tablet Take [...] Priority Date/Time Associated Diagnosis Comments XR CHEST PA LATERAL 2 VIEWS ED 04/05/2019 7:12 PM CDT documented in this encounter Results * XR Chest Pa Lateral 2 Views (04/05/2019 7:12 PM CDT) Anatomical Region Laterality Modality Body, Chest N/A Computed Radiogr aphy 04/05/2019 7:17 PM CDT Impressions 04/05/2019 7:18 PM CDT 1. No active disease. Electronically signed by: Syed Lee Jr., M.D. Narrative 04/05/2019 7:18 PM CDT XR CHEST PA LATERAL 2 VIEWS HISTORY: C/o chest pressure to center of chest that radiates up neck and down bilat arms. 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 No abd c/o, no prev card/lung hx COMPARISON: Portable chest on 03/06/2019. VIEWS: Erect PA and lateral views FINDINGS: Heart size is normal. ??Pulmonary vascularity is normal . Thoracic aorta is not dilated. No infiltrate, mass or pleural effusion is seen. Bony structures are unremarkable. Procedure Note Syed Lee Jr., MD - 04/05/2019 XR CHEST PA LATERAL 2 VIEWS HISTORY: C/o chest pressure to center of chest that radiates up neck and down bilat arms. 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 No abd c/o, no prev card/lung hx COMPARISON: Portable chest on 03/06/2019. VIEWS: Erect PA and lateral views FINDINGS: Heart size is normal. Pulmonary vascularity is normal . Thoracic aorta is not dilated. No infiltrate, mass or pleural effusion is seen. Bony structures are unremarkable. IMPRESSION: 1. No active disease. Electronically signed by: Syed Lee Jr., M.D. Joann Baker MD IMG XR PROCEDURES F inal Result documented in this encounter Visit Diagnoses Not on filedocumented in this encounter Additional Health Concerns Infection Onset Date Last Indicated Resolved Time MRSA Comment:AUTOMATED NOTE (ADD): MRSA (contact), MICHAEL [id number], [facility] Apr 07 15:47:36 CDT 2010 wound 04/05/11 04/07/2011 04/07/2011 021 5:00 AM CDT documented as of this encounter Care Teams Professor Of Voice Relationship Specialty Start Date End Date Amy Marc MD [address] [place] [address] PCP - General 11/12/13 documented as of this encounter
--- OUTSIDE RECORDS SUMMARY | 2024-06-24 23:57 | XMS_ITS | Encounter Summary ---
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 Pt has apt w/DK 02/13. Informed her DK will discuss results with her in detail at that time regarding specific findings. She verbalized understanding. * Telephone Encounter - Betty Fish - 02/02/2023 1:34 PM CDT Pt requesting call to discuss echo results. Contact: documented in this encounter Plan of Treatment Not on file documented as of this encounter Visit Diagnoses Not on filedocumented in this encounter Care Teams Unionmelt Operator Relationship Specialty Start Date End Date Amy Marc MD [address] [facility] [place] [address] PCP - General 11/12/13 documented as of this encounter
--- OUTSIDE RECORDS SUMMARY | 2024-06-24 23:57 | XMS_ITS | Encounter Summary ---
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 Left a message with Dr. Marc's office and asked if an authorization was done on the cosyntropin that is administered. Awaiting call back to schedule. documented in this encounter Plan of Treatment Not on file documented as of this encounter Visit Diagnoses Not on filedocumented in this encounter Care Teams Monitor And Storage Bin Tender Relationship Specialty Start Date End Date Amy Marc MD [address] [place] [address] PCP - General 11/12/13 documented as of this encounter
--- OUTSIDE RECORDS SUMMARY | 2024-06-24 23:57 | XMS_ITS | Encounter Summary ---
Author Organization [facility] Address [address] [address] Care Team Providers Care Nailing Machine Operator Automatic Name Role Phone Amy Marc MD Primary Care Provider +1- [phone] Reason for Referral * Cardiology (Routine) - Closed Specialty Diagnoses / Procedures Referred By Komal infante Referred To Contact Diagnoses Palpitations PSVT (paroxysmal supraventricular tachycardia) (HCC) RENTERIA (dyspnea on exertion) Procedures Transthoracic Echo (TTE) Complete W Doppler/CF Chava Bradley MD [address] [place] [address] Phone: tel: fax: [facility] Referral ID Status Reason Start Date Expiration Date Visits Re quested Visits Authorized [id number] Closed 11/22/2022 12/22/2023 1 1 Reason for Visit * Reason Comments New Patient Palpitations * Consultation (Routine) - Closed Specialty Diagnoses / Procedures Referred By Komal infante Referred To Contact Cardiology Diagnoses Palpitations SVT (supraventricular tachycardia) (HCC) Amy Marc MD [employer] [place] [address] Phone: tel: fax: [facility] Cardiology [address] [place] [address] Phone: tel: fax: Referral ID Status Reason Start Date Expiration Date V isits Requested Visits Authorized [id number] Closed Specialty Services Required 11/21/2022 12/21/2023 1 1 Encounter Details Date Type Department Care Team (Latest Contact Info) Description 11/22/2022 10:30 AM CDT Office Visit [facility] Cardiology [address] [facility] [address] [place] [address] Chava Bradley MD [address] [place] [address] [address] [place] [address] PSVT (paroxysmal supraventricular tachycardia) (CMS/HCC) (HCC) (Primary Dx); Palpitations; RENTERIA (dyspnea on exertion); Anxiety Social History Tobacco Use Types Packs/Day Years [...] on file 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 Gender Identity Not on file Sexual Orientation Not on file documented as of this encounter Last Filed Vital Signs Vital Sign Reading Time Taken Comments Blood Pressure 112/60 11/22/2022 10:30 AM CDT Pulse 89 11/22/2022 10:30 AM CDT Temperature - - Respiratory Rate 15 11/22/2022 10:30 AM CDT Oxygen Saturation - - Inhaled Oxygen Concentration - - Weight 83.5 kg (184 lb) 11/22/2022 10:30 AM CDT Height 175.3 cm (5' 9 ) 11/22/2022 10:30 AM CDT Body Mass Index 27.17 11/22/2022 10:30 AM CDT documented in this encounter Ordered Prescriptions Prescription Sig Dispense Quantity Refills Last Filled Start Date End Date dilTIAZem CD/XR/XT (CARDIZEM CD,DILACOR XR) 120 mg 24 hr capsule Take 1 capsule (120 mg total) by mouth daily 30 capsule 11 11/22/2022 3 documented in this encounter Progress Notes * Chava Bradley MD - 11/22/2022 10:30 AM CDT [facility] CARDIOLOGY 11/22/2022 CHIEF COMPLAINT Chief Complaint Patient presents with New Patient Palpitations HPI Navjot Frederick is a 42 y.o. female with PSVT, undiagnosed connective tissue disorder, anxiety, depression. 11/22/2022 initial [...] short of breath. She recently had ambulatory panel monitor which showed sinus rhythm with episodes of SVT. Denies family history of sudden cardiac . Patient drinks 1 cup of coffee per day and 1 soda per day. Denies any other caffeinated beverages. No excessive alcohol. Patient used to be smoker, quit tobacco, currently vapes. MEDICAL HISTORY she has a past medical history of Anxiety, Arrhythmia, Chest pain, and Shortness of breath. No major surgeries she Allergies Allergen Reactions Hydrocodone Nausea only Reaction: nausea, Current Outpatient Medications Medication Sig Dispense Refill ALPRAZolam (XANAX) 0.25 mg tablet TAKE 1 TO 2 TABLETS BY MOUTH DAILY NEEDED FOR ANXIETY buPROPion XL (WELLBUTRIN XL) 150 mg 24 hr tablet Take 1 tablet (150 mg total) by mouth daily FLUoxetine (PROzac) 20 mg tablet Take 1 tablet (20 mg total) by mouth daily hydrOXYzine (ATARAX) 25 mg tablet 1-2 TABS BY MOUTH AT BEDTIME 30-60 MINUTES BEFORE BEDTIME FOR INSOMNIA dilTIAZem CD/XR/XT (CARDIZEM CD,DILACOR XR) 120 mg 24 hr capsule Take 1 capsule (120 mg total) by mouth daily 30 capsule 11 No current facility-administered medications for this visit. [...] excessive alcohol or illicit drugs. Works in [employer], lives with a fiancee and 2 children. [...] REVIEWED Lab Results Component Value Date WBC 7.0 10/23/2022 HGB 13.2 10/23/2022 HCT 39.3 10/23/2022 MCV 85.8 10/23/2022 No lab exists for component: LABALBU Lab Results Component Value Date WBC 7.0 10/23/2022 HGB 13.2 10/23/2022 HCT 39.3 10/23/2022 MCV 85.8 10/23/2022 Lab Results Component Value Date CHOL 166 11/12/2013 Lab Results Component Value Date HDL 39 (L) 11/12/2013 LDL Date Value Ref Range Status 11/12/2013 100 <130 mg/dl Comment: Desirable range <100 mg/dL for patients with CHD or diabetes and <70 mg/dL for diabetic patients with known heart disease. ] Lab Results Component Value Date TRIG 136 11/12/2013 No results found for: POCCHOL, POCHDL, POCTRIG, POCLDL, POCNONHDL, POCCHLPL Treadmill stress test-Adequate stress test in regards [...] Jordy Huang Lbas- TSH 1.96. 11/08/22 ([facility]) PHYSICAL EXAM Vitals BP 112/60 (BP Location: Left arm, Patient Position: Sitting) Pulse 89 Resp 15 Ht 175.3 cm (5' 9 ) Wt 83.5 kg (184 lb) BMI 27.17 kg/m?? General appearance - alert, no distress, [...] for this visit: PSVT (paroxysmal supraventricular tachycardia) ([facility]/HCC) ([facility]) (Primary) - Ambulatory referral to Cardiology - Transthoracic Echo (TTE) Complete W Doppler/CF; Future Palpitations - Ambulatory referral to Cardiology - Transthoracic Echo (TTE) Complete W Doppler/CF; Future RENTERIA (dyspnea on exertion) - Transthoracic Echo (TTE) Complete W Doppler/CF; Future Anxiety Other orders - dilTIAZem CD/XR/XT (CARDIZEM CD,DILACOR XR) 120 mg 24 hr capsule; Take 1 capsule (120 mg total) by mouth daily PLAN/RECOMMENDATIONS 42 y.o. female with PSVT, undiagnosed connective tissue disorder, anxiety, depression. -patient has been experiencing recurrent episodes of palpitations associated with shortness of breath, chest tightness and dizziness without syncope. Recent 48 hour Holter monitor showed sinus rhythmwith brief episodes of SVT. Will initiate on diltiazem CD 120 mg p.o. daily for symptomatic improvement. If patient continues to have recurrent symptoms, then will refer to electrophysiology for further evaluation and management. Recent TSH within normal limits. -patient has been experiencing dyspnea on exertion. Will do echocardiogram with Doppler to rule outany major structural heart disease. -patient advised to avoid excessive caffeine and caffeinated beverages. Stress reduction counselingwas done. -follow-up in 8-10 weeks or sooner if needed. Chava Bradley MD 11/22/22 Voice recognition software was used to complete this document, therefore, nurse navigator variances may occur. documented in this encounter Plan of Treatment Not on file documented as of this encounter Results * TRANSTHORACIC ECHO (TTE) COMPLETE W DOPPLER/CF WO CONTRAST (01/31/2023 3:04 PM CDT) Anatomical Region Laterality Modality Ultrasound 01/31/2023 2:17 PM CDT Narrative 01/31/2023 4:38 PM CDT [facility] Cardiology [address] [address] [address] [facility] [address], [place] [address] P:[phone] P:[phone] Echocardiographic Report Patient Name: NAVJOT FREDERICKLyly : 1980 Study Date: 01/31/2023 2:17:22 PM Gender: F Tech: [facility] Location: [place] Ref.Provider: CHAVA BRADLEY Height(Cm): 175 BSA: 2.01 [...] Findings: Interpretation Site: Exam was interpreted at [facility]. Left Ventricle: Normal left ventricular systolic function. [...] Procedure Note Clovis Mcmahan MD - 01/31/2023 [facility] Cardiology [address] [facility] [address] [address] [address] [facility] [address] [place], [place] [address] P:[phone] P:[phone] Echocardiographic Report Patient Name: NAVJOT FREDERICK DPatient ID: [id number] : [id number] Date: 01/31/2023 2:17:22 PM Gender: FAccession #: [id number] Tech: LORLocation: [place] Ref.Provider: CHAVA BRADLEYHeight(Cm): 175 BSA: 2.01Weight(Kg): 83.5 [...] [ 2.60 - 3.70 ] PV Peak Joseph 1.06m/s [ 0.40 - 0.80 ] AoR Diam MM 3.00 cm [ 2.60 - 3.70 ] TR Peak Joseph 1.81m/s LA Volume Index 33 cc/m2 [ 16 - 28 ] TR Peak PG 13 mmHg RVSP 16.14mmHg E` 0.10cm/sec E/E` 7 - Findings: Interpretation Site: Exam was interpreted at [facility]. Left Ventricle: Normal left ventricular systolic function. [...] Mcmahan MD 2023-01-31 16:38:27 CDT CC: CC: Chava Bradley MD CV ECHO PROCEDURES Final Result documented in this encounter Visit Diagnoses Diagnosis PSVT (paroxysmal supraventricular tachycardia) ([facility])- Primary Paroxysmal supraventricular tachycardia Palpitations RENTERIA (dyspnea on exertion) Other dyspnea and respiratory abnormality Anxiety Anxiety state, unspecified Palpitations PSVT (paroxysmal supraventricular tachycardia) ([facility]) Paroxysmal supraventricular tachycardia RENTERIA (dyspnea on exertion) Other dyspnea and respiratory abnormality documented in this encounter Discontinued Medications Medication Sig Discontinue Reason Start Date End Da te chlorzoxazone (PARAFON FORTE) 500 mg tablet take 1 tablet by oral route 3 times every day prn muscle spasm. 11/18/2016 11/22/2022 LORazepam (ATIVAN) 0.5 mg tablet Take 1 tablet (0.5 mg total) by mouth every 6 (six) hours as needed for anxiety 04/05/2019 11/22/2022 LORazepam (ATIVAN) 1 mg tablet Take 0.5 tablets (0.5 mg total) by mouth every 8 (eight) hours as needed for anxiety 03/06/2019 11/22/2022 methylPREDNISolone (MEDROL DOSEPACK) 4 mg Dosepack follow package directions 10/16/2022 11/22/[address] (PROTONIX) 40 mg EC tablet Take 1 tablet (40 mg total) by mouth daily 12/29/2020 11/22/2022 PARoxetine (PAXIL) 10 mg tablet Take 1 tablet (10 mg total) by mouth every evening 09/13/2022 11/22/2022 predniSONE (DELTASONE) 20 mg tablet take 3 Tablet by oral route daily for 3 days, 2 tabs po daily for 3 days, 1 tab po daily for 3 days, 1/2 tab by mouth daily for 4 days. 11/18/2016 11/22/2022 documented as of this encounter Historical Medications * This list may reflect changes made after this encounter. FLUoxetine (PROzac) 20 mg tablet Take 1 tablet (20 mg total) by mouth daily 04/11/2023 ALPRAZolam (XANAX) 0.25 mg tablet TAKE 1 TO 2 TABLETS BY MOUTH DAILY NEEDED FOR ANXIETY 11/01/2022 02/01/2023 added in this encounter Orders Outpatient Referral Count Last Ordered Date Fir st Ordered Date AMB REFERRAL TO CARDIOLOGY 1 11/22/2022 documented in this encounter Care Teams Nailing Machine Operator Automatic Relationship Specialty Start Date End Date Amy Marc MD [address] [employer] [place] [address] PCP - General 11/12/13 documented as of this encounter
--- OUTSIDE RECORDS SUMMARY | 2024-06-24 23:58 | XMS_ITS | Encounter Summary ---
Author Organization [facility] Address [address] [place] [address] Care Team Providers Care Talent Development Analyst Name Role Phone Unavailable Primary Care Provider Unavailabl e Encounter Details Date Type Department Care Team (Latest Contact Info) Description 12/30/2008 2:06 PM CDT - 12/30/2008 11:59 PM CDT [facility] Encounter for supervision of normal in multigravida; Need for prophylactic immunotherapy Social History Tobacco Use Types Packs/Day Years Used Date Smoking Tobacco: Never Assessed Comments Unknown Sex and Gender Information Value Date Recorded Sex Assigned at Not on file 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
--- OUTSIDE RECORDS SUMMARY | 2024-06-24 23:58 | XMS_ITS | Encounter Summary ---
Author Organization [facility] Address [address] [place] [address] Care Team Providers Care Child Development Teacher Name Role Phone Unavailable Primary Care Provider Unavailabl e Encounter Details Date Type Department Care Team (Late st Contact Info) Description 04/05/2011 7:26 AM CDT - 04/05/2011 8:30 AM CDT Hospital Encounter [facility] Sue Lorenzana MD [address] [place] [address] Cellulitis and abscess of other specified site; Contact dermatitis and other eczema Social History Tobacco Use Types Packs/Day Years Used Date Smoking Tobacco: Never Assessed Comments Unknown Sex and Gender Information Value Date Recorded Sex Assigned at Not on file 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
--- OUTSIDE RECORDS SUMMARY | 2024-06-24 23:58 | XMS_ITS | Encounter Summary ---
Author Organization 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
--- OUTSIDE RECORDS SUMMARY | 2024-06-24 23:58 | XMS_ITS | Encounter Summary ---
Author Organization [facility] Healthcare Address [address] [place] [address] Care Team Providers Care Assistant Director Of Financial Aid Name Role Phone Unavailable Primary Care Provider Unavailabl e Encounter Details Date Type Department Care Team (Late st Contact Info) Description 09/06/2008 12:01 AM CDT - 09/06/2008 11:59 PM CDT Hospital Encounter [facility] CLINCONAlexei Ojeda Other specified screening; state, incidental Social History Tobacco Use Types Packs/Day Years Used Date Smoking Tobacco: Never Assessed Comments Unknown Sex and Gender Information Value Date Recorded Sex Assigned at Not on file 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
--- OUTSIDE RECORDS SUMMARY | 2024-06-24 23:58 | XMS_ITS | Encounter Summary ---
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 Gender Identity Not on file Sexual Orientation Not on file documented as of this encounter Plan of Treatment Not on file documented as of this encounter Visit Diagnoses Not on filedocumented in this encounter Additional Health Concerns Infection Onset Date Last Indicated Resolved Time MRSA Comment:AUTOMATED NOTE (ADD): MRSA (contact), MICHAEL, [id number], [facility] Apr 07 15:47:36 CDT 2010 wound 04/05/11 04/07/2011 04/07/2011 021 5:00 AM CDT documented as of this encounter Care Teams Refractory Products Supervisor Relationship Specialty Start Date End Date Amy Marc MD [address] [place] [address] PCP - General 11/12/13 documented as of this encounter
--- OUTSIDE RECORDS SUMMARY | 2024-06-24 23:58 | XMS_ITS | Encounter Summary ---
Author Organization 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
--- OUTSIDE RECORDS SUMMARY | 2024-06-24 23:58 | XMS_ITS | Encounter Summary ---
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
--- OUTSIDE RECORDS SUMMARY | 2024-06-24 23:58 | XMS_ITS | Encounter Summary ---
Author Organization [facility] Healthcare Address [address] [place] [address] Care Team Providers Care Immunologist Name Role Phone Unavailable Primary Care Provider Unavailabl e Encounter Details Date Type Department Care Team (Late st Contact Info) Description 02/13/2009 1:57 AM CDT - 02/13/2009 3:42 AM CDT Hospital Encounter [facility] CLINCONAlexei Ojeda Other and unspecified uterine inertia, antepartum Social History Tobacco Use Types Packs/Day Years Used Date Smoking Tobacco: Never Assessed Comments Unknown Sex and Gender Information Value Date Recorded Sex Assigned at Not on file Legal Sex Female 12:17 AM INTERNAL MEDICINE HOSPITALIST Gender Identity Not on file Sexual Orientation Not on file documented as of this encounter Plan of Treatment Not on file documented as of this encounter Visit Diagnoses Diagnosis Other and unspecified uterine inertia, antepartum documented in this encounter
--- OUTSIDE RECORDS SUMMARY | 2024-06-24 23:58 | XMS_ITS | Encounter Summary ---
Author Organization [facility] Healthcare Address [address] [place] [address] Care Team Providers Care Puller Out Name Role Phone Unavailable Primary Care Provider Unavailabl e Encounter Details Date Type Department Care Team (Late st Contact Info) Description 03/20/2010 10:12 AM CDT - 03/20/2010 1:52 PM CDT Hospital Encounter [facility] Toby Foote MD [address] [place] [id number] Christ Mccollum MD [address] [place] [address] [place] [id number] Other conjunctivitis; Tobacco use disorder Social History Tobacco Use Types Packs/Day Years Used Date Smoking Tobacco: Never Assessed Comments Unknown Sex and Gender Information Value Date Recorded Sex Assigned at Not on file Legal Sex Female 12:17 AM CARGO SURVEYOR Gender Identity Not on file Sexual Orientation Not on file documented as of this encounter Plan of Treatment Not on file documented as of this encounter Visit Diagnoses Diagnosis Other conjunctivitis Tobacco use disorder documented in this encounter
--- OUTSIDE RECORDS SUMMARY | 2024-06-24 23:58 | XMS_ITS | Encounter Summary ---
Author Organization 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
--- OUTSIDE RECORDS SUMMARY | 2024-06-24 23:58 | XMS_ITS | Encounter Summary ---
Author Organization [facility] Healthcare Address [address] [place] [address] Care Team Providers Care Levee Superintendent Name Role Phone Unavailable Primary Care Provider Unavailabl e Encounter Details Date Type Department Care Team (Late st Contact Info) Description 02/10/2009 10:33 AM CDT - 02/10/2009 11:59 PM CDT Hospital Encounter [facility]INCON[facility] Screening examination for sexually transmitted disease Social History Tobacco Use Types Packs/Day Years Used Date Smoking Tobacco: Never Assessed Comments Unknown Sex and Gender Information Value Date Recorded Sex Assigned at Not on file Legal Sex Female 12:17 AM HIDE SORTER Gender Identity Not on file Sexual Orientation Not on file documented as of this encounter Plan of Treatment Not on file documented as of this encounter Visit Diagnoses Diagnosis Screening examination for sexually transmitted disease documented in this encounter
--- OUTSIDE RECORDS SUMMARY | 2024-06-24 23:58 | XMS_ITS | Encounter Summary ---
Author Organization [facility] Healthcare Address [address] [place] [address] Care Team Providers Care Educational Director Name Role Phone Unavailable Primary Care Provider Unavailabl e Encounter Details Date Type Department Care Team (Late st Contact Info) Description 12/30/2008 4:03 PM CDT - 12/30/2008 11:59 PM CDT Hospital Encounter [facility] CLINCONV Social History Tobacco Use Types Packs/Day Years Used Date Smoking Tobacco: Never Assessed Comments Unknown Sex and Gender Information Value Date Recorded Sex Assigned at Not on file Legal Sex Female 12:17 AM YARD PERSON Gender Identity Not on file Sexual Orientation Not on file documented as of this encounter Plan of Treatment Not on file documented as of this encounter Visit Diagnoses Not on filedocumented in this encounter
--- OUTSIDE RECORDS SUMMARY | 2024-06-24 23:58 | XMS_ITS | Encounter Summary ---
Author Organization [facility] Healthcare Address [address] [place] [address] Care Team Providers Care Mechanical Project Manager Name Role Phone Unavailable Primary Care Provider Unavailabl e Encounter Details Date Type Department Care Team (Late st Contact Info) Description 07/03/2013 5:19 PM ACADEMIC TUTOR - 07/03/2013 8:35 PM ACADEMIC TUTOR Hospital Encounter [facility] Joshua Bolanos MD [address] [place] [address] Chest pain; Anxiety state Social History Tobacco Use Types Packs/Day Years Used Date Smoking Tobacco: Never Assessed Comments Unknown Sex and Gender Information Value Date Recorded Sex Assigned at Not on file Legal Sex Female 12:17 AM ACADEMIC TUTOR Gender Identity Not on file Sexual Orientation Not on file documented as of this encounter Plan of Treatment Not on file documented as of this encounter Procedures Procedure Name Priority Date/Time Associated Diagnosis Comments SERUM CREATINE KINASE (CK) MB CONFIRMATION Routine 07/03/2013 6:21 PM ACADEMIC TUTOR SERUM CREATINE KINASE (CK) Routine 07/03 6:21 PM ACADEMIC TUTOR SERUM COMPREHENSIVE METABOLIC PANEL Routine 07/03/2013 6:21 PM ACADEMIC TUTOR BLOOD WBC CELL MORPHOLOGIC EXAM, AUTO Routine 07/03/2013 6:21 PM ACADEMIC TUTOR BLOOD CELL COUNT (CBC) Routine 4 6:21 PM ACADEMIC TUTOR SERUM TROPONIN I Routine 07/03/2013 12:2 1 PM ACADEMIC TUTOR BLOOD D-DIMER Routine 07/03/2013 12:21 PM ACADEMIC TUTOR ELECTROCARDIOGRAPHY (ECG) 07/03/2013 DISCHARGE LABORATORY CUMULATIVE REPORT Routine 07/03/2013 12:00 AM ACADEMIC TUTOR documented in this encounter Results * Serum creatine kinase (CK) MB confirmation (07/03/2013 6:21 PM ACADEMIC TUTOR) CK MB <O.5 0 - 5 ng/ml HISTORIC AL RESULTS Serum 07/03/2013 6:21 PM ACADEMIC TUTOR us Sue Lindo MD LAB BLOOD ORDERABLES Final Result Performing Organization Address [facility] de Phone Number HISTORICAL RESULTS * (ABNORMAL) Serum creatine kinase (CK) (07/03/2013 6:21 PM ACADEMIC TUTOR) CK 298(H) 20 - 218 Units/L HISTORICAL RESULTS Serum 07/03/2013 6:21 PM ACADEMIC TUTOR us Sue Lindo MD LAB BLOOD ORDERABLES Final Result Performing Organization Address [facility] de Phone Number HISTORICAL RESULTS * Blood cell count (CBC) (07/03/2013 6:21 PM ACADEMIC TUTOR) WBC 8.4 4.0 - 10.5 K/cumm HISTORICAL RESULTS RBC 4.53 4.20 - 5.40 M/cumm HISTORICAL RESULTS Hgb 13.7 12.0 - 16.0 g/dl HISTORICAL RESULTS Hct 39.5 37.0 - 47.0 % HISTORICAL RESULTS MCV 87.2 77.0 - 97.0 fl HISTORICAL RESULTS MCH 30.2 23.0 - 34.0 pg HISTORICAL RESULTS MCHC 34.7 32.0 - 36.0 g/dl HISTORICAL RESULTS Rdw 12.8 11.5 - 14.5 % HISTORICAL RESULTS Platelets 362 150 - 451 K/cumm HISTORICAL RESULTS MPV 9.6 7.4 - 10.4 fl HISTORICAL RESULTS Blood specimen (specimen) 07/03/2013 6:21 PM ACADEMIC TUTOR Sue Lindo MD LAB BLOOD ORDERABLES Final Result HISTORICAL RESULTS * (ABNORMAL) Blood WBC cell morphologic exam, auto (07/03/2013 6:21 PM ACADEMIC TUTOR) Lymphocytes 23.7(L) 25.0 - 33.0 % HISTORICAL RESULTS Monos 7.8 1.0 - 13.0 % HISTORICAL RESULTS Neutrophils 65.7 54.0 - 69.0 % HISTORICAL RESULTS Eosinophils 2.0 0.0 - 10.0 % HISTORICAL RESULTS Basophils 0.6 0.0 - 1.0 % HISTORICAL RESULTS Immature granulocytes 0.2 0.0 - 1.0 % HISTORICAL RESULTS Lymphocytes, abs 2.0 1.2 - 3.4 K/cumm HISTORICAL RESULTS Monocytes, absolute 0.7(L) 1.1 - 1.9 K/cumm HISTORICAL RESULTS Neutrophils, abs 5.5 1.4 - 6.5 K/cumm HISTORICAL RESULTS Eosinophils, abs 0.2 0.0 - 0.7 cells/cum m HISTORICAL RESULTS Basophils, abs 0.1 0.0 - 0.2 K/cumm HISTORICAL RESULTS Immature granulocyte, abs 0.0 0.0 - 0.0 K/cumm HISTORICAL RESULTS Blood specimen (specimen) 07/03/2013 6:21 PM ACADEMIC TUTOR Seu Lindo MD LAB BLOOD ORDERABLES Final Result HISTORICAL RESULTS * (ABNORMAL) Serum comprehensive metabolic panel (07/03/2013 6:21 PM ACADEMIC TUTOR) BUN 11.0 6.0 - 23.0 mg/dl HISTORICAL RESULTS Sodium 139 134 - 143 mmol/L HISTORICAL RESULTS Potassium, sr 4.2 3.4 - 5.0 mmol/L HISTORICAL RESULTS Chloride 105 99 - 108 mmol/L HISTORICAL RESULTS CO2 29 23 - 32 mmol/L HISTORICAL RESULTS Glucose 90 70 - 199 mg/dl HISTORICAL RESULTS Comment: Note:The glucose is assumed non fasting Fastin-99 mg/dl Random: 70-199 mg/dl Either a fasting glucose > 126 mg/dL or a random glucose > 200 mg/dL plus symptoms is diagnostic of diabetes when confirmed on another day. Fasting values > 100 mg/dl but < 125 mg/dL are diagnostic of impaired fasting glucose. New reference ranges implemented 04/29/2013. Creatinine 0.81 0.60 - 1.30 mg/dl HISTORICAL RESULTS Comment: eGFR: >70 ml/min/1.73sq.m if non -Luxembourger. eGFR: >70 ml/min/1.73sq.m if -Luxembourger. AVE GFR for 30-39 yr. age group: 107 ml/min/1.73sq.m Calculated using MDRD Equation BUN/creat ratio 14 10 - 20 HIST ORICAL RESULTS A. gap 9 7 - 14 mmol/L HISTORICAL RESULTS Protein, sr 7.5 6.4 - 8.0 g/dl HISTORICAL RESULTS Alb 3.7 3.3 - 4.5 g/dl HISTORICAL RESULTS Alb/glob ratio 1.0(L) 1.1 - 1.8 HISTO RICAL RESULTS Calcium 8.5(L) 8.6 - 9.8 mg/dl HISTORICAL RESULTS Bilirubin 0.3 0.0 - 1.1 mg/dl HISTORICAL RESULTS Alk phos 81 44 - 125 Units/L HISTORICAL RESULTS AST 23 5 - 40 Units/L HISTORICAL RESULTS Comment:AST - NOTE REFERENCE RANGE CHANGE ALT 27 15 - 70 Units/L HISTORICAL RESULTS Serum 07/03/2013 6:21 PM ACADEMIC TUTOR us Sue Lindo MD LAB BLOOD ORDERABLES Final Result HISTORICAL RESULTS * Blood D-dimer (07/03/2013 12:21 PM ACADEMIC TUTOR) D-dimer 0.43 0.00 - 0.50 mcg/ml HISTORICAL RESULTS Blood specimen (specimen) 07/03/2013 12:21 PM ACADEMIC TUTOR Narrative HISTORICAL RESULTS - 07/03/2013 1:16 PM ACADEMIC TUTOR Units of Measure = ug/ml FEU The D-Dimer result should not be used as the sole indicator to rule in or exclude a diagnosis of Pulmonary Embolism or Deep Vein Thrombosis. us Joshua Vance MD LAB BLOOD ORDERABLES Final Res ult HISTORICAL RESULTS * Serum troponin I (07/03/2013 12:21 PM ACADEMIC TUTOR) Troponin I <0.04 0.00 - 0.10 ng/ml HISTORICAL RESULTS Serum 07/03/2013 12:2 1 PM ACADEMIC TUTOR Narrative HISTORICAL RESULTS - 07/03/2013 1:14 PM ACADEMIC TUTOR NEGATIVE: ??0.00 - 0.10 NG/ML INDETERMINATE: ??0.11 - 0.50 NG/ML POSITIVE: ??GREATER THAN 0.50 NG/ML us Sue Lindo MD LAB BLOOD ORDERABLES Final Result HISTORICAL RESULTS * Discharge Laboratory Cumulative Report (07/03/2013 12:00 AM ACADEMIC TUTOR) 07/03/2013 Narrative HISTORICAL RESULTS - 07/04/2013 12:29 AM ACADEMIC TUTOR Patient No: [id number] ? [facility] Patient Name: NAVJOT BERMEO ? [facility] Healthcare Age: 33 YRS ?: 1980 ?Sex:F ?[address] )[id number] ?? Adm Dt: 07/03/2013 ?[place] ??[id number] Created: 07/04/2013 ??0029 ?? Pt. Type: E ? Discharge Dt: 07/03/2013 ? Pathologists: Yris Jansen MD Admit Attend Dr: JOSHUA VANCE MD ? BLOOD CELL COUNTS ?Collection Date: ?07/03/13 ?Collection Time: ?1821 ? Ref Range: ?? Units: [4.00-10.50] /CMM ? WBC X 10^3 ?8.44 [4.20-5.40] ??/CMM ? RBC X 10^6 ?4.53 [12.0-16.0] ??G/DL ? HGB ? 13.7 [37.0-47.0] ??% ?HCT ? 39.5 [77.0-97.0] ??FL ? MCV ? 87.2 [23.0-34.0] ??PG ? MCH ? 30.2 [32.0-36.0] ??% ?MCHC ?34.7 [11.5-14.5] ??% ?RDW ? 12.8 [150-451] ?? /CMM ? PLT X 10^3 ? 362 ?BLOOD CELL DIFFERENTIAL ?Collection Date: ?07/03/13 ?Collection Time: ?1821 ? Ref Range: ?? Units: [54.0-69.0] ??% ?NEUTROPHILS ? 65.7 [25.0-33.0] ??% ?LYMPHOCYTES ? 23.7 L [1.0-13.0] ??% ?MONOCYTES ?7.8 [0.0-10.0] ??% ?EOSINOPHILS ?2.0 [0.0-1.0] ?? % ?BASOPHILS ?0.6 ? /CMM ? A LYMPHOCYTE ? 2.0 [0.0-1.0] ?? % ?IMM GRAN % ? 0.2 [0.00-0.02] ??/CMM ? A IMM GRAN ?0.02 [1.1-1.9] ?? /CMM ? A MONOCYTE ? 0.7 L [1.4-6.5] ?? /CMM ? A NEUTROPHIL ? 5.5 [0.0-0.7] ?? /CMM ? A EOSINOPHIL ? 0.2 [0.0-0.2] ?? /CMM ? A BASOPHIL ? 0.1 Footnotes and Symbols: L = Low ?? CONTINUED ?Page: ?? 1 Patient No: [id number] ? [facility] Patient Name: NAVJOT BERMEO ? [facility] Healthcare Age: 33 YRS ?: 1980 ?Sex:F ?[address] )[id number] ?? Adm Dt: 07/03/2013 ?[place] ??[id number] Created: 07/04/2013 ??0029 ?? Pt. Type: E ? Discharge Dt: 07/03/2013 ? Pathologists: Yris Jansen MD Admit Attend Dr: JOSHUA VANCE MD ? GENERAL CHEMISTRY ?Collection Date: ?07/03/13 ?Collection Time: ?1821 ? Ref Range: ?? Units: [134-143] ?? MMOL/L ? SODIUM ? 139 [3.4-5.0] ?? MMOL/L ? POTASSIUM ?4.2 [99.0-108.0] MMOL/L ? CHLORIDE ? 105.0 [23.0-32.0] ??MMOL/L ? TOTAL CO2 ? 28.8 ?? [7-14] ?MMOL/L ? ANION GAP ?9 ??[70-199] ?? MG/DL ?GLUCOSE ? 90 f [6.4-8.0] ?? G/DL ? TOTAL PROTEIN ?7.5 [3.3-4.5] ?? G/DL ? ALBUMIN ?3.7 [1.1-1.8] ?A/G RATIO ?1.0 L [8.6-9.8] ?? MG/DL ?CALCIUM ?8.5 L [0.0-1.1] ?? MG/DL ?BILI TOTAL ? 0.3 ??[44-125] ?? U/L ?ALK PHOS ?81 ??[20-218] ?? U/L ?CK ? 298 H ?? [5-40] ?U/L ?AST(SGOT) ? 23 f ??[15-70] ?U/L ?ALT(SGPT) ? 27 f [6.0-23.0] ??MG/DL ?BUN ? 11.0 ??[10-20] ? B/C RATIO ? 14 Footnotes and Symbols: L = Low, H = High, f = Footnote GLUCOSE (05/21/13 -- Current) Note:The glucose is assumed non fasting Fastin-99 mg/dl Random: 70-199 mg/dl Either a fasting glucose > 126 mg/dL or a random glucose > 200 mg/dL plus symptoms is diagnostic of diabetes when confirmed on another day. Fasting values > 100 mg/dl but < 125 mg/dL are diagnostic of impaired fasting glucose. New reference ranges implemented 04/29/2013. AST(SGOT) (11/28/12 -- Current) AST ??- NOTE REFERENCE RANGE CHANGE ALT(SGPT) (01/08/13 -- Current) ?? CONTINUED ?Page: ?? 2 Patient No: [id number] ? [facility] Patient Name: NAVJOT BERMEO ? [facility] Age: 33 YRS ?: 1980 ?Sex:F ?[address] )[id number] ?? Adm Dt: 07/03/2013 ?[place], [place] ??[address] Created: 07/04/2013 ??0029 ?? Pt. Type: E ? Discharge Dt: 07/03/2013 ? Pathologists: Yris Jansen MD Admit Attend Dr: JOSHUA VANCE MD ? GENERAL CHEMISTRY ?Collection Date: ?07/03/13 ?Collection Time: ?1821 ? Ref Range: ?? Units: [0.60-1.30] ??MG/DL ?CREATININE ?0.81 f ?07/03/13 1821 eGFR: >70 ml/min/1.73sq.m if non -Luxembourger. eGFR: >70 ml/min/1.73sq.m if -Luxembourger. AVE GFR for 30-39 yr. age group: 107 ml/min/1.73sq.m Calculated using MDRD Equation FOOTNOTE ADDED ON ?? 07/03/13 ?? AT 1906 BY 999 ? CARDIAC CHEMISTRY ?Collection Date: ?07/03/13 ?Collection Time: ?1821 ? Ref Range: ?? Units: [0.00-0.10] ??NG/ML ?TROPONIN I ? <0.04 f ?? [0-5] ? NG/ML ?CKMB ?<O.5 Footnotes and Symbols: f = Footnote TROPONIN I (04/14/11 -- Current) NEGATIVE: ??0.00 - 0.10 NG/ML INDETERMINATE: ??0.11 - 0.50 NG/ML POSITIVE: ??GREATER THAN 0.50 NG/ML ?? CONTINUED ?Page: ?? 3 Patient No: [id number] ? [facility] Patient Name: NAVJOT BERMEO ? [facility] Age: 33 YRS ?: 1980 ?Sex:F ?[address] )[id number] ?? Adm Dt: 07/03/2013 ?[place] ??[address] Created: 07/04/2013 ??0029 ?? Pt. Type: E ? Discharge Dt: 07/03/2013 ? Pathologists: Yris Jansen MD Admit Attend Dr: JOSHUA VANCE MD ?COAGULATION ? Units: ?? D-DIMER ? Low: ??[0.00-0.50] ? Ref Range: ?UG/ML ? 07/03/131820 ?0.43 f Footnotes and Symbols: f = Footnote D-DIMER (07/01/10 -- Current) Units of Measure = ug/ml FEU The D-Dimer result should not be used as the sole indicator to rule in or exclude a diagnosis of Pulmonary Embolism or Deep Vein Thrombosis. ?? END OF CHART ? Page: ?? 4 us Historical Provider LAB BLOOD ORDERABLES Prachi becca Result HISTORICAL RESULTS * ELECTROCARDIOGRAPHY (ECG) (07/03/2013) Narrative 07/03/2013 Ordered by an unspecified provider. us Historical Provider ECG ORDERABLES Final Res ult documented in this encounter Visit Diagnoses Diagnosis Chest pain Unspecified chest pain Anxiety state Anxiety state, unspecified documented in this encounter Additional Health Concerns Infection Onset Date Last Indicated Resolved Time MRSA Comment:AUTOMATED NOTE (ADD): MRSA (contact), MICHAEL, [id number], [facility] Apr 07 15:47:36 CDT 2011 wound 04/05/11 04/07/2011 04/07/2011 021 5:00 AM CDT documented as of this encounter
--- OUTSIDE RECORDS SUMMARY | 2024-06-24 23:58 | XMS_ITS | Encounter Summary ---
Author Organization [facility] Healthcare Address [address] [place] [address] Care Team Providers Care Automatic Lathe Tender Name Role Phone Unavailable Primary Care Provider Unavailabl e Encounter Details Date Type Department Care Team (Late st Contact Info) Description 06/27/2008 3:30 PM NEWSPAPER CARRIER - 06/27/2008 4:15 PM NEWSPAPER CARRIER Hospital Encounter [facility] Eladio Greenfield MD [address] [facility] [address] [place] [id number] Jayesh Hubbrad MD [address] [place] [address] Low back pain; Tobacco use disorder Social History Tobacco Use Types Packs/Day Years Used Date Smoking Tobacco: Never Assessed Comments Unknown Sex and Gender Information Value Date Recorded Sex Assigned at Not on file Legal Sex Female 12:17 AM NEWSPAPER CARRIER Gender Identity Not on file Sexual Orientation Not on file documented as of this encounter Plan of Treatment Not on file documented as of this encounter Visit Diagnoses Diagnosis Low back pain Lumbago Tobacco use disorder documented in this encounter
--- OUTSIDE RECORDS SUMMARY | 2024-06-24 23:58 | XMS_ITS | Encounter Summary ---
Author Organization [facility] Healthcare Address [address] [place] [address] Care Team Providers Care General Passenger Agent Name Role Phone Unavailable Primary Care Provider Unavailabl e Encounter Details Date Type Department Care Team ([facility] st Contact Info) Description 01/17/2012 9:37 PM CDT - 01/17/2012 10:25 PM CDT Hospital Encounter Carlos Johnson MD [address] [place] [address] Other disorders of menstruation and other abnormal bleeding from female genital tract; Procedure not carried out because of patient's decision Social History Tobacco Use Types Packs/Day Years [...] of this encounter Visit Diagnoses Diagnosis Other disorders of menstruation and other abnormal bleeding from female genital tract Procedure not carried out because of patient's decision Surgical or other procedure not carried out because of patient's decision documented in this encounter Additional Health Concerns Infection Onset Date Last Indicated Resolved Time MRSA Comment:AUTOMATED NOTE (ADD): MRSA (contact), MICHAEL [id number], Molly Apr 07 15:47:36 CDT 2010 wound 04/05/11 04/07/2011 04/07/2011 021 5:00 AM CDT documented as of this encounter
--- OUTSIDE RECORDS SUMMARY | 2024-06-24 23:58 | XMS_ITS | Encounter Summary ---
Author Organization [facility] Healthcare Address [address] [place] [address] Care Team Providers Care Product Marketing Engineer Name Role Phone Unavailable Primary Care Provider Unavailabl e Encounter Details Date Type Department Care Team (Late st Contact Info) Description 11/22/2012 1:24 PM CDT - 11/22/2012 2:54 PM CDT Hospital Encounter [facility] Sue Lorenzana MD [address] [place] [id number] Sprain of back; Overexertion from sudden strenuous movement; Place of occurrence, home; External cause status; Tobacco use disorder Social History Tobacco Use Types Packs/Day Years Used Date Smoking Tobacco: Never Assessed Comments Unknown Sex and Gender Information Value Date Recorded Sex Assigned at Not on file Legal Sex Female 12:17 AM COOK HELPER JUICE Gender Identity Not on file Sexual Orientation Not on file documented as of this encounter Plan of Treatment Not on file documented as of this encounter Procedures Procedure Name Priority Date/Time Associated Diagnosis Comments XR SPINE LUMBAR ROUTINE Routine 11/22/2012 2:32 PM CDT documented in this encounter Results * XR Lumbar Spine Routine (11/22/2012 2:32 PM CDT) Anatomical Region Laterality Modality L-spine N/A Radiographic Maggy ging 11/22/2012 2:32 PM CDT Narrative 11/22/2012 11:38 PM CDT XR Lumbar Spine Routine ??[id number] ??Acc#: ??[id number] DATE OF EXAM: ??Vishnu ??2012 CLINICAL HISTORY: Marked low back pain. RESULT: AP, lateral, lateral spot film at lumbosacral angle and both oblique views were obtained. ??There is narrowing of the L4-5 disc and fairly marked narrowing of the L5-S1 disc. ??The narrowing at the L5-S1 could be an anatomic variation. ??Some degenerative change within the narrowed discs is a distinct possibility and if pain persists and further assessment is desired a lumbar spine MRI could be considered looking for a disc protrusion. ??There is a minimal tendency to early degenerative spurring at the L4-5 level. ??A small Schmorl's node is seen in the superior aspect of T12, a finding ordinarily of little significance. IMPRESSION: SOME NARROWING OF LOWER LUMBAR DISC SPACES. ??PLEASE SEE ABOVE DISCUSSION. Interpreting Physician: ??BOBBY DUCKWORTH M.D. ??Read on: ??Vishnu ??2012 4:58P Transcribed by: ??vawen ??On: Vishnu ??6 2012 ??7:01P Approved Electronically by: ??DONITA Catalan, BOBBY ??on: ??Vishnu ??2012 11:38P Ordering DR: DR SUE OLSON Attending DR: DR MICH MACKEY Procedure Note Provider, MD Lindsey - 10/11/2016 XR Lumbar Spine Routine [id number] Acc#: [id number] DATE OF EXAM: Nov 22 2012 CLINICAL HISTORY: Marked low back pain. RESULT: AP, lateral, lateral spot film at lumbosacral angle and both obliqueviews were obtained. There is narrowing of the L4-5 disc and fairlymarked narrowing of the L5-S1 disc. The narrowing at the L5-S1 could pickering anatomic variation. Some degenerative change within the narrowed discsis a distinct possibility and if pain persists and further assessment isdesired a lumbar spine MRI could be considered looking for a discprotrusion. There is a minimal tendency to early degenerative spurring atthe L4-5 level. A small Schmorl's node is seen in the superior aspect ofT12, a finding ordinarily of little significance. IMPRESSION: SOME NARROWING OF LOWER LUMBAR DISC SPACES. PLEASE SEE ABOVEDISCUSSION. Interpreting Physician: BOBBY DUCKWORTH M.D. Read on: Nov 22 20124:58P Transcribed by: mera On: Nov 22 2012 7:01P Approved Electronically by: BOBBY DUCKWORTH M.D. on: Nov 22 201211:38P Ordering DR: DR SUE OLSON Attending DR: DR MICH MACKEY us Historical Provider MD TEJADA XR PROCEDURES Final R esult documented in this encounter Visit Diagnoses Diagnosis Sprain of back Sprain and strain of unspecified site of back Overexertion from sudden strenuous movement Place of occurrence, home External cause status Tobacco use disorder documented in this encounter Additional Health Concerns Infection Onset Date Last Indicated Resolved Time MRSA Comment:AUTOMATED NOTE (ADD): MRSA (contact), MICHAEL, [id number], [facility] Apr 07 15:47:36 CDT 2011 wound 04/05/11 04/07/2011 04/07/2011 021 5:00 AM CDT documented as of this encounter
--- OUTSIDE RECORDS SUMMARY | 2024-06-24 23:58 | XMS_ITS | Encounter Summary ---
Author Organization [facility] Healthcare Address [address] [place] [address] Care Team Providers Care Javascript Front End Developer Name Role Phone Unavailable Primary Care Provider Unavailabl e Encounter Details Date Type Department Care Team (Late st Contact Info) Description 07/14/2008 3:25 PM POWER ORIGINATOR - 07/14/2008 11:59 PM POWER ORIGINATOR Hospital Encounter [facility] Social History Tobacco Use Types Packs/Day Years Used Date Smoking Tobacco: Never Assessed Comments Unknown Sex and Gender Information Value Date Recorded Sex Assigned at Not on file Legal Sex Female 12:17 AM POWER ORIGINATOR Gender Identity Not on file Sexual Orientation Not on file documented as of this encounter Plan of Treatment Not on file documented as of this encounter Visit Diagnoses Not on filedocumented in this encounter
--- OUTSIDE RECORDS SUMMARY | 2024-06-24 23:58 | XMS_ITS | Encounter Summary ---
Author Organization [facility] Healthcare Address [address] [place] [address] Care Team Providers Care School Lunch Manager Name Role Phone Unavailable Primary Care Provider Unavailabl e Encounter Details Date Type Department Care Team (Late st Contact Info) Description 05/10/2009 3:26 PM BLOW UP OPERATOR - 05/10/2009 4:48 PM BLOW UP OPERATOR Hospital Encounter [facility] Eladio Greenfield MD [address] [facility] [address] [place] [address] Jayesh Hubbard MD [address] [place] [address] Influenza with respiratory manifestation Social History Tobacco Use Types Packs/Day Years Used Date Smoking Tobacco: Never Assessed Comments Unknown Sex and Gender Information Value Date Recorded Sex Assigned at Not on file Legal Sex Female 12:17 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
--- OUTSIDE RECORDS SUMMARY | 2024-06-24 23:58 | XMS_ITS | Encounter Summary ---
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
--- OUTSIDE RECORDS SUMMARY | 2024-06-24 23:58 | XMS_ITS | Encounter Summary ---
Author Organization [facility] Healthcare Address [address] [place] [address] Care Team Providers Care Whale Trainer Name Role Phone Unavailable Primary Care Provider Unavailabl e Encounter Details Date Type Department Care Team (Late st Contact Info) Description 02/16/2009 10:56 AM CDT - 02/18/2009 8:25 PM CDT Hospital Encounter [facility] Alexei Aranda Oligohydramnios, delivered; Delivery outcome of single liveborn infant Social History Tobacco Use Types Packs/Day Years Used Date Smoking Tobacco: Never Assessed Comments Unknown Sex and Gender Information Value Date Recorded Sex Assigned at Not on file 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
--- OUTSIDE RECORDS SUMMARY | 2024-06-24 23:58 | XMS_ITS | Encounter Summary ---
Author Organization [facility] Address [address] [place] [address] Care Team Providers Care Director School Of Nursing Name Role Phone Amy Marc MD Primary Care Provider [phone]- [phone] Reason for Visit * Reason Comments Chest Pain Encounter Details Date Type Department Care Team ([facility] Contact Info) Description 04/05/2019 8:48 PM CDT - 04/05/2019 9:46 PM CDT Emergency [facility] Emergency Department [address] [place] [address] Joann Baker MD [address] [place] [address] Chest pain, unspecified type (Primary Dx) Discharge Disposition: Discharge to home or self care Social History Tobacco Use Types Packs/Day Years Used Date Smoking Tobacco: Every Day Alcohol Use Standard Drinks/Week Comments Yes 0 (1 standard drink = 0.6 oz pur e alcohol) Comments No Sex and Gender Information Value Date Recorded Sex Assigned at Not on file 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 Sex 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 Gender Identity Not on file Sexual Orientation Not on file documented as of this encounter Last Filed Vital Signs Vital Sign Reading Time Taken Comments Blood Pressure 118/54 04/05/2019 9:20 PM CDT Pulse 67 04/05/2019 9:20 PM CDT Temperature 36.2 ??C (97.2 ??F) 04/05/2019 6:40 PM CD T Respiratory Rate 16 04/05/2019 9:20 PM CDT Oxygen Saturation 97% 04/05/2019 9:20 PM CDT Inhaled Oxygen Concentration - - Weight 67.1 kg (148 lb) 04/05/2019 6:40 PM CDT Height 175.3 cm (5' 9 ) 04/05/2019 6:40 PM CDT Body Mass Index 21.86 04/05/2019 6:40 PM CDT documented in this encounter Discharge Diagnoses Diagnosis Chest pain, unspecified - CHEST PAIN, UNSPECIFIED Anxiety disorder, unspecified - ANXIETY DISORDER, UNSPECIFIED Nicotine dependence, other tobacco product, uncomplicated - NICOTINE DEPENDENCE, OTHER TOBACCO PRODUCT, UNCOMPLICATED documented in this encounter Discharge Instructions * Attachments The following attachments cannot be sent through Care Everywhere. * Chest Pain (AfterCare(R) Instructions(ER/ED)) (Belarusian) documented in this encounter Medications at Time [...] Refills Last Filled Start Date End Date LORazepam (ATIVAN) 0.5 mg tablet Take 1 tablet (0.5 mg total) by mouth every 6 (six) hours as needed for anxiety 6 tablet 04/05/2019 3 documented in this encounter Discharge Disposition Disposition Code Departure Means Destination Comment s Discharge to home or self care ERP discussed d/c with pt. RN reviewed d/c instructions. Pt verbalized understanding. Pt ambulated out of the ED. documented in this encounter ED Notes * Joann Baker MD - 04/05/2019 9:46 PM CDT HPI Chief Complaint Patient presents with ??? Chest Pain 8:58 PM 04/05/2019 Vicky Ace is a 39 y.o. F smoker with a history of anxiety, presenting to the ED, complaining ofconstant, mid-sternal chest pain that radiates up her neck and down her left upper extremity onset at 5 PM this evening. She states that she took Xanax this morning. She states that she was seen for the same complaint 1 month ago and the chest pain was attributed to anxiety and was given Ativan in [facility] ED. She notes a better response to Ativan, stating that Xanax leaves her feeling fatigued. She states that she has seen her PCP for this complaint since and was started on Zoloft. She states that she was scheduled for a stress test yesterday, but due to a scheduling error, it is now scheduled on04/09/2019. No other alleviating or exacerbating factors. She denies any shortness of breath. She denies history of asthma or COPD and notes that she has not used tobacco in 60 days, stating that sheused to smoke 1 pack per day prior to switching to vaping. No history of diabetes, hyperlipidemia, or hypertension. No family history of AR or cardiac disease. History provided by: Patient japanese interpreter used: No Patient History Patient Active Problem List Diagnosis Date Noted ??? Low back pain, non-specific 11/22/2016 ??? Migraine 10/28/2013 Class: Chronic ??? Generalized anxiety disorder 10/28/2013 Class: Chronic Past Medical History: Diagnosis Date ??? Anxiety [...] Alcohol use: Yes ??? Drug use: No Social History Patient does not qualify to have social determinant information on file (likely too young). Social History Narrative ??? Not on file Review of Systems Review of Systems Constitutional: Negative. Negative for activity change, appetite change, chills, diaphoresis, fatigue, fever and unexpected weight change. HENT: Negative. Negative for congestion, facial swelling, nosebleeds, rhinorrhea and sore throat. Eyes: Negative. Negative for photophobia, discharge, redness and visual disturbance. Respiratory: Negative. Negative for apnea, cough, chest tightness, shortness of breath and wheezing. Cardiovascular: Positive for chest pain (mid-sternal, radiating up neck and down left upper extremity). Negative for palpitations and leg swelling. Gastrointestinal: Negative. Negative for abdominal distention, abdominal pain, anal bleeding, bloodin stool, constipation, diarrhea, nausea, rectal pain and vomiting. Endocrine: Negative. Negative for cold intolerance, heat intolerance, polydipsia, polyphagia and polyuria. Genitourinary: Negative. Negative for decreased urine volume, difficulty urinating, dysuria, flank pain, frequency, hematuria and urgency. Musculoskeletal: Negative. Negative for arthralgias, back pain, gait problem, joint swelling, myalgias, neck pain and neck stiffness. Skin: Negative. Negative for color change, pallor, rash and wound. Allergic/Immunologic: Negative for immunocompromised state. Neurological: Negative. Negative for dizziness, tremors, seizures, syncope, facial asymmetry, speech difficulty, weakness, light-headedness, numbness and headaches. Hematological: Negative. Does not bruise/bleed easily. Psychiatric/Behavioral: Negative. Negative for agitation, behavioral problems and confusion. All other systems reviewed and are negative. Physical Exam ED Triage Vitals [04/05/19 1840] Temp Pulse Resp BP SpO2 36.2 ??C (97.2 ??F) 71 16 124/76 100 % Temp src Heart Rate Source Patient Position BP Location FiO2 (%) Temporal -- -- -- -- Physical Exam Vitals signs and nursing note reviewed. Constitutional: General: She is not in acute distress. Appearance: She is well-developed. She is not diaphoretic. HENT: Head: Normocephalic and atraumatic. Mouth/Throat: Pharynx: No oropharyngeal exudate. Eyes: Conjunctiva/sclera: Conjunctivae normal. Pupils: Pupils are equal, round, and reactive to light. Neck: Musculoskeletal: Normal range of motion and neck supple. Thyroid: No thyromegaly. Vascular: No JVD. Trachea: No tracheal deviation. Cardiovascular: Rate and Rhythm: Normal rate and regular rhythm. Heart sounds: Normal heart sounds. Pulmonary: Effort: Pulmonary effort is normal. No respiratory distress. Breath sounds: Normal breath sounds. No stridor. No wheezing or rales. Abdominal: General: Bowel sounds are normal. There is no distension. Palpations: Abdomen is soft. There is no mass. Tenderness: There is no tenderness. There is no guarding or rebound. Musculoskeletal: Normal range of motion. General: No tenderness or deformity. Lymphadenopathy: Cervical: No cervical adenopathy. Skin: General: Skin is warm and dry. Capillary Refill: Capillary refill takes less than 2 seconds. Coloration: Skin is not pale. Findings: No erythema or rash. Neurological: Mental Status: She is alert and oriented to person, place, and time. Cranial Nerves: No cranial nerve deficit. Sensory: No sensory deficit. Motor: No abnormal muscle tone. Coordination: Coordination normal. Psychiatric: Behavior: Behavior normal. Thought Content: Thought content normal. MDM Labs Reviewed COMPREHENSIVE METABOLIC PANEL - Abnormal Result Value Sodium 139 Potassium, pl 3.8 Chloride 103 CO2 28 Anion gap 9 BUN 8 Creatinine 0.56 (*) Glucose 89 Calcium 9.7 Bilirubin, total 0.4 Protein, pl 7.8 Albumin 4.9 Alk phos 49 ALT 13 AST 19 D-DIMER, QUANTITATIVE - Abnormal D-dimer <150 (*) CBC WITH AUTO DIFFERENTIAL WBC 6.7 Hgb 13.8 Hct 40.2 Plt 295 MPV 9.9 RBC 4.59 MCV 87.6 MCH 30.1 MCHC 34.3 RDW CV 12.1 RDW SD 39.0 NRBC abs 0.00 TROPONIN T Troponin T <0.01 DIFFERENTIAL AUTO Neutrophil abs 3.9 Imm gran abs 0.0 Lymphocyte abs 2.0 Monocyte abs 0.5 Eosinophil abs 0.2 Basophil abs 0.1 Neutrophil pct 58.3 Imm gran pct 0.1 Lymphocyte pct 30.5 Monocyte pct 7.3 Eosinophil pct 2.8 Basophil pct 1.0 EGFR GFR 117 XR Chest Pa Lateral 2 Views Final Result 1. No active disease. Electronically signed by: Syed Lee Jr., M.D. BP 118/54 Pulse 67 Temp 36.2 ??C (97.2 ??F) (Temporal) Resp 16 Ht 175.3 cm (5' 9 ) Wt 67.1 kg (148 lb) LMP 03/31/2019 SpO2 97% BMI 21.86 kg/m?? Procedures MDM Number of Diagnoses or Management Options Chest pain, unspecified type: Amount and/or Complexity of Data Reviewed Clinical lab tests: ordered and reviewed Tests in the radiology section of CPT??: ordered and reviewed Independent visualization of images, tracings, or specimens: yes Risk of Complications, Morbidity, and/or Mortality Presenting problems: moderate Diagnostic procedures: moderate Management options: moderate ED Course as of Apr 06 2321 Time: 04/05 2123 Comment: Reviewed test results with patient. Discussed following up on Monday for the stress test.Discussed prescribed Ativan with the patient. Recommended returning to the ER for new or worsening symptoms. By: Fanny Hurtado Chest pain, unspecified type Disposition: Discharge Condition: guarded Fanny Hurtado scribed for Joann Baker MD, in the doctor's presence. I electronically signed this note at 10:29 PM on 04/05/2019. I, Joann Baker MD, have personally performed the services described in the documentation , reviewed the documentation, as recorded by the scribe in my presence, and it accurately and completely records my words and actions. Joann Baker MD 04/06/192320 * Ashley Saldaña, KENDRA - 04/05/2019 6:37 PM CDT Pt into ER with report of chest pressure to center of chest that radiates up neck and down bilat arms. Pt states return of sx approx 4 hours oncology specialist. Pt states sx onset of 30 days oncology specialist, was to have stresstest yesterday, however due to scheduling error it is now on Monday. Pt reports pressure is intermittent, she then becomes hot and flushed, dizzy, and SOB. documented in this encounter Plan of Treatment Not on file documented as of this encounter Procedures Procedure Name Priority Date/Time Associated Diagnosis Comments EGFR STAT 04/05/2019 8:12 PM CDT DIFFERENTIAL AUTO STAT 04/05/2019 8:1 2 PM CDT CBC WITH AUTO DIFFERENTIAL STAT 04/05/2019 8:12 PM CDT D-DIMER, QUANTITATIVE STAT 04/05/2019 8:12 PM CDT TROPONIN T STAT 04/05/2019 8:12 PM CDT COMPREHENSIVE METABOLIC PANEL STAT 04/05/2019 8:12 PM CDT XR CHEST PA LATERAL 2 VIEWS ED 04/05/2019 7:12 PM CDT ECG 12-LEAD STAT 04/05/2019 6:16 PM CDT documented in this encounter Results * eGFR (04/05/2019 8:12 PM CDT) eGFR 117 mL/min/1.7 3 m2 [facility]) Comment: Interpretive Data Reference Interval Normal ?>/= 90 mL/min/1.73m2 Mildly decreased* ? 60 - 89 mL/min/1.73m2 Mildly to moderately decreased ?45 - 59 mL/min/1.73m2 Moderately to severely decreased ??30 - 44 mL/min/1.73m2 Severely decreased ?15 - 29 mL/min/1.73m2 Kidney Failure ?< 15 ??mL/min/1.73m2 *Relative to young adult level If -Lao multiply value by 1.16. Estimated glomerular filtration rate is determined by [...] 70. Current interpretive data was last reviewed 2016. Blood specimen (specimen) 04/05/2019 8:12 PM CDT 04/05/2019 8:22 PM CDT us Joann Baker MD LAB BLOOD ORDERABLE S Final Result [facility] ([place]) [address] [place] [id number] * Differential, auto (04/05/2019 8:12 PM CDT) Neutrophil abs 3.9 1.7 - 6.5 K/cumm [facility] ([facility]) Imm gran abs 0.0 0.0 - 0.1 K/cumm [facility] ([facility]) Lymphocyte abs 2.0 0.8 - 3.3 K/cumm [facility] ([facility]) Monocyte abs 0.5 0.2 - 0.8 K/cumm [facility] ([facility]) Eosinophil abs 0.2 0.0 - 0.5 K/cumm [facility] ([facility]) Basophil abs 0.1 0.0 - 0.1 K/cumm [facility] ([facility]) Neutrophil pct 58.3 % [facility] ([facility]) Comment: Interpretive Data Percent cell count reference ranges are not reported, since discordance with absolute values may lead to misinterpretation of CBC data. Current Interpretive Data was last revised on 2017. Imm gran pct 0.1 % [facility] ([facility]) Comment: Interpretive Data Percent cell count reference ranges are not reported, since discordance with absolute values may lead to misinterpretation of CBC data. Current Interpretive Data was last revised on 2017. Lymphocyte pct 30.5 % [facility] ([facility]) Comment: Interpretive Data Percent cell count [...] was last revised on 2017. Eosinophil pct 2.8 % [facility] ([facility]) Comment: Interpretive Data Percent cell count [...] last revised on 2017. Blood specimen (specimen) 04/05/2019 8:12 PM CDT 04/05/2019 8:22 PM CDT us Joann Baker MD LAB BLOOD ORDERABLE S Final Result [facility] [address] [place], [place] [id number] * (ABNORMAL) D-dimer, quantitative (04/05/2019 8:12 PM CDT) D-dimer <150(L) 150 - 230 ng/mL D-DU [facility] ([facility]) Comment: Interpretive Data This D-dimer test is approved by the FDA to exclude suspected PE and DVT in outpatients when the result is <230 ng/mL in conjunction with a pre-test probability score of low or moderate using the Wells criteria. Current Interpretive Data was last revised on 2015. Blood specimen (specimen) 04/05/2019 8:12 PM CDT 04/05/2019 8:22 PM CDT Joann Baker MD LAB BLOOD ORDERABLE S Final Result Performing Organization Address [facility]/ZIP Co de Phone Number [facility] ([facility] [address] [place] [address] * Troponin T (04/05/2019 8:12 PM CDT) Troponin T <0.01 0.00 - 0.01 ng/mL [facility] ([facility]) Comment: Interpretive Data Reference ranges for children <18 years of age have not been established. - > or = 18 years: Serial determinations are recommended for the diagnosis of myocardial infarction. ??Temporal rise and fall are consistent with myocardial infarction when at least one value is above the 99th percentile upper reference limit for troponin assay. ??Journal of the [place] College of [employer]iology 2012;60:1581-98. Current Interpretive Data Last Revised Date: 2018. Blood specimen (specimen) 04/05/2019 8:12 PM CDT 04/05/2019 8:22 PM CDT Joann Baker MD LAB BLOOD ORDERABLE S Final Result Performing Organization Address [facility] Co de Phone Number [facility] [address] [place] [address] * (ABNORMAL) Comprehensive metabolic panel (04/05/2019 8:12 PM CDT) Sodium 139 135 - 145 mmol/L [facility] ([facility]) Potassium, pl 3.8 3.3 - 4.9 mmol/L [facility] ([facility]) Chloride 103 97 - 110 mmol/L [facility] ([facility]) CO2 28 22 - 32 mmol/L [facility] ([facility]) Anion gap 9 2 - 15 mmol/L [facility] ([facility]) BUN 8 8 - 25 mg/dL [facility] ([facility]) Creatinine 0.56(L) 0.60 - 1.10 mg/dL [facility] ([facility]) Glucose 89 70 - 199 mg/dL [facility] ([facility]) [...] interpretive data was last revised 2017. Calcium 9.7 8.5 - 10.3 mg/dL [facility] ([facility]) Bilirubin, total 0.4 0.1 - 1.2 mg/dL [facility] ([facility]) Protein, pl 7.8 6.5 - 8.5 g/dL [facility] ([facility]) Albumin 4.9 3.5 - 5.0 g/dL [facility] ([facility]) Alk phos 49 40 - 130 Units/L [facility] ([facility]) ALT 13 7 - 45 Units/L [facility] ([facility]) AST 19 10 - 45 Units/L [facility] ([facility]) Blood specimen (specimen) 04/05/2019 8:12 PM CDT 04/05/2019 8:22 PM CDT us Joann Baker MD LAB BLOOD ORDERABLE S Final Result [facility] ([facility]) [address] [place], [place] [id number] * CBC with auto differential (04/05/2019 8:12 PM CDT) WBC 6.7 3.8 - 9.9 K/cumm [facility] ([facility]) Hgb 13.8 11.9 - 15.5 g/dL [facility] ([facility]) Hct 40.2 35.6 - 45.5 % [facility] ([facility]) Plt 295 150 - 400 K/cumm [facility] ([facility]) MPV 9.9 9.1 - 12.3 fL [facility]) RBC 4.59 3.90 - 5.20 M/cumm [facility]) MCV 87.6 81.3 - 96.4 fL [facility]) MCH 30.1 27.1 - 33.3 pg [facility]) MCHC 34.3 32.3 - 35.7 g/dL [facility]) RDW CV 12.1 11.1 - 14.9 % [facility]) RDW SD 39.0 35.7 - 48.1 fL [facility]) NRBC abs 0.00 0.00 - 0.01 K/cumm [facility]) Blood specimen (specimen) 04/05/2019 8:12 PM CDT 04/05/2019 8:22 PM CDT us Joann Baker MD LAB BLOOD ORDERABLE S Final Result [facility] [address] [place] [address] * XR Chest Pa Lateral 2 Views [...] states return of sx approx 4 hours oncology specialist. Pt states sx onset of 30 days oncology specialist, to have stress test in 4 days [...] states return of sx approx 4 hours oncology specialist. Pt states sx onset of 30 days oncology specialist, to have stress test in 4 days [...] MD IMG XR PROCEDURES F inal Result * ECG 12 lead (04/05/2019 6:16 PM CDT) 04/05/2019 6:16 PM CDT Narrative [facility] - 04/06/2019 1:55 PM CDT Vent Rate: 62 bpm RR Interval: 956 msec TX Interval: 152 msec QRS Duration: 82 msec QT Interval: 399 msec QTC Interval: 405 msec P-R-T Baldwin: 34 - 31 - 50 degrees SINUS RHYTHM WITH SINUS ARRHYTHMIA NORMAL ECG No change from prior tracing Electronically Signed By: Apollo Torrez MD Joann Baker MD ECG ORDERABLES Fin al Result [facility] documented in this encounter Visit Diagnoses Diagnosis Chest pain, unspecified type- Primary documented in this encounter Additional Health Concerns Infection Onset Date Last Indicated Resolved Time MRSA Comment:AUTOMATED NOTE (ADD): MRSA (contact), MICHAEL, [id number], [facility] Apr 07 15:47:36 CDT 2011 wound 04/05/11 04/07/2011 04/07/201118/2 021 5:00 AM CDT documented as of this encounter Care Teams Director School Of Nursing Relationship Specialty Start Date End Date Amy Marc MD [address] [place] [address] PCP - General 11/12/13 documented as of this encounter
--- OUTSIDE RECORDS SUMMARY | 2024-06-24 23:58 | XMS_ITS | Encounter Summary ---
Author Organization [facility] Address [address] [place] [address] Care Team Providers Care Estimator Printing Plate Making Name Role Phone Amy Marc MD Primary Care Provider [phone]- [phone] Reason for Visit * Reason Comments Follow-up lumbar radiculopathy Encounter Details Date Type Department Care Team (Late st Contact Info) Description 11/22/2016 9:45 AM CDT Office Visit [facility] [address] [place] [address] Amy Marc MD [employer] [address] Low back pain, non-specific (Primary Dx) Social History Tobacco Use Types Packs/Day Years Used Date Smoking Tobacco: Every Day Alcohol Use Standard Drinks/Week Comments Yes 0 (1 standard drink = 0.6 oz pur e alcohol) Comments Unknown Sex and Gender Information Value Date Recorded Sex Assigned at Not on file 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 Gender Identity Not on file Sexual Orientation Not on file documented as of this encounter Last Filed Vital Signs Vital Sign Reading Time Taken Comments Blood Pressure 118/80 11/22/2016 10:06 AM CDT Pulse 70 11/22/2016 10:06 AM CDT Temperature - - Respiratory Rate 16 11/22/2016 10:06 AM CDT Oxygen Saturation - - Inhaled Oxygen Concentration - - Weight 77.1 kg (170 lb) 11/22/2016 10:06 AM CDT Height 172.7 cm (5' 8 ) 11/22/2016 10:06 AM CDT Body Mass Index 25.85 11/22/2016 10:06 AM CDT documented in this encounter Progress Notes * Amy Marc MD - 11/22/2016 9:45 AM CDT Images from the original note were not included. Subjective/Objective Patient ID: Vicky Ace is a 36 y.o. female. Chief Complaint Follow-up (lumbar radiculopathy) HPI Less tightness in the low back. Pain still radiating to thighs. No paresthesias. No increased weakness. No bowel/bladder changes. 6/10 pain severity. She still has discomfort with activities. She still gets buckle knee sensation. Review of Systems Less muscle spasms in thighs. Physical Exam Constitutional: She appears well-developed. Musculoskeletal: Back: Arms: Neurological: She is alert. No sensory deficit. Reflex Scores: Patellar reflexes are 2+ on the right side and 2+ on the left side. Achilles reflexes are 2+ on the right side and 2+ on the left side. Gait with limp favoring of the right leg. Muscle strength 4/5 hip flexors b/l. Knee extensors 4/5 b/l. Rest of lower extremity exam 5/5 throughout. +SLR on right to posterior buttock. Vitals reviewed. Assessment/Plan Diagnoses and all orders for this visit: 1. Low back pain, non-specific (Primary) Comments: Minimal improvement. continue prednisone course and chlorzoxazone. Patient can't afford xray today.if not able to urinate or worsening weakness to ER. Patient will call on Monday if she is markedly improved and able to rtw on a reduced schedule of 4-6hrs. For now off work. She says her insurance company told her that her coverage ran out 11/16/16 so now everything is out of pocket. documented in this encounter Plan of Treatment Not on file documented as of this encounter Visit Diagnoses Diagnosis Low back pain, non-specific- Primary documented in this encounter Additional Health Concerns Infection Onset Date Last Indicated Resolved Time MRSA Comment:AUTOMATED NOTE (ADD): MRSA (contact), MICHAEL [id number], [facility] Apr 07 15:47:36 CDT 2010 wound 04/05/11 04/07/2011 04/07/2011 021 5:00 AM CDT documented as of this encounter Care Teams Estimator Printing Plate Making Relationship Specialty Start Date End Date Amy Marc MD [address] [place] [address] PCP - General 11/12/13 documented as of this encounter
--- OUTSIDE RECORDS SUMMARY | 2024-06-24 23:58 | XMS_ITS | Encounter Summary ---
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
--- OUTSIDE RECORDS SUMMARY | 2024-06-24 23:58 | XMS_ITS | Encounter Summary ---
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
--- OUTSIDE RECORDS SUMMARY | 2024-06-24 23:58 | XMS_ITS | Encounter Summary ---
Author Organization [facility] Address [address] [place] [address] Care Team Providers Care Loom Operator Apprentice Name Role Phone Amy Marc MD Primary Care Provider [phone]- [phone] Reason for Visit * Reason Comments Chest Pain Shortness of Breath Encounter Details Date Type Department Care Team ([facility] st Contact Info) Description 03/06/2019 11:47 AM CDT - 03/06/2019 1:46 PM CDT Emergency [facility] Emergency Department [address] [place] [id number] Joann Baker MD [address] [place] [id number] Acute chest pain (Primary Dx); Anxiety Discharge Disposition: Discharge to home or self care Social History Tobacco Use Types Packs/Day Years Used Date Smoking Tobacco: Every Day Alcohol Use Standard Drinks/Week Comments Yes 0 (1 standard drink = 0.6 oz pur e alcohol) Comments No Sex and Gender Information Value Date Recorded Sex Assigned at Not on file 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 Gender Identity Not on file Sexual Orientation Not on file documented as of this encounter Last Filed Vital Signs Vital Sign Reading Time Taken Comments Blood Pressure 110/70 03/06/2019 1:30 PM CDT Pulse 66 03/06/2019 1:30 PM CDT Temperature 36.8 ??C (98.2 ??F) 03/06/2019 1:40 PM CD T Respiratory Rate 21 03/06/2019 1:30 PM CDT Oxygen Saturation 100% 03/06/2019 1:40 PM CDT Inhaled Oxygen Concentration - - Weight - - Height - - Body Mass Index - - documented in this encounter Discharge Diagnoses Diagnosis Other chest pain - OTHER CHEST PAIN Anxiety disorder - ANXIETY DISORDER, UNSPECIFIED Anxiety state, unspecified Nicotine dependence, uncomplicated - NICOTINE DEPENDENCE, UNSPECIFIED, UNCOMPLICATED Tobacco abuse counseling - TOBACCO ABUSE COUNSELING Family history of ischemic heart disease and other diseases of the circulatory system - FAMILY HISTORY OF ISCHEMIC HEART DISEASE AND OTHER DISEASES OF THE CIRCULATORY SYSTEM documented in this encounter Discharge Instructions * Attachments The following attachments cannot be sent through Care Everywhere. * Anxiety Reaction (Puerto Rican) * Chest Pain, Noncardiac ([place] Rican) documented in this encounter Medications at Time [...] Filled Start Date End Date LORazepam (ATIVAN) 1 mg tablet Take 0.5 tablets (0.5 mg total) by mouth every 8 (eight) hours as needed for anxiety 10 tablet 03/06/2019 3 documented in this encounter Discharge Disposition Disposition Code Departure Means Destination Discharge to home or self care documented in this encounter ED Notes * Marlene Canales RN - 03/06/2019 12:08 PM CDT Pt presents to triage with chest pain and some SOB x 1 week. Pt states she has a lot of stress and anxiety and has not taken any medications for the anxiety. * Joann Baker MD - 03/06/2019 12:04 PM CDT HPI No chief complaint on file. (1216): 39 y/o female, with a history of anxiety and tobacco use, presents with intermittent chest pain since last week. The chest pain episodes last for a few seconds at a time and feel like sharp sensations. Her pain was initially located over the left side of her chest, but as of last night, her chest pain began to radiate across to the right side. Since last night, she has had mild dizziness and dyspnea, which are only present when her chest pain is present. Denies palpitations, calf pain, calf swelling, hemoptysis, diaphoresis, cough, or fever. No nausea, vomiting, diarrhea, or abdominal pain. There is no personal or family history of cardiac diseases. She has been under increased stress lately and suspects that her symptoms may be secondary to anxiety. She is currently not on any anxiolytics. She is not on control. No other complaints at this time. Patient History Patient Active Problem List Diagnosis Date Noted ??? Low back pain, non-specific 11/22/2016 ??? Migraine 10/28/2013 Class: Chronic ??? Generalized anxiety disorder 10/28/2013 Class: Chronic No past medical history on file. No past surgical history on file. Family [...] Yes ??? Drug use: No Social History Social History Narrative ??? Not on file Review of Systems Review of Systems Constitutional: Negative. Negative for activity change, appetite change, chills, diaphoresis, fatigue, fever and unexpected weight change. HENT: Negative. Negative for congestion, facial swelling, nosebleeds, rhinorrhea and sore throat. Eyes: Negative. Negative for photophobia, discharge, redness and visual disturbance. Respiratory: Positive for shortness of breath. Negative for apnea and cough. Cardiovascular: Positive for chest pain. Negative for palpitations and leg swelling. Gastrointestinal: Negative. Negative for abdominal distention, abdominal pain, anal bleeding, bloodin stool, constipation, diarrhea, nausea, rectal pain and vomiting. Genitourinary: Negative. Negative for decreased urine volume, difficulty urinating, dysuria, flank pain, frequency, hematuria and urgency. Musculoskeletal: Negative. Negative for arthralgias, back pain, gait problem, joint swelling, myalgias, neck pain and neck stiffness. Skin: Negative. Negative for color change, pallor, rash and wound. Neurological: Positive for dizziness. Negative for syncope, facial asymmetry, weakness, numbness and headaches. Psychiatric/Behavioral: The patient is nervous/anxious. All other systems reviewed and are negative. Physical Exam ED Triage Vitals Temp Pulse Resp BP SpO2 -- -- -- -- -- Temp src Heart Rate Source Patient Position BP Location FiO2 (%) -- -- -- -- -- Physical Exam Constitutional: She is oriented to person, place, and time. She appears well- developed and well-nourished. HENT: Head: Normocephalic and atraumatic. Eyes: Conjunctivae and EOM are normal. Neck: Normal range of motion. Neck supple. Cardiovascular: Regular rhythm and normal heart sounds. Mild tachycardia. Pulmonary/Chest: Effort normal and breath sounds normal. No stridor. No respiratory distress. She has no wheezes. She has no rales. She exhibits no tenderness. Abdominal: Soft. She exhibits no distension. There is no tenderness. There is no rebound and no guarding. Musculoskeletal: Normal range of motion. She exhibits no edema, tenderness or deformity. Neurological: She is alert and oriented to person, place, and time. No cranial nerve deficit or sensory deficit. Skin: Skin is warm and dry. Capillary refill takes less than 2 seconds. No rash noted. Psychiatric: Her mood appears anxious. Nursing note and vitals reviewed. [facility] Vitals: 03/06/19 1310 03/06/19 1315 03/06/19 1320 03/06/19 1325 BP: 99/66 Pulse: 71 65 62 66 Resp: 15 16 19 15 Temp: TempSrc: SpO2: Labs Reviewed D-DIMER, QUANTITATIVE - Abnormal Result Value D-dimer <150 (*) CBC WITH AUTO DIFFERENTIAL WBC 5.2 Hgb 13.4 Hct 39.0 Plt 279 MPV 9.4 RBC 4.46 MCV 87.4 MCH 30.0 MCHC 34.4 RDW CV 12.3 RDW SD 39.6 NRBC abs 0.00 COMPREHENSIVE METABOLIC PANEL Sodium 140 Potassium, pl 4.3 Chloride 103 CO2 27 Anion gap 10 BUN 9 Creatinine 0.68 Glucose 119 Calcium 9.5 Bilirubin, total 0.4 Protein, pl 7.1 Albumin 4.4 Alk phos 45 ALT 17 AST 22 PRO B-TYPE NATRIURETIC PEPTIDE NT-proBNP 60 TROPONIN T Troponin T <0.01 TSH Thyroid Stimulating Hormone 1.60 DIFFERENTIAL AUTO Neutrophil abs 3.3 Imm gran abs 0.0 Lymphocyte abs 1.5 Monocyte abs 0.3 Eosinophil abs 0.1 Basophil abs 0.1 Neutrophil pct 63.0 Imm gran pct 0.2 Lymphocyte pct 28.2 Monocyte pct 5.0 Eosinophil pct 2.1 Basophil pct 1.5 EGFR GFR 109 XR Chest 1 Vw Portable Final Result NO ACTIVE DISEASE. Electronically signed by: Azeem Pollock M.D. Procedures Time: 1217. Sinus rhythm, rate 77. No acute ST/T-wave changes. MDM Number of Diagnoses or Management Options Acute chest pain: Anxiety: Amount and/or Complexity of Data Reviewed Clinical lab tests: ordered and reviewed Tests in the radiology section of CPT??: ordered and reviewed Independent visualization of images, tracings, or specimens: yes ED Course as of Mar 06 1334 Time: 03/06 1334 Comment: Patient has been advised on smoking cessation. Spent between 3-10 minutes discussing the benefits of cessation, as well as the risks of persistent tobacco use. Patient has been encouraged todiscuss pharmacological options with her family doctor if she fails to quit. By: Dimitri Abel Time: 03/06 1334 Comment: Rechecked patient. Patient is stable for discharge. Patient has been informed of any pertinent and incidental work-up findings. Also discussed plan for discharge and follow-up. Patient has been advised to return to the ED with any new or worsening symptoms. Patient verbalizes understandingand agreement with plan. All questions have been addressed at this time. By: Dimitri Abel Clinical Impression: 1. Acute chest pain 2. Anxiety Condition: Stable. Disposition: Discharged. This note was prepared by Dimitri Abel, acting as a Scribe for Joann Baker MD. I electronicallysigned this note at 1:46 PM on 03/06/2019. I, Joann Baker MD, have personally performed the services described in the documentation, reviewed the documentation, as recorded by the scribe in my presence. Joann Baker MD 03/06/19 1940 documented in this encounter Miscellaneous Notes * ED Procedure Note - Joann Baker MD - 03/06/2019 1:26 PM CDT Associated Order(s): ECG 12 lead Procedure ECG 12 lead Date/Time: 03/06/2019 12:17 PM Performed by: Joann Baker MD Authorized by: Joann Baker MD Rate: ECG rate: 77 ECG rate assessment: normal Rhythm: Rhythm: sinus rhythm QRS: QRS axis: Normal QRS intervals: Normal Conduction: Conduction: normal ST segments: ST segments: Normal T waves: T waves: normal Interpretation: Interpretation: normal Recommended Follow-up: Recommended follow up: no further workup needed Joann Baker MD 03/06/19 [id number] documented in this encounter Plan of Treatment Not on file documented as of this encounter Procedures Procedure Name Priority Date/Time Associated Diagnosis Comments EGFR STAT 03/06/2019 12:33 PM CDT DIFFERENTIAL AUTO STAT 03/06/2019 12: 33 PM CDT PRO B-TYPE NATRIURETIC PEPTIDE STAT 03/06/2019 12:33 PM CDT CBC WITH AUTO DIFFERENTIAL STAT 03/06/2019 12:33 PM CDT D-DIMER, QUANTITATIVE STAT 03/06/2019 12:33 PM CDT TROPONIN T STAT 03/06/2019 12:33 PM CDT TSH STAT 03/06/2019 12:33 PM CDT COMPREHENSIVE METABOLIC PANEL STAT 03/06/2019 12:33 PM CDT XR CHEST 1 VIEW ED 03/06/2019 12:26 PM CDT ECG 12-LEAD STAT 03/06/2019 12:17 PM CDT documented in this encounter Results * eGFR (03/06/2019 12:33 PM CDT) [facility] eGFR 109 mL/min/1.7 3 m2 [facility] ([facility]) Comment: Interpretive Data Reference Interval Normal ?>/= 90 mL/min/1.73m2 Mildly decreased* ? 60 - 89 mL/min/1.73m2 Mildly to moderately decreased ?45 - 59 mL/min/1.73m2 Moderately to severely decreased ??30 - 44 mL/min/1.73m2 Severely decreased ?15 - 29 mL/min/1.73m2 Kidney Failure ?< 15 ??mL/min/1.73m2 *Relative to young adult level If -Turkish multiply value by 1.16. Estimated glomerular filtration [...] was last reviewed 2016. Blood specimen (specimen) 03/06/2019 12:33 PM CDT 03/06/2019 12:36 PM CDT us Joann Baker MD LAB BLOOD ORDERABLE S Final Result [facility] ([facility] [address] [place] [id number] * Differential, auto (03/06/2019 12:33 PM CDT) Neutrophil abs 3.3 1.7 - 6.5 K/cumm [facility] ([facility]) Imm gran abs 0.0 0.0 - 0.1 K/cumm [facility] ([facility]) Lymphocyte abs 1.5 0.8 - 3.3 K/cumm [facility] ([facility]) Monocyte abs 0.3 0.2 - 0.8 K/cumm [facility] ([facility]) Eosinophil abs 0.1 0.0 - 0.5 K/cumm [facility] ([facility]) Basophil abs 0.1 0.0 - 0.1 K/cumm [facility] ([facility]) Neutrophil pct 63.0 % [facility] ([facility]) Comment: Interpretive [...] was last revised on 2017. Lymphocyte pct 28.2 % [facility] ([facility]) Comment: Interpretive Data Percent cell count reference ranges are not reported, since discordance with absolute values may lead to misinterpretation of CBC data. Current Interpretive Data was last revised on 2017. Monocyte pct 5.0 % [facility] ([facility]) Comment: Interpretive Data [...] was last revised on 2017. Basophil pct 1.5 % [facility] ([facility]) Comment: Interpretive Data Percent cell count reference ranges are not reported, since discordance with absolute values may lead to misinterpretation of CBC data. Current Interpretive Data was last revised on 2017. Blood specimen (specimen) 03/06/2019 12:33 PM CDT 03/06/2019 12:36 PM CDT Joann Baker MD LAB BLOOD ORDERABLE S Final Result Performing Organization Address City/[facility]/ZIP Co de Phone Number [facility] ([facility]) [address] [place] [address] * TSH (03/06/2019 12:33 PM CDT) Thyroid Stimulating Hormone 1.60 0.30 - 4.20 mcIUnit/mL [facility] ([facility]) Blood specimen (specimen) 03/06/2019 12:33 PM CDT 03/06/2019 12:36 PM CDT Joann Baker MD LAB BLOOD ORDERABLE S Final Result [facility] ([facility]) [address] [place] [address] * Troponin T (03/06/2019 12:33 PM CDT) Troponin T <0.01 0.00 - 0.01 ng/mL [facility] ([facility]) Comment: Interpretive Data Reference ranges for children <18 years of age have not been established. - > or = 18 years: Serial determinations are recommended for the diagnosis of myocardial infarction. ??Temporal rise and fall are consistent with myocardial infarction when at least one value is above the 99th percentile upper reference limit for troponin assay. ??Journal of the [place] [employer] 2012;60:1581-98. Current Interpretive Data Last Revised Date: 2018. Blood specimen (specimen) 03/06/2019 12:33 PM CDT 03/06/2019 12:36 PM CDT Joann Baker MD LAB BLOOD ORDERABLE S Final Result Performing Organization Address [facility] Co de Phone Number [facility] ([facility]) [address] [place] [address] * (ABNORMAL) D-dimer, quantitative (03/06/2019 12:33 PM CDT) D-dimer <150(L) 150 - 230 ng/mL D-DU [facility] ([facility]) Comment: Interpretive Data This D-dimer test is approved by the FDA to exclude suspected PE and DVT in outpatients when the result is <230 ng/mL in conjunction with a pre-test probability score of low or moderate using the Wells criteria. Current Interpretive Data was last revised on 2015. Blood specimen (specimen) 03/06/2019 12:33 PM CDT 03/06/2019 12:37 PM CDT Joann Baker MD LAB BLOOD ORDERABLE S Final Result Performing Organization Address [facility]/ZIP Co de Phone Number [facility] ([facility]) [address] [place] [address] * Pro B-type natriuretic peptide (03/06/2019 12:33 PM CDT) NT-proBNP 60 <=300 pg/mL [facility] ([facility]) Comment: Interpretive Comments: A. Dyspnea in Acute [...] et.al. Eur Heart J. 2006:27:330-337. 2. Jolly RW, Janet AM. J. AM Monique Cardiol: Cardiovasc Imag. 2009;2: 216- 225. Interpretive Data Last Revised Date: 2018. Blood specimen (specimen) 03/06/2019 12:33 PM CDT 03/06/2019 12:37 PM CDT us Joann Baker MD LAB BLOOD ORDERABLE S Final Result [facility] ([facility]) [address] [place] [address] * Comprehensive metabolic panel (03/06/2019 12:33 PM CDT) Sodium 140 135 - 145 mmol/L [facility] ([facility]) Potassium, pl 4.3 3.3 - 4.9 mmol/L [facility] ([facility]) Chloride 103 97 - 110 mmol/L [facility] ([facility]) CO2 27 22 - 32 mmol/L [facility] ([facility]) Anion gap 10 2 - 15 mmol/L [facility] ([facility]) BUN 9 8 - 25 mg/dL [facility] ([facility]) Creatinine 0.68 0.60 - 1.10 mg/dL [facility] ([facility]) Glucose 119 70 - 199 mg/dL [facility] ([facility]) [...] - 8.5 g/dL [facility] ([facility]) Albumin 4.4 3.5 - 5.0 g/dL [facility] ([facility]) Alk phos 45 40 - 130 Units/L [facility] ([facility]) ALT 17 7 - 45 Units/L [facility] ([facility]) AST 22 10 - 45 Units/L [facility] ([facility]) Blood specimen (specimen) 03/06/2019 12:33 PM CDT 03/06/2019 12:36 PM CDT Joann Baker MD LAB BLOOD ORDERABLE S Final Result [facility] ([facility]) [address] [place] [address] * CBC with auto differential (03/06/2019 12:33 PM CDT) WBC 5.2 3.8 - 9.9 K/cumm [facility] ([facility]) Hgb 13.4 11.9 - 15.5 g/dL [facility] ([facility]) Hct 39.0 35.6 - 45.5 % [facility] ([facility]) Plt 279 150 - 400 K/cumm [facility] ([facility]) MPV 9.4 9.1 - 12.3 fL [facility] ([facility]) RBC 4.46 3.90 - 5.20 M/cumm [facility] ([facility]) MCV 87.4 81.3 - 96.4 fL [facility] ([facility]) MCH 30.0 27.1 - 33.3 pg [facility] ([facility]) MCHC 34.4 32.3 - 35.7 g/dL [facility] ([facility]) RDW CV 12.3 11.1 - 14.9 % [facility] ([facility]) RDW SD 39.6 35.7 - 48.1 fL [facility] ([facility]) NRBC abs 0.00 0.00 - 0.01 K/cumm [facility] ([facility]) Blood specimen (specimen) 03/06/2019 12:33 PM CDT 03/06/2019 12:36 PM CDT Joann Baker MD LAB BLOOD ORDERABLE S Final Result [facility] ([facility]) [address] [place] [address] * XR Chest 1 Vw Portable (03/06/2019 12:26 PM CDT) Anatomical Region Laterality Modality Body, Chest N/A Computed Radiogr aphy 03/06/2019 12:3 0 PM CDT Impressions 03/06/2019 12:31 PM CDT NO ACTIVE DISEASE. Electronically signed by: Azeem Pollock M.D. Narrative 03/06/2019 12:31 PM CDT XR CHEST 1 VIEW HISTORY: Left-sided chest pain COMPARISON: None available. FINDINGS: Heart size is normal. ??Lungs are clear. Procedure Note Azeem Pollock MD - 03/06/2019 XR CHEST 1 VIEW HISTORY: Left-sided chest pain COMPARISON: None available. FINDINGS: Heart size is normal. Lungs are clear. IMPRESSION: NO ACTIVE DISEASE. Electronically signed by: Azeem Pollock M.D. Joann Baker MD IMG XR PROCEDURES F inal Result * ECG 12 lead (03/06/2019 12:17 PM CDT) 03/06/2019 12:1 7 PM CDT Narrative [facility] - 03/06/2019 3:18 PM CDT Vent Rate: 77 bpm RR Interval: 775 msec FL Interval: 144 msec QRS Duration: 82 msec QT Interval: 349 msec QTC Interval: 381 msec P-R-T [place]: 34 - 30 - 34 degrees SINUS RHYTHM NORMAL ECG Electronically Signed By: Dominic Morrison MD Joann Baker MD ECG ORDERABLES Fin al Result [facility] documented in this encounter Visit Diagnoses Diagnosis Acute chest pain- Primary Unspecified chest pain Anxiety Anxiety state, unspecified documented in this encounter Administered Medications Inactive Administered Medications - up to 3 most recent administrations Medication Order MAR Action Action Date Dose Rate Site LORazepam (ATIVAN) tablet 1.5 mg 1.5 mg, oral, Once, On Mon03/06/19 at 1219, For 1 dose Given 03/06/2019 12:41 PM CDT 1.5 mg documented in this encounter Active and Recently Administered Medications Times are shown in CDT. Scheduled Medication Order 03/04/2019 03/05/2019 03/06/2019 LORazepam (ATIVAN) tablet 1.5 mg (COMPLETED) 1.5 mg, oral, Once, On Mon03/06/19 at 1219, For 1 dose 1232 (Hold - Provide r: Jessica Edmond RN - Reason: Other - Comment: patient is deciding if she wants it.)1241 (Given - Provider: Marlene Canales RN) documented in this encounter Orders Nursing Count Last Ordered Date First Orde red Date CARDIO RESPIRATORY MONITORING 03/06/2019 CONTINUOUS PULSE OXIMETRY 03/06/2019 documented in this encounter Additional Health Concerns Infection Onset Date Last Indicated Resolved Time MRSA Comment:AUTOMATED NOTE (ADD): MRSA (contact), MICHAEL, [email or web address], [facility] Apr 07 15:47:36 CDT 2010 wound 04/05/11 04/07/2011 04/07/2011 021 5:00 AM CDT documented as of this encounter Care Teams Loom Operator Apprentice Relationship Specialty Start Date End Date Amy Marc MD [address] [place] [address] PCP - General 11/12/13 documented as of this encounter
--- OUTSIDE RECORDS SUMMARY | 2024-06-24 23:58 | XMS_ITS | Encounter Summary ---
Author Organization [facility] Address [address] [place] [address] Care Team Providers Care Hydraulic Lift Operator Name Role Phone Amy Marc MD Primary Care Provider [phone]- [phone] Encounter Details Date Type Department Care Team (Late st Contact Info) Description 01/03/2017 Telephone [facility] [address] [place] [address] Amy Marc MD COUNTRY [facility] [place] [address] Social History Tobacco Use Types Packs/Day Years Used Date Smoking Tobacco: Every Day Alcohol Use Standard Drinks/Week Comments Yes 0 (1 standard drink = 0.6 oz pur e alcohol) Comments Unknown Sex and Gender Information Value Date Recorded Sex Assigned at Not on file 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 Pt ns apt 12/12/16. Does she want to reschedule? documented in this encounter Plan of Treatment Not on file documented as of this encounter Visit Diagnoses Not on filedocumented in this encounter Additional Health Concerns Infection Onset Date Last Indicated Resolved Time MRSA Comment:AUTOMATED NOTE (ADD): MRSA (contact), MICHAEL [email or web address], Molly Apr 07 15:47:36 CDT 2010 wound 04/05/11 04/07/2011 04/07/2011 021 5:00 AM CDT documented as of this encounter Care Teams Hydraulic Lift Operator Relationship Specialty Start Date End Date Amy Marc MD [address] [place] [address] PCP - General 11/12/13 documented as of this encounter
--- OUTSIDE RECORDS SUMMARY | 2024-06-24 23:58 | XMS_ITS | Encounter Summary ---
Author Organization [facility] Healthcare Address [address] [place] [address] Care Team Providers Care Solar Project Engineer Name Role Phone Unavailable Primary Care Provider Unavailabl e Encounter Details Date Type Department Care Team (Late st Contact Info) Description 05/24/2010 6:54 PM COMPOSITION TEACHER - 05/24/2010 11:59 PM COMPOSITION TEACHER Hospital Encounter [facility] Social History Tobacco Use Types Packs/Day Years Used Date Smoking Tobacco: Never Assessed Comments Unknown Sex and Gender Information Value Date Recorded Sex Assigned at Not on file Legal Sex Female 12:17 AM COMPOSITION TEACHER Gender Identity Not on file Sexual Orientation Not on file documented as of this encounter Plan of Treatment Not on file documented as of this encounter Visit Diagnoses Not on filedocumented in this encounter
--- OUTSIDE RECORDS SUMMARY | 2024-06-24 23:58 | XMS_ITS | Encounter Summary ---
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
--- OUTSIDE RECORDS SUMMARY | 2024-06-24 23:58 | XMS_ITS | Encounter Summary ---
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
--- OUTSIDE RECORDS SUMMARY | 2024-06-24 23:58 | XMS_ITS | Encounter Summary ---
Author Organization [facility] Healthcare Address [address] [place] [address] Care Team Providers Care Intermediate Manager Name Role Phone Unavailable Primary Care Provider Unavailabl e Encounter Details Date Type Department Care Team (Latest Contact Info) Description 12/06/2008 9:26 PM CDT - 12/06/2008 11:05 PM CDT Hospital Encounter [facility] Other complication of , antepartum; Other symptoms involving abdomen and pelvis Social History Tobacco Use Types Packs/Day Years Used Date Smoking Tobacco: Never Assessed Comments Unknown Sex and Gender Information Value Date Recorded Sex Assigned at Not on file 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
--- OUTSIDE RECORDS SUMMARY | 2024-06-24 23:58 | XMS_ITS | Encounter Summary ---
Author Organization [facility] Healthcare Address [address] [place] [address] Care Team Providers Care Supervisor Graphite Name Role Phone Unavailable Primary Care Provider Unavailabl e Encounter Details Date Type Department Care Team (Late st Contact Info) Description 11/21/2009 12:01 AM CDT - 11/21/2009 11:59 PM CDT Hospital Encounter [facility] Christ Keller MD [address] [place] [address] [place] [id number] Abdominal pain Social History Tobacco Use Types Packs/Day Years Used Date Smoking Tobacco: Never Assessed Comments Unknown Sex and Gender Information Value Date Recorded Sex Assigned at Not on file 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
--- OUTSIDE RECORDS SUMMARY | 2024-06-24 23:58 | XMS_ITS | Encounter Summary ---
Author Organization [facility] Healthcare Address [address] [place] [address] Care Team Providers Care Parks And Recreation Worker Name Role Phone Unavailable Primary Care Provider Unavailabl e Encounter Details Date Type Department Care Team (Late st Contact Info) Description 10/23/2008 2:27 PM CDT - 10/23/2008 11:59 PM CDT Hospital Encounter [facility] Screening examination for sexually transmitted disease Social History Tobacco Use Types Packs/Day Years Used Date Smoking Tobacco: Never Assessed Comments Unknown Sex and Gender Information Value Date Recorded Sex Assigned at Not on file 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
--- OUTSIDE RECORDS SUMMARY | 2024-06-24 23:58 | XMS_ITS | Encounter Summary ---
Author Organization [facility] Healthcare Address [address] [place] [address] Care Team Providers Care Nutrition Specialist Name Role Phone Unavailable Primary Care Provider Unavailabl e Encounter Details Date Type Department Care Team (Latest Contact Info) Description 02/14/2009 1:05 PM CDT - 02/14/2009 3:02 PM CDT Hospital Encounter [facility] Other complication of , antepartum; Other symptoms involving abdomen and pelvis Social History Tobacco Use Types Packs/Day Years Used Date Smoking Tobacco: Never Assessed Comments Unknown Sex and Gender Information Value Date Recorded Sex Assigned at Not on file 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
== END 2024-06-17 10:01 | disposition home or self-care (01) ==
PROVIDERS: Emergency Provider Registered Nurse
DX: J01.40 Acute pansinusitis, unspecified (principal); F17.290 Nicotine dependence, other tobacco product, uncomplicated
CPT/HCPCS: 99213; G0463